=== PATIENT | female | born 1965 | race Caucasian/White ===

== ENCOUNTER 2018-05-02 21:41 | Emergency (ER) | payer MEDICAID ==
[~2018-05-02] VITALS: Ht 180.3 cm; Wt 100.0 kg
[~2018-05-02 21:41] MED LIST: AMOX1TAB61 PO; CALC-666 PO; CARV-39 PO; CARV12.52 PO; CHOL400T2 PO; DOCU-131 PO; FAMO20TA7 PO; HYDR-3341 PO; LANS1COM3 PO; LIDO700A5 TD; METH500T7 PO; ONDA4TAB12 PO; OXYC-302 PO; OXYC10TA47 PO; OXYC5TAB3 PO; PANT40TA3 PO; POLY17PO5 PO; POTA10TA11 PO; PRED20TA PO; SIMV20TA3 PO; SUCR1ORA11 PO; SUCR1ORA5 PO; ZOLP10TA PO
[2018-05-02] MEDS ORDERED: PROC5TAB40 PO (22:05)
[2018-05-02] MEDS ORDERED: SUCR1TAB33 PO (22:05)
[2018-05-02] MEDS ORDERED: AMLO10TA2 PO (22:05)
[2018-05-02] MEDS ORDERED: ONDA4TAB10 PO (22:05)
[2018-05-02] MEDS ORDERED: CLON2TAB9 PO (22:05)
[2018-05-02] MEDS ORDERED: ALPR2TAB2 PO (22:05)
[2018-05-02 22:52] LABS: MICROSCOPIC NOT IND
[2018-05-02 22:53] LABS: CULTURE INDICATED? NO
[2018-05-02] MEDS ORDERED: MORPHINE SULFATE 4 MG/ML, 1ML ONE (23:00)
[2018-05-02 23:06] LABS: AMPHETAMINE SCREEN, URINE Negative (Negative); BARBITURATE SCREEN, URINE Negative (Negative); BENZODIAZEPINE SCREEN, URINE Negative (Negative); CANNABINOID SCREEN, URINE Negative (Negative); COCAINE SCREEN, URINE Negative (Negative); METHADONE SCREEN, URINE Negative (Negative); OPIATE SCREEN, URINE Positive (Negative)
[2018-05-02] MEDS: MORPHINE SULFATE 4 MG/ML, 1ML IVPush PRN (23:09)
[2018-05-02 23:26] LABS: BASOPHILS # (AUTO) 0.07 x10^3/uL (0-0.1); BASOPHILS % (AUTO) 1 % (0-1); EOSINOPHILS # (AUTO) 0.22 x10^3/uL (0-0.4); EOSINOPHILS % (AUTO) 2 % (1-7); LYMPHOCYTES % (AUTO) 27 % (22-44); MD NO; MEAN CORPUSCULAR HEMOGLOBIN 30.2 pg (27.0-34.8); MEAN CORPUSCULAR VOLUME 88.7 fL (80-100); MONOCYTES # (AUTO) 0.27 x10^3/uL (0.2-0.8); MONOCYTES % (AUTO) 3 % (2-9); NEUTROPHILS # (AUTO) 6.27 x10^3/uL (1.8-6.8); NEUTROPHILS % (AUTO) 67 % (42-75); PLATELET COUNT 412 x10^3/uL (130-400); RED BLOOD COUNT 4.72 x10^6/uL (3.82-5.3); RED CELL DISTRIBUTION WIDTH 15.5 % (9.6-15.2)
[2018-05-02 23:33] LABS: ALANINE AMINOTRANSFERASE 13 U/L (12-78); ALBUMIN 3.9 g/dL (3.4-5.0); ANION GAP 9 mmol/L (5-15); CHLORIDE 110 mmol/L (98-107); CREATININE 0.76 mg/dL (0.55-1.02)
[2018-05-02 23:37] LABS: ALKALINE PHOSPHATASE 80 U/L (45-117); BILIRUBIN,TOTAL 0.6 mg/dL (0.2-1.0); TOTAL PROTEIN 7.7 g/dL (6.4-8.2); TROPONIN I < 0.015 ng/mL (0.000-0.045)
[2018-05-03] MEDS ORDERED: OMNIPAQUE 350 MG/ML, 100ML BOTTLE ONE (00:45)
[2018-05-03 01:11] VITALS: BP 144/87
[2018-05-03] MEDS ORDERED: MORPHINE SULFATE 4 MG/ML, 1ML ONE (01:13)
[2018-05-03] MEDS: MORPHINE SULFATE 4 MG/ML, 1ML IVPush PRN (01:21)
== END 2018-05-03 01:46 | disposition home or self-care (01) ==
LOC: ED 23:59
DX: A09 Infectious gastroenteritis and colitis, unspecified (principal); R11.2 Nausea with vomiting, unspecified; I10 Essential (primary) hypertension; E11.9 Type 2 diabetes mellitus without complications; I25.2 Old myocardial infarction; Z79.899 Other long term (current) drug therapy
CPT/HCPCS: 36415; 74177; 80053; 80307; 81003; 83690; 84484; 85025; 86677; 96374; 96376; 99285; Q9967

== ENCOUNTER 2018-05-03 18:57 | Emergency (ER) | payer MEDICAID ==
[~2018-05-03] VITALS: Ht 170.2 cm; Wt 100.0 kg
[~2018-05-03 18:57] MED LIST changes: +ALPR2TAB2 PO; +AMLO10TA2 PO; +CLON2TAB9 PO; +ONDA4TAB10 PO; +PROC5TAB40 PO; +SUCR1TAB33 PO
[2018-05-03 19:22] LABS: BASOPHILS # (AUTO) 0.06 x10^3/uL (0-0.1); BASOPHILS % (AUTO) 1 % (0-1); EOSINOPHILS # (AUTO) 0.22 x10^3/uL (0-0.4); EOSINOPHILS % (AUTO) 2 % (1-7); LYMPHOCYTES # (AUTO) 2.02 x10^3/uL (1-3.4); LYMPHOCYTES % (AUTO) 22 % (22-44); MD NO; MEAN CORPUSCULAR HEMOGLOBIN 29.9 pg (27.0-34.8); MEAN CORPUSCULAR HGB CONC 33.5 g/dL (32.4-35.8); MEAN CORPUSCULAR VOLUME 89.4 fL (80-100); MEAN PLATELET VOLUME 8.2 fL (7.4-10.4); MONOCYTES # (AUTO) 0.29 x10^3/uL (0.2-0.8); MONOCYTES % (AUTO) 3 % (2-9); NEUTROPHILS # (AUTO) 6.83 x10^3/uL (1.8-6.8); NEUTROPHILS % (AUTO) 73 % (42-75); PLATELET COUNT 341 x10^3/uL (130-400); RED BLOOD COUNT 4.51 x10^6/uL (3.82-5.3); RED CELL DISTRIBUTION WIDTH 16.2 % (9.6-15.2)
[2018-05-03 19:29] LABS: ALANINE AMINOTRANSFERASE 12 U/L (12-78); ALBUMIN 3.6 g/dL (3.4-5.0); ANION GAP 6 mmol/L (5-15); CALCIUM 9.3 mg/dL (8.5-10.1); CHLORIDE 110 mmol/L (98-107); CREATININE 0.99 mg/dL (0.55-1.02)
[2018-05-03 19:34] LABS: ALKALINE PHOSPHATASE 73 U/L (45-117); BILIRUBIN,TOTAL 0.6 mg/dL (0.2-1.0); TOTAL PROTEIN 7.1 g/dL (6.4-8.2); TROPONIN I < 0.015 ng/mL (0.000-0.045)
[2018-05-03] MEDS ORDERED: KETOROLAC 30 MG/1 ML ONE (19:42)
[2018-05-03] MEDS ORDERED: ONDANSETRON ODT 4 MG ONE (19:42)
[2018-05-03] MEDS ORDERED: KETOROLAC 30 MG/1 ML IM ONE (20:00)
[2018-05-03] MEDS ORDERED: ONDANSETRON ODT 4 MG PO ONE (20:00)
[2018-05-03] MEDS ORDERED: SODIUM CHLORIDE FLUSH 10ML SYR IVF ONE (20:30)
[2018-05-03] MEDS ORDERED: MORPHINE SULFATE 4 MG/ML, 1ML IVPush STA (20:42)
[2018-05-03 21:06] VITALS: BP 148/98
[2018-05-03] MEDS ORDERED: OMNIPAQUE 350 MG/ML, 100ML BOTTLE ONE (21:26)
[2018-05-03] MEDS ORDERED: LIDODERM 5% PATCH TD ONE (22:30)
== END 2018-05-03 22:36 | disposition home or self-care (01) ==
LOC: ED 21:07
DX: R07.2 Precordial pain (principal); E11.9 Type 2 diabetes mellitus without complications; E78.5 Hyperlipidemia, unspecified; I25.2 Old myocardial infarction; G89.29 Other chronic pain; I10 Essential (primary) hypertension; K51.90 Ulcerative colitis, unspecified, without complications; F17.200 Nicotine dependence, unspecified, uncomplicated; Z86.73 Personal history of transient ischemic attack (TIA), and cerebral infarction without residual deficits; Z88.1 Allergy status to other antibiotic agents; Z88.6 Allergy status to analgesic agent
CPT/HCPCS: 36415; 71045; 71275; 80053; 84484; 85025; 85379; 93005; 96372; 99285; J1885; Q0162; Q9967

== ENCOUNTER 2018-06-29 19:19 | Emergency (ER) | payer MEDICAID ==
[~2018-06-29] VITALS: Ht 180.3 cm; Wt 123.0 kg
[~2018-06-29 19:19] MED LIST changes: -AMLO10TA2 PO; +AMLO10TA6 PO
[2018-06-29 20:49] LABS: BASOPHILS # (AUTO) 0.05 x10^3/uL (0-0.1); BASOPHILS % (AUTO) 1 % (0-1); EOSINOPHILS # (AUTO) 0.15 x10^3/uL (0-0.4); EOSINOPHILS % (AUTO) 2 % (1-7); LYMPHOCYTES # (AUTO) 2.55 x10^3/uL (1-3.4); LYMPHOCYTES % (AUTO) 26 % (22-44); MD NO; MEAN CORPUSCULAR HEMOGLOBIN 31.3 pg (27.0-34.8); MEAN CORPUSCULAR HGB CONC 33.8 g/dL (32.4-35.8); MEAN CORPUSCULAR VOLUME 92.8 fL (80-100); MEAN PLATELET VOLUME 7.3 fL (7.4-10.4); MONOCYTES % (AUTO) 5 % (2-9); NEUTROPHILS # (AUTO) 6.55 x10^3/uL (1.8-6.8); NEUTROPHILS % (AUTO) 67 % (42-75); PLATELET COUNT 352 x10^3/uL (130-400); RED BLOOD COUNT 4.41 x10^6/uL (3.82-5.3); RED CELL DISTRIBUTION WIDTH 14.1 % (9.6-15.2)
[2018-06-29 20:59] LABS: ALANINE AMINOTRANSFERASE 11 U/L (12-78); ALBUMIN 3.6 g/dL (3.4-5.0); ANION GAP 12 mmol/L (5-15); CALCIUM 9.6 mg/dL (8.5-10.1); CHLORIDE 115 mmol/L (98-107); CREATININE 0.84 mg/dL (0.55-1.02)
[2018-06-29] MEDS ORDERED: LORazepam 1MG TABLET PO ONE (21:00)
[2018-06-29 21:04] LABS: ALKALINE PHOSPHATASE 75 U/L (45-117); BILIRUBIN,TOTAL 0.4 mg/dL (0.2-1.0); TOTAL PROTEIN 7.8 g/dL (6.4-8.2); TROPONIN I < 0.015 ng/mL (0.000-0.045)
[2018-06-29] MEDS ORDERED: LORazepam 1MG TABLET ONE (21:04)
[2018-06-29 21:07] VITALS: BP_DIAS 97
[2018-06-29 21:14] LABS: CULTURE INDICATED? YES; MICROSCOPIC INDICATED
== END 2018-06-29 22:16 | disposition other institution (70) ==
LOC: ED 22:05
DX: R07.89 Other chest pain (principal); N30.00 Acute cystitis without hematuria; E78.5 Hyperlipidemia, unspecified; I10 Essential (primary) hypertension; E11.9 Type 2 diabetes mellitus without complications; I25.2 Old myocardial infarction; Z86.73 Personal history of transient ischemic attack (TIA), and cerebral infarction without residual deficits; W01.0XXA Fall on same level from slipping, tripping and stumbling without subsequent striking against object, initial encounter; Y93.89 Activity, other specified; Y99.8 Other external cause status; Y92.009 Unspecified place in unspecified non-institutional (private) residence as the place of occurrence of the external cause
CPT/HCPCS: 36415; 71046; 80053; 81001; 83690; 84484; 85025; 87077; 87086; 93005; 99285

== ENCOUNTER 2018-07-04 16:26 | Emergency (ER) | payer MEDICAID ==
[~2018-07-04] VITALS: Ht 180.3 cm; Wt 100.0 kg
[2018-07-04] MEDS ORDERED: LORazepam 2 MG/ML, 1ML IVPush ONE (17:00)
[2018-07-04] MEDS ORDERED: MORPHINE SULFATE 4 MG/ML, 1ML IVPush PRN (17:00)
[2018-07-04] MEDS ORDERED: FAMOTIDINE 20 MG/2 ML IVP ONE (17:00)
[2018-07-04] MEDS ORDERED: SODIUM CHLORIDE FLUSH 10ML SYR IVF ONE (17:00)
[2018-07-04] MEDS ORDERED: SODIUM CHLORIDE 0.9% 1,000ML IVBOLUS ONE (17:00)
[2018-07-04] MEDS ORDERED: ONDANSETRON ODT 4 MG PO ONE (17:00)
[2018-07-04 17:23] LABS: BASOPHILS # (AUTO) 0.04 x10^3/uL (0-0.1); BASOPHILS % (AUTO) 1 % (0-1); EOSINOPHILS # (AUTO) 0.16 x10^3/uL (0-0.4); EOSINOPHILS % (AUTO) 2 % (1-7); LYMPHOCYTES # (AUTO) 1.83 x10^3/uL (1-3.4); LYMPHOCYTES % (AUTO) 22 % (22-44); MD NO; MEAN CORPUSCULAR HEMOGLOBIN 31.3 pg (27.0-34.8); MEAN CORPUSCULAR HGB CONC 33.6 g/dL (32.4-35.8); MEAN CORPUSCULAR VOLUME 93.2 fL (80-100); MONOCYTES # (AUTO) 0.53 x10^3/uL (0.2-0.8); MONOCYTES % (AUTO) 6 % (2-9); NEUTROPHILS # (AUTO) 5.66 x10^3/uL (1.8-6.8); NEUTROPHILS % (AUTO) 69 % (42-75); PLATELET COUNT 419 x10^3/uL (130-400); RED BLOOD COUNT 4.14 x10^6/uL (3.82-5.3); RED CELL DISTRIBUTION WIDTH 14.4 % (9.6-15.2)
[2018-07-04] MEDS ORDERED: MORPHINE SULFATE 4 MG/ML, 1ML ONE (17:26)
[2018-07-04] MEDS ORDERED: ONDANSETRON ODT 4 MG ONE (17:26)
[2018-07-04] MEDS ORDERED: LORazepam 2 MG/ML, 1ML ONE (17:26)
[2018-07-04] MEDS ORDERED: FAMOTIDINE 20 MG/2 ML ONE (17:27)
[2018-07-04 17:31] LABS: ALANINE AMINOTRANSFERASE 11 U/L (12-78); ALBUMIN 3.4 g/dL (3.4-5.0); ANION GAP 12 mmol/L (5-15); CALCIUM 8.9 mg/dL (8.5-10.1); CHLORIDE 110 mmol/L (98-107); CREATININE 0.88 mg/dL (0.55-1.02)
[2018-07-04 17:33] LABS: ALKALINE PHOSPHATASE 72 U/L (45-117); BILIRUBIN,TOTAL 0.4 mg/dL (0.2-1.0); TOTAL PROTEIN 7.6 g/dL (6.4-8.2)
[2018-07-04 19:12] LABS: CULTURE INDICATED? NO; MICROSCOPIC NOT IND
[2018-07-04 20:46] VITALS: BP 125/79
== END 2018-07-04 20:49 | disposition home or self-care (01) ==
LOC: ED 16:58
DX: S39.012A Strain of muscle, fascia and tendon of lower back, initial encounter (principal); K29.00 Acute gastritis without bleeding; I10 Essential (primary) hypertension; E11.9 Type 2 diabetes mellitus without complications; I25.2 Old myocardial infarction; E78.5 Hyperlipidemia, unspecified; Z88.5 Allergy status to narcotic agent; Z88.1 Allergy status to other antibiotic agents; Z86.73 Personal history of transient ischemic attack (TIA), and cerebral infarction without residual deficits; X58.XXXA Exposure to other specified factors, initial encounter; Y93.89 Activity, other specified; Y99.8 Other external cause status; Y92.89 Other specified places as the place of occurrence of the external cause
CPT/HCPCS: 36415; 76700; 80053; 81003; 83605; 83690; 85025; 93005; 96361; 96374; 96375; 99285; J2060; J7030; Q0162; S0028

== ENCOUNTER 2018-07-06 01:33 | Emergency (ER) | payer MEDICAID ==
[~2018-07-06] VITALS: Ht 180.3 cm; Wt 100.0 kg
[2018-07-06] MEDS ORDERED: ACETAMINOPHEN 500 MG TABLET ONE (02:20)
[2018-07-06] MEDS ORDERED: ONDANSETRON 2MG/ML, 2ML ONE (02:20)
[2018-07-06] MEDS ORDERED: FAMOTIDINE 20 MG/2 ML ONE (02:21)
[2018-07-06] MEDS ORDERED: FAMOTIDINE 20 MG/2 ML IVP ONE (02:30)
[2018-07-06] MEDS ORDERED: ACETAMINOPHEN 500 MG TABLET PO ONE (02:30)
[2018-07-06] MEDS ORDERED: ONDANSETRON 2MG/ML, 2ML IVPush ONE (02:30)
[2018-07-06 02:41] LABS: BASOPHILS # (AUTO) 0.06 x10^3/uL (0-0.1); BASOPHILS % (AUTO) 1 % (0-1); EOSINOPHILS # (AUTO) 0.23 x10^3/uL (0-0.4); EOSINOPHILS % (AUTO) 3 % (1-7); LYMPHOCYTES # (AUTO) 2.33 x10^3/uL (1-3.4); LYMPHOCYTES % (AUTO) 27 % (22-44); MD NO; MEAN CORPUSCULAR HEMOGLOBIN 31.1 pg (27.0-34.8); MEAN CORPUSCULAR HGB CONC 33.3 g/dL (32.4-35.8); MEAN CORPUSCULAR VOLUME 93.3 fL (80-100); MEAN PLATELET VOLUME 6.9 fL (7.4-10.4); MONOCYTES # (AUTO) 0.53 x10^3/uL (0.2-0.8); MONOCYTES % (AUTO) 6 % (2-9); NEUTROPHILS # (AUTO) 5.37 x10^3/uL (1.8-6.8); NEUTROPHILS % (AUTO) 63 % (42-75); PLATELET COUNT 341 x10^3/uL (130-400); RED BLOOD COUNT 3.75 x10^6/uL (3.82-5.3); RED CELL DISTRIBUTION WIDTH 14.5 % (9.6-15.2)
[2018-07-06 02:50] LABS: ALANINE AMINOTRANSFERASE 13 U/L (12-78); ALBUMIN 2.9 g/dL (3.4-5.0); ANION GAP 9 mmol/L (5-15); CHLORIDE 109 mmol/L (98-107); CREATININE 0.99 mg/dL (0.55-1.02)
[2018-07-06 02:52] LABS: ALKALINE PHOSPHATASE 67 U/L (45-117); BILIRUBIN,TOTAL 0.3 mg/dL (0.2-1.0); TOTAL PROTEIN 6.8 g/dL (6.4-8.2)
[2018-07-06 04:01] VITALS: BP 107/65
[2018-07-06] MEDS ORDERED: MORPHINE SULFATE 4 MG/ML, 1ML ONE (04:08)
[2018-07-06] MEDS ORDERED: morphine SULFATE 10 MG/ML, 1ML IVPush ONE (04:30)
[2018-07-06 04:57] LABS: CULTURE INDICATED? NO; MICROSCOPIC NOT IND
[2018-07-06] MEDS ORDERED: OMNIPAQUE 350 MG/ML, 100ML BOTTLE ONE (06:34)
== END 2018-07-06 05:23 | disposition home or self-care (01) ==
LOC: ED 03:09
DX: R10.11 Right upper quadrant pain (principal); R10.12 Left upper quadrant pain; F17.200 Nicotine dependence, unspecified, uncomplicated; E78.5 Hyperlipidemia, unspecified; I10 Essential (primary) hypertension; E11.9 Type 2 diabetes mellitus without complications; I25.2 Old myocardial infarction; Z86.73 Personal history of transient ischemic attack (TIA), and cerebral infarction without residual deficits
CPT/HCPCS: 36415; 74177; 80053; 81003; 83690; 85025; 93005; 96374; 96375; 99285; J2270; J2405; Q9967; S0028

== ENCOUNTER 2018-07-19 01:19 | Emergency (ER) | payer MEDICAID ==
[~2018-07-19] VITALS: Ht 180.3 cm; Wt 96.0 kg
[2018-07-19 02:05] LABS: BASOPHILS # (AUTO) 0.04 x10^3/uL (0-0.1); BASOPHILS % (AUTO) 1 % (0-1); EOSINOPHILS # (AUTO) 0.14 x10^3/uL (0-0.4); EOSINOPHILS % (AUTO) 2 % (1-7); LYMPHOCYTES # (AUTO) 2.22 x10^3/uL (1-3.4); LYMPHOCYTES % (AUTO) 33 % (22-44); MD NO; MEAN CORPUSCULAR HEMOGLOBIN 31.9 pg (27.0-34.8); MEAN CORPUSCULAR HGB CONC 33.6 g/dL (32.4-35.8); MEAN PLATELET VOLUME 6.9 fL (7.4-10.4); MONOCYTES # (AUTO) 0.42 x10^3/uL (0.2-0.8); MONOCYTES % (AUTO) 6 % (2-9); NEUTROPHILS # (AUTO) 3.99 x10^3/uL (1.8-6.8); NEUTROPHILS % (AUTO) 59 % (42-75); PLATELET COUNT 349 x10^3/uL (130-400); RED BLOOD COUNT 3.86 x10^6/uL (3.82-5.3); RED CELL DISTRIBUTION WIDTH 15.2 % (9.6-15.2)
[2018-07-19 02:14] LABS: INTERNATIONAL NORMALIZED RATIO 0.94 (0.93-1.1); PROTHROMBIN TIME 9.7 Seconds (9.6-11.5)
[2018-07-19 02:16] VITALS: BP 116/67
[2018-07-19 02:16] LABS: ALANINE AMINOTRANSFERASE 11 U/L (12-78); ALBUMIN 2.8 g/dL (3.4-5.0); ANION GAP 12 mmol/L (5-15); CALCIUM 8.7 mg/dL (8.5-10.1); CHLORIDE 115 mmol/L (98-107); CREATININE 0.69 mg/dL (0.55-1.02)
[2018-07-19 02:20] LABS: ALKALINE PHOSPHATASE 79 U/L (45-117); BILIRUBIN,TOTAL 0.1 mg/dL (0.2-1.0); TOTAL PROTEIN 6.4 g/dL (6.4-8.2); TROPONIN I < 0.015 ng/mL (0.000-0.045)
== END 2018-07-19 03:12 | disposition home or self-care (01) ==
LOC: ED 01:32
DX: R07.89 Other chest pain (principal); R10.32 Left lower quadrant pain; E11.9 Type 2 diabetes mellitus without complications; I25.2 Old myocardial infarction; E78.5 Hyperlipidemia, unspecified; Z87.39 Personal history of other diseases of the musculoskeletal system and connective tissue; Z90.710 Acquired absence of both cervix and uterus; Z98.890 Other specified postprocedural states; Z86.73 Personal history of transient ischemic attack (TIA), and cerebral infarction without residual deficits; Z87.442 Personal history of urinary calculi
CPT/HCPCS: 36415; 71045; 80053; 83880; 84484; 85025; 85610; 93005; 99285

== ENCOUNTER 2018-07-19 10:02 | Emergency (ER) | payer MEDICAID ==
[~2018-07-19] VITALS: Ht 175.3 cm; Wt 118.2 kg
[2018-07-19] MEDS ORDERED: SODIUM CHLORIDE FLUSH 10ML SYR IVF ONE (11:00)
[2018-07-19 11:58] LABS: BASOPHILS # (AUTO) 0.05 x10^3/uL (0-0.1); BASOPHILS % (AUTO) 1 % (0-1); EOSINOPHILS # (AUTO) 0.19 x10^3/uL (0-0.4); EOSINOPHILS % (AUTO) 3 % (1-7); LYMPHOCYTES # (AUTO) 1.79 x10^3/uL (1-3.4); LYMPHOCYTES % (AUTO) 31 % (22-44); MD NO; MEAN CORPUSCULAR HEMOGLOBIN 31.2 pg (27.0-34.8); MEAN CORPUSCULAR HGB CONC 32.8 g/dL (32.4-35.8); MEAN PLATELET VOLUME 7.1 fL (7.4-10.4); MONOCYTES # (AUTO) 0.29 x10^3/uL (0.2-0.8); MONOCYTES % (AUTO) 5 % (2-9); NEUTROPHILS # (AUTO) 3.55 x10^3/uL (1.8-6.8); NEUTROPHILS % (AUTO) 61 % (42-75); PLATELET COUNT 319 x10^3/uL (130-400); RED BLOOD COUNT 3.83 x10^6/uL (3.82-5.3); RED CELL DISTRIBUTION WIDTH 15.8 % (9.6-15.2)
[2018-07-19 12:00] LABS: ALANINE AMINOTRANSFERASE 12 U/L (12-78); ALBUMIN 2.7 g/dL (3.4-5.0); ANION GAP 10 mmol/L (5-15); CALCIUM 8.5 mg/dL (8.5-10.1); CHLORIDE 116 mmol/L (98-107); CREATININE 0.67 mg/dL (0.55-1.02)
[2018-07-19 12:01] LABS: ALKALINE PHOSPHATASE 73 U/L (45-117); BILIRUBIN,TOTAL 0.1 mg/dL (0.2-1.0); TOTAL PROTEIN 6.2 g/dL (6.4-8.2)
[2018-07-19] MEDS ORDERED: OMNIPAQUE 350 MG/ML, 100ML BOTTLE ONE (12:07)
[2018-07-19 12:48] LABS: CULTURE INDICATED? NO; MICROSCOPIC NOT IND
[2018-07-19] MEDS ORDERED: ONDANSETRON ODT 4 MG ONE (16:15)
[2018-07-19 16:22] VITALS: BP 114/51
[2018-07-19] MEDS ORDERED: ONDANSETRON ODT 4 MG PO ONE (16:30)
== END 2018-07-19 16:43 | disposition home or self-care (01) ==
LOC: ED 13:49
DX: R10.84 Generalized abdominal pain (principal); R07.9 Chest pain, unspecified; F17.200 Nicotine dependence, unspecified, uncomplicated; I10 Essential (primary) hypertension; E11.9 Type 2 diabetes mellitus without complications
CPT/HCPCS: 36415; 74174; 80053; 81003; 83605; 83690; 85025; 93005; 99285; Q0162; Q9967

== ENCOUNTER 2018-07-27 16:17 | Emergency (ER) | payer MEDICAID ==
[~2018-07-27] VITALS: Ht 167.6 cm; Wt 90.0 kg
[2018-07-27] MEDS ORDERED: MAALOX/HYOSCYAMINE/LIDOCAINE 45 ML BTL PO ONE (17:00)
[2018-07-27] MEDS ORDERED: LORazepam 2 MG/ML, 1ML IVPush ONE (17:00)
[2018-07-27] MEDS ORDERED: SODIUM CHLORIDE 0.9% 1,000ML IVBOLUS ONE ×2 (17:00→18:00)
[2018-07-27] MEDS ORDERED: KETOROLAC 30 MG/1 ML IVPush ONE (17:00)
[2018-07-27] MEDS ORDERED: SODIUM CHLORIDE FLUSH 10ML SYR IVF ONE (17:00)
[2018-07-27] MEDS ORDERED: FAMOTIDINE 20 MG/2 ML IVP ONE (17:00)
[2018-07-27] MEDS ORDERED: METOCLOPRAMIDE 5 MG/ML, 2ML IVPush ONE (17:00)
[2018-07-27] MEDS ORDERED: FAMOTIDINE 20 MG/2 ML ONE (17:16)
[2018-07-27] MEDS ORDERED: MAALOX/HYOSCYAMINE/LIDOCAINE 45 ML BTL ONE (17:16)
[2018-07-27] MEDS ORDERED: METOCLOPRAMIDE 5 MG/ML, 2ML ONE (17:16)
[2018-07-27] MEDS ORDERED: KETOROLAC 30 MG/1 ML ONE (17:16)
[2018-07-27] MEDS ORDERED: LORazepam 2 MG/ML, 1ML ONE (17:16)
[2018-07-27 17:24] LABS: BASOPHILS # (AUTO) 0.06 x10^3/uL (0-0.1); BASOPHILS % (AUTO) 1 % (0-1); EOSINOPHILS # (AUTO) 0.09 x10^3/uL (0-0.4); EOSINOPHILS % (AUTO) 1 % (1-7); LYMPHOCYTES # (AUTO) 2.12 x10^3/uL (1-3.4); LYMPHOCYTES % (AUTO) 25 % (22-44); MD NO; MEAN CORPUSCULAR HEMOGLOBIN 31.6 pg (27.0-34.8); MEAN CORPUSCULAR VOLUME 95.9 fL (80-100); MEAN PLATELET VOLUME 6.8 fL (7.4-10.4); MONOCYTES # (AUTO) 0.48 x10^3/uL (0.2-0.8); MONOCYTES % (AUTO) 6 % (2-9); NEUTROPHILS % (AUTO) 68 % (42-75); PLATELET COUNT 348 x10^3/uL (130-400); RED BLOOD COUNT 4.26 x10^6/uL (3.82-5.3); RED CELL DISTRIBUTION WIDTH 15.8 % (9.6-15.2)
[2018-07-27 17:33] LABS: ALANINE AMINOTRANSFERASE 13 U/L (12-78); ALBUMIN 3.1 g/dL (3.4-5.0); ANION GAP 13 mmol/L (5-15); CALCIUM 9.1 mg/dL (8.5-10.1); CHLORIDE 115 mmol/L (98-107); CREATININE 0.93 mg/dL (0.55-1.02)
[2018-07-27 17:38] LABS: ALKALINE PHOSPHATASE 83 U/L (45-117); BILIRUBIN,TOTAL 0.2 mg/dL (0.2-1.0); TOTAL PROTEIN 6.9 g/dL (6.4-8.2); TROPONIN I < 0.015 ng/mL (0.000-0.045)
[2018-07-27] MEDS ORDERED: SODIUM CHLORIDE 0.9% 1,000 ML IV ONE (18:00)
[2018-07-27] MEDS ORDERED: ONDANSETRON ODT 4 MG ONE (19:00)
[2018-07-27] MEDS ORDERED: ONDANSETRON ODT 4 MG PO ONE (19:30)
[2018-07-27] MEDS ORDERED: PLEASE ENTER HEIGHT AND WEIGHT MC SCH (19:30)
[2018-07-27 20:22] VITALS: BP 107/65
== END 2018-07-27 20:24 | disposition home or self-care (01) ==
LOC: ED 18:12
DX: R07.89 Other chest pain (principal); R11.2 Nausea with vomiting, unspecified; E86.0 Dehydration; E86.9 Volume depletion, unspecified; E78.5 Hyperlipidemia, unspecified; I10 Essential (primary) hypertension; I25.2 Old myocardial infarction; F17.200 Nicotine dependence, unspecified, uncomplicated; Z86.73 Personal history of transient ischemic attack (TIA), and cerebral infarction without residual deficits
CPT/HCPCS: 36415; 74022; 80053; 83690; 84484; 85025; 93005; 96361; 96374; 96375; 99285; J1885; J2060; J2765; J3490; J7030; Q0162

== ENCOUNTER 2018-08-13 16:33 | Emergency (ER) | payer MEDICAID ==
[~2018-08-13] VITALS: Ht 180.3 cm; Wt 101.0 kg
[2018-08-13 17:20] LABS: BASOPHILS # (AUTO) 0.03 x10^3/uL (0-0.1); BASOPHILS % (AUTO) 1 % (0-1); EOSINOPHILS # (AUTO) 0.11 x10^3/uL (0-0.4); EOSINOPHILS % (AUTO) 2 % (1-7); LYMPHOCYTES # (AUTO) 2.08 x10^3/uL (1-3.4); LYMPHOCYTES % (AUTO) 37 % (22-44); MD NO; MEAN CORPUSCULAR HEMOGLOBIN 31.9 pg (27.0-34.8); MEAN CORPUSCULAR VOLUME 96.6 fL (80-100); MEAN PLATELET VOLUME 6.8 fL (7.4-10.4); MONOCYTES # (AUTO) 0.28 x10^3/uL (0.2-0.8); MONOCYTES % (AUTO) 5 % (2-9); NEUTROPHILS # (AUTO) 3.16 x10^3/uL (1.8-6.8); NEUTROPHILS % (AUTO) 56 % (42-75); PLATELET COUNT 299 x10^3/uL (130-400); RED BLOOD COUNT 4.04 x10^6/uL (3.82-5.3); RED CELL DISTRIBUTION WIDTH 15.9 % (9.6-15.2)
[2018-08-13 17:29] LABS: ALBUMIN 2.9 g/dL (3.4-5.0); ANION GAP 10 mmol/L (5-15); CALCIUM 9.2 mg/dL (8.5-10.1); CHLORIDE 118 mmol/L (98-107)
[2018-08-13] MEDS ORDERED: ACETAMINOPHEN 325 MG TABLET PO ONE (17:30)
[2018-08-13] MEDS ORDERED: ACETAMINOPHEN 325 MG TABLET ONE (17:30)
[2018-08-13 17:33] LABS: ALANINE AMINOTRANSFERASE 16 U/L (12-78); ALKALINE PHOSPHATASE 71 U/L (45-117); BILIRUBIN,TOTAL 0.2 mg/dL (0.2-1.0); CREATININE 0.56 mg/dL (0.55-1.02); TOTAL PROTEIN 6.8 g/dL (6.4-8.2); TROPONIN I < 0.015 ng/mL (0.000-0.045)
[2018-08-13] MEDS ORDERED: ONDANSETRON ODT 4 MG ONE (19:30)
[2018-08-13] MEDS ORDERED: ONDANSETRON ODT 4 MG PO ONE (20:00)
[2018-08-13 20:04] VITALS: BP 131/78
== END 2018-08-13 20:09 | disposition home or self-care (01) ==
LOC: ED 16:46
DX: R60.0 Localized edema (principal); I25.2 Old myocardial infarction; I10 Essential (primary) hypertension; E11.9 Type 2 diabetes mellitus without complications; E78.5 Hyperlipidemia, unspecified; Z86.73 Personal history of transient ischemic attack (TIA), and cerebral infarction without residual deficits
CPT/HCPCS: 36415; 71045; 80053; 83880; 84484; 85025; 93005; 93970; 99284; Q0162

== ENCOUNTER 2018-09-08 09:35 | Inpatient (IN) | payer MEDICAID ==
[~2018-09-08] VITALS: Ht 180.3 cm; Wt 109.8 kg
--- NOTE | 2018-09-08 09:37 | NUR ---
BIB EMS FROM HOME. PT RPTS SHE WAS IN THE KITCHEN THIS MORNING 0300, FELT WEAK AND DIZZY WITH A RINGING IN HER EARS. THE NEXT THING SHE REMEMBERS IS WAKING UP ON THE FLOOR. PT STATES SHE WAS UNABLE TO GET UP OFF OF THE FLOOR AND HAD TO "INCH" HER WAY OVER TO THE PHONE. MONITORS PLACED AND EKG COMPLETED. VSS. DR. GARSIA AT BEDSIDE.
[2018-09-08] MEDS ORDERED: SODIUM CHLORIDE FLUSH 10ML SYR IVF ONE (10:00)
[2018-09-08] MEDS ORDERED: ALEN5TAB2 PO (10:15)
--- NOTE | 2018-09-08 10:19 | NUR ---
BEDSIDE REPORT FROM THALIA BOND. ASSUMED CARE OF PATIENT AT THIS TIME. ORTHOSTATIC VS COMPLETED, PATIENT UP TO BEDSIDE COMMODE, UA COLLECTED AND SENT TO LAB. AWAITING RESULTS. Addendum: 09/08/18 at 1039 by RAHUL PATIENT TO BEDSIDE COMMODE WITH 1 ASSIST.
--- NOTE | 2018-09-08 10:34 | NUR ---
LAB AT BEDSIDE FOR BLOOD DRAW.
[2018-09-08 10:53] LABS: MICROSCOPIC AUTO
[2018-09-08 10:55] LABS: CULTURE INDICATED? YES
[2018-09-08 11:00] LABS: BASOPHILS # (AUTO) 0.04 x10^3/uL (0-0.1); BASOPHILS % (AUTO) 0 % (0-1); EOSINOPHILS # (AUTO) 0.41 x10^3/uL (0-0.4); EOSINOPHILS % (AUTO) 3 % (1-7); LYMPHOCYTES # (AUTO) 2.07 x10^3/uL (1-3.4); LYMPHOCYTES % (AUTO) 17 % (22-44); MD NO; MEAN CORPUSCULAR HEMOGLOBIN 31.4 pg (27.0-34.8); MEAN CORPUSCULAR HGB CONC 33.3 g/dL (32.4-35.8); MEAN CORPUSCULAR VOLUME 94.4 fL (80-100); MEAN PLATELET VOLUME 6.4 fL (7.4-10.4); MONOCYTES # (AUTO) 0.54 x10^3/uL (0.2-0.8); MONOCYTES % (AUTO) 5 % (2-9); NEUTROPHILS # (AUTO) 9.13 x10^3/uL (1.8-6.8); NEUTROPHILS % (AUTO) 75 % (42-75); PLATELET COUNT 439 x10^3/uL (130-400); RED BLOOD COUNT 3.61 x10^6/uL (3.82-5.3); RED CELL DISTRIBUTION WIDTH 15.9 % (9.6-15.2)
[2018-09-08 11:12] LABS: ALANINE AMINOTRANSFERASE 16 U/L (12-78); ALBUMIN 2.4 g/dL (3.4-5.0); ANION GAP 10 mmol/L (5-15); CALCIUM 8.4 mg/dL (8.5-10.1); CHLORIDE 114 mmol/L (98-107); CREATININE 0.61 mg/dL (0.55-1.02)
[2018-09-08 11:16] LABS: ALKALINE PHOSPHATASE 95 U/L (45-117); BILIRUBIN,TOTAL 0.3 mg/dL (0.2-1.0); TROPONIN I < 0.015 ng/mL (0.000-0.045)
--- NOTE | 2018-09-08 11:22 | NUR ---
RESULTS BACK, CHART UP FOR RECHECK.
[2018-09-08] MEDS ORDERED: AZITHROMYCIN 500 MG in SODIUM CHLORIDE 0.9% 250 ML IV ONE (12:00)
[2018-09-08] MEDS ORDERED: CEFTRIAXONE PMX 1GM/50ML 50 ML IV ONE (12:00)
[2018-09-08] MEDS ORDERED: CEFTRIAXONE PMX 1GM/50ML 50 ML ONE (12:00)
--- NOTE | 2018-09-08 12:28 | NUR ---
REPORT TO THALIA TERRAZAS.
--- NOTE | 2018-09-08 12:34 | NUR ---
[facility] AT BEDSIDE.
--- NOTE | 2018-09-08 12:34 | NUR ---
[facility] AT BEDSIDE.
[2018-09-08] MEDS ORDERED: NS + 20MEQ KCL 1,000 ML IV SCH (12:39)
--- NOTE | 2018-09-08 12:52 | NUR ---
PATIENT TRANSFERRED/ADMITTED TO HOSPITAL BED UPSTAIRS.
[2018-09-08 12:58] VITALS: BP 133/74
[2018-09-08] MEDS: OxyconTIN ER 10 MG TAB.ER PO SCH (13:00)
[2018-09-08] MEDS ORDERED: DOCUSATE 100 MG CAPSULE PO PRN (13:00)
[2018-09-08] MEDS ORDERED: MAGNESIUM SULFATE PMX 2GM/50ML 50 ML IV ONE (13:00)
--- NOTE | 2018-09-08 13:12 | NUR ---
SPOKE TO ERP REGARDING NEED FOR BLOOD CULTURES, PATIENT ALREADY UPSTAIRS, BLOOD CULTURES ORDERED BY ERP, PRIMARY RN UPSTAIRS NOTIFIED TO STOP ABX AND WAIT FOR BLOOD CULTURES TO BE DRAWN. PATIENT DID NOT MEET SEPSIS CRITERIA PRIOR TO BEING ADMITTED ACCORDING TO PINK SHEET.
[2018-09-08] MEDS ORDERED: OxyconTIN ER 20 MG TAB.ER ONE (13:58)
[2018-09-08 14:00] VITALS: BP 125/78
[2018-09-08] MEDS: ENOXAPARIN 40 MG/0.4 ML SQ SCH (14:05)
[2018-09-08] MEDS: ONDANSETRON 2MG/ML, 2ML IVPush PRN ×2 (14:05→22:21)
[2018-09-08] MEDS: LIDODERM 5% PATCH TD SCH (14:05)
[2018-09-08] MEDS: SENNA/DOCUSATE TABLET PO SCH (14:06)
[2018-09-08] MEDS: AMLODIPINE 10 MG TAB PO SCH (14:06)
[2018-09-08] MEDS: INSULIN LISPRO 100 UNITS/ML, PEN SQ-INSULIN SCH ×2 (16:00→21:57)
[2018-09-08] MEDS ORDERED: SODIUM CHLORIDE 0.9% 1,000ML IVBOLUS ONE (17:00)
[2018-09-08 20:00] VITALS: BP 99/65
[2018-09-08] MEDS: CEFTRIAXONE PMX 1GM/50ML 50 ML IV SCH (20:13)
[2018-09-08] MEDS: FAMOTIDINE 20 MG TABLET PO SCH (21:57)
[2018-09-08] MEDS: AZITHROMYCIN 500 MG in SODIUM CHLORIDE 0.9% 250 ML IV SCH (21:57)
[2018-09-08] MEDS: ZOLPIDEM 10MG TABLET PO SCH (21:57)
[2018-09-08] MEDS: SIMVASTATIN 20 MG TABLET PO SCH (21:57)
[2018-09-08] MEDS: ACETAMINOPHEN 325 MG TABLET PO PRN (22:21)
[2018-09-09] MEDS: OxyconTIN ER 10 MG TAB.ER PO SCH ×3 (01:36→21:00)
[2018-09-09 02:00] VITALS: BP 106/70
[2018-09-09 03:29] VITALS: BP 115/73
[2018-09-09] MEDS: GUAIFENESIN/DM 200-20MG, 10ML UDC PO PRN ×3 (03:54→17:31)
[2018-09-09 05:45] LABS: BASOPHILS # (AUTO) 0.05 x10^3/uL (0-0.1); BASOPHILS % (AUTO) 1 % (0-1); EOSINOPHILS # (AUTO) 0.24 x10^3/uL (0-0.4); EOSINOPHILS % (AUTO) 3 % (1-7); LYMPHOCYTES # (AUTO) 1.54 x10^3/uL (1-3.4); LYMPHOCYTES % (AUTO) 20 % (22-44); MD NO; MEAN CORPUSCULAR HGB CONC 33.9 g/dL (32.4-35.8); MEAN CORPUSCULAR VOLUME 94.3 fL (80-100); MEAN PLATELET VOLUME 6.3 fL (7.4-10.4); MONOCYTES # (AUTO) 0.53 x10^3/uL (0.2-0.8); MONOCYTES % (AUTO) 7 % (2-9); NEUTROPHILS # (AUTO) 5.19 x10^3/uL (1.8-6.8); NEUTROPHILS % (AUTO) 69 % (42-75); PLATELET COUNT 387 x10^3/uL (130-400); RED BLOOD COUNT 3.16 x10^6/uL (3.82-5.3); RED CELL DISTRIBUTION WIDTH 15.7 % (9.6-15.2)
[2018-09-09 05:53] LABS: ANION GAP 10 mmol/L (5-15); CALCIUM 8.4 mg/dL (8.5-10.1); CHLORIDE 112 mmol/L (98-107); CREATININE 0.65 mg/dL (0.55-1.02)
[2018-09-09 06:37] VITALS: BP 110/71
[2018-09-09] MEDS: INSULIN LISPRO 100 UNITS/ML, PEN SQ-INSULIN SCH ×3 (07:00→16:00)
[2018-09-09] MEDS: AMLODIPINE 10 MG TAB PO SCH (08:23)
[2018-09-09] MEDS: FAMOTIDINE 20 MG TABLET PO SCH ×2 (08:24→21:00)
[2018-09-09] MEDS: ALENDRONATE 10 MG TABLET PO SCH (08:24)
[2018-09-09] MEDS: SENNA/DOCUSATE TABLET PO SCH (08:24)
[2018-09-09] MEDS ORDERED: PROP40TA PO (09:57)
[2018-09-09] MEDS: ONDANSETRON 2MG/ML, 2ML IVPush PRN (10:58)
[2018-09-09] MEDS: MAGNESIUM HYDROXIDE 8%, 30ML UDC PO PRN (10:58)
[2018-09-09] MEDS: ACETAMINOPHEN 325 MG TABLET PO PRN ×2 (11:04→19:37)
[2018-09-09 12:44] VITALS: BP 98/62
[2018-09-09] MEDS: LIDODERM 5% PATCH TD SCH (12:53)
[2018-09-09] MEDS: ENOXAPARIN 40 MG/0.4 ML SQ SCH (12:53)
[2018-09-09] MEDS ORDERED: MAGNESIUM SULFATE PMX 2GM/50ML 50 ML IV ONE (13:00)
[2018-09-09] MEDS: POTASSIUM CHLORIDE 20 MEQ TAB.ER.PRT PO SCH (16:26)
[2018-09-09 19:30] VITALS: BP 112/72
[2018-09-09] MEDS ORDERED: MAALOX/HYOSCYAMINE/LIDOCAINE 45 ML BTL PO ONE (20:30)
[2018-09-09] MEDS: SIMVASTATIN 20 MG TABLET PO SCH (21:00)
[2018-09-09] MEDS: ZOLPIDEM 10MG TABLET PO SCH (21:00)
[2018-09-09] MEDS: CEFTRIAXONE PMX 1GM/50ML 50 ML IV SCH (22:18)
[2018-09-09] MEDS: AZITHROMYCIN 500 MG in SODIUM CHLORIDE 0.9% 250 ML IV SCH (22:57)
[2018-09-10 01:26] VITALS: BP 110/76
[2018-09-10] MEDS: GUAIFENESIN/DM 200-20MG, 10ML UDC PO PRN ×4 (02:48→21:22)
[2018-09-10 05:04] VITALS: BP 106/72
[2018-09-10 05:05] LABS: ANION GAP 7 mmol/L (5-15); CALCIUM 8.4 mg/dL (8.5-10.1); CHLORIDE 108 mmol/L (98-107); CREATININE 0.51 mg/dL (0.55-1.02)
[2018-09-10] MEDS: OxyconTIN ER 10 MG TAB.ER PO SCH ×3 (05:05→21:23)
[2018-09-10] MEDS: PROPRANOLOL 40 MG TABLET PO SCH (05:05)
[2018-09-10] MEDS: ONDANSETRON 2MG/ML, 2ML IVPush PRN ×3 (06:08→19:40)
[2018-09-10 07:47] VITALS: BP 101/63
[2018-09-10] MEDS: ALENDRONATE 10 MG TABLET PO SCH (09:39)
[2018-09-10] MEDS: POTASSIUM CHLORIDE 20 MEQ TAB.ER.PRT PO SCH (09:39)
[2018-09-10] MEDS: SENNA/DOCUSATE TABLET PO SCH (09:39)
[2018-09-10] MEDS: ACETAMINOPHEN 325 MG TABLET PO PRN (09:39)
[2018-09-10] MEDS: POLYETHYLENE GLYCOL 17 GM PACKET PO PRN (09:39)
[2018-09-10] MEDS: MAGNESIUM HYDROXIDE 8%, 30ML UDC PO PRN (09:39)
[2018-09-10] MEDS: FAMOTIDINE 20 MG TABLET PO SCH ×2 (09:40→21:22)
[2018-09-10] MEDS: AMLODIPINE 10 MG TAB PO SCH (09:40)
[2018-09-10] MEDS: LIDODERM 5% PATCH TD SCH (12:30)
[2018-09-10] MEDS: MAALOX/HYOSCYAMINE/LIDOCAINE 45 ML BTL PO PRN ×3 (12:30→19:40)
[2018-09-10] MEDS: ENOXAPARIN 40 MG/0.4 ML SQ SCH (12:31)
[2018-09-10 15:45] VITALS: BP 117/74
[2018-09-10 19:58] VITALS: BP 97/65
[2018-09-10] MEDS: ZOLPIDEM 10MG TABLET PO SCH (21:22)
[2018-09-10] MEDS: SIMVASTATIN 20 MG TABLET PO SCH (21:23)
[2018-09-10] MEDS: CEFTRIAXONE PMX 1GM/50ML 50 ML IV SCH (22:38)
[2018-09-10] MEDS: AZITHROMYCIN 500 MG in SODIUM CHLORIDE 0.9% 250 ML IV SCH (23:15)
[2018-09-11 01:24] VITALS: BP 115/68
[2018-09-11] MEDS: GUAIFENESIN/DM 200-20MG, 10ML UDC PO PRN ×5 (01:29→20:45)
[2018-09-11 05:28] VITALS: BP 103/70
[2018-09-11] MEDS: PROPRANOLOL 40 MG TABLET PO SCH (05:29)
[2018-09-11] MEDS: OxyconTIN ER 10 MG TAB.ER PO SCH ×3 (05:29→20:45)
[2018-09-11] MEDS: MAALOX/HYOSCYAMINE/LIDOCAINE 45 ML BTL PO PRN ×3 (06:23→18:24)
[2018-09-11 07:08] VITALS: BP 100/67
[2018-09-11] MEDS: AMLODIPINE 10 MG TAB PO SCH (09:00)
[2018-09-11] MEDS: ALENDRONATE 10 MG TABLET PO SCH (09:06)
[2018-09-11] MEDS: FAMOTIDINE 20 MG TABLET PO SCH ×2 (09:07→20:45)
[2018-09-11] MEDS: SENNA/DOCUSATE TABLET PO SCH (09:07)
[2018-09-11 09:24] VITALS: BP 98/66
[2018-09-11] MEDS: ACETAMINOPHEN 325 MG TABLET PO PRN ×2 (09:31→18:24)
[2018-09-11 09:52] LABS: BASOPHILS # (AUTO) 0.01 x10^3/uL (0-0.1); BASOPHILS % (AUTO) 0 % (0-1); EOSINOPHILS # (AUTO) 0.48 x10^3/uL (0-0.4); EOSINOPHILS % (AUTO) 7 % (1-7); LYMPHOCYTES # (AUTO) 2.03 x10^3/uL (1-3.4); LYMPHOCYTES % (AUTO) 29 % (22-44); MD NO; MEAN CORPUSCULAR HEMOGLOBIN 32.2 pg (27.0-34.8); MEAN CORPUSCULAR HGB CONC 34.1 g/dL (32.4-35.8); MEAN CORPUSCULAR VOLUME 94.3 fL (80-100); MEAN PLATELET VOLUME 6.5 fL (7.4-10.4); MONOCYTES # (AUTO) 0.78 x10^3/uL (0.2-0.8); MONOCYTES % (AUTO) 11 % (2-9); NEUTROPHILS # (AUTO) 3.67 x10^3/uL (1.8-6.8); NEUTROPHILS % (AUTO) 53 % (42-75); PLATELET COUNT 308 x10^3/uL (130-400); RED BLOOD COUNT 2.69 x10^6/uL (3.82-5.3); RED CELL DISTRIBUTION WIDTH 15.2 % (9.6-15.2)
[2018-09-11 12:18] VITALS: BP 101/66
[2018-09-11 13:10] LABS: RAPID INFLUENZA A Negative (Negative); RAPID INFLUENZA B Negative (Negative)
[2018-09-11] MEDS: ENOXAPARIN 40 MG/0.4 ML SQ SCH (13:42)
[2018-09-11] MEDS: LIDODERM 5% PATCH TD SCH (13:43)
[2018-09-11] MEDS: ONDANSETRON 2MG/ML, 2ML IVPush PRN (14:22)
[2018-09-11] MEDS: DOXYCYCLINE 100 MG in DEXTROSE 5% 250 ML IV SCH (14:22)
[2018-09-11 15:04] LABS: MICROSCOPIC NOT IND
[2018-09-11 15:10] LABS: CULTURE INDICATED? NO
[2018-09-11 19:58] VITALS: BP 103/66
[2018-09-11] MEDS: ZOLPIDEM 10MG TABLET PO SCH (20:44)
[2018-09-11] MEDS: SIMVASTATIN 20 MG TABLET PO SCH (20:45)
[2018-09-11] MEDS: CEFTRIAXONE PMX 1GM/50ML 50 ML IV SCH (22:07)
[2018-09-12 00:01] VITALS: BP 94/63
[2018-09-12] MEDS: ACETAMINOPHEN 325 MG TABLET PO PRN ×3 (00:04→21:40)
[2018-09-12] MEDS: ONDANSETRON 2MG/ML, 2ML IVPush PRN ×3 (00:30→18:41)
[2018-09-12] MEDS: GUAIFENESIN/DM 200-20MG, 10ML UDC PO PRN ×5 (01:03→21:40)
[2018-09-12] MEDS: MAALOX/HYOSCYAMINE/LIDOCAINE 45 ML BTL PO PRN ×3 (01:03→23:07)
[2018-09-12] MEDS: DOXYCYCLINE 100 MG in DEXTROSE 5% 250 ML IV SCH ×2 (02:35→14:37)
[2018-09-12] MEDS: OxyconTIN ER 10 MG TAB.ER PO SCH (05:03)
[2018-09-12] MEDS: PROPRANOLOL 40 MG TABLET PO SCH (05:49)
[2018-09-12 06:55] VITALS: BP 96/65
[2018-09-12] MEDS ORDERED: DOXY100T PO (09:33)
[2018-09-12] MEDS ORDERED: CEFD300C37 PO (09:33)
[2018-09-12] MEDS: FAMOTIDINE 20 MG TABLET PO SCH ×2 (09:35→20:53)
[2018-09-12] MEDS: ALENDRONATE 10 MG TABLET PO SCH (09:35)
[2018-09-12] MEDS: SENNA/DOCUSATE TABLET PO SCH (09:35)
[2018-09-12] MEDS: AMLODIPINE 10 MG TAB PO SCH (09:35)
[2018-09-12] MEDS: LIDODERM 5% PATCH TD SCH (13:00)
[2018-09-12 13:47] VITALS: BP 97/65
[2018-09-12] MEDS: ENOXAPARIN 40 MG/0.4 ML SQ SCH (14:31)
[2018-09-12] MEDS ORDERED: OXYcodone/APAP 5/325MG TABLET ONE (16:38)
[2018-09-12] MEDS: OXYcodone/APAP 5/325MG TABLET PO PRN ×2 (16:40→22:46)
[2018-09-12] MEDS ORDERED: OxyconTIN ER 10 MG TAB.ER PO SCH (17:00)
[2018-09-12 20:00] VITALS: BP 93/62
[2018-09-12] MEDS: SIMVASTATIN 20 MG TABLET PO SCH (20:53)
[2018-09-12] MEDS: ZOLPIDEM 10MG TABLET PO SCH (20:53)
[2018-09-12] MEDS: CEFTRIAXONE PMX 1GM/50ML 50 ML IV SCH (22:31)
[2018-09-13 02:00] VITALS: BP 102/67
[2018-09-13] MEDS: ONDANSETRON 2MG/ML, 2ML IVPush PRN ×3 (02:01→21:15)
[2018-09-13] MEDS: DOXYCYCLINE 100 MG in DEXTROSE 5% 250 ML IV SCH ×2 (02:53→14:40)
[2018-09-13] MEDS: OXYcodone/APAP 5/325MG TABLET PO PRN ×4 (04:48→23:56)
[2018-09-13] MEDS: PROPRANOLOL 40 MG TABLET PO SCH (05:20)
[2018-09-13] MEDS: GUAIFENESIN/DM 200-20MG, 10ML UDC PO PRN ×2 (05:20→10:31)
[2018-09-13 07:32] VITALS: BP 95/64
[2018-09-13] MEDS: SENNA/DOCUSATE TABLET PO SCH (08:23)
[2018-09-13] MEDS: FAMOTIDINE 20 MG TABLET PO SCH ×2 (08:23→21:16)
[2018-09-13] MEDS: ALENDRONATE 10 MG TABLET PO SCH (08:23)
[2018-09-13] MEDS: AMLODIPINE 10 MG TAB PO SCH (08:23)
[2018-09-13] MEDS: ENOXAPARIN 40 MG/0.4 ML SQ SCH (13:02)
[2018-09-13] MEDS: LIDODERM 5% PATCH TD SCH (13:02)
[2018-09-13] MEDS: MAALOX/HYOSCYAMINE/LIDOCAINE 45 ML BTL PO PRN ×2 (13:02→17:36)
[2018-09-13 14:16] VITALS: BP 100/68
[2018-09-13] MEDS: ACETAMINOPHEN 325 MG TABLET PO PRN (15:30)
[2018-09-13 19:45] VITALS: BP 100/67
[2018-09-13] MEDS: ZOLPIDEM 10MG TABLET PO SCH (21:15)
[2018-09-13] MEDS: SIMVASTATIN 20 MG TABLET PO SCH (21:15)
[2018-09-13] MEDS: CEFTRIAXONE PMX 1GM/50ML 50 ML IV SCH (22:10)
[2018-09-14] MEDS: MAALOX/HYOSCYAMINE/LIDOCAINE 45 ML BTL PO PRN ×3 (01:41→21:58)
[2018-09-14 01:49] VITALS: BP 96/66
[2018-09-14] MEDS: DOXYCYCLINE 100 MG in DEXTROSE 5% 250 ML IV SCH (02:41)
[2018-09-14] MEDS: OXYcodone/APAP 5/325MG TABLET PO PRN ×3 (06:01→18:34)
[2018-09-14] MEDS: PROPRANOLOL 40 MG TABLET PO SCH (06:02)
[2018-09-14] MEDS: ONDANSETRON 2MG/ML, 2ML IVPush PRN ×3 (06:05→21:57)
[2018-09-14 06:12] LABS: CREATININE 0.62 mg/dL (0.55-1.02)
[2018-09-14 07:03] VITALS: BP 95/60
[2018-09-14] MEDS: FAMOTIDINE 20 MG TABLET PO SCH ×2 (09:43→21:57)
[2018-09-14] MEDS: AMLODIPINE 5 MG TABLET PO SCH (09:43)
[2018-09-14] MEDS: SENNA/DOCUSATE TABLET PO SCH (09:43)
[2018-09-14] MEDS: ALENDRONATE 10 MG TABLET PO SCH (09:43)
[2018-09-14] MEDS: PROMETHAZINE 25 MG/ML, 1ML IM PRN ×2 (09:44→18:42)
[2018-09-14 14:00] VITALS: BP_SYST 102; BP_SYST 83; BP_DIAS 55; BP_DIAS 68
[2018-09-14] MEDS: ENOXAPARIN 40 MG/0.4 ML SQ SCH (14:04)
[2018-09-14] MEDS: LIDODERM 5% PATCH TD SCH (14:05)
[2018-09-14] MEDS: CYCLOBENZAPRINE 10 MG TABLET PO PRN (17:20)
[2018-09-14] MEDS: GUAIFENESIN/DM 200-20MG, 10ML UDC PO PRN ×2 (17:20→21:57)
[2018-09-14 20:00] VITALS: BP 158/84
[2018-09-14] MEDS: DOXYCYCLINE 100MG TABLET PO SCH (21:56)
[2018-09-14] MEDS: AMOXICILLIN/CLAV 875-125MG TABLET PO SCH (21:56)
[2018-09-14] MEDS: ACETAMINOPHEN 325 MG TABLET PO PRN (21:57)
[2018-09-14] MEDS: ZOLPIDEM 10MG TABLET PO SCH (21:57)
[2018-09-14] MEDS: SIMVASTATIN 20 MG TABLET PO SCH (21:57)
[2018-09-15] MEDS: OXYcodone/APAP 5/325MG TABLET PO PRN ×4 (00:40→21:40)
[2018-09-15] MEDS: CYCLOBENZAPRINE 10 MG TABLET PO PRN (01:49)
[2018-09-15] MEDS: ACETAMINOPHEN 325 MG TABLET PO PRN (02:04)
[2018-09-15] MEDS: PROMETHAZINE 25 MG/ML, 1ML IM PRN ×2 (02:05→10:11)
[2018-09-15 02:08] VITALS: BP 100/69
[2018-09-15] MEDS: ONDANSETRON 2MG/ML, 2ML IVPush PRN ×3 (06:37→21:40)
[2018-09-15] MEDS: PROPRANOLOL 40 MG TABLET PO SCH (06:37)
[2018-09-15 07:10] VITALS: BP 92/60
[2018-09-15] MEDS: AMLODIPINE 5 MG TABLET PO SCH (08:22)
[2018-09-15] MEDS: AMOXICILLIN/CLAV 875-125MG TABLET PO SCH ×2 (08:29→21:40)
[2018-09-15] MEDS: FAMOTIDINE 20 MG TABLET PO SCH ×2 (08:29→21:40)
[2018-09-15] MEDS: SENNA/DOCUSATE TABLET PO SCH (08:29)
[2018-09-15] MEDS: DOXYCYCLINE 100MG TABLET PO SCH ×2 (08:29→21:41)
[2018-09-15] MEDS: ALENDRONATE 10 MG TABLET PO SCH (08:31)
[2018-09-15] MEDS: MAALOX/HYOSCYAMINE/LIDOCAINE 45 ML BTL PO PRN ×3 (10:10→21:41)
[2018-09-15 12:32] VITALS: BP 89/55
[2018-09-15] MEDS: LIDODERM 5% PATCH TD SCH (13:37)
[2018-09-15] MEDS: ENOXAPARIN 40 MG/0.4 ML SQ SCH (13:37)
[2018-09-15 13:39] VITALS: BP 98/67
[2018-09-15 20:00] VITALS: BP 88/60
[2018-09-15] MEDS: ZOLPIDEM 10MG TABLET PO SCH (21:40)
[2018-09-15] MEDS: SIMVASTATIN 20 MG TABLET PO SCH (21:41)
[2018-09-16 02:00] VITALS: BP 90/60
[2018-09-16] MEDS: CYCLOBENZAPRINE 10 MG TABLET PO PRN ×3 (02:30→21:32)
[2018-09-16] MEDS: ACETAMINOPHEN 325 MG TABLET PO PRN (02:30)
[2018-09-16] MEDS: ONDANSETRON 2MG/ML, 2ML IVPush PRN ×2 (04:25→13:33)
[2018-09-16] MEDS: OXYcodone/APAP 5/325MG TABLET PO PRN ×3 (04:25→18:16)
[2018-09-16 05:53] VITALS: BP 95/65
[2018-09-16] MEDS: PROPRANOLOL 40 MG TABLET PO SCH (06:00)
[2018-09-16] MEDS: PROMETHAZINE 25 MG/ML, 1ML IM PRN (06:05)
[2018-09-16 06:42] VITALS: BP 94/63
[2018-09-16] MEDS: SENNA/DOCUSATE TABLET PO SCH (09:00)
[2018-09-16] MEDS: AMOXICILLIN/CLAV 875-125MG TABLET PO SCH ×2 (09:08→20:38)
[2018-09-16] MEDS: DOXYCYCLINE 100MG TABLET PO SCH ×2 (09:08→20:38)
[2018-09-16] MEDS: FAMOTIDINE 20 MG TABLET PO SCH ×2 (09:08→20:38)
[2018-09-16] MEDS: ALENDRONATE 10 MG TABLET PO SCH (09:10)
[2018-09-16] MEDS: MAALOX/HYOSCYAMINE/LIDOCAINE 45 ML BTL PO PRN ×3 (09:11→17:58)
[2018-09-16 09:45] LABS: TROPONIN I < 0.015 ng/mL (0.000-0.045)
[2018-09-16 12:40] VITALS: BP 93/62
[2018-09-16] MEDS: ENOXAPARIN 40 MG/0.4 ML SQ SCH (13:33)
[2018-09-16 14:16] LABS: TROPONIN I < 0.015 ng/mL (0.000-0.045)
[2018-09-16] MEDS: LIDODERM 5% PATCH TD SCH (14:42)
[2018-09-16 20:00] VITALS: BP 91/58
[2018-09-16] MEDS: SIMVASTATIN 20 MG TABLET PO SCH (20:38)
[2018-09-16] MEDS: ZOLPIDEM 10MG TABLET PO SCH (21:32)
[2018-09-17] MEDS: OXYcodone/APAP 5/325MG TABLET PO PRN ×4 (00:01→23:47)
[2018-09-17 02:00] VITALS: BP 89/56
[2018-09-17] MEDS: PROPRANOLOL 40 MG TABLET PO SCH (05:46)
[2018-09-17] MEDS: CYCLOBENZAPRINE 10 MG TABLET PO PRN ×3 (05:47→23:48)
[2018-09-17 06:06] LABS: CREATININE 0.68 mg/dL (0.55-1.02)
[2018-09-17 06:48] VITALS: BP 90/58
[2018-09-17] MEDS: ONDANSETRON 2MG/ML, 2ML IVPush PRN ×3 (08:03→23:47)
[2018-09-17] MEDS: DOXYCYCLINE 100MG TABLET PO SCH ×2 (08:57→20:24)
[2018-09-17] MEDS: AMOXICILLIN/CLAV 875-125MG TABLET PO SCH ×2 (08:57→20:24)
[2018-09-17] MEDS: FAMOTIDINE 20 MG TABLET PO SCH ×2 (08:57→20:24)
[2018-09-17] MEDS: ALENDRONATE 10 MG TABLET PO SCH (08:57)
[2018-09-17] MEDS: SENNA/DOCUSATE TABLET PO SCH (08:57)
[2018-09-17] MEDS ORDERED: FENTANYL PF 100 MCG/2ML ONE (12:01)
[2018-09-17] MEDS ORDERED: MIDAZOLAM 1 MG/ML, 5ML ONE (12:02)
[2018-09-17] MEDS ORDERED: NALOXONE 1 MG/ML, 2ML ONE (12:02)
[2018-09-17] MEDS ORDERED: FLUMAZENIL 0.1 MG/1 ML, 5ML ONE (12:02)
[2018-09-17] MEDS: LIDODERM 5% PATCH TD SCH ×2 (13:00→21:00)
[2018-09-17 13:32] VITALS: BP 91/59
[2018-09-17] MEDS: ENOXAPARIN 40 MG/0.4 ML SQ SCH (13:53)
[2018-09-17 16:00] VITALS: BP 88/58
[2018-09-17 16:03] LABS: HEMOGLOBIN A1C 5.2 % (4.2-6.3)
[2018-09-17] MEDS: DULOXETINE 30 MG CAPSULE.DR PO SCH (16:13)
[2018-09-17 18:17] VITALS: BP 86/55
[2018-09-17] MEDS: SODIUM CHLORIDE 0.9% 1,000 ML IV SCH (18:30)
[2018-09-17] MEDS: MAALOX/HYOSCYAMINE/LIDOCAINE 45 ML BTL PO PRN (18:43)
[2018-09-17 20:00] VITALS: BP 85/53
[2018-09-17] MEDS: SIMVASTATIN 20 MG TABLET PO SCH (20:25)
[2018-09-17] MEDS: ZOLPIDEM 10MG TABLET PO SCH (23:47)
[2018-09-18 02:00] VITALS: BP 100/65
[2018-09-18] MEDS: SODIUM CHLORIDE 0.9% 1,000 ML IV SCH ×2 (04:37→20:36)
[2018-09-18] MEDS: OXYcodone/APAP 5/325MG TABLET PO PRN ×4 (05:49→22:47)
[2018-09-18] MEDS: PROPRANOLOL 40 MG TABLET PO SCH (05:51)
[2018-09-18 05:52] VITALS: BP 93/92
[2018-09-18 07:30] VITALS: BP 96/66
[2018-09-18] MEDS: AMOXICILLIN/CLAV 875-125MG TABLET PO SCH (08:32)
[2018-09-18] MEDS: CYCLOBENZAPRINE 10 MG TABLET PO PRN ×2 (08:32→20:38)
[2018-09-18] MEDS: ALENDRONATE 10 MG TABLET PO SCH (08:32)
[2018-09-18] MEDS: MAALOX/HYOSCYAMINE/LIDOCAINE 45 ML BTL PO PRN (08:33)
[2018-09-18] MEDS: DULOXETINE 30 MG CAPSULE.DR PO SCH (08:33)
[2018-09-18] MEDS: FAMOTIDINE 20 MG TABLET PO SCH ×2 (08:33→20:38)
[2018-09-18] MEDS: DOXYCYCLINE 100MG TABLET PO SCH (08:33)
[2018-09-18] MEDS: SENNA/DOCUSATE TABLET PO SCH (08:33)
[2018-09-18 11:33] VITALS: BP 93/64
[2018-09-18] MEDS ORDERED: MIDAZOLAM 1 MG/ML, 2ML ONE (11:57)
[2018-09-18] MEDS ORDERED: FENTANYL PF 250 MCG/5ML ONE (11:57)
[2018-09-18] MEDS ORDERED: PHENYLEPHRINE 10 MG/ML ONE (12:11)
[2018-09-18] MEDS ORDERED: MIDAZOLAM 1 MG/ML, 2ML IV PRN (12:30)
[2018-09-18] MEDS ORDERED: FENTANYL PF 100 MCG/2ML IV PRN (12:30)
[2018-09-18] MEDS ORDERED: MEPERIDINE/PF 25MG/0.5ML IVPush PRN (12:30)
[2018-09-18] MEDS ORDERED: ONDANSETRON 2MG/ML, 2ML IV PRN ×2 (12:30→15:00)
[2018-09-18] MEDS ORDERED: hydrALAzine 20 MG/ML, 1ML IV PRN (12:30)
[2018-09-18] MEDS ORDERED: ACETAMINOPHEN 325 MG TABLET PO PRN (12:30)
[2018-09-18] MEDS ORDERED: METOPROLOL 1 MG/ML, 5ML IV PRN (12:30)
[2018-09-18] MEDS ORDERED: DIAZEPAM 5 MG/ML, 2ML IVPush PRN (12:30)
[2018-09-18] MEDS ORDERED: HALOPERIDOL 5 MG/ML IV PRN (12:30)
[2018-09-18] MEDS ORDERED: ALBUTEROL/IPRATROPIUM 2.5MG/0.5MG, 3 ML NPPB PRN (12:30)
[2018-09-18] MEDS ORDERED: OXYcodone 5 MG/5 ML ORAL.SOL UDC PO PRN (12:30)
[2018-09-18] MEDS ORDERED: PROMETHAZINE 25 MG/ML, 1ML IV PRN (12:30)
[2018-09-18] MEDS ORDERED: ONDANSETRON 2MG/ML, 2ML ONE (12:42)
[2018-09-18] MEDS ORDERED: DEXAMETHASONE 4 MG/ML, 1ML ONE (12:42)
[2018-09-18] MEDS ORDERED: CEFAZOLIN 1,000 MG ONE (12:42)
[2018-09-18] MEDS ORDERED: PROPOFOL 10 MG/ML, 20ML ONE (12:42)
[2018-09-18] MEDS ORDERED: FENTANYL PF 100 MCG/2ML ONE (12:57)
[2018-09-18] MEDS ORDERED: HYDROmorphone 2 MG/ML, 1ML ONE (12:57)
[2018-09-18] MEDS ORDERED: OXYcodone 5 MG/5 ML ORAL.SOL UDC ONE (12:58)
[2018-09-18] MEDS: HYDROmorphone 2 MG/ML, 1ML IVPush PRN ×2 (13:09→13:20)
[2018-09-18 14:05] VITALS: BP 87/54
[2018-09-18] MEDS ORDERED: HYDROcodone/APAP 7.5-325MG/15ML UDC PO PRN (15:00)
[2018-09-18] MEDS ORDERED: CEFAZOLIN PMX 1GM/50ML 50 ML IVPB SCH (15:00)
[2018-09-18] MEDS: KETOROLAC 30 MG/1 ML IV SCH ×2 (15:00→23:26)
[2018-09-18] MEDS: SUCRALFATE 1 GM TABLET PO SCH ×2 (18:02→20:39)
[2018-09-18 18:34] VITALS: BP 95/62
[2018-09-18] MEDS: CEFAZOLIN PMX 1GM/50ML 50 ML IVPB SCH (20:36)
[2018-09-18] MEDS: ASPIRIN 81 MG TABLET EC PO SCH (20:38)
[2018-09-18] MEDS: SIMVASTATIN 20 MG TABLET PO SCH (20:39)
[2018-09-18] MEDS: ZOLPIDEM 10MG TABLET PO SCH (20:39)
[2018-09-18] MEDS: LIDODERM 5% PATCH TD SCH (21:00)
[2018-09-18] MEDS: morphine SULFATE 10 MG/ML, 1ML IV PRN (21:05)
[2018-09-18] MEDS: ONDANSETRON 2MG/ML, 2ML IVPush PRN (22:44)
[2018-09-19 00:22] VITALS: BP 106/66
[2018-09-19] MEDS: morphine SULFATE 10 MG/ML, 1ML IV PRN ×4 (01:20→21:49)
[2018-09-19] MEDS: OXYcodone/APAP 5/325MG TABLET PO PRN ×5 (02:55→19:56)
[2018-09-19] MEDS: CYCLOBENZAPRINE 10 MG TABLET PO PRN ×2 (04:46→21:49)
[2018-09-19] MEDS: CEFAZOLIN PMX 1GM/50ML 50 ML IVPB SCH (04:46)
[2018-09-19] MEDS: PROPRANOLOL 40 MG TABLET PO SCH (06:00)
[2018-09-19] MEDS: SUCRALFATE 1 GM TABLET PO SCH ×4 (06:23→19:56)
[2018-09-19] MEDS: ENOXAPARIN 40 MG/0.4 ML SQ SCH (06:24)
[2018-09-19] MEDS: KETOROLAC 30 MG/1 ML IV SCH (07:34)
[2018-09-19] MEDS: SODIUM CHLORIDE 0.9% 1,000 ML IV SCH ×2 (07:37→17:49)
[2018-09-19 07:57] LABS: BASOPHILS # (AUTO) 0.04 x10^3/uL (0-0.1); BASOPHILS % (AUTO) 0 % (0-1); EOSINOPHILS % (AUTO) 0 % (1-7); LYMPHOCYTES # (AUTO) 1.34 x10^3/uL (1-3.4); LYMPHOCYTES % (AUTO) 15 % (22-44); MD NO; MEAN CORPUSCULAR HEMOGLOBIN 29.8 pg (27.0-34.8); MEAN CORPUSCULAR VOLUME 93.2 fL (80-100); MEAN PLATELET VOLUME 7.6 fL (7.4-10.4); MONOCYTES # (AUTO) 0.46 x10^3/uL (0.2-0.8); MONOCYTES % (AUTO) 5 % (2-9); NEUTROPHILS # (AUTO) 7.22 x10^3/uL (1.8-6.8); NEUTROPHILS % (AUTO) 80 % (42-75); PLATELET COUNT 342 x10^3/uL (130-400); RED BLOOD COUNT 3.14 x10^6/uL (3.82-5.3); RED CELL DISTRIBUTION WIDTH 15.4 % (9.6-15.2)
[2018-09-19 08:12] VITALS: BP 102/65
[2018-09-19] MEDS: ALENDRONATE 10 MG TABLET PO SCH (08:31)
[2018-09-19] MEDS: SENNA/DOCUSATE TABLET PO SCH (08:32)
[2018-09-19] MEDS: FAMOTIDINE 20 MG TABLET PO SCH ×2 (08:32→19:56)
[2018-09-19] MEDS: ASPIRIN 81 MG TABLET EC PO SCH ×2 (08:32→19:56)
[2018-09-19] MEDS: DULOXETINE 30 MG CAPSULE.DR PO SCH (08:32)
[2018-09-19] MEDS ORDERED: SUCRALFATE 1 GM TABLET PO SCH (09:00)
[2018-09-19] MEDS: ONDANSETRON 2MG/ML, 2ML IVPush PRN ×2 (11:20→21:59)
[2018-09-19 13:45] VITALS: BP 96/62
[2018-09-19 18:54] VITALS: BP 93/59
[2018-09-19] MEDS: SIMVASTATIN 20 MG TABLET PO SCH (19:56)
[2018-09-19] MEDS: LIDODERM 5% PATCH TD SCH (19:56)
[2018-09-19] MEDS: ZOLPIDEM 10MG TABLET PO SCH (21:49)
[2018-09-20] MEDS: OXYcodone/APAP 5/325MG TABLET PO PRN ×6 (00:35→22:02)
[2018-09-20 01:30] VITALS: BP 98/58
[2018-09-20] MEDS: SODIUM CHLORIDE 0.9% 1,000 ML IV SCH ×2 (03:51→14:43)
[2018-09-20] MEDS: morphine SULFATE 10 MG/ML, 1ML IV PRN (05:22)
[2018-09-20] MEDS: PROPRANOLOL 40 MG TABLET PO SCH (05:26)
[2018-09-20] MEDS: ENOXAPARIN 40 MG/0.4 ML SQ SCH (05:26)
[2018-09-20] MEDS: SUCRALFATE 1 GM TABLET PO SCH ×4 (05:26→21:49)
[2018-09-20 05:43] LABS: CREATININE 0.67 mg/dL (0.55-1.02)
[2018-09-20 06:42] VITALS: BP 89/58
[2018-09-20] MEDS: CYCLOBENZAPRINE 10 MG TABLET PO PRN ×2 (06:44→14:45)
[2018-09-20 06:46] VITALS: BP 91/57
[2018-09-20] MEDS ORDERED: MORPHINE SULFATE 4 MG/ML, 1ML IVPush PRN (07:30)
[2018-09-20] MEDS: SENNA/DOCUSATE TABLET PO SCH (08:10)
[2018-09-20] MEDS: ASPIRIN 81 MG TABLET EC PO SCH ×2 (08:10→21:50)
[2018-09-20] MEDS: FAMOTIDINE 20 MG TABLET PO SCH ×2 (08:10→21:51)
[2018-09-20] MEDS: DULOXETINE 30 MG CAPSULE.DR PO SCH (08:10)
[2018-09-20] MEDS: ALENDRONATE 10 MG TABLET PO SCH (08:11)
[2018-09-20] MEDS: ONDANSETRON 2MG/ML, 2ML IVPush PRN ×2 (08:11→14:31)
[2018-09-20 14:27] VITALS: BP 85/56
[2018-09-20] MEDS: MAALOX/HYOSCYAMINE/LIDOCAINE 45 ML BTL PO PRN (14:31)
[2018-09-20 18:29] VITALS: BP 89/49
[2018-09-20] MEDS: LIDODERM 5% PATCH TD SCH (21:00)
[2018-09-20] MEDS: ZOLPIDEM 10MG TABLET PO SCH (21:49)
[2018-09-20] MEDS: SIMVASTATIN 20 MG TABLET PO SCH (21:49)
[2018-09-20 21:58] VITALS: BP 89/58
[2018-09-21] VITALS (7 sets, daily range): BP systolic 92–102; BP diastolic 58–67
[2018-09-21] MEDS: SODIUM CHLORIDE 0.9% 1,000 ML IV SCH ×3 (01:06→20:30)
[2018-09-21] MEDS: CYCLOBENZAPRINE 10 MG TABLET PO PRN ×3 (01:49→23:32)
[2018-09-21] MEDS: OXYcodone/APAP 5/325MG TABLET PO PRN ×5 (01:49→20:29)
[2018-09-21] MEDS: PROPRANOLOL 40 MG TABLET PO SCH (06:00)
[2018-09-21] MEDS: SUCRALFATE 1 GM TABLET PO SCH ×4 (06:06→20:29)
[2018-09-21] MEDS: ENOXAPARIN 40 MG/0.4 ML SQ SCH (06:07)
[2018-09-21 08:03] LABS: BASOPHILS # (AUTO) 0.07 x10^3/uL (0-0.1); BASOPHILS % (AUTO) 1 % (0-1); EOSINOPHILS # (AUTO) 0.24 x10^3/uL (0-0.4); EOSINOPHILS % (AUTO) 4 % (1-7); LYMPHOCYTES # (AUTO) 2.31 x10^3/uL (1-3.4); LYMPHOCYTES % (AUTO) 36 % (22-44); MD NO; MEAN CORPUSCULAR HEMOGLOBIN 29.6 pg (27.0-34.8); MEAN CORPUSCULAR HGB CONC 31.6 g/dL (32.4-35.8); MEAN CORPUSCULAR VOLUME 93.4 fL (80-100); MEAN PLATELET VOLUME 7.3 fL (7.4-10.4); MONOCYTES # (AUTO) 0.49 x10^3/uL (0.2-0.8); MONOCYTES % (AUTO) 8 % (2-9); NEUTROPHILS # (AUTO) 3.35 x10^3/uL (1.8-6.8); NEUTROPHILS % (AUTO) 52 % (42-75); PLATELET COUNT 300 x10^3/uL (130-400); RED BLOOD COUNT 3.07 x10^6/uL (3.82-5.3)
[2018-09-21] MEDS: SENNA/DOCUSATE TABLET PO SCH (08:31)
[2018-09-21] MEDS: ALENDRONATE 10 MG TABLET PO SCH (08:31)
[2018-09-21] MEDS: ASPIRIN 81 MG TABLET EC PO SCH ×2 (08:31→20:29)
[2018-09-21] MEDS: FAMOTIDINE 20 MG TABLET PO SCH ×2 (08:31→20:29)
[2018-09-21] MEDS: DULOXETINE 30 MG CAPSULE.DR PO SCH (08:31)
[2018-09-21 08:50] LABS: ALANINE AMINOTRANSFERASE 14 U/L (12-78); ALBUMIN 2.2 g/dL (3.4-5.0); ANION GAP 6 mmol/L (5-15); CALCIUM 8.4 mg/dL (8.5-10.1); CHLORIDE 109 mmol/L (98-107); CREATININE 0.62 mg/dL (0.55-1.02)
[2018-09-21 08:52] LABS: ALKALINE PHOSPHATASE 80 U/L (45-117); BILIRUBIN,TOTAL 0.1 mg/dL (0.2-1.0); TOTAL PROTEIN 5.5 g/dL (6.4-8.2)
[2018-09-21] MEDS: MORPHINE SULFATE 4 MG/ML, 1ML IVPush PRN ×3 (12:43→23:32)
[2018-09-21] MEDS: LIDODERM 5% PATCH TD SCH (20:27)
[2018-09-21] MEDS: SIMVASTATIN 20 MG TABLET PO SCH (20:29)
[2018-09-21] MEDS: ONDANSETRON 2MG/ML, 2ML IVPush PRN (20:40)
[2018-09-21] MEDS: ZOLPIDEM 10MG TABLET PO SCH (23:34)
[2018-09-22] MEDS: OXYcodone/APAP 5/325MG TABLET PO PRN ×5 (01:24→22:51)
[2018-09-22 02:06] VITALS: BP 115/68
[2018-09-22 04:01] VITALS: BP 99/66
[2018-09-22] MEDS: MORPHINE SULFATE 4 MG/ML, 1ML IVPush PRN ×4 (04:07→20:45)
[2018-09-22] MEDS: PROPRANOLOL 40 MG TABLET PO SCH (05:48)
[2018-09-22] MEDS: ENOXAPARIN 40 MG/0.4 ML SQ SCH (05:55)
[2018-09-22] MEDS: SODIUM CHLORIDE 0.9% 1,000 ML IV SCH ×2 (05:56→16:21)
[2018-09-22] MEDS: SUCRALFATE 1 GM TABLET PO SCH ×4 (05:56→20:31)
[2018-09-22] MEDS: POLYETHYLENE GLYCOL 17 GM PACKET PO PRN (06:12)
[2018-09-22] MEDS: MAALOX/HYOSCYAMINE/LIDOCAINE 45 ML BTL PO PRN (06:12)
[2018-09-22 06:25] VITALS: BP 94/62
[2018-09-22 08:00] VITALS: BP 97/63
[2018-09-22] MEDS: DULOXETINE 30 MG CAPSULE.DR PO SCH (08:54)
[2018-09-22] MEDS: SENNA/DOCUSATE TABLET PO SCH (08:56)
[2018-09-22] MEDS: ASPIRIN 81 MG TABLET EC PO SCH ×2 (08:56→20:31)
[2018-09-22] MEDS: FAMOTIDINE 20 MG TABLET PO SCH ×2 (08:56→20:31)
[2018-09-22] MEDS: ALENDRONATE 10 MG TABLET PO SCH (09:40)
[2018-09-22 12:21] VITALS: BP 102/66
[2018-09-22] MEDS: CYCLOBENZAPRINE 10 MG TABLET PO PRN (13:19)
[2018-09-22] MEDS: LIDODERM 5% PATCH TD SCH (20:14)
[2018-09-22] MEDS: SIMVASTATIN 20 MG TABLET PO SCH (20:31)
[2018-09-22 20:35] VITALS: BP 105/69
[2018-09-22] MEDS: MAGNESIUM HYDROXIDE 8%, 30ML UDC PO PRN (20:45)
[2018-09-22] MEDS: ZOLPIDEM 10MG TABLET PO SCH (22:51)
[2018-09-23 02:15] VITALS: BP 114/66
[2018-09-23] MEDS: SODIUM CHLORIDE 0.9% 1,000 ML IV SCH ×2 (02:18→13:32)
[2018-09-23] MEDS: MORPHINE SULFATE 4 MG/ML, 1ML IVPush PRN ×3 (02:24→11:02)
[2018-09-23] MEDS: OXYcodone/APAP 5/325MG TABLET PO PRN ×5 (04:08→21:33)
[2018-09-23] MEDS: PROPRANOLOL 40 MG TABLET PO SCH (06:00)
[2018-09-23] MEDS: ENOXAPARIN 40 MG/0.4 ML SQ SCH (06:17)
[2018-09-23] MEDS: SUCRALFATE 1 GM TABLET PO SCH ×4 (06:18→21:33)
[2018-09-23 06:23] LABS: CREATININE 0.53 mg/dL (0.55-1.02)
[2018-09-23 06:25] VITALS: BP 112/71
[2018-09-23] MEDS: ONDANSETRON 2MG/ML, 2ML IVPush PRN (08:12)
[2018-09-23] MEDS: ALENDRONATE 10 MG TABLET PO SCH (08:15)
[2018-09-23] MEDS: FAMOTIDINE 20 MG TABLET PO SCH ×2 (08:15→21:34)
[2018-09-23] MEDS: SENNA/DOCUSATE TABLET PO SCH (08:15)
[2018-09-23] MEDS: ASPIRIN 81 MG TABLET EC PO SCH ×2 (08:16→21:33)
[2018-09-23] MEDS: DULOXETINE 30 MG CAPSULE.DR PO SCH (08:16)
[2018-09-23 12:45] VITALS: BP 104/69
[2018-09-23] MEDS ORDERED: HYDROmorphone 2 MG/ML, 1ML ONE ×2 (14:59→23:09)
[2018-09-23] MEDS: HYDROmorphone 1 MG/ML, 1ML IV PRN ×2 (15:01→23:11)
[2018-09-23] MEDS: CYCLOBENZAPRINE 10 MG TABLET PO PRN (16:56)
[2018-09-23 18:39] VITALS: BP 100/65
[2018-09-23] MEDS: LIDODERM 5% PATCH TD SCH (21:00)
[2018-09-23] MEDS: SIMVASTATIN 20 MG TABLET PO SCH (21:33)
[2018-09-23] MEDS: ZOLPIDEM 10MG TABLET PO SCH (21:33)
[2018-09-23] MEDS: MAGNESIUM HYDROXIDE 8%, 30ML UDC PO PRN (21:40)
[2018-09-23] MEDS: POLYETHYLENE GLYCOL 17 GM PACKET PO PRN (21:40)
[2018-09-24 00:17] VITALS: BP 108/72
[2018-09-24] MEDS: OXYcodone/APAP 5/325MG TABLET PO PRN ×5 (01:37→20:17)
[2018-09-24] MEDS: CYCLOBENZAPRINE 10 MG TABLET PO PRN ×2 (01:37→16:46)
[2018-09-24] MEDS ORDERED: HYDROmorphone 2 MG/ML, 1ML ONE ×2 (05:06→11:00)
[2018-09-24] MEDS: HYDROmorphone 1 MG/ML, 1ML IV PRN ×2 (05:09→11:03)
[2018-09-24] MEDS: SUCRALFATE 1 GM TABLET PO SCH ×4 (05:16→20:17)
[2018-09-24] MEDS: ENOXAPARIN 40 MG/0.4 ML SQ SCH (05:16)
[2018-09-24] MEDS: PROPRANOLOL 40 MG TABLET PO SCH (05:18)
[2018-09-24 05:19] VITALS: BP 109/73
[2018-09-24] MEDS ORDERED: OXYcodone/APAP 5/325MG TABLET PO PRN (07:00)
[2018-09-24 07:33] VITALS: BP 102/66
[2018-09-24] MEDS: ALENDRONATE 10 MG TABLET PO SCH (08:48)
[2018-09-24] MEDS: DULOXETINE 30 MG CAPSULE.DR PO SCH (08:49)
[2018-09-24] MEDS: FAMOTIDINE 20 MG TABLET PO SCH ×2 (08:49→20:17)
[2018-09-24] MEDS: SODIUM CHLORIDE 0.9% 1,000 ML IV SCH (08:49)
[2018-09-24] MEDS: SENNA/DOCUSATE TABLET PO SCH (08:49)
[2018-09-24] MEDS: ASPIRIN 81 MG TABLET EC PO SCH ×2 (08:49→20:17)
[2018-09-24 13:51] VITALS: BP 86/56
[2018-09-24 17:11] VITALS: BP 113/75
[2018-09-24] MEDS: MORPHINE SULFATE 4 MG/ML, 1ML IVPush PRN ×2 (17:17→21:16)
[2018-09-24 19:01] VITALS: BP 98/63
[2018-09-24] MEDS: LIDODERM 5% PATCH TD SCH (20:17)
[2018-09-24] MEDS: SIMVASTATIN 20 MG TABLET PO SCH (20:17)
[2018-09-24] MEDS: ZOLPIDEM 10MG TABLET PO SCH (21:15)
[2018-09-24] MEDS: ONDANSETRON 2MG/ML, 2ML IVPush PRN (21:16)
[2018-09-24] MEDS: MAALOX/HYOSCYAMINE/LIDOCAINE 45 ML BTL PO PRN (21:16)
[2018-09-25] VITALS (7 sets, daily range): BP systolic 88–104; BP diastolic 55–71
[2018-09-25] MEDS: OXYcodone/APAP 5/325MG TABLET PO PRN ×7 (00:13→22:25)
[2018-09-25] MEDS: CYCLOBENZAPRINE 10 MG TABLET PO PRN ×3 (00:13→22:25)
[2018-09-25] MEDS: MORPHINE SULFATE 4 MG/ML, 1ML IVPush PRN ×5 (01:15→21:11)
[2018-09-25] MEDS: SUCRALFATE 1 GM TABLET PO SCH ×4 (05:40→19:27)
[2018-09-25] MEDS: PROPRANOLOL 40 MG TABLET PO SCH (05:40)
[2018-09-25] MEDS: ENOXAPARIN 40 MG/0.4 ML SQ SCH (05:41)
[2018-09-25] MEDS: MAGNESIUM HYDROXIDE 8%, 30ML UDC PO SCH (08:15)
[2018-09-25] MEDS: SENNA/DOCUSATE TABLET PO SCH (08:15)
[2018-09-25] MEDS: DULOXETINE 30 MG CAPSULE.DR PO SCH (08:15)
[2018-09-25] MEDS: ASPIRIN 81 MG TABLET EC PO SCH ×2 (08:17→19:27)
[2018-09-25] MEDS: FAMOTIDINE 20 MG TABLET PO SCH ×2 (08:17→19:27)
[2018-09-25] MEDS: ALENDRONATE 10 MG TABLET PO SCH (08:26)
[2018-09-25] MEDS: SODIUM CHLORIDE 0.9% 1,000 ML IV SCH (09:33)
[2018-09-25] MEDS: MAGNESIUM CITRATE 300ML ORAL SOL PO PRN ×2 (09:34→21:19)
[2018-09-25] MEDS: LIDODERM 5% PATCH TD SCH (19:27)
[2018-09-25] MEDS: SIMVASTATIN 20 MG TABLET PO SCH (19:27)
[2018-09-25] MEDS: ONDANSETRON 2MG/ML, 2ML IVPush PRN (19:35)
[2018-09-25] MEDS: MAALOX/HYOSCYAMINE/LIDOCAINE 45 ML BTL PO PRN (19:35)
[2018-09-25] MEDS: ZOLPIDEM 10MG TABLET PO SCH (21:11)
[2018-09-26 01:08] VITALS: BP 102/67
[2018-09-26] MEDS: MORPHINE SULFATE 4 MG/ML, 1ML IVPush PRN ×2 (01:15→05:04)
[2018-09-26] MEDS: OXYcodone/APAP 5/325MG TABLET PO PRN ×6 (02:27→23:55)
[2018-09-26] MEDS: PROPRANOLOL 40 MG TABLET PO SCH (06:00)
[2018-09-26 06:08] LABS: CREATININE 0.61 mg/dL (0.55-1.02)
[2018-09-26 06:20] VITALS: BP 112/71
[2018-09-26] MEDS: SUCRALFATE 1 GM TABLET PO SCH ×4 (06:22→19:59)
[2018-09-26] MEDS: ENOXAPARIN 40 MG/0.4 ML SQ SCH (06:24)
[2018-09-26] MEDS: CYCLOBENZAPRINE 10 MG TABLET PO PRN ×3 (06:24→23:55)
[2018-09-26] MEDS: ALENDRONATE 10 MG TABLET PO SCH (09:15)
[2018-09-26] MEDS: DULOXETINE 30 MG CAPSULE.DR PO SCH (09:16)
[2018-09-26] MEDS: POLYETHYLENE GLYCOL 17 GM PACKET PO PRN (09:16)
[2018-09-26] MEDS: SENNA/DOCUSATE TABLET PO SCH (09:16)
[2018-09-26] MEDS: FAMOTIDINE 20 MG TABLET PO SCH ×2 (09:16→19:59)
[2018-09-26] MEDS: ASPIRIN 81 MG TABLET EC PO SCH ×2 (09:16→20:00)
[2018-09-26] MEDS: MAGNESIUM HYDROXIDE 8%, 30ML UDC PO SCH (09:16)
[2018-09-26 12:45] VITALS: BP 92/60
[2018-09-26] MEDS: ONDANSETRON 2MG/ML, 2ML IVPush PRN (15:14)
[2018-09-26 15:26] VITALS: BP 120/68
[2018-09-26 18:41] VITALS: BP 106/70
[2018-09-26] MEDS: ZOLPIDEM 10MG TABLET PO SCH (19:59)
[2018-09-26] MEDS: LIDODERM 5% PATCH TD SCH (20:00)
[2018-09-26] MEDS: SIMVASTATIN 20 MG TABLET PO SCH (20:00)
[2018-09-27 01:48] VITALS: BP 97/67
[2018-09-27] MEDS: OXYcodone/APAP 5/325MG TABLET PO PRN ×3 (05:34→16:04)
[2018-09-27] MEDS: ENOXAPARIN 40 MG/0.4 ML SQ SCH (05:34)
[2018-09-27] MEDS: SUCRALFATE 1 GM TABLET PO SCH ×3 (05:35→16:04)
[2018-09-27] MEDS: PROPRANOLOL 40 MG TABLET PO SCH (05:36)
[2018-09-27 06:43] VITALS: BP 115/72
[2018-09-27] MEDS: MAGNESIUM HYDROXIDE 8%, 30ML UDC PO SCH (09:02)
[2018-09-27] MEDS: ALENDRONATE 10 MG TABLET PO SCH (09:03)
[2018-09-27] MEDS: ASPIRIN 81 MG TABLET EC PO SCH (09:03)
[2018-09-27] MEDS: DULOXETINE 30 MG CAPSULE.DR PO SCH (09:03)
[2018-09-27] MEDS: SENNA/DOCUSATE TABLET PO SCH (09:03)
[2018-09-27] MEDS: FAMOTIDINE 20 MG TABLET PO SCH (09:04)
[2018-09-27] MEDS: CYCLOBENZAPRINE 10 MG TABLET PO PRN (11:03)
[2018-09-27] MEDS ORDERED: ONDA4TAB7 PO (11:31)
[2018-09-27] MEDS ORDERED: OXYC10TA47 PO (11:50)
[2018-09-27] MEDS ORDERED: CLON2TAB9 PO (11:51)
[2018-09-27 12:15] VITALS: BP 97/68
[2018-09-27 16:07] VITALS: BP 111/73
[2018-09-27] MEDS: ONDANSETRON 2MG/ML, 2ML IVPush PRN (16:13)
== END 2018-09-27 17:10 | disposition home or self-care (01) | DRG 853 ==
LOC: ED 09:43 → EDIP 11:59 → 4EST 12:54 → 4NOR 09-18 10:33
PROVIDERS: ADMIT Internal Medicine; ATTEND Family Medicine
PROC: 0QH736Z Insertion of Intramedullary Internal Fixation Device into Left Upper Femur, Percutaneous Approach (ICD-10-PCS; principal; 2018-09-18 12:00)
DX: A41.9 Sepsis, unspecified organism (principal); S72.145A Nondisplaced intertrochanteric fracture of left femur, initial encounter for closed fracture; J15.9 Unspecified bacterial pneumonia; J96.01 Acute respiratory failure with hypoxia; F11.20 Opioid dependence, uncomplicated; M48.54XA Collapsed vertebra, not elsewhere classified, thoracic region, initial encounter for fracture; F13.20 Sedative, hypnotic or anxiolytic dependence, uncomplicated; N39.0 Urinary tract infection, site not specified; E11.9 Type 2 diabetes mellitus without complications; E78.5 Hyperlipidemia, unspecified; E86.0 Dehydration; F17.200 Nicotine dependence, unspecified, uncomplicated; G89.29 Other chronic pain; Z96.641 Presence of right artificial hip joint; K59.00 Constipation, unspecified; Z66 Do not resuscitate; Z60.2 Problems related to living alone; M54.9 Dorsalgia, unspecified; W18.39XA Other fall on same level, initial encounter; I95.9 Hypotension, unspecified; I10 Essential (primary) hypertension; I25.2 Old myocardial infarction; Z80.1 Family history of malignant neoplasm of trachea, bronchus and lung; Z82.49 Family history of ischemic heart disease and other diseases of the circulatory system; Z86.73 Personal history of transient ischemic attack (TIA), and cerebral infarction without residual deficits; Z87.442 Personal history of urinary calculi; Z90.710 Acquired absence of both cervix and uterus; Z88.5 Allergy status to narcotic agent; Z88.6 Allergy status to analgesic agent; Z88.8 Allergy status to other drugs, medicaments and biological substances; Y93.89 Activity, other specified; Y92.098 Other place in other non-institutional residence as the place of occurrence of the external cause; Y99.8 Other external cause status; Z23 Encounter for immunization
CPT/HCPCS: 36415; 71045; 73523; 76000; 80048; 80053; 81001; 81003; 82550; 82565; 82962; 83036; 83605; 83735; 84484; 85025; 87040; 87086; 87400; 90656; 93005; 96365; 99156; 99157; C1713; G0378; J0456; J0690; J0696; J1100; J1170; J1650; J1885; J2250; J2405; J2550; J2704; J3010; J3480; J7060; J1815; J2270; J2310; J2370; J3475; J7030; J7050

== ENCOUNTER 2018-10-26 23:03 | Observation (INO) | payer MEDICAID ==
[~2018-10-26] VITALS: Ht 180.3 cm; Wt 105.5 kg
[~2018-10-26 23:03] MED LIST changes: +ALEN5TAB2 PO; -AMLO10TA6 PO; +AMLO10TA8 PO; +CEFD300C37 PO; +DOXY100T PO; +GI COCKTAIL; +ONDA4TAB7 PO; +PHENERGAN; +PROP40TA PO
--- NOTE | 2018-10-26 23:27 | NUR ---
came from home via [facility] d/t chest pain . pt stated pt had chest pain when pt sat in the couch with sweating nausea. vss stable [facility] given 100mcg fentanyl via im d/t unable to access iv pt states " i am really difficulty stick '
--- NOTE | 2018-10-26 23:34 | NUR ---
pt had ORIF at left hip surgery 09/19/18
[2018-10-26] MEDS ORDERED: OXYcodone/APAP 5/325MG TABLET ONE (23:46)
--- NOTE | 2018-10-26 23:49 | NUR ---
GIVEN PERCOCET PER PAIN
[2018-10-27] MEDS ORDERED: OXYcodone/APAP 5/325MG TABLET PO ONE
[2018-10-27 00:05] LABS: BASOPHILS # (AUTO) 0.04 x10^3/uL (0-0.1); BASOPHILS % (AUTO) 1 % (0-1); EOSINOPHILS # (AUTO) 0.04 x10^3/uL (0-0.4); EOSINOPHILS % (AUTO) 1 % (1-7); LYMPHOCYTES # (AUTO) 1.51 x10^3/uL (1-3.4); LYMPHOCYTES % (AUTO) 27 % (22-44); MD NO; MEAN CORPUSCULAR HEMOGLOBIN 27.3 pg (27.0-34.8); MEAN CORPUSCULAR HGB CONC 32.6 g/dL (32.4-35.8); MEAN CORPUSCULAR VOLUME 83.7 fL (80-100); MEAN PLATELET VOLUME 6.8 fL (7.4-10.4); MONOCYTES # (AUTO) 0.28 x10^3/uL (0.2-0.8); MONOCYTES % (AUTO) 5 % (2-9); NEUTROPHILS # (AUTO) 3.67 x10^3/uL (1.8-6.8); NEUTROPHILS % (AUTO) 66 % (42-75); PLATELET COUNT 351 x10^3/uL (130-400); RED BLOOD COUNT 4.41 x10^6/uL (3.82-5.3); RED CELL DISTRIBUTION WIDTH 20.8 % (9.6-15.2)
[2018-10-27 00:13] LABS: ALANINE AMINOTRANSFERASE 9 U/L (12-78); ALBUMIN 3.1 g/dL (3.4-5.0); ANION GAP 11 mmol/L (5-15); CALCIUM 8.5 mg/dL (8.5-10.1); CHLORIDE 114 mmol/L (98-107); CREATININE 0.67 mg/dL (0.55-1.02)
[2018-10-27 00:17] LABS: ALKALINE PHOSPHATASE 102 U/L (45-117); BILIRUBIN,TOTAL 0.2 mg/dL (0.2-1.0); TOTAL PROTEIN 6.6 g/dL (6.4-8.2); TROPONIN I < 0.015 ng/mL (0.000-0.045)
[2018-10-27 00:19] LABS: D-DIMER 0.3 ug/mlFEU (0.00-0.52); INTERNATIONAL NORMALIZED RATIO 0.98 (0.93-1.1); PROTHROMBIN TIME 10.4 Seconds (9.6-11.5)
[2018-10-27] MEDS ORDERED: ONDANSETRON ODT 4 MG ONE (00:31)
--- NOTE | 2018-10-27 00:38 | NUR ---
pt c/o nausea given zofran
[2018-10-27] MEDS ORDERED: ONDANSETRON ODT 4 MG PO ONE (01:00)
[2018-10-27] MEDS ORDERED: SODIUM CHLORIDE 0.9% 1,000 ML IV SCH ×2 (01:17→16:00)
[2018-10-27] MEDS: LIDODERM 5% PATCH TD SCH (01:30)
[2018-10-27] MEDS ORDERED: hydrALAzine 20 MG/ML, 1ML IVPush PRN (01:30)
--- NOTE | 2018-10-27 01:41 | NUR ---
REPORT OF PT FROM THALIA CERNA AND ASSUMING CARE OF PT.
[2018-10-27] MEDS ORDERED: LIDODERM 5% PATCH TD ONE (02:23)
[2018-10-27] MEDS ORDERED: MORPHINE SULFATE 4 MG/ML, 1ML ONE (03:22)
--- NOTE | 2018-10-27 03:29 | NUR ---
pt assisted to bs commode to void. pt medicated per mar for pain.
[2018-10-27] MEDS: morphine SULFATE 10 MG/ML, 1ML IVPush PRN ×7 (03:30→22:45)
[2018-10-27] MEDS ORDERED: ZOLPIDEM 5MG TABLET PO ONE (04:30)
[2018-10-27] MEDS ORDERED: ZOLPIDEM 5MG TABLET ONE (04:40)
--- NOTE | 2018-10-27 05:19 | NUR ---
PT MEDICATED PER NOV. PT EDUCATED ON NPO AND TESTING TODAY AND VERBALIZES UNDERSTANDING. CALL LIGHT IS WITHIN REACH AT THIS TIME.
[2018-10-27] MEDS ORDERED: POTASSIUM CHLORIDE 20 MEQ TAB.ER.PRT PO ONE ×3 (05:30→16:00)
--- NOTE | 2018-10-27 05:35 | NUR ---
REPORT OF PT TO THALIA ARREGUIN. TRANSPORT PGED FOR PT TRANSPORT. PT EDUCATED ON ROOM ASSIGNMENT AND VERBALIZES UNDERSTANDING.
[2018-10-27 05:36] LABS: CHOLESTEROL, TOTAL 117 mg/dL (140-239); TRIGLYCERIDES 114 mg/dL (50-200); VLDL CHOLESTEROL 23 mg/dL (0-25)
[2018-10-27 05:39] LABS: CHOL/HDL RATIO 2.1; HDL CHOL % 48 % (28-40); HDL CHOLESTEROL (DIRECT) 56 mg/dL (40-60); LDL CHOLESTEROL,CALCULATED 38 mg/dL (54-169); LDL/HDL RATIO 0.7 (0.5-3.0); TROPONIN I < 0.015 ng/mL (0.000-0.045)
[2018-10-27] MEDS ORDERED: POTASSIUM CHLORIDE 20 MEQ TAB.ER.PRT ONE (05:40)
[2018-10-27 06:37] VITALS: BP_SYST 109; BP_SYST 163; BP_DIAS 79; BP_DIAS 85
[2018-10-27] MEDS ORDERED: PROPRANOLOL 20 MG TABLET ONE (07:54)
[2018-10-27] MEDS: ONDANSETRON 2MG/ML, 2ML IVPush PRN ×2 (07:58→13:23)
[2018-10-27] MEDS: CHOLECALCIFEROL 1,000 UNIT TABLET PO SCH (07:58)
[2018-10-27] MEDS: PROPRANOLOL 40 MG TABLET PO SCH (07:58)
[2018-10-27 08:41] LABS: ANION GAP 12 mmol/L (5-15); CALCIUM 8.6 mg/dL (8.5-10.1); CHLORIDE 117 mmol/L (98-107)
[2018-10-27 08:42] LABS: CREATININE 0.53 mg/dL (0.55-1.02)
[2018-10-27] MEDS ORDERED: PANTOPROZOLE 40MG TABLET PO SCH (09:00)
[2018-10-27] MEDS ORDERED: ONDA4TAB13 SL (09:09)
[2018-10-27] MEDS ORDERED: TRAM50TA2 PO (09:12)
[2018-10-27] MEDS ORDERED: LORazepam 2 MG/ML, 1ML IVPush ONE (10:00)
[2018-10-27] MEDS: ACETAMINOPHEN 325 MG TABLET PO PRN (10:40)
[2018-10-27] MEDS ORDERED: REGADENOSON 0.4 MG/5 ML SYRINGE ONE (11:30)
[2018-10-27] MEDS ORDERED: MAGNESIUM SULFATE PMX 2GM/50ML 50 ML IV ONE (12:30)
[2018-10-27 15:54] VITALS: BP 96/65
[2018-10-27 16:07] LABS: CLOSTRIDIUM DIFFICILE ANTIGEN NEGATIVE; CLOSTRIDIUM DIFFICILE TOXIN NEGATIVE (Negative)
[2018-10-27] MEDS: PANTOPRAZOLE 40 MG IV IVPush SCH (16:43)
[2018-10-27] MEDS: SUCRALFATE 1 GM/10 ML UDC PO SCH ×2 (16:43→22:44)
[2018-10-27 19:01] VITALS: BP 98/69
[2018-10-27] MEDS: SIMVASTATIN 20 MG TABLET PO SCH (22:44)
[2018-10-28] MEDS: LIDODERM 5% PATCH TD SCH (00:10)
[2018-10-28] MEDS: ONDANSETRON 2MG/ML, 2ML IVPush PRN ×3 (00:10→22:05)
[2018-10-28] MEDS: ZOLPIDEM 5MG TABLET PO PRN ×3 (00:10→22:05)
[2018-10-28 02:20] VITALS: BP 90/60
[2018-10-28 05:00] VITALS: BP 106/69
[2018-10-28] MEDS: morphine SULFATE 10 MG/ML, 1ML IVPush PRN (05:10)
[2018-10-28] MEDS: PANTOPRAZOLE 40 MG IV IVPush SCH ×2 (05:10→17:08)
[2018-10-28 06:44] LABS: BASOPHILS # (AUTO) 0.05 x10^3/uL (0-0.1); BASOPHILS % (AUTO) 1 % (0-1); EOSINOPHILS # (AUTO) 0.16 x10^3/uL (0-0.4); EOSINOPHILS % (AUTO) 3 % (1-7); LYMPHOCYTES # (AUTO) 2.35 x10^3/uL (1-3.4); LYMPHOCYTES % (AUTO) 39 % (22-44); MD NO; MEAN CORPUSCULAR HEMOGLOBIN 27.6 pg (27.0-34.8); MEAN CORPUSCULAR HGB CONC 32.8 g/dL (32.4-35.8); MEAN CORPUSCULAR VOLUME 84.2 fL (80-100); MEAN PLATELET VOLUME 6.9 fL (7.4-10.4); MONOCYTES # (AUTO) 0.32 x10^3/uL (0.2-0.8); MONOCYTES % (AUTO) 5 % (2-9); NEUTROPHILS # (AUTO) 3.18 x10^3/uL (1.8-6.8); NEUTROPHILS % (AUTO) 53 % (42-75); PLATELET COUNT 265 x10^3/uL (130-400); RED BLOOD COUNT 3.68 x10^6/uL (3.82-5.3); RED CELL DISTRIBUTION WIDTH 21.2 % (9.6-15.2)
[2018-10-28 07:23] VITALS: BP 97/68
[2018-10-28] MEDS: PROPRANOLOL 40 MG TABLET PO SCH (09:00)
[2018-10-28] MEDS ORDERED: PROPRANOLOL 20 MG TABLET ONE (09:15)
[2018-10-28] MEDS: SUCRALFATE 1 GM/10 ML UDC PO SCH ×4 (09:19→19:53)
[2018-10-28] MEDS: POTASSIUM CHLORIDE 20 MEQ TAB.ER.PRT PO SCH ×2 (09:20→17:07)
[2018-10-28] MEDS: CHOLECALCIFEROL 1,000 UNIT TABLET PO SCH (09:21)
[2018-10-28 09:55] LABS: ALBUMIN 2.4 g/dL (3.4-5.0); ANION GAP 9 mmol/L (5-15); CALCIUM 8.6 mg/dL (8.5-10.1); CHLORIDE 120 mmol/L (98-107); CREATININE 0.54 mg/dL (0.55-1.02)
[2018-10-28] MEDS: KETOROLAC 30 MG/1 ML IVPush SCH ×3 (10:27→22:05)
[2018-10-28] MEDS: ACETAMINOPHEN 325 MG TABLET PO PRN ×2 (12:14→19:54)
[2018-10-28] MEDS ORDERED: MAGNESIUM SULFATE PMX 2GM/50ML 50 ML IV ONE (14:00)
[2018-10-28 14:04] VITALS: BP 100/68
[2018-10-28] MEDS: HYDROCORTISONE 20 MG TABLET PO SCH (17:07)
[2018-10-28] MEDS: SIMVASTATIN 20 MG TABLET PO SCH (19:54)
[2018-10-28 20:09] VITALS: BP 93/60
[2018-10-29] MEDS: LIDODERM 5% PATCH TD SCH ×2 (01:32→09:30)
[2018-10-29] MEDS: ACETAMINOPHEN 325 MG TABLET PO PRN ×2 (01:39→07:47)
[2018-10-29 02:00] VITALS: BP 98/63
[2018-10-29] MEDS: KETOROLAC 30 MG/1 ML IVPush SCH ×4 (04:09→22:28)
[2018-10-29] MEDS: PANTOPRAZOLE 40 MG IV IVPush SCH (04:51)
[2018-10-29 06:52] VITALS: BP 93/64
[2018-10-29] MEDS: HYDROCORTISONE 20 MG TABLET PO SCH ×2 (07:47→16:44)
[2018-10-29] MEDS: ONDANSETRON 2MG/ML, 2ML IVPush PRN (07:47)
[2018-10-29] MEDS: SUCRALFATE 1 GM/10 ML UDC PO SCH ×4 (07:47→20:35)
[2018-10-29] MEDS ORDERED: PROPRANOLOL 20 MG TABLET ONE (08:23)
[2018-10-29 08:24] LABS: BASOPHILS # (AUTO) 0.02 x10^3/uL (0-0.1); BASOPHILS % (AUTO) 0 % (0-1); EOSINOPHILS # (AUTO) 0.12 x10^3/uL (0-0.4); EOSINOPHILS % (AUTO) 2 % (1-7); LYMPHOCYTES # (AUTO) 2.14 x10^3/uL (1-3.4); LYMPHOCYTES % (AUTO) 35 % (22-44); MD NO; MEAN CORPUSCULAR HEMOGLOBIN 26.8 pg (27.0-34.8); MEAN CORPUSCULAR HGB CONC 31.7 g/dL (32.4-35.8); MEAN CORPUSCULAR VOLUME 84.6 fL (80-100); MEAN PLATELET VOLUME 6.6 fL (7.4-10.4); MONOCYTES # (AUTO) 0.31 x10^3/uL (0.2-0.8); MONOCYTES % (AUTO) 5 % (2-9); NEUTROPHILS # (AUTO) 3.49 x10^3/uL (1.8-6.8); NEUTROPHILS % (AUTO) 58 % (42-75); PLATELET COUNT 259 x10^3/uL (130-400); RED BLOOD COUNT 3.66 x10^6/uL (3.82-5.3); RED CELL DISTRIBUTION WIDTH 20.5 % (9.6-15.2)
[2018-10-29] MEDS: POTASSIUM CHLORIDE 20 MEQ TAB.ER.PRT PO SCH ×2 (08:30→16:44)
[2018-10-29] MEDS: CHOLECALCIFEROL 1,000 UNIT TABLET PO SCH (08:30)
[2018-10-29] MEDS: PROPRANOLOL 40 MG TABLET PO SCH (08:31)
[2018-10-29 08:35] LABS: ANION GAP 7 mmol/L (5-15); CALCIUM 8.8 mg/dL (8.5-10.1); CHLORIDE 115 mmol/L (98-107); CREATININE 0.54 mg/dL (0.55-1.02)
[2018-10-29] MEDS: PROCHLORPERAZINE 5 MG TABLET PO PRN (12:15)
[2018-10-29 12:54] VITALS: BP 95/63
[2018-10-29] MEDS: ONDANSETRON ODT 4 MG PO PRN (15:04)
[2018-10-29] MEDS: PANTOPROZOLE 40MG TABLET PO SCH (16:44)
[2018-10-29] MEDS: HEPARIN 5,000 UNITS/ML, 1ML SQ SCH (16:44)
[2018-10-29 20:00] VITALS: BP 97/63
[2018-10-29] MEDS: SIMVASTATIN 20 MG TABLET PO SCH (20:35)
[2018-10-29] MEDS: ZOLPIDEM 10MG TABLET PO PRN (22:28)
[2018-10-30] MEDS: HEPARIN 5,000 UNITS/ML, 1ML SQ SCH ×3 (01:10→17:55)
[2018-10-30] MEDS: LIDODERM 5% PATCH TD SCH ×2 (01:12→09:30)
[2018-10-30 02:00] VITALS: BP 101/68
[2018-10-30] MEDS: KETOROLAC 30 MG/1 ML IVPush SCH ×4 (04:00→22:01)
[2018-10-30] MEDS: ONDANSETRON ODT 4 MG PO PRN ×3 (04:13→19:21)
[2018-10-30 06:15] LABS: BASOPHILS # (AUTO) 0.02 x10^3/uL (0-0.1); BASOPHILS % (AUTO) 0 % (0-1); EOSINOPHILS # (AUTO) 0.12 x10^3/uL (0-0.4); EOSINOPHILS % (AUTO) 2 % (1-7); LYMPHOCYTES # (AUTO) 2.93 x10^3/uL (1-3.4); LYMPHOCYTES % (AUTO) 42 % (22-44); MD NO; MEAN CORPUSCULAR HEMOGLOBIN 27.5 pg (27.0-34.8); MEAN CORPUSCULAR HGB CONC 32.7 g/dL (32.4-35.8); MEAN CORPUSCULAR VOLUME 84.3 fL (80-100); MEAN PLATELET VOLUME 7.1 fL (7.4-10.4); MONOCYTES # (AUTO) 0.35 x10^3/uL (0.2-0.8); MONOCYTES % (AUTO) 5 % (2-9); NEUTROPHILS # (AUTO) 3.64 x10^3/uL (1.8-6.8); NEUTROPHILS % (AUTO) 52 % (42-75); PLATELET COUNT 263 x10^3/uL (130-400); RED CELL DISTRIBUTION WIDTH 20.5 % (9.6-15.2)
[2018-10-30 06:26] LABS: ANION GAP 6 mmol/L (5-15); CALCIUM 8.6 mg/dL (8.5-10.1); CHLORIDE 111 mmol/L (98-107)
[2018-10-30] MEDS: PANTOPROZOLE 40MG TABLET PO SCH ×2 (06:26→17:57)
[2018-10-30 06:27] LABS: CREATININE 0.55 mg/dL (0.55-1.02)
[2018-10-30 07:37] VITALS: BP 96/64
[2018-10-30] MEDS: PROPRANOLOL 40 MG TABLET PO SCH (09:37)
[2018-10-30] MEDS: CHOLECALCIFEROL 1,000 UNIT TABLET PO SCH (09:40)
[2018-10-30] MEDS: POTASSIUM CHLORIDE 20 MEQ TAB.ER.PRT PO SCH ×2 (09:40→17:55)
[2018-10-30] MEDS: SUCRALFATE 1 GM/10 ML UDC PO SCH ×4 (09:40→20:35)
[2018-10-30] MEDS: HYDROCORTISONE 20 MG TABLET PO SCH ×2 (09:42→17:55)
[2018-10-30 12:35] VITALS: BP 100/67
[2018-10-30 16:10] LABS: OCCULT BLOOD NEGATIVE (NEGATIVE)
[2018-10-30] MEDS: METHOCARBAMOL 500 MG TABLET PO PRN (17:09)
[2018-10-30] MEDS: ACETAMINOPHEN 325 MG TABLET PO PRN (17:54)
[2018-10-30 19:50] VITALS: BP 98/64
[2018-10-30] MEDS: SIMVASTATIN 20 MG TABLET PO SCH (20:35)
[2018-10-30] MEDS: ZOLPIDEM 10MG TABLET PO PRN (22:01)
[2018-10-31 02:00] VITALS: BP 99/68
[2018-10-31] MEDS: METHOCARBAMOL 500 MG TABLET PO PRN ×3 (02:01→19:39)
[2018-10-31] MEDS: ACETAMINOPHEN 325 MG TABLET PO PRN ×3 (02:01→23:04)
[2018-10-31] MEDS: LIDODERM 5% PATCH TD SCH ×2 (02:02→10:11)
[2018-10-31] MEDS: KETOROLAC 30 MG/1 ML IVPush SCH ×2 (04:39→10:33)
[2018-10-31 04:59] LABS: BASOPHILS # (AUTO) 0.02 x10^3/uL (0-0.1); BASOPHILS % (AUTO) 0 % (0-1); EOSINOPHILS # (AUTO) 0.07 x10^3/uL (0-0.4); EOSINOPHILS % (AUTO) 1 % (1-7); LYMPHOCYTES # (AUTO) 1.88 x10^3/uL (1-3.4); LYMPHOCYTES % (AUTO) 31 % (22-44); MD NO; MEAN CORPUSCULAR HEMOGLOBIN 27.5 pg (27.0-34.8); MEAN CORPUSCULAR HGB CONC 32.5 g/dL (32.4-35.8); MEAN CORPUSCULAR VOLUME 84.9 fL (80-100); MEAN PLATELET VOLUME 7.2 fL (7.4-10.4); MONOCYTES # (AUTO) 0.34 x10^3/uL (0.2-0.8); MONOCYTES % (AUTO) 6 % (2-9); NEUTROPHILS # (AUTO) 3.83 x10^3/uL (1.8-6.8); NEUTROPHILS % (AUTO) 62 % (42-75); PLATELET COUNT 252 x10^3/uL (130-400); RED BLOOD COUNT 3.76 x10^6/uL (3.82-5.3); RED CELL DISTRIBUTION WIDTH 20.4 % (9.6-15.2)
[2018-10-31 05:02] LABS: ALBUMIN 2.5 g/dL (3.4-5.0); ANION GAP 6 mmol/L (5-15); CALCIUM 8.4 mg/dL (8.5-10.1); CHLORIDE 109 mmol/L (98-107)
[2018-10-31 05:03] LABS: CREATININE 0.53 mg/dL (0.55-1.02)
[2018-10-31] MEDS: SUCRALFATE 1 GM/10 ML UDC PO SCH ×4 (06:30→20:39)
[2018-10-31] MEDS: ONDANSETRON ODT 4 MG PO PRN ×3 (06:30→20:46)
[2018-10-31] MEDS: PANTOPROZOLE 40MG TABLET PO SCH ×2 (06:30→16:27)
[2018-10-31 07:04] VITALS: BP 98/66
[2018-10-31] MEDS: HYDROCORTISONE 20 MG TABLET PO SCH ×2 (07:12→16:27)
[2018-10-31] MEDS: POTASSIUM CHLORIDE 20 MEQ TAB.ER.PRT PO SCH ×2 (07:12→16:27)
[2018-10-31] MEDS: HEPARIN 5,000 UNITS/ML, 1ML SQ SCH ×3 (07:13→16:27)
[2018-10-31] MEDS: PROPRANOLOL 40 MG TABLET PO SCH (10:10)
[2018-10-31] MEDS: CHOLECALCIFEROL 1,000 UNIT TABLET PO SCH (10:10)
[2018-10-31] MEDS: PROCHLORPERAZINE 5 MG TABLET PO PRN ×2 (10:34→23:04)
[2018-10-31 13:18] VITALS: BP 114/75
[2018-10-31 19:29] VITALS: BP 95/60
[2018-10-31] MEDS: SIMVASTATIN 20 MG TABLET PO SCH (20:39)
[2018-10-31] MEDS: ZOLPIDEM 10MG TABLET PO PRN (22:04)
[2018-11-01 00:58] VITALS: BP 102/65
[2018-11-01 05:17] LABS: BASOPHILS # (AUTO) 0.02 x10^3/uL (0-0.1); BASOPHILS % (AUTO) 0 % (0-1); EOSINOPHILS # (AUTO) 0.09 x10^3/uL (0-0.4); EOSINOPHILS % (AUTO) 1 % (1-7); LYMPHOCYTES # (AUTO) 2.57 x10^3/uL (1-3.4); LYMPHOCYTES % (AUTO) 40 % (22-44); MD NO; MEAN CORPUSCULAR HEMOGLOBIN 27.6 pg (27.0-34.8); MEAN CORPUSCULAR HGB CONC 32.9 g/dL (32.4-35.8); MEAN CORPUSCULAR VOLUME 83.7 fL (80-100); MONOCYTES % (AUTO) 6 % (2-9); NEUTROPHILS # (AUTO) 3.33 x10^3/uL (1.8-6.8); NEUTROPHILS % (AUTO) 52 % (42-75); PLATELET COUNT 249 x10^3/uL (130-400); RED BLOOD COUNT 3.72 x10^6/uL (3.82-5.3); RED CELL DISTRIBUTION WIDTH 20.1 % (9.6-15.2)
[2018-11-01 05:23] LABS: ALBUMIN 2.5 g/dL (3.4-5.0); ANION GAP 6 mmol/L (5-15); CALCIUM 8.8 mg/dL (8.5-10.1); CHLORIDE 106 mmol/L (98-107)
[2018-11-01] MEDS: PANTOPROZOLE 40MG TABLET PO SCH ×2 (05:45→15:54)
[2018-11-01] MEDS: ACETAMINOPHEN 325 MG TABLET PO PRN ×3 (06:27→19:51)
[2018-11-01] MEDS: SUCRALFATE 1 GM/10 ML UDC PO SCH ×4 (06:27→21:37)
[2018-11-01] MEDS: ONDANSETRON ODT 4 MG PO PRN ×3 (06:27→22:34)
[2018-11-01 07:01] VITALS: BP 108/71
[2018-11-01] MEDS: POTASSIUM CHLORIDE 20 MEQ TAB.ER.PRT PO SCH ×2 (08:18→15:50)
[2018-11-01] MEDS: METHOCARBAMOL 500 MG TABLET PO PRN ×3 (08:18→23:32)
[2018-11-01] MEDS: HYDROCORTISONE 20 MG TABLET PO SCH ×2 (08:18→15:50)
[2018-11-01] MEDS: PROPRANOLOL 40 MG TABLET PO SCH (08:18)
[2018-11-01] MEDS: HEPARIN 5,000 UNITS/ML, 1ML SQ SCH ×4 (08:18→23:32)
[2018-11-01] MEDS: CHOLECALCIFEROL 1,000 UNIT TABLET PO SCH (08:18)
[2018-11-01] MEDS: LIDODERM 5% PATCH TD SCH ×2 (08:19→15:53)
[2018-11-01] MEDS: PROCHLORPERAZINE 5 MG TABLET PO PRN (11:53)
[2018-11-01 13:09] VITALS: BP 97/66
[2018-11-01 19:32] VITALS: BP 92/57
[2018-11-01] MEDS: POLYETHYLENE GLYCOL 17 GM PACKET PO PRN (21:37)
[2018-11-01] MEDS: SIMVASTATIN 20 MG TABLET PO SCH (21:37)
[2018-11-01] MEDS: ZOLPIDEM 10MG TABLET PO PRN (23:33)
[2018-11-02 01:10] VITALS: BP 108/72
[2018-11-02] MEDS: ONDANSETRON ODT 4 MG PO PRN ×3 (04:49→16:59)
[2018-11-02] MEDS: PANTOPROZOLE 40MG TABLET PO SCH ×2 (06:19→16:24)
[2018-11-02] MEDS: HEPARIN 5,000 UNITS/ML, 1ML SQ SCH (08:00)
[2018-11-02] MEDS: SUCRALFATE 1 GM/10 ML UDC PO SCH ×4 (08:17→19:26)
[2018-11-02] MEDS: CHOLECALCIFEROL 1,000 UNIT TABLET PO SCH (08:18)
[2018-11-02] MEDS: HYDROCORTISONE 20 MG TABLET PO SCH ×2 (08:19→16:24)
[2018-11-02] MEDS: ACETAMINOPHEN 325 MG TABLET PO PRN ×2 (08:19→16:24)
[2018-11-02] MEDS: PROPRANOLOL 40 MG TABLET PO SCH (08:19)
[2018-11-02] MEDS: POTASSIUM CHLORIDE 20 MEQ TAB.ER.PRT PO SCH (08:19)
[2018-11-02] MEDS: METHOCARBAMOL 500 MG TABLET PO PRN ×2 (08:19→16:24)
[2018-11-02 08:37] VITALS: BP 107/75
[2018-11-02] MEDS ORDERED: MAGNESIUM CITRATE 300ML ORAL SOL PO ONE (09:30)
[2018-11-02] MEDS: BISACODYL 5 MG EC TABLET PO SCH (10:08)
[2018-11-02 14:51] VITALS: BP 96/66
[2018-11-02] MEDS: LIDODERM 5% PATCH TD SCH ×2 (16:25)
[2018-11-02] MEDS: POLYETHYLENE GLYCOL 17 GM PACKET PO PRN (17:39)
[2018-11-02] MEDS: SIMVASTATIN 20 MG TABLET PO SCH (19:26)
[2018-11-02 20:00] VITALS: BP 106/69
[2018-11-02] MEDS: ZOLPIDEM 10MG TABLET PO PRN (23:01)
[2018-11-03] MEDS: METHOCARBAMOL 500 MG TABLET PO PRN ×3 (01:31→17:24)
[2018-11-03 01:35] VITALS: BP 126/75
[2018-11-03] MEDS: PANTOPROZOLE 40MG TABLET PO SCH ×2 (05:06→16:56)
[2018-11-03 07:15] VITALS: BP 117/81
[2018-11-03] MEDS: SUCRALFATE 1 GM/10 ML UDC PO SCH ×4 (08:05→20:05)
[2018-11-03] MEDS: PROPRANOLOL 40 MG TABLET PO SCH (08:05)
[2018-11-03] MEDS: CHOLECALCIFEROL 1,000 UNIT TABLET PO SCH (08:05)
[2018-11-03] MEDS: HYDROCORTISONE 20 MG TABLET PO SCH ×2 (08:05→16:56)
[2018-11-03] MEDS: ACETAMINOPHEN 325 MG TABLET PO PRN ×4 (08:05→23:33)
[2018-11-03] MEDS: ONDANSETRON ODT 4 MG PO PRN ×3 (08:06→23:33)
[2018-11-03] MEDS: BISACODYL 5 MG EC TABLET PO SCH (08:06)
[2018-11-03 12:07] VITALS: BP 91/60
[2018-11-03] MEDS: POLYETHYLENE GLYCOL 17 GM PACKET PO PRN (13:35)
[2018-11-03] MEDS: LIDODERM 5% PATCH TD SCH ×2 (16:57)
[2018-11-03] MEDS: SIMVASTATIN 20 MG TABLET PO SCH (20:05)
[2018-11-03 20:29] VITALS: BP 102/68
[2018-11-03] MEDS: ZOLPIDEM 10MG TABLET PO PRN (23:33)
[2018-11-04 01:21] VITALS: BP 108/71
[2018-11-04] MEDS: PANTOPROZOLE 40MG TABLET PO SCH ×2 (04:54→17:11)
[2018-11-04] MEDS: METHOCARBAMOL 500 MG TABLET PO PRN ×3 (04:54→22:21)
[2018-11-04 07:07] VITALS: BP 96/66
[2018-11-04] MEDS: HYDROCORTISONE 20 MG TABLET PO SCH ×2 (07:25→16:59)
[2018-11-04] MEDS: SUCRALFATE 1 GM/10 ML UDC PO SCH ×4 (07:25→19:44)
[2018-11-04] MEDS: ONDANSETRON ODT 4 MG PO PRN ×3 (07:26→19:44)
[2018-11-04] MEDS: CHOLECALCIFEROL 1,000 UNIT TABLET PO SCH (07:27)
[2018-11-04] MEDS: BISACODYL 5 MG EC TABLET PO SCH (07:27)
[2018-11-04] MEDS: PROPRANOLOL 40 MG TABLET PO SCH (07:27)
[2018-11-04] MEDS: ACETAMINOPHEN 325 MG TABLET PO PRN ×3 (07:33→19:44)
[2018-11-04 12:57] VITALS: BP 94/65
[2018-11-04] MEDS: LIDODERM 5% PATCH TD SCH ×2 (16:59→17:11)
[2018-11-04 19:04] VITALS: BP 98/64
[2018-11-04 19:43] VITALS: BP 97/63
[2018-11-04] MEDS: SIMVASTATIN 20 MG TABLET PO SCH (19:45)
[2018-11-04] MEDS: ZOLPIDEM 10MG TABLET PO PRN (23:39)
[2018-11-05 01:22] VITALS: BP 101/68
[2018-11-05] MEDS: PANTOPROZOLE 40MG TABLET PO SCH ×2 (04:38→15:47)
[2018-11-05] MEDS: ONDANSETRON ODT 4 MG PO PRN ×4 (05:10→22:50)
[2018-11-05] MEDS: ACETAMINOPHEN 325 MG TABLET PO PRN ×4 (05:10→22:50)
[2018-11-05 07:08] VITALS: BP 104/71
[2018-11-05] MEDS: METHOCARBAMOL 500 MG TABLET PO PRN ×3 (07:24→22:49)
[2018-11-05] MEDS: SUCRALFATE 1 GM/10 ML UDC PO SCH ×4 (07:24→20:57)
[2018-11-05] MEDS: HYDROCORTISONE 20 MG TABLET PO SCH ×2 (07:24→15:48)
[2018-11-05] MEDS: BISACODYL 5 MG EC TABLET PO SCH (07:25)
[2018-11-05] MEDS: PROPRANOLOL 40 MG TABLET PO SCH (07:26)
[2018-11-05] MEDS: CHOLECALCIFEROL 1,000 UNIT TABLET PO SCH (07:26)
[2018-11-05 14:25] VITALS: BP 101/68
[2018-11-05] MEDS: LIDODERM 5% PATCH TD SCH ×2 (15:47→15:48)
[2018-11-05] MEDS: POLYETHYLENE GLYCOL 17 GM PACKET PO PRN (16:46)
[2018-11-05 19:44] VITALS: BP 106/68
[2018-11-05] MEDS: SIMVASTATIN 20 MG TABLET PO SCH (20:57)
[2018-11-05] MEDS: ZOLPIDEM 10MG TABLET PO PRN (22:50)
[2018-11-06 01:29] VITALS: BP 101/62
[2018-11-06] MEDS: PANTOPROZOLE 40MG TABLET PO SCH ×2 (05:36→16:32)
[2018-11-06 06:58] VITALS: BP 94/68
[2018-11-06] MEDS: SUCRALFATE 1 GM/10 ML UDC PO SCH ×4 (07:40→21:30)
[2018-11-06] MEDS: BISACODYL 5 MG EC TABLET PO SCH (07:41)
[2018-11-06] MEDS: METHOCARBAMOL 500 MG TABLET PO PRN ×3 (07:41→22:56)
[2018-11-06] MEDS: CHOLECALCIFEROL 1,000 UNIT TABLET PO SCH (07:41)
[2018-11-06] MEDS: ACETAMINOPHEN 325 MG TABLET PO PRN ×4 (07:41→21:30)
[2018-11-06] MEDS: ONDANSETRON ODT 4 MG PO PRN ×3 (07:41→21:30)
[2018-11-06] MEDS: HYDROCORTISONE 20 MG TABLET PO SCH ×2 (07:41→16:32)
[2018-11-06] MEDS: PROPRANOLOL 40 MG TABLET PO SCH (07:42)
[2018-11-06 12:29] VITALS: BP 106/72
[2018-11-06] MEDS ORDERED: HYDR20TA PO (12:45)
[2018-11-06] MEDS ORDERED: LIDO700A20 TD (12:45)
[2018-11-06] MEDS ORDERED: PROP40TA PO (12:45)
[2018-11-06] MEDS ORDERED: ONDA4TAB13 PO (12:45)
[2018-11-06] MEDS ORDERED: PANT40TA5 PO (12:45)
[2018-11-06] MEDS ORDERED: SUCR1ORA5 PO (12:45)
[2018-11-06] MEDS ORDERED: METH500T7 PO (12:45)
[2018-11-06] MEDS ORDERED: TRAM50TA2 PO (12:45)
[2018-11-06] MEDS: LIDODERM 5% PATCH TD SCH ×2 (16:00)
[2018-11-06 19:28] VITALS: BP 109/62
[2018-11-06] MEDS: SIMVASTATIN 20 MG TABLET PO SCH (21:30)
[2018-11-06] MEDS: ZOLPIDEM 10MG TABLET PO PRN (22:55)
[2018-11-07] MEDS: ACETAMINOPHEN 325 MG TABLET PO PRN ×3 (01:51→12:34)
[2018-11-07 01:52] VITALS: BP 117/76
[2018-11-07] MEDS: PANTOPROZOLE 40MG TABLET PO SCH (05:46)
[2018-11-07] MEDS: ONDANSETRON ODT 4 MG PO PRN ×2 (05:46→11:45)
[2018-11-07 06:55] VITALS: BP 104/68
[2018-11-07] MEDS: CHOLECALCIFEROL 1,000 UNIT TABLET PO SCH (08:11)
[2018-11-07] MEDS: SUCRALFATE 1 GM/10 ML UDC PO SCH ×2 (08:11→11:45)
[2018-11-07] MEDS: METHOCARBAMOL 500 MG TABLET PO PRN (08:12)
[2018-11-07] MEDS: HYDROCORTISONE 20 MG TABLET PO SCH (08:12)
[2018-11-07] MEDS: BISACODYL 5 MG EC TABLET PO SCH (08:12)
[2018-11-07] MEDS: PROPRANOLOL 40 MG TABLET PO SCH (08:12)
== END 2018-11-07 14:14 | disposition home or self-care (01) ==
LOC: ED 23:29 → SUATTDRO 10-27 01:17 → EDIP 10-27 01:21 → 5SO 10-27 06:00 → 3NE 10-29 16:50
PROVIDERS: ADMIT Hospitalist; ATTEND Hospitalist
DX: R07.89 Other chest pain (principal); E11.9 Type 2 diabetes mellitus without complications; D64.9 Anemia, unspecified; E27.40 Unspecified adrenocortical insufficiency; E78.5 Hyperlipidemia, unspecified; E83.42 Hypomagnesemia; E87.2 Acidosis; E87.6 Hypokalemia; R11.2 Nausea with vomiting, unspecified; F11.20 Opioid dependence, uncomplicated; F17.200 Nicotine dependence, unspecified, uncomplicated; G89.29 Other chronic pain; I10 Essential (primary) hypertension; I25.2 Old myocardial infarction; K21.0 Gastro-esophageal reflux disease with esophagitis; Z86.73 Personal history of transient ischemic attack (TIA), and cerebral infarction without residual deficits; Z87.442 Personal history of urinary calculi; Z90.710 Acquired absence of both cervix and uterus; Z96.641 Presence of right artificial hip joint
CPT/HCPCS: 36415; 71045; 73610; 78452; 80048; 80053; 80061; 82024; 82040; 82272; 82533; 83690; 83735; 84100; 84439; 84443; 84484; 85025; 85379; 85610; 85730; 86677; 87324; 93005; 93017; 96361; 96365; 96366; 96372; 96375; 96376; 97110; 97161; 97166; 97530; 97535; 99284; A9502; C9113; C9898; G0378; J1644; J1885; J2060; J2270; J2405; J2785; J3475; J7030; Q0162; Q0164

== ENCOUNTER 2018-11-16 23:41 | Emergency (ER) | payer MEDICAID ==
[~2018-11-16] VITALS: Ht 180.3 cm; Wt 100.0 kg
[~2018-11-16 23:41] MED LIST changes: +HYDR20TA PO; +LIDO700A20 TD; +ONDA4TAB13 PO; +ONDA4TAB13 SL; +PANT40TA5 PO; +TRAM50TA2 PO
[2018-11-16 23:54] VITALS: BP 125/85
[2018-11-17 00:23] LABS: BASOPHILS # (AUTO) 0.06 x10^3/uL (0-0.1); BASOPHILS % (AUTO) 1 % (0-1); EOSINOPHILS # (AUTO) 0.08 x10^3/uL (0-0.4); EOSINOPHILS % (AUTO) 1 % (1-7); LYMPHOCYTES # (AUTO) 1.55 x10^3/uL (1-3.4); LYMPHOCYTES % (AUTO) 25 % (22-44); MD NO; MEAN CORPUSCULAR HEMOGLOBIN 27.1 pg (27.0-34.8); MEAN CORPUSCULAR VOLUME 82.1 fL (80-100); MONOCYTES # (AUTO) 0.25 x10^3/uL (0.2-0.8); MONOCYTES % (AUTO) 4 % (2-9); NEUTROPHILS # (AUTO) 4.33 x10^3/uL (1.8-6.8); NEUTROPHILS % (AUTO) 69 % (42-75); PLATELET COUNT 265 x10^3/uL (130-400); RED BLOOD COUNT 4.12 x10^6/uL (3.82-5.3); RED CELL DISTRIBUTION WIDTH 19.3 % (9.6-15.2)
[2018-11-17 00:34] LABS: ALANINE AMINOTRANSFERASE 13 U/L (12-78); ALBUMIN 3.3 g/dL (3.4-5.0); ANION GAP 12 mmol/L (5-15); CALCIUM 8.6 mg/dL (8.5-10.1); CHLORIDE 122 mmol/L (98-107); CREATININE 0.79 mg/dL (0.55-1.02)
[2018-11-17] MEDS ORDERED: ACETAMINOPHEN 325 MG TABLET ONE (00:35)
[2018-11-17 00:38] LABS: ALKALINE PHOSPHATASE 80 U/L (45-117); BILIRUBIN,TOTAL 0.2 mg/dL (0.2-1.0); TOTAL PROTEIN 6.9 g/dL (6.4-8.2); TROPONIN I < 0.015 ng/mL (0.000-0.045)
[2018-11-17] MEDS ORDERED: ACETAMINOPHEN 325 MG TABLET PO ONE (01:00)
== END 2018-11-17 00:51 | disposition home or self-care (01) ==
LOC: ED 23:57
DX: R07.89 Other chest pain (principal); Z72.9 Problem related to lifestyle, unspecified; I10 Essential (primary) hypertension; E11.9 Type 2 diabetes mellitus without complications; E78.5 Hyperlipidemia, unspecified; F17.200 Nicotine dependence, unspecified, uncomplicated; G89.29 Other chronic pain; I25.2 Old myocardial infarction; Z86.73 Personal history of transient ischemic attack (TIA), and cerebral infarction without residual deficits
CPT/HCPCS: 36415; 71045; 80053; 83880; 84484; 85025; 93005; 99284

== ENCOUNTER 2018-12-06 12:03 | Inpatient (IN) | payer MEDICAID ==
[~2018-12-06] VITALS: Ht 180.3 cm; Wt 108.6 kg
[2018-12-06 13:08] LABS: BASOPHILS # (AUTO) 0.02 x10^3/uL (0-0.1); BASOPHILS % (AUTO) 0 % (0-1); EOSINOPHILS # (AUTO) 0.07 x10^3/uL (0-0.4); EOSINOPHILS % (AUTO) 1 % (1-7); LYMPHOCYTES # (AUTO) 1.88 x10^3/uL (1-3.4); LYMPHOCYTES % (AUTO) 38 % (22-44); MD NO; MEAN CORPUSCULAR HEMOGLOBIN 27.3 pg (27.0-34.8); MEAN CORPUSCULAR HGB CONC 32.9 g/dL (32.4-35.8); MEAN CORPUSCULAR VOLUME 82.9 fL (80-100); MEAN PLATELET VOLUME 6.4 fL (7.4-10.4); MONOCYTES # (AUTO) 0.35 x10^3/uL (0.2-0.8); MONOCYTES % (AUTO) 7 % (2-9); NEUTROPHILS # (AUTO) 2.65 x10^3/uL (1.8-6.8); NEUTROPHILS % (AUTO) 53 % (42-75); PLATELET COUNT 332 x10^3/uL (130-400); RED BLOOD COUNT 4.04 x10^6/uL (3.82-5.3); RED CELL DISTRIBUTION WIDTH 21.7 % (9.6-15.2)
[2018-12-06 13:19] LABS: ALANINE AMINOTRANSFERASE 14 U/L (12-78); ALBUMIN 3.1 g/dL (3.4-5.0); ANION GAP 5 mmol/L (5-15); CALCIUM 8.8 mg/dL (8.5-10.1); CHLORIDE 120 mmol/L (98-107); CREATININE 0.63 mg/dL (0.55-1.02)
[2018-12-06 13:23] LABS: ALKALINE PHOSPHATASE 103 U/L (45-117); BILIRUBIN,TOTAL 0.2 mg/dL (0.2-1.0); TOTAL PROTEIN 6.9 g/dL (6.4-8.2); TROPONIN I < 0.015 ng/mL (0.000-0.045)
[2018-12-06] MEDS ORDERED: CLON1TAB23 PO (14:39)
[2018-12-06] MEDS ORDERED: POLY17PO5 PO (14:41)
[2018-12-06] MEDS ORDERED: LORA1TAB PO (14:46)
[2018-12-06] MEDS ORDERED: PROM25TA10 PO (14:46)
[2018-12-06] MEDS ORDERED: D5%-0.45% NACL 1,000 ML IV SCH (14:49)
[2018-12-06] MEDS ORDERED: ONDANSETRON 2MG/ML, 2ML IVPush PRN (15:00)
[2018-12-06] MEDS ORDERED: POLYETHYLENE GLYCOL 17 GM PACKET PO PRN ×2 (15:00→17:00)
[2018-12-06] MEDS ORDERED: LABETALOL 5MG/ML, 20ML IVPush PRN (15:00)
[2018-12-06] MEDS ORDERED: ONDANSETRON ODT 4 MG PO PRN (15:00)
[2018-12-06] MEDS ORDERED: SODIUM CHLORIDE FLUSH 10ML SYR IVF PRN (15:00)
[2018-12-06 15:24] LABS: FREE T4 (FREE THYROXINE) 0.83 ng/dL (0.76-1.46)
[2018-12-06 15:36] VITALS: BP 144/84
[2018-12-06] MEDS: ENOXAPARIN 40 MG/0.4 ML SQ SCH (15:54)
[2018-12-06] MEDS ORDERED: QUET100T4 PO (16:11)
[2018-12-06] MEDS ORDERED: AMLO10TA8 PO (16:12)
[2018-12-06] MEDS ORDERED: DULO60CA7 PO (16:13)
[2018-12-06] MEDS ORDERED: SODIUM CHLORIDE 0.45% 1,000 ML IV SCH (17:00)
[2018-12-06] MEDS: SUCRALFATE 1 GM/10 ML UDC PO SCH ×2 (17:41→20:31)
[2018-12-06] MEDS: SODIUM CHLORIDE 0.45% 1,000 ML IV SCH (17:41)
[2018-12-06] MEDS: LIDODERM 5% PATCH TD SCH (17:41)
[2018-12-06] MEDS: ONDANSETRON ODT 4 MG SL SCH (17:41)
[2018-12-06 18:52] LABS: MICROSCOPIC AUTO
[2018-12-06 19:03] VITALS: BP 130/83
[2018-12-06 19:06] LABS: CULTURE INDICATED? YES
[2018-12-06] MEDS: SIMVASTATIN 20 MG TABLET PO SCH (20:31)
[2018-12-06] MEDS: FAMOTIDINE 20 MG/2 ML IVPush SCH (20:31)
[2018-12-06] MEDS: POTASSIUM CHLORIDE 10% 40 MEQ/30 ML UDC PO SCH (20:31)
[2018-12-06] MEDS: LORazepam 0.5MG TABLET PO SCH (21:00)
[2018-12-06] MEDS: HYDROCORTISONE 20 MG TABLET PO SCH (21:05)
[2018-12-06] MEDS: QUETIAPINE 25MG TABLET PO SCH (21:08)
[2018-12-07] VITALS (11 sets, daily range): BP systolic 110–141; BP diastolic 73–87
[2018-12-07] MEDS: ONDANSETRON ODT 4 MG SL SCH ×5 (00:07→23:26)
[2018-12-07] MEDS: SODIUM CHLORIDE 0.45% 1,000 ML IV SCH ×2 (02:29→09:57)
[2018-12-07] MEDS: SODIUM CHLORIDE NASAL SPRAY 45ML BOTTLE NAS PRN ×3 (02:33→09:56)
[2018-12-07 05:11] LABS: BASOPHILS # (AUTO) 0.05 x10^3/uL (0-0.1); BASOPHILS % (AUTO) 1 % (0-1); EOSINOPHILS % (AUTO) 2 % (1-7); LYMPHOCYTES # (AUTO) 1.33 x10^3/uL (1-3.4); LYMPHOCYTES % (AUTO) 24 % (22-44); MD NO; MEAN CORPUSCULAR HEMOGLOBIN 27.2 pg (27.0-34.8); MEAN CORPUSCULAR HGB CONC 33.1 g/dL (32.4-35.8); MEAN CORPUSCULAR VOLUME 82.3 fL (80-100); MONOCYTES # (AUTO) 0.29 x10^3/uL (0.2-0.8); MONOCYTES % (AUTO) 5 % (2-9); NEUTROPHILS # (AUTO) 3.69 x10^3/uL (1.8-6.8); NEUTROPHILS % (AUTO) 68 % (42-75); PLATELET COUNT 298 x10^3/uL (130-400); RED BLOOD COUNT 3.64 x10^6/uL (3.82-5.3); RED CELL DISTRIBUTION WIDTH 21.4 % (9.6-15.2)
[2018-12-07 05:26] LABS: CHLORIDE 116 mmol/L (98-107)
[2018-12-07] MEDS: PANTOPROZOLE 40MG TABLET PO SCH ×2 (05:42→15:18)
[2018-12-07 05:44] LABS: ALANINE AMINOTRANSFERASE 12 U/L (12-78); ALBUMIN 2.8 g/dL (3.4-5.0); ALKALINE PHOSPHATASE 87 U/L (45-117); ANION GAP 6 mmol/L (5-15); BILIRUBIN,TOTAL 0.5 mg/dL (0.2-1.0); CALCIUM 7.8 mg/dL (8.5-10.1); CREATININE 0.75 mg/dL (0.55-1.02); THYROID STIMULATING HORMONE 0.445 mIU/L (0.358-3.740); TOTAL PROTEIN 5.8 g/dL (6.4-8.2)
[2018-12-07] MEDS: SUCRALFATE 1 GM/10 ML UDC PO SCH ×4 (07:38→23:26)
[2018-12-07] MEDS: HYDROCORTISONE 20 MG TABLET PO SCH ×2 (07:39→16:18)
[2018-12-07] MEDS ORDERED: MAGNESIUM SULFATE PMX 2GM/50ML 50 ML IV ONE (09:00)
[2018-12-07] MEDS: SENNA/DOCUSATE TABLET PO SCH (09:56)
[2018-12-07] MEDS: QUETIAPINE 25MG TABLET PO SCH ×2 (09:56→19:51)
[2018-12-07] MEDS: FAMOTIDINE 20 MG/2 ML IVPush SCH (09:56)
[2018-12-07] MEDS: POTASSIUM CHLORIDE 10% 40 MEQ/30 ML UDC PO SCH (09:56)
[2018-12-07] MEDS: CHOLECALCIFEROL 1,000 UNIT TABLET PO SCH (09:56)
[2018-12-07] MEDS: LORazepam 0.5MG TABLET PO SCH ×3 (09:56→19:50)
[2018-12-07] MEDS ORDERED: SODIUM CHLORIDE 0.45%, 1,000ML IVBOLUS ONE (10:30)
[2018-12-07] MEDS: ENOXAPARIN 40 MG/0.4 ML SQ SCH (15:18)
[2018-12-07] MEDS ORDERED: KETOROLAC 30 MG/1 ML IVPush ONE (16:00)
[2018-12-07 16:06] LABS: TROPONIN I < 0.015 ng/mL (0.000-0.045)
[2018-12-07] MEDS: LIDODERM 5% PATCH TD SCH (16:21)
[2018-12-07] MEDS: SIMVASTATIN 20 MG TABLET PO SCH (19:51)
[2018-12-07 21:34] LABS: TROPONIN I < 0.015 ng/mL (0.000-0.045)
[2018-12-07] MEDS: ZOLPIDEM 10MG TABLET PO PRN (23:26)
[2018-12-08] MEDS: IBUPROFEN 200 MG TABLET PO PRN ×3 (01:07→18:05)
[2018-12-08 02:07] VITALS: BP 141/92
[2018-12-08 03:37] LABS: ALBUMIN 2.8 g/dL (3.4-5.0); ANION GAP 3 mmol/L (5-15); CALCIUM 8.3 mg/dL (8.5-10.1); CHLORIDE 115 mmol/L (98-107); CREATININE 0.73 mg/dL (0.55-1.02)
[2018-12-08 03:42] LABS: TROPONIN I < 0.015 ng/mL (0.000-0.045)
[2018-12-08 03:43] LABS: BASOPHILS # (AUTO) 0.02 x10^3/uL (0-0.1); BASOPHILS % (AUTO) 1 % (0-1); EOSINOPHILS # (AUTO) 0.08 x10^3/uL (0-0.4); EOSINOPHILS % (AUTO) 2 % (1-7); LYMPHOCYTES # (AUTO) 1.85 x10^3/uL (1-3.4); LYMPHOCYTES % (AUTO) 44 % (22-44); MD NO; MEAN CORPUSCULAR HEMOGLOBIN 27.1 pg (27.0-34.8); MEAN CORPUSCULAR HGB CONC 32.5 g/dL (32.4-35.8); MEAN CORPUSCULAR VOLUME 83.2 fL (80-100); MEAN PLATELET VOLUME 6.5 fL (7.4-10.4); MONOCYTES # (AUTO) 0.31 x10^3/uL (0.2-0.8); MONOCYTES % (AUTO) 7 % (2-9); NEUTROPHILS # (AUTO) 1.96 x10^3/uL (1.8-6.8); NEUTROPHILS % (AUTO) 46 % (42-75); PLATELET COUNT 290 x10^3/uL (130-400); RED BLOOD COUNT 3.83 x10^6/uL (3.82-5.3); RED CELL DISTRIBUTION WIDTH 20.8 % (9.6-15.2)
[2018-12-08 07:37] VITALS: BP 126/80
[2018-12-08] MEDS: HYDROCORTISONE 20 MG TABLET PO SCH ×2 (07:46→16:47)
[2018-12-08] MEDS: SUCRALFATE 1 GM/10 ML UDC PO SCH ×4 (07:46→20:56)
[2018-12-08] MEDS: SENNA/DOCUSATE TABLET PO SCH (07:46)
[2018-12-08] MEDS: ONDANSETRON ODT 4 MG SL SCH ×3 (07:46→18:04)
[2018-12-08] MEDS: CHOLECALCIFEROL 1,000 UNIT TABLET PO SCH (07:46)
[2018-12-08] MEDS: QUETIAPINE 25MG TABLET PO SCH ×2 (07:47→20:57)
[2018-12-08] MEDS: LORazepam 0.5MG TABLET PO SCH ×3 (07:47→20:57)
[2018-12-08] MEDS: PANTOPROZOLE 40MG TABLET PO SCH ×2 (07:47→15:05)
[2018-12-08] MEDS ORDERED: MAGNESIUM SULFATE PMX 2GM/50ML 50 ML IV ONE (11:30)
[2018-12-08] MEDS ORDERED: POTASSIUM CHLORIDE 20 MEQ TAB.ER.PRT PO ONE ×2 (11:30→14:30)
[2018-12-08 12:26] VITALS: BP 136/85
[2018-12-08] MEDS: ENOXAPARIN 40 MG/0.4 ML SQ SCH (15:05)
[2018-12-08] MEDS: LIDODERM 5% PATCH TD SCH (16:47)
[2018-12-08] MEDS: MAGNESIUM HYDROXIDE 8%, 30ML UDC PO SCH (16:47)
[2018-12-08 19:49] VITALS: BP 132/81
[2018-12-08] MEDS: SIMVASTATIN 20 MG TABLET PO SCH (20:57)
[2018-12-08] MEDS: ZOLPIDEM 10MG TABLET PO PRN (23:42)
[2018-12-09 01:01] VITALS: BP 129/84
[2018-12-09] MEDS: ONDANSETRON ODT 4 MG SL SCH ×4 (01:31→20:08)
[2018-12-09] MEDS: PANTOPROZOLE 40MG TABLET PO SCH ×2 (05:28→16:00)
[2018-12-09 06:17] LABS: BASOPHILS # (AUTO) 0.03 x10^3/uL (0-0.1); BASOPHILS % (AUTO) 0 % (0-1); EOSINOPHILS % (AUTO) 2 % (1-7); LYMPHOCYTES # (AUTO) 1.29 x10^3/uL (1-3.4); LYMPHOCYTES % (AUTO) 20 % (22-44); MD NO; MEAN CORPUSCULAR HEMOGLOBIN 27.4 pg (27.0-34.8); MEAN CORPUSCULAR VOLUME 82.9 fL (80-100); MEAN PLATELET VOLUME 7.2 fL (7.4-10.4); MONOCYTES # (AUTO) 0.42 x10^3/uL (0.2-0.8); MONOCYTES % (AUTO) 7 % (2-9); NEUTROPHILS % (AUTO) 72 % (42-75); PLATELET COUNT 226 x10^3/uL (130-400); RED BLOOD COUNT 3.74 x10^6/uL (3.82-5.3); RED CELL DISTRIBUTION WIDTH 20.1 % (9.6-15.2)
[2018-12-09 06:25] LABS: ALBUMIN 2.7 g/dL (3.4-5.0); ANION GAP 3 mmol/L (5-15); CALCIUM 8.4 mg/dL (8.5-10.1); CHLORIDE 111 mmol/L (98-107); CREATININE 0.61 mg/dL (0.55-1.02)
[2018-12-09 07:45] VITALS: BP 113/74
[2018-12-09] MEDS: SUCRALFATE 1 GM/10 ML UDC PO SCH ×4 (08:27→20:07)
[2018-12-09] MEDS: MAGNESIUM HYDROXIDE 8%, 30ML UDC PO SCH (08:27)
[2018-12-09] MEDS: HYDROCORTISONE 20 MG TABLET PO SCH ×2 (08:27→16:24)
[2018-12-09] MEDS: SENNA/DOCUSATE TABLET PO SCH (08:27)
[2018-12-09] MEDS: QUETIAPINE 25MG TABLET PO SCH ×2 (08:28→20:08)
[2018-12-09] MEDS: CHOLECALCIFEROL 1,000 UNIT TABLET PO SCH (08:28)
[2018-12-09] MEDS: LORazepam 0.5MG TABLET PO SCH ×3 (08:28→20:07)
[2018-12-09] MEDS: NEUTRA PHOS K 250 MG TABLET PO SCH ×3 (09:54→20:08)
[2018-12-09] MEDS ORDERED: KETOROLAC 30 MG/1 ML IVPush ONE (10:00)
[2018-12-09 13:48] VITALS: BP 111/75
[2018-12-09] MEDS: ENOXAPARIN 40 MG/0.4 ML SQ SCH (16:23)
[2018-12-09] MEDS: LIDODERM 5% PATCH TD SCH (16:24)
[2018-12-09] MEDS: IBUPROFEN 200 MG TABLET PO PRN (16:24)
[2018-12-09 18:45] VITALS: BP 122/86
[2018-12-09] MEDS: SIMVASTATIN 20 MG TABLET PO SCH (20:07)
[2018-12-09] MEDS: ZOLPIDEM 10MG TABLET PO PRN (23:07)
[2018-12-10 01:24] VITALS: BP 130/85
[2018-12-10] MEDS: ONDANSETRON ODT 4 MG SL SCH ×3 (02:00→13:52)
[2018-12-10] MEDS: PANTOPROZOLE 40MG TABLET PO SCH ×2 (04:55→15:22)
[2018-12-10 06:19] LABS: BASOPHILS # (AUTO) 0.02 x10^3/uL (0-0.1); BASOPHILS % (AUTO) 0 % (0-1); EOSINOPHILS # (AUTO) 0.14 x10^3/uL (0-0.4); EOSINOPHILS % (AUTO) 2 % (1-7); LYMPHOCYTES % (AUTO) 44 % (22-44); MD NO; MEAN CORPUSCULAR HEMOGLOBIN 27.3 pg (27.0-34.8); MEAN CORPUSCULAR HGB CONC 32.6 g/dL (32.4-35.8); MEAN CORPUSCULAR VOLUME 83.7 fL (80-100); MEAN PLATELET VOLUME 7.1 fL (7.4-10.4); MONOCYTES # (AUTO) 0.39 x10^3/uL (0.2-0.8); MONOCYTES % (AUTO) 7 % (2-9); NEUTROPHILS # (AUTO) 2.67 x10^3/uL (1.8-6.8); NEUTROPHILS % (AUTO) 47 % (42-75); PLATELET COUNT 234 x10^3/uL (130-400); RED BLOOD COUNT 3.72 x10^6/uL (3.82-5.3); RED CELL DISTRIBUTION WIDTH 20.5 % (9.6-15.2)
[2018-12-10 06:29] LABS: ALBUMIN 2.7 g/dL (3.4-5.0); ANION GAP 5 mmol/L (5-15); CALCIUM 8.6 mg/dL (8.5-10.1); CHLORIDE 110 mmol/L (98-107); CREATININE 0.51 mg/dL (0.55-1.02)
[2018-12-10] MEDS: LORazepam 0.5MG TABLET PO SCH ×2 (08:02→15:20)
[2018-12-10] MEDS: MAGNESIUM HYDROXIDE 8%, 30ML UDC PO SCH (08:02)
[2018-12-10] MEDS: SENNA/DOCUSATE TABLET PO SCH (08:02)
[2018-12-10] MEDS: SUCRALFATE 1 GM/10 ML UDC PO SCH ×3 (08:02→15:20)
[2018-12-10] MEDS: HYDROCORTISONE 20 MG TABLET PO SCH (08:02)
[2018-12-10] MEDS: CHOLECALCIFEROL 1,000 UNIT TABLET PO SCH (08:03)
[2018-12-10] MEDS ORDERED: QUET100T4 PO (08:24)
[2018-12-10] MEDS ORDERED: SODIUM CHLORIDE 0.45%, 1,000ML IVBOLUS SCH (08:30)
[2018-12-10] MEDS ORDERED: QUETIAPINE 25MG TABLET PO SCH (09:00)
[2018-12-10 09:05] VITALS: BP 112/75
[2018-12-10] MEDS: IBUPROFEN 200 MG TABLET PO PRN (09:36)
[2018-12-10] MEDS: ENOXAPARIN 40 MG/0.4 ML SQ SCH (13:53)
[2018-12-10 14:42] VITALS: BP 103/71
== END 2018-12-10 16:01 | disposition home health service (06) | DRG 74 ==
LOC: ED 12:47 → EDIP 14:41 → INTOOBSV 14:41 → 4EST 15:29 → OBSVTOIN 12-08 08:33
PROVIDERS: ADMIT Hospitalist; ATTEND Hospitalist
DX: G90.8 Other disorders of autonomic nervous system (principal); E44.0 Moderate protein-calorie malnutrition; F11.20 Opioid dependence, uncomplicated; I50.30 Unspecified diastolic (congestive) heart failure; E27.40 Unspecified adrenocortical insufficiency; D64.9 Anemia, unspecified; E66.01 Morbid (severe) obesity due to excess calories; Z96.641 Presence of right artificial hip joint; I71.2 Thoracic aortic aneurysm, without rupture; M54.9 Dorsalgia, unspecified; E11.9 Type 2 diabetes mellitus without complications; R53.81 Other malaise; E78.5 Hyperlipidemia, unspecified; E87.6 Hypokalemia; G89.29 Other chronic pain; I11.0 Hypertensive heart disease with heart failure; K21.9 Gastro-esophageal reflux disease without esophagitis; K52.9 Noninfective gastroenteritis and colitis, unspecified; Z86.73 Personal history of transient ischemic attack (TIA), and cerebral infarction without residual deficits; Z90.710 Acquired absence of both cervix and uterus; Z91.81 History of falling; Z68.33 Body mass index [BMI] 33.0-33.9, adult
CPT/HCPCS: 36415; 73552; 99285; J3490; 71045; 80048; 80053; 81001; 82040; 83735; 84100; 84439; 84443; 84484; 85025; 87040; 87086; 93005; 93306; 93880; G0378; J1650; J1885; Q0162; J3475

== ENCOUNTER 2019-08-15 10:43 | Emergency (ER) | payer MEDICAID ==
[~2019-08-15] VITALS: Ht 180.3 cm; Wt 118.0 kg
[~2019-08-15 10:43] MED LIST changes: -ALEN5TAB2 PO; +ALEN5TAB5 PO; +CLON1TAB23 PO; +DULO60CA7 PO; +LORA1TAB PO; +PROM25TA10 PO; +QUET100T4 PO
[2019-08-15] MEDS ORDERED: PLEASE ENTER HEIGHT AND WEIGHT MC SCH (11:00)
[2019-08-15] MEDS ORDERED: SODIUM CHLORIDE FLUSH 10ML SYR IVF ONE (11:00)
[2019-08-15] MEDS ORDERED: LORazepam 2 MG/ML, 1ML IVPush ONE (11:00)
--- NOTE | 2019-08-15 11:00 | NUR ---
PER EMS; PT REPORTED SHE DEVELOPED STUTTERING LAST NOC AND PALPITATIONS THIS MORNING; RAN OUT OF HER LORA[facility] 2-3 WEEKS AGO - NO PCP CURRENTLY. STATES SHE TOOK HER USUAL MEDS AND COLD & FLU MED TODAY (C/O NASAL STUFFINESS). C/O INTERMITTENT LT SIDED CHEST PAIN - STARTED THIS MORNING. PT C/O TONGUE PAIN X 5-6 DAYS. TONGUE DRY W/ WHITE PATCHES. TOOK TYLENOL 0700 TODAY. PT STUTTERS WHEN ANSWERING RN QUESTIONS, BUT CLEAR SPEECH WHEN SPEAKING W/ BALANCE WHEEL FACER.
--- NOTE | 2019-08-15 11:10 | NUR ---
PT WAS UP TO BS COMMODE W/ ASSIST. CLEAN-CATCH VOIDED SPECIMEN PROVIDED: VERY PALE YELLOW, CLEAR.
[2019-08-15 11:22] LABS: BASOPHILS # (AUTO) 0.04 x10^3/uL (0-0.1); BASOPHILS % (AUTO) 1 % (0-1); EOSINOPHILS % (AUTO) 2 % (1-7); LYMPHOCYTES # (AUTO) 1.83 x10^3/uL (1-3.4); LYMPHOCYTES % (AUTO) 39 % (22-44); MD NO; MEAN CORPUSCULAR HEMOGLOBIN 25.9 pg (27.0-34.8); MEAN CORPUSCULAR HGB CONC 31.1 g/dL (32.4-35.8); MEAN CORPUSCULAR VOLUME 83.4 fL (80-100); MEAN PLATELET VOLUME 7.6 fL (7.4-10.4); MONOCYTES # (AUTO) 0.34 x10^3/uL (0.2-0.8); MONOCYTES % (AUTO) 7 % (2-9); NEUTROPHILS % (AUTO) 51 % (42-75); PLATELET COUNT 161 x10^3/uL (130-400); RED BLOOD COUNT 5.12 x10^6/uL (3.82-5.3); RED CELL DISTRIBUTION WIDTH 20.8 % (9.6-15.2)
[2019-08-15 11:31] LABS: INTERNATIONAL NORMALIZED RATIO 0.93 (0.93-1.1); PROTHROMBIN TIME 9.8 Seconds (9.6-11.5)
[2019-08-15] MEDS ORDERED: LORazepam 2 MG/ML, 1ML ONE (11:31)
[2019-08-15 11:33] LABS: ALANINE AMINOTRANSFERASE 14 U/L (12-78); ALBUMIN 3.1 g/dL (3.4-5.0); ANION GAP 7 mmol/L (5-15); CALCIUM 8.6 mg/dL (8.5-10.1); CHLORIDE 106 mmol/L (98-107); CREATININE 0.77 mg/dL (0.55-1.02)
--- NOTE | 2019-08-15 11:40 | NUR ---
EDD, RN BS FOR IV ATTEMPT
[2019-08-15 11:43] LABS: ALKALINE PHOSPHATASE 124 U/L (45-117); BILIRUBIN,TOTAL 0.3 mg/dL (0.2-1.0); TOTAL PROTEIN 7.2 g/dL (6.4-8.2)
[2019-08-15] MEDS ORDERED: RANI150T4 PO (11:53)
[2019-08-15] MEDS ORDERED: QUET100T PO (11:53)
[2019-08-15] MEDS ORDERED: DANT50CA PO (11:53)
[2019-08-15] MEDS ORDERED: ONDA4TAB12 PO (11:53)
[2019-08-15] MEDS ORDERED: POLY510P31 PO (11:53)
[2019-08-15] MEDS ORDERED: ZOLP10TA5 PO (11:53)
[2019-08-15] MEDS ORDERED: BACL20TA PO (11:53)
[2019-08-15] MEDS ORDERED: PROP20TA PO (11:53)
[2019-08-15] MEDS ORDERED: MORP-30 PO (11:53)
--- NOTE | 2019-08-15 12:14 | NUR ---
IV ATTEMPTS UNSUCCESSFUL. PER COORDINATOR OF HEALTH SERVICES, CT W/OUT CONTRAST WILL BE DONE FIRST.
[2019-08-15] MEDS ORDERED: MAGNESIUM OXIDE 400 MG TABLET PO ONE (12:30)
[2019-08-15] MEDS ORDERED: POTASSIUM CHLORIDE 20 MEQ TAB.ER.PRT PO ONE (12:30)
[2019-08-15] MEDS ORDERED: POTASSIUM CHLORIDE 20 MEQ TAB.ER.PRT ONE ×2 (12:44→13:10)
[2019-08-15] MEDS ORDERED: MAGNESIUM OXIDE 400 MG TABLET ONE (13:11)
--- NOTE | 2019-08-15 13:11 | NUR ---
PT REPORT TO THALIA GRAY. PT CARE TRANSFERRED.
--- NOTE | 2019-08-15 13:15 | NUR ---
RECEIVED REPORT FROM THALIA VIRK. PT RESTING ON GURNEY. NADN. SPEAKING 4-5 WORD SENTENCES W/O STUTTER. PT SBP NOTED TO BE 92. ERP NOTIFIED. AWAITING NEW ORDERS FOR 500 ML NS BOLUS.
[2019-08-15] MEDS ORDERED: SODIUM CHLORIDE 0.9%, 500ML IVBOLUS ONE (13:30)
--- NOTE | 2019-08-15 14:30 | NUR ---
Throughput RN note: [facility]. Pt to be picked up at 1600.
--- NOTE | 2019-08-15 15:02 | NUR ---
PT HELPED W/ X 1 ASSISTANCE TO COMMODE. PT RESTING ON JOHN. NADN. HARRIS.
[2019-08-15 15:03] VITALS: BP 109/62
== END 2019-08-15 16:01 | disposition home or self-care (01) ==
LOC: ED 11:05
DX: F41.1 Generalized anxiety disorder (principal); E87.6 Hypokalemia; E83.42 Hypomagnesemia; F17.200 Nicotine dependence, unspecified, uncomplicated; I10 Essential (primary) hypertension; I25.2 Old myocardial infarction; R47.01 Aphasia; E11.9 Type 2 diabetes mellitus without complications; E78.5 Hyperlipidemia, unspecified; Z86.73 Personal history of transient ischemic attack (TIA), and cerebral infarction without residual deficits; Z90.710 Acquired absence of both cervix and uterus
CPT/HCPCS: 36415; 70450; 80053; 83735; 84443; 85025; 85610; 93005; 96374; 99284; J2060; J7040

== ENCOUNTER 2019-08-17 05:30 | Emergency (ER) | payer MEDICAID ==
[~2019-08-17] VITALS: Ht 165.1 cm; Wt 136.4 kg
[~2019-08-17 05:30] MED LIST changes: +BACL20TA PO; +DANT50CA PO; +MORP-30 PO; +POLY510P31 PO; +PROP20TA PO; +QUET100T PO; +RANI150T4 PO; +ZOLP10TA5 PO
--- NOTE | 2019-08-17 05:30 | NUR ---
BIB [facility]. C/O R HIP PAIN AFTER GLF. HIT COFFEE TABLE.
[2019-08-17] MEDS ORDERED: LORazepam 1MG TABLET PO ONE (06:00)
[2019-08-17] MEDS ORDERED: LORazepam 1MG TABLET ONE (06:03)
--- NOTE | 2019-08-17 06:32 | NUR ---
PT MEDICATED W ATIVAN. RESTING COMFORTABLY, HAVING RANDOM CONVERSATIONS WITH NO ONE PRESENT IN ROOM.
--- NOTE | 2019-08-17 06:36 | NUR ---
PT STILL UNABLE TO PEE. ENCOURAGED FLUIDS.
[2019-08-17 06:51] LABS: ALBUMIN 3.5 g/dL (3.4-5.0); ANION GAP 6 mmol/L (5-15); CALCIUM 8.9 mg/dL (8.5-10.1); CHLORIDE 107 mmol/L (98-107)
--- NOTE | 2019-08-17 06:59 | NUR ---
I AM ASSUMING CARE OF THIS PT FROM ANDERSON (THALIA) AT THIS TIME. SBAR REPORT WAS EXCHANGED AT THE BEDSIDE.
[2019-08-17 07:00] LABS: ALANINE AMINOTRANSFERASE 16 U/L (12-78); ALKALINE PHOSPHATASE 132 U/L (45-117); BILIRUBIN,TOTAL 0.6 mg/dL (0.2-1.0); FREE T4 (FREE THYROXINE) 1.04 ng/dL (0.76-1.46); TOTAL PROTEIN 7.6 g/dL (6.4-8.2)
[2019-08-17 07:02] LABS: BASOPHILS # (AUTO) 0.02 x10^3/uL (0-0.1); BASOPHILS % (AUTO) 0 % (0-1); EOSINOPHILS # (AUTO) 0.11 x10^3/uL (0-0.4); EOSINOPHILS % (AUTO) 1 % (1-7); LYMPHOCYTES # (AUTO) 1.31 x10^3/uL (1-3.4); LYMPHOCYTES % (AUTO) 12 % (22-44); MD NO; MEAN CORPUSCULAR HGB CONC 31.2 g/dL (32.4-35.8); MEAN CORPUSCULAR VOLUME 83.4 fL (80-100); MEAN PLATELET VOLUME 8.2 fL (7.4-10.4); MONOCYTES # (AUTO) 0.45 x10^3/uL (0.2-0.8); MONOCYTES % (AUTO) 4 % (2-9); NEUTROPHILS # (AUTO) 9.34 x10^3/uL (1.8-6.8); NEUTROPHILS % (AUTO) 83 % (42-75); PLATELET COUNT 173 x10^3/uL (130-400); RED BLOOD COUNT 5.36 x10^6/uL (3.82-5.3); RED CELL DISTRIBUTION WIDTH 20.9 % (9.6-15.2)
--- NOTE | 2019-08-17 07:05 | NUR ---
PT UTILIZING BEDPAN TO VOID. GLF X2 TODAY.
--- NOTE | 2019-08-17 07:32 | NUR ---
pt to xr w jennifer x2
[2019-08-17 07:34] LABS: CULTURE INDICATED? YES; MICROSCOPIC AUTO
[2019-08-17 07:39] LABS: AMPHETAMINE SCREEN, URINE Negative (Negative); BARBITURATE SCREEN, URINE Negative (Negative); BENZODIAZEPINE SCREEN, URINE Negative (Negative); CANNABINOID SCREEN, URINE Negative (Negative); COCAINE SCREEN, URINE Negative (Negative); METHADONE SCREEN, URINE Negative (Negative); OPIATE SCREEN, URINE Positive (Negative)
[2019-08-17] MEDS ORDERED: LORazepam 2 MG/ML, 1ML IVPush ONE (08:30)
[2019-08-17] MEDS ORDERED: LORazepam 2 MG/ML, 1ML ONE (08:49)
[2019-08-17 08:54] VITALS: BP 149/86
--- NOTE | 2019-08-17 08:55 | NUR ---
pt to mri with tech
[2019-08-17] MEDS ORDERED: HALOPERIDOL 5 MG/ML ONE (09:14)
--- NOTE | 2019-08-17 09:27 | NUR ---
pt unable to be still for mri. haldol administered IM. I will notify arcade technician once she is relaxed
[2019-08-17] MEDS ORDERED: HALOPERIDOL 5 MG/ML IM PRN (09:30)
--- NOTE | 2019-08-17 09:44 | NUR ---
TASK RN: PT ASSISTED TO BSC. PT BACK ON JOHN. PT HAS WARM BLANKETS ON HER. NADN. WILL CONTINUE TO MONITOR.
--- NOTE | 2019-08-17 09:53 | NUR ---
pt is voicing delusional ideas. re-assurance provided.
--- NOTE | 2019-08-17 10:00 | NUR ---
pt up to the bsc w standby assist
[2019-08-17] MEDS ORDERED: MIDAZOLAM 1 MG/ML, 2ML ONE (10:04)
[2019-08-17] MEDS ORDERED: MIDAZOLAM 1 MG/ML, 2ML IVPush ONE (10:30)
--- NOTE | 2019-08-17 10:57 | NUR ---
policeman note: Sitter requested from nursing ops.
[2019-08-17] MEDS ORDERED: ZIPRASIDONE 20 MG INJ IM ONE ×2 (11:00→11:11)
--- NOTE | 2019-08-17 11:09 | NUR ---
PT IS SITTING AT THE BEDSIDE. SHE REQUIRES REDIRECTION FREQUENTLY, AND IS UNSTEADY ON HER FEET. SITTER HAS BEEN REQUESTED FOR SAFETY.
--- NOTE | 2019-08-17 11:19 | NUR ---
PT UP TO BSC WITH JACKIE FORRESTER. SHE NEEDS FREQUENT REDIRECTION
--- NOTE | 2019-08-17 11:39 | NUR ---
plant tender note: Followed up on sitter from nursing ops.
--- NOTE | 2019-08-17 11:57 | NUR ---
VERBAL SBAR REPORT EXCHANGED Rima LAROSE (RN) AT THE BEDSIDE. SHE IS ASSUMING CREA OF THIS PT AT THIS TIME.
--- NOTE | 2019-08-17 11:58 | NUR ---
REPORT RECEIVED FROM SERA VÁSQUEZ.
--- NOTE | 2019-08-17 11:59 | NUR ---
rib cloth knitter note: Sitter arrived at pt bedside.
--- NOTE | 2019-08-17 13:24 | NUR ---
PT RESTING IN [facility]. SITTER MONITORING FROM [facility].
--- NOTE | 2019-08-17 14:14 | NUR ---
PT GOT UP BED FREQUENTLY. SHE REQUIRES REDIRECTION FREQUENTLY, AND IS UNSTEADY ON HER FEET. SITTER MONITORING FROM [facility].
--- NOTE | 2019-08-17 15:49 | NUR ---
WATER GIVEN AT THIS TIME. PT RESTING IN [facility]. RESPS EVEN AND UNLABORED. SITTER MONITORING FROM [facility] TO [facility].
--- NOTE | 2019-08-17 17:26 | NUR ---
PT IS AGITATED. RESPS EVEN AND UNLABORED. PT REQUESTING PAIN MEDS AT THIS TIME.
--- NOTE | 2019-08-17 17:28 | NUR ---
MEAL TRAY ORDERED AT THIS TIME.
--- NOTE | 2019-08-17 17:42 | NUR ---
MEAL TRAY PROVIDED AT THIS TIME.
--- NOTE | 2019-08-17 18:10 | NUR ---
PT REMOVED PIV BY HERSELF. PT STATES "LOOK AT MY HAND. IT'S RED." PT EATING DINNER AT THIS TIME. SITTER MONITORING FROM [facility].
--- NOTE | 2019-08-17 18:48 | NUR ---
Patient given discharge instructions and they have confirmed that they understand the instructions.
[2019-08-18] MEDS ORDERED: MAGN400T36 PO (13:56)
[2019-08-18] MEDS ORDERED: DICL100G19 TP (13:56)
[2019-08-18] MEDS ORDERED: FURO-93 PO (13:56)
[2019-08-18] MEDS ORDERED: MORP15TA PO (14:37)
[2019-08-18] MEDS ORDERED: SUCR1ORA5 PO (14:37)
== END 2019-08-17 18:49 | disposition home or self-care (01) ==
LOC: ED 06:26
DX: G89.11 Acute pain due to trauma (principal); M25.551 Pain in right hip; R05 Cough; R51 Headache; R35.0 Frequency of micturition; R00.0 Tachycardia, unspecified; Z87.891 Personal history of nicotine dependence; W01.0XXA Fall on same level from slipping, tripping and stumbling without subsequent striking against object, initial encounter; Y93.89 Activity, other specified; Y92.89 Other specified places as the place of occurrence of the external cause; Y99.8 Other external cause status
CPT/HCPCS: 36415; 70450; 71045; 73502; 80053; 80307; 81001; 84439; 84443; 85025; 87086; 93005; 96372; 96374; 96375; 99284; J1630; J2060; J2250; J3486

== ENCOUNTER 2019-08-17 22:40 | Inpatient (IN) | payer MEDICAID ==
[~2019-08-17] VITALS: Ht 181.6 cm; Wt 122.5 kg
--- NOTE | 2019-08-17 23:07 | NUR ---
PT IN [facility] ATTACHED TO VS MACHINES. VSS AT THIS TIME. PT REPORTS PELVIC PAIN AFTER MOST RECENT FALL. AWAITING ERP. CALL LIGHT IS WITHIN REACH. PT VERBALIZES UNDERSTANDING OF ER PROCESS.
[2019-08-18] MEDS ORDERED: HYDROcodone/APAP 5/325 TABLET ONE (00:12)
--- NOTE | 2019-08-18 00:17 | NUR ---
PT WANT MEDS BEFORE CT.
[2019-08-18 00:35] LABS: BASOPHILS # (AUTO) 0.02 x10^3/uL (0-0.1); BASOPHILS % (AUTO) 0 % (0-1); EOSINOPHILS # (AUTO) 0.02 x10^3/uL (0-0.4); EOSINOPHILS % (AUTO) 0 % (1-7); LYMPHOCYTES # (AUTO) 1.32 x10^3/uL (1-3.4); LYMPHOCYTES % (AUTO) 15 % (22-44); MD NO; MEAN CORPUSCULAR HEMOGLOBIN 26.2 pg (27.0-34.8); MEAN CORPUSCULAR HGB CONC 31.9 g/dL (32.4-35.8); MEAN CORPUSCULAR VOLUME 82.1 fL (80-100); MEAN PLATELET VOLUME 8.1 fL (7.4-10.4); MONOCYTES # (AUTO) 0.71 x10^3/uL (0.2-0.8); MONOCYTES % (AUTO) 8 % (2-9); NEUTROPHILS # (AUTO) 6.74 x10^3/uL (1.8-6.8); NEUTROPHILS % (AUTO) 77 % (42-75); PLATELET COUNT 237 x10^3/uL (130-400); RED BLOOD COUNT 4.61 x10^6/uL (3.82-5.3); RED CELL DISTRIBUTION WIDTH 19.6 % (9.6-15.2)
--- NOTE | 2019-08-18 00:39 | NUR ---
PT TO CT VIA [facility] AT THIS TIME.
[2019-08-18 00:40] LABS: ALANINE AMINOTRANSFERASE 15 U/L (12-78); ALBUMIN 3.1 g/dL (3.4-5.0); ANION GAP 8 mmol/L (5-15); CALCIUM 8.6 mg/dL (8.5-10.1); CHLORIDE 110 mmol/L (98-107); CREATININE 0.65 mg/dL (0.55-1.02)
[2019-08-18 00:45] LABS: ALKALINE PHOSPHATASE 108 U/L (45-117); BILIRUBIN,TOTAL 0.6 mg/dL (0.2-1.0); FREE T4 (FREE THYROXINE) 1.04 ng/dL (0.76-1.46); TROPONIN I < 0.015 ng/mL (0.000-0.045)
--- NOTE | 2019-08-18 00:48 | NUR ---
RECEIVED REPORT FROM THALIA CORBETT TO ASSUME CARE OF PT. AT THIS TIME. PT. TO BE ADMIT.
--- NOTE | 2019-08-18 00:58 | NUR ---
PER DR CORTES, TURNER CATHETER PLACEMENT IS NOT NECESSARY ON THIS PATIENT AND THE ORDER WAS MADE BY MISTAKE.
--- NOTE | 2019-08-18 01:45 | NUR ---
ASSIST PT W/BEDPAN. VOIDED W/BM.
--- NOTE | 2019-08-18 02:00 | NUR ---
REPORT CALLED TO FLOOR.
--- NOTE | 2019-08-18 02:00 | NUR ---
IV ATTEMPT X2 WITH NO SUCCESS.
--- NOTE | 2019-08-18 02:25 | NUR ---
SM IN TO EVAL PT. FOR ADMISSION. FAILED ATTEMPTS AT IV ACCESS THUS FAR. WORKING ON IV START PRIOR TO TRANSPORTATION UP TO FLOOR.
[2019-08-18] MEDS ORDERED: hydrALAzine 20 MG/ML, 1ML IVPush PRN (03:30)
[2019-08-18] MEDS ORDERED: ONDANSETRON 2MG/ML, 2ML IVPush PRN (03:30)
[2019-08-18] MEDS ORDERED: DOCUSATE 100 MG CAPSULE PO PRN (03:30)
[2019-08-18] MEDS ORDERED: POTASSIUM CHLORIDE 40 MEQ in SODIUM CHLORIDE 0.9% 500 ML IV ONE (03:30)
[2019-08-18] MEDS ORDERED: PROMETHAZINE 25 MG/ML, 1ML IM PRN (03:30)
[2019-08-18] MEDS ORDERED: BISACODYL 10 MG SUPP PR PRN (03:30)
--- NOTE | 2019-08-18 03:38 | NUR ---
PT TRANSPORTED TO FLOOR.
[2019-08-18 03:55] VITALS: BP 115/77
[2019-08-18] MEDS: morphine SULFATE 10 MG/ML, 1ML IVPush PRN ×2 (04:18→08:55)
[2019-08-18] MEDS: HEPARIN 5,000 UNITS/ML, 1ML SQ SCH ×3 (04:19→23:20)
[2019-08-18 05:54] LABS: CULTURE INDICATED? YES; MICROSCOPIC INDICATED
[2019-08-18] MEDS ORDERED: HYDROCORTISONE 20 MG TABLET PO SCH (07:30)
[2019-08-18] MEDS ORDERED: ALENDRONATE 10 MG TABLET PO SCH (09:00)
[2019-08-18] MEDS ORDERED: CHOLECALCIFEROL 400 UNITS TABLET PO SCH (09:00)
[2019-08-18] MEDS: DOCUSATE 100 MG CAPSULE PO SCH ×2 (09:00→20:48)
[2019-08-18] MEDS ORDERED: DULOXETINE 30 MG CAPSULE.DR PO SCH (09:00)
[2019-08-18] MEDS: SODIUM CHLORIDE 0.9% 1,000 ML IV SCH ×2 (09:02→20:47)
[2019-08-18 09:04] VITALS: BP 123/85
[2019-08-18] MEDS ORDERED: NEOSTIGMINE 1 MG/ML, 10ML ONE (10:17)
[2019-08-18] MEDS ORDERED: PHENYLEPHRINE 10 MG/ML ONE (10:17)
[2019-08-18] MEDS ORDERED: ROCURONIUM 10 MG/ML,10ML ONE ×2 (10:17)
[2019-08-18] MEDS ORDERED: ONDANSETRON 2MG/ML, 2ML ONE (10:17)
[2019-08-18] MEDS ORDERED: PROPOFOL 10 MG/ML, 20ML ONE (10:17)
[2019-08-18] MEDS ORDERED: SUCCINYLCHOLINE 20 MG/ML, 10ML ONE (10:17)
[2019-08-18] MEDS ORDERED: GLYCOPYRROLATE 0.2MG/1ML, 5ML ONE (10:17)
[2019-08-18] MEDS ORDERED: DEXAMETHASONE 4 MG/ML, 1ML ONE (10:17)
[2019-08-18] MEDS ORDERED: MIDAZOLAM 1 MG/ML, 2ML ONE (10:24)
[2019-08-18] MEDS ORDERED: FENTANYL PF 100 MCG/2ML ONE ×2 (10:24→12:50)
[2019-08-18] MEDS ORDERED: MIDAZOLAM 1 MG/ML, 2ML IV PRN (11:00)
[2019-08-18] MEDS ORDERED: OXYcodone 5 MG/5 ML ORAL.SOL UDC PO PRN (11:00)
[2019-08-18] MEDS ORDERED: FENTANYL PF 100 MCG/2ML IV PRN (11:00)
[2019-08-18] MEDS ORDERED: PROMETHAZINE 25 MG/ML, 1ML IV PRN (11:00)
[2019-08-18] MEDS ORDERED: DIAZEPAM 5 MG/ML, 2ML IVPush PRN (11:00)
[2019-08-18] MEDS ORDERED: GADOTERATE 10 MMOL/20 ML SYR ONE (12:40)
[2019-08-18] MEDS ORDERED: DICL100G19 TP (13:56)
[2019-08-18] MEDS ORDERED: MAGN400T36 PO (13:56)
[2019-08-18] MEDS ORDERED: FURO-93 PO (13:56)
[2019-08-18 14:20] VITALS: BP 130/82
[2019-08-18] MEDS ORDERED: MORP15TA PO (14:37)
[2019-08-18] MEDS ORDERED: SUCR1ORA5 PO (14:37)
[2019-08-18] MEDS: OXYcodone IR 5MG TABLET PO PRN (15:12)
[2019-08-18] MEDS ORDERED: DANTROLENE 25 MG CAPSULE PO SCH (16:00)
[2019-08-18] MEDS: POTASSIUM CHLORIDE 20 MEQ TAB.ER.PRT PO SCH (17:25)
[2019-08-18] MEDS: MAGNESIUM OXIDE 400 MG TABLET PO SCH (17:25)
[2019-08-18] MEDS: morphine SULFATE 15 MG TAB.IR PO PRN ×2 (17:26→23:19)
[2019-08-18] MEDS: PANTOPROZOLE 40MG TABLET PO SCH (17:26)
[2019-08-18 20:39] VITALS: BP 106/70
[2019-08-18 20:40] VITALS: BP 117/69
[2019-08-18] MEDS: SUCRALFATE 1 GM/10 ML UDC PO SCH (20:47)
[2019-08-18] MEDS: ZOLPIDEM 10MG TABLET PO SCH (20:47)
[2019-08-18] MEDS: QUETIAPINE 100MG TABLET PO SCH (20:52)
[2019-08-18] MEDS: SIMVASTATIN 20 MG TABLET PO SCH (20:52)
[2019-08-18] MEDS: ACETAMINOPHEN 325 MG TABLET PO PRN (20:52)
[2019-08-18] MEDS: ONDANSETRON ODT 4 MG PO PRN (21:16)
[2019-08-19] MEDS ORDERED: KETOROLAC 30 MG/1 ML IVPush SCH
[2019-08-19 02:12] VITALS: BP 100/65
[2019-08-19] MEDS: MAGNESIUM OXIDE 400 MG TABLET PO SCH ×2 (05:54→17:57)
[2019-08-19] MEDS: POLYETHYLENE GLYCOL 17 GM PACKET PO PRN (05:54)
[2019-08-19] MEDS: morphine SULFATE 15 MG TAB.IR PO PRN ×3 (05:55→17:58)
[2019-08-19 06:40] LABS: BASOPHILS # (AUTO) 0.03 x10^3/uL (0-0.1); BASOPHILS % (AUTO) 0 % (0-1); EOSINOPHILS # (AUTO) 0.04 x10^3/uL (0-0.4); EOSINOPHILS % (AUTO) 1 % (1-7); LYMPHOCYTES # (AUTO) 1.71 x10^3/uL (1-3.4); LYMPHOCYTES % (AUTO) 23 % (22-44); MD NO; MEAN CORPUSCULAR HEMOGLOBIN 26.2 pg (27.0-34.8); MEAN CORPUSCULAR HGB CONC 31.1 g/dL (32.4-35.8); MEAN CORPUSCULAR VOLUME 84.4 fL (80-100); MEAN PLATELET VOLUME 8.2 fL (7.4-10.4); MONOCYTES # (AUTO) 0.58 x10^3/uL (0.2-0.8); MONOCYTES % (AUTO) 8 % (2-9); NEUTROPHILS # (AUTO) 5.01 x10^3/uL (1.8-6.8); NEUTROPHILS % (AUTO) 68 % (42-75); PLATELET COUNT 190 x10^3/uL (130-400); RED BLOOD COUNT 3.71 x10^6/uL (3.82-5.3); RED CELL DISTRIBUTION WIDTH 21.4 % (9.6-15.2)
[2019-08-19] MEDS: SODIUM CHLORIDE 0.9% 1,000 ML IV SCH (06:40)
[2019-08-19] MEDS: PANTOPROZOLE 40MG TABLET PO SCH ×2 (06:40→17:58)
[2019-08-19 06:43] VITALS: BP 93/60
[2019-08-19 06:55] LABS: ALANINE AMINOTRANSFERASE 13 U/L (12-78); ALBUMIN 2.6 g/dL (3.4-5.0); ALKALINE PHOSPHATASE 78 U/L (45-117); BILIRUBIN,TOTAL 0.6 mg/dL (0.2-1.0); CALCIUM 7.9 mg/dL (8.5-10.1); CHOL/HDL RATIO 2.9; CHOLESTEROL, TOTAL 173 mg/dL (140-239); CREATININE 0.61 mg/dL (0.55-1.02); HDL CHOL % 34 % (28-40); HDL CHOLESTEROL (DIRECT) 59 mg/dL (40-60); LDL CHOLESTEROL,CALCULATED 83 mg/dL (54-169); LDL/HDL RATIO 1.4 (0.5-3.0); TOTAL PROTEIN 5.9 g/dL (6.4-8.2); TRIGLYCERIDES 153 mg/dL (50-200); VLDL CHOLESTEROL 31 mg/dL (0-25)
[2019-08-19 07:18] VITALS: BP 94/60
[2019-08-19 07:21] LABS: ANION GAP 5 mmol/L (5-15); CHLORIDE 111 mmol/L (98-107)
[2019-08-19] MEDS: PROPRANOLOL 20 MG TABLET PO SCH (08:56)
[2019-08-19] MEDS: SUCRALFATE 1 GM/10 ML UDC PO SCH ×2 (08:56→21:29)
[2019-08-19] MEDS: POTASSIUM CHLORIDE 20 MEQ TAB.ER.PRT PO SCH ×2 (08:56→17:58)
[2019-08-19] MEDS: FUROSEMIDE 20 MG TABLET PO SCH (08:56)
[2019-08-19] MEDS: HEPARIN 5,000 UNITS/ML, 1ML SQ SCH ×3 (08:56→22:45)
[2019-08-19] MEDS: DOCUSATE 100 MG CAPSULE PO SCH ×2 (08:56→21:28)
[2019-08-19] MEDS: QUETIAPINE 100MG TABLET PO SCH ×2 (08:56→21:29)
[2019-08-19] MEDS: ONDANSETRON ODT 4 MG PO PRN (08:57)
[2019-08-19] MEDS: FAMOTIDINE 20 MG TABLET PO PRN (08:57)
[2019-08-19] MEDS ORDERED: MAGNESIUM CITRATE 300ML ORAL SOL PO ONE (09:30)
[2019-08-19] MEDS ORDERED: SODIUM CHLORIDE NASAL SPRAY 45ML BOTTLE NAS PRN (09:30)
[2019-08-19] MEDS ORDERED: BACLOFEN PO SCH (10:00)
[2019-08-19] MEDS ORDERED: BACLOFEN MC SCH (10:00)
[2019-08-19] MEDS: BACLOFEN 10 MG TABLET PO PRN ×2 (11:37→22:45)
[2019-08-19 13:24] VITALS: BP 91/60
[2019-08-19] MEDS ORDERED: MAGNESIUM CITRATE 300ML ORAL SOL PO PRN (13:30)
[2019-08-19] MEDS: OXYcodone IR 5MG TABLET PO PRN (15:06)
[2019-08-19 20:14] VITALS: BP 94/60
[2019-08-19] MEDS: SIMVASTATIN 20 MG TABLET PO SCH (21:29)
[2019-08-19] MEDS: ZOLPIDEM 10MG TABLET PO SCH (21:29)
[2019-08-19] MEDS: ACETAMINOPHEN 325 MG TABLET PO PRN (22:45)
[2019-08-20 02:00] VITALS: BP 90/60
[2019-08-20] MEDS: morphine SULFATE 15 MG TAB.IR PO PRN ×2 (02:54→13:41)
[2019-08-20] MEDS: MAGNESIUM OXIDE 400 MG TABLET PO SCH ×2 (05:57→17:06)
[2019-08-20] MEDS: PANTOPROZOLE 40MG TABLET PO SCH ×2 (05:57→17:02)
[2019-08-20] MEDS: BACLOFEN 10 MG TABLET PO PRN (06:23)
[2019-08-20] MEDS: ACETAMINOPHEN 325 MG TABLET PO PRN (06:23)
[2019-08-20 08:33] VITALS: BP 86/55
[2019-08-20] MEDS: HEPARIN 5,000 UNITS/ML, 1ML SQ SCH ×2 (09:48→17:06)
[2019-08-20] MEDS: SUCRALFATE 1 GM/10 ML UDC PO SCH ×2 (09:48→21:46)
[2019-08-20] MEDS: PROPRANOLOL 20 MG TABLET PO SCH ×2 (09:49→09:50)
[2019-08-20] MEDS: FUROSEMIDE 20 MG TABLET PO SCH (09:49)
[2019-08-20] MEDS: DOCUSATE 100 MG CAPSULE PO SCH ×2 (09:49→21:46)
[2019-08-20] MEDS: POTASSIUM CHLORIDE 20 MEQ TAB.ER.PRT PO SCH ×2 (09:49→17:02)
[2019-08-20] MEDS: QUETIAPINE 100MG TABLET PO SCH ×2 (09:49→21:46)
[2019-08-20 09:55] LABS: BASOPHILS # (AUTO) 0.02 x10^3/uL (0-0.1); BASOPHILS % (AUTO) 0 % (0-1); EOSINOPHILS # (AUTO) 0.08 x10^3/uL (0-0.4); EOSINOPHILS % (AUTO) 2 % (1-7); LYMPHOCYTES # (AUTO) 1.75 x10^3/uL (1-3.4); LYMPHOCYTES % (AUTO) 43 % (22-44); MD NO; MEAN CORPUSCULAR HEMOGLOBIN 26.2 pg (27.0-34.8); MEAN CORPUSCULAR HGB CONC 31.2 g/dL (32.4-35.8); MEAN CORPUSCULAR VOLUME 84.1 fL (80-100); MEAN PLATELET VOLUME 7.7 fL (7.4-10.4); MONOCYTES # (AUTO) 0.33 x10^3/uL (0.2-0.8); MONOCYTES % (AUTO) 8 % (2-9); NEUTROPHILS # (AUTO) 1.87 x10^3/uL (1.8-6.8); NEUTROPHILS % (AUTO) 46 % (42-75); PLATELET COUNT 166 x10^3/uL (130-400); RED BLOOD COUNT 3.63 x10^6/uL (3.82-5.3); RED CELL DISTRIBUTION WIDTH 21.4 % (9.6-15.2)
[2019-08-20 10:00] LABS: ALBUMIN 2.4 g/dL (3.4-5.0); ANION GAP 4 mmol/L (5-15); CHLORIDE 113 mmol/L (98-107); CREATININE 0.62 mg/dL (0.55-1.02)
[2019-08-20] MEDS: ACYCLOVIR 400 MG TABLET PO SCH ×3 (12:04→21:46)
[2019-08-20 12:54] VITALS: BP 99/65
[2019-08-20] MEDS: LORazepam 1MG TABLET PO SCH (15:48)
[2019-08-20] MEDS: CHOLECALCIFEROL 400 UNITS TABLET PO SCH (17:02)
[2019-08-20] MEDS: ASCORBIC ACID 500 MG TABLET PO SCH (17:06)
[2019-08-20] MEDS: OXYcodone IR 5MG TABLET PO PRN (17:20)
[2019-08-20 19:30] VITALS: BP 105/67
[2019-08-20] MEDS: ZOLPIDEM 10MG TABLET PO SCH (21:00)
[2019-08-20] MEDS: CALCIUM CARBONATE 500 MG TAB.CHEW PO SCH (21:47)
[2019-08-20] MEDS: SIMVASTATIN 20 MG TABLET PO SCH (21:47)
[2019-08-21 02:00] VITALS: BP 105/70
[2019-08-21] MEDS: HEPARIN 5,000 UNITS/ML, 1ML SQ SCH ×3 (02:24→18:30)
[2019-08-21] MEDS: morphine SULFATE 15 MG TAB.IR PO PRN ×3 (02:26→15:28)
[2019-08-21] MEDS: LORazepam 1MG TABLET PO SCH ×4 (04:00→20:59)
[2019-08-21] MEDS: OXYcodone IR 5MG TABLET PO PRN ×4 (04:22→23:45)
[2019-08-21] MEDS: MAGNESIUM OXIDE 400 MG TABLET PO SCH ×2 (05:38→17:05)
[2019-08-21] MEDS: PANTOPROZOLE 40MG TABLET PO SCH ×2 (05:42→17:05)
[2019-08-21 06:57] VITALS: BP 94/61
[2019-08-21 07:44] LABS: BASOPHILS # (AUTO) 0.02 x10^3/uL (0-0.1); BASOPHILS % (AUTO) 0 % (0-1); EOSINOPHILS # (AUTO) 0.07 x10^3/uL (0-0.4); EOSINOPHILS % (AUTO) 2 % (1-7); LYMPHOCYTES # (AUTO) 1.49 x10^3/uL (1-3.4); LYMPHOCYTES % (AUTO) 38 % (22-44); MD NO; MEAN CORPUSCULAR VOLUME 83.9 fL (80-100); MEAN PLATELET VOLUME 7.6 fL (7.4-10.4); MONOCYTES # (AUTO) 0.29 x10^3/uL (0.2-0.8); MONOCYTES % (AUTO) 8 % (2-9); NEUTROPHILS # (AUTO) 2.01 x10^3/uL (1.8-6.8); NEUTROPHILS % (AUTO) 52 % (42-75); PLATELET COUNT 165 x10^3/uL (130-400); RED BLOOD COUNT 3.57 x10^6/uL (3.82-5.3); RED CELL DISTRIBUTION WIDTH 21.4 % (9.6-15.2)
[2019-08-21 07:55] LABS: ALBUMIN 2.4 g/dL (3.4-5.0); ANION GAP 3 mmol/L (5-15); CALCIUM 8.5 mg/dL (8.5-10.1); CHLORIDE 109 mmol/L (98-107); CREATININE 0.59 mg/dL (0.55-1.02)
[2019-08-21] MEDS: MULTIVITS,STRESS FORMULA 1 TABLET PO SCH (08:12)
[2019-08-21] MEDS: DOCUSATE 100 MG CAPSULE PO SCH ×2 (08:13→20:15)
[2019-08-21] MEDS: SUCRALFATE 1 GM/10 ML UDC PO SCH ×2 (08:13→20:13)
[2019-08-21] MEDS: CALCIUM CARBONATE 500 MG TAB.CHEW PO SCH ×2 (08:14→20:14)
[2019-08-21] MEDS: PROPRANOLOL 20 MG TABLET PO SCH (08:14)
[2019-08-21] MEDS: FUROSEMIDE 20 MG TABLET PO SCH (08:14)
[2019-08-21] MEDS: ACYCLOVIR 400 MG TABLET PO SCH ×3 (08:15→20:15)
[2019-08-21] MEDS: QUETIAPINE 100MG TABLET PO SCH ×2 (08:15→20:14)
[2019-08-21] MEDS: ASCORBIC ACID 500 MG TABLET PO SCH ×2 (08:15→17:05)
[2019-08-21] MEDS: POTASSIUM CHLORIDE 20 MEQ TAB.ER.PRT PO SCH ×2 (08:15→17:05)
[2019-08-21] MEDS: ACETAMINOPHEN 325 MG TABLET PO PRN (11:27)
[2019-08-21 13:24] VITALS: BP 101/64
[2019-08-21] MEDS: ORAJEL 7GM TUBE MM PRN ×2 (13:36→20:14)
[2019-08-21] MEDS: BACLOFEN 10 MG TABLET PO PRN ×2 (15:27→23:45)
[2019-08-21] MEDS: FAMOTIDINE 20 MG TABLET PO PRN ×2 (15:32→20:18)
[2019-08-21] MEDS: CHOLECALCIFEROL 400 UNITS TABLET PO SCH (17:05)
[2019-08-21 19:24] VITALS: BP 100/68
[2019-08-21] MEDS: SIMVASTATIN 20 MG TABLET PO SCH (20:15)
[2019-08-21] MEDS: ZOLPIDEM 10MG TABLET PO SCH (20:15)
[2019-08-21] MEDS ORDERED: NICOTINE 21 MG/24 HR PATCH.TD24 TD ONE (21:00)
[2019-08-22] VITALS (7 sets, daily range): BP systolic 97–110; BP diastolic 66–73
[2019-08-22] MEDS: HEPARIN 5,000 UNITS/ML, 1ML SQ SCH ×3 (01:17→17:54)
[2019-08-22] MEDS: ORAJEL 7GM TUBE MM PRN ×4 (01:18→20:37)
[2019-08-22] MEDS: morphine SULFATE 15 MG TAB.IR PO PRN (02:37)
[2019-08-22] MEDS: MAGNESIUM OXIDE 400 MG TABLET PO SCH ×2 (04:37→17:46)
[2019-08-22] MEDS: PANTOPROZOLE 40MG TABLET PO SCH ×2 (04:37→17:54)
[2019-08-22] MEDS: ACETAMINOPHEN 325 MG TABLET PO PRN ×2 (04:38→14:55)
[2019-08-22] MEDS: OXYcodone IR 5MG TABLET PO PRN ×3 (04:40→23:09)
[2019-08-22] MEDS ORDERED: NICOTINE 21 MG/24 HR PATCH.TD24 ONE (05:36)
[2019-08-22] MEDS: SUCRALFATE 1 GM/10 ML UDC PO SCH ×2 (07:37→20:34)
[2019-08-22] MEDS: DOCUSATE 100 MG CAPSULE PO SCH ×2 (07:37→20:32)
[2019-08-22] MEDS: MULTIVITS,STRESS FORMULA 1 TABLET PO SCH (07:37)
[2019-08-22] MEDS: ASCORBIC ACID 500 MG TABLET PO SCH ×2 (07:38→17:46)
[2019-08-22] MEDS: POTASSIUM CHLORIDE 20 MEQ TAB.ER.PRT PO SCH ×2 (07:38→17:46)
[2019-08-22] MEDS: QUETIAPINE 100MG TABLET PO SCH ×2 (07:38→20:34)
[2019-08-22] MEDS: PROPRANOLOL 20 MG TABLET PO SCH (07:38)
[2019-08-22] MEDS: FUROSEMIDE 20 MG TABLET PO SCH (07:38)
[2019-08-22] MEDS: ACYCLOVIR 400 MG TABLET PO SCH ×3 (07:39→20:33)
[2019-08-22] MEDS: LORazepam 1MG TABLET PO SCH ×3 (07:39→20:32)
[2019-08-22] MEDS: NICOTINE 21 MG/24 HR PATCH.TD24 TD SCH (07:42)
[2019-08-22] MEDS: CALCIUM CARBONATE 500 MG TAB.CHEW PO SCH ×2 (07:42→20:32)
[2019-08-22] MEDS: BACLOFEN 10 MG TABLET PO PRN ×2 (10:11→17:47)
[2019-08-22] MEDS: POLYETHYLENE GLYCOL 17 GM PACKET PO PRN (10:11)
[2019-08-22] MEDS: FENTANYL 25 MCG PATCH TD SCH (12:39)
[2019-08-22] MEDS: CHOLECALCIFEROL 400 UNITS TABLET PO SCH (16:30)
[2019-08-22] MEDS: ZOLPIDEM 10MG TABLET PO SCH (20:32)
[2019-08-22] MEDS: SIMVASTATIN 20 MG TABLET PO SCH (20:33)
[2019-08-23 01:17] VITALS: BP 96/67
[2019-08-23] MEDS: HEPARIN 5,000 UNITS/ML, 1ML SQ SCH ×3 (02:16→18:31)
[2019-08-23] MEDS: BACLOFEN 10 MG TABLET PO PRN ×3 (02:16→19:10)
[2019-08-23] MEDS: MAGNESIUM OXIDE 400 MG TABLET PO SCH ×2 (05:12→16:43)
[2019-08-23] MEDS: PANTOPROZOLE 40MG TABLET PO SCH ×2 (05:13→16:46)
[2019-08-23] MEDS: ACETAMINOPHEN 325 MG TABLET PO PRN ×2 (06:36→20:47)
[2019-08-23 06:44] VITALS: BP 120/78
[2019-08-23] MEDS: CALCIUM CARBONATE 500 MG TAB.CHEW PO SCH ×2 (08:41→20:37)
[2019-08-23] MEDS: MULTIVITS,STRESS FORMULA 1 TABLET PO SCH (08:41)
[2019-08-23] MEDS: POTASSIUM CHLORIDE 20 MEQ TAB.ER.PRT PO SCH ×2 (08:41→16:42)
[2019-08-23] MEDS: PROPRANOLOL 20 MG TABLET PO SCH (08:41)
[2019-08-23] MEDS: LORazepam 1MG TABLET PO SCH ×3 (08:42→20:38)
[2019-08-23] MEDS: ACYCLOVIR 400 MG TABLET PO SCH ×3 (08:42→20:47)
[2019-08-23] MEDS: FUROSEMIDE 20 MG TABLET PO SCH (08:42)
[2019-08-23] MEDS: ASCORBIC ACID 500 MG TABLET PO SCH ×2 (08:42→16:43)
[2019-08-23] MEDS: DOCUSATE 100 MG CAPSULE PO SCH ×2 (08:42→20:37)
[2019-08-23] MEDS: SUCRALFATE 1 GM/10 ML UDC PO SCH ×2 (08:42→20:37)
[2019-08-23] MEDS: QUETIAPINE 100MG TABLET PO SCH ×2 (08:43→20:38)
[2019-08-23] MEDS: NICOTINE 21 MG/24 HR PATCH.TD24 TD SCH (09:00)
[2019-08-23] MEDS: ORAJEL 7GM TUBE MM PRN (10:59)
[2019-08-23 12:14] VITALS: BP 103/71
[2019-08-23] MEDS: OXYcodone IR 5MG TABLET PO PRN (16:42)
[2019-08-23] MEDS: CHOLECALCIFEROL 400 UNITS TABLET PO SCH (16:46)
[2019-08-23 19:43] VITALS: BP 106/68
[2019-08-23] MEDS: SIMVASTATIN 20 MG TABLET PO SCH (20:38)
[2019-08-23] MEDS: ZOLPIDEM 10MG TABLET PO SCH (20:38)
[2019-08-24] MEDS: OXYcodone IR 5MG TABLET PO PRN ×3 (00:57→23:58)
[2019-08-24] MEDS: HEPARIN 5,000 UNITS/ML, 1ML SQ SCH ×3 (00:57→20:56)
[2019-08-24 01:46] VITALS: BP 95/64
[2019-08-24] MEDS: MAGNESIUM OXIDE 400 MG TABLET PO SCH ×2 (05:20→17:09)
[2019-08-24] MEDS: PANTOPROZOLE 40MG TABLET PO SCH ×2 (05:20→17:09)
[2019-08-24 06:43] VITALS: BP 114/79
[2019-08-24] MEDS: DOCUSATE 100 MG CAPSULE PO SCH ×2 (08:58→20:57)
[2019-08-24] MEDS: POTASSIUM CHLORIDE 20 MEQ TAB.ER.PRT PO SCH ×2 (08:58→17:09)
[2019-08-24] MEDS: MULTIVITS,STRESS FORMULA 1 TABLET PO SCH (08:58)
[2019-08-24] MEDS: ACYCLOVIR 400 MG TABLET PO SCH ×3 (08:59→20:57)
[2019-08-24] MEDS: LORazepam 1MG TABLET PO SCH ×3 (08:59→20:56)
[2019-08-24] MEDS: NICOTINE 21 MG/24 HR PATCH.TD24 TD SCH (09:00)
[2019-08-24] MEDS: QUETIAPINE 100MG TABLET PO SCH ×2 (09:02→20:57)
[2019-08-24] MEDS: ASCORBIC ACID 500 MG TABLET PO SCH ×2 (09:02→17:09)
[2019-08-24] MEDS: PROPRANOLOL 20 MG TABLET PO SCH (09:02)
[2019-08-24] MEDS: SUCRALFATE 1 GM/10 ML UDC PO SCH ×2 (09:02→20:57)
[2019-08-24] MEDS: CALCIUM CARBONATE 500 MG TAB.CHEW PO SCH ×2 (09:02→20:57)
[2019-08-24] MEDS: FUROSEMIDE 20 MG TABLET PO SCH (09:02)
[2019-08-24] MEDS: BACLOFEN 10 MG TABLET PO PRN ×2 (10:54→23:58)
[2019-08-24 12:08] VITALS: BP 101/69
[2019-08-24] MEDS: ORAJEL 7GM TUBE MM PRN (17:08)
[2019-08-24] MEDS: CHOLECALCIFEROL 400 UNITS TABLET PO SCH (17:09)
[2019-08-24] MEDS: FAMOTIDINE 20 MG TABLET PO PRN (17:35)
[2019-08-24] MEDS: ONDANSETRON ODT 4 MG PO PRN (17:35)
[2019-08-24 20:06] VITALS: BP 96/67
[2019-08-24] MEDS: ZOLPIDEM 10MG TABLET PO SCH (20:56)
[2019-08-24] MEDS: SIMVASTATIN 20 MG TABLET PO SCH (20:56)
[2019-08-25 01:57] VITALS: BP 96/66
[2019-08-25] MEDS: HEPARIN 5,000 UNITS/ML, 1ML SQ SCH ×3 (05:17→22:17)
[2019-08-25] MEDS: OXYcodone IR 5MG TABLET PO PRN ×2 (05:18→12:32)
[2019-08-25] MEDS: BACLOFEN 10 MG TABLET PO PRN ×2 (05:18→12:31)
[2019-08-25] MEDS: MAGNESIUM OXIDE 400 MG TABLET PO SCH ×2 (05:18→17:22)
[2019-08-25] MEDS: PANTOPROZOLE 40MG TABLET PO SCH ×2 (05:18→17:22)
[2019-08-25] MEDS: ORAJEL 7GM TUBE MM PRN ×2 (05:22→11:40)
[2019-08-25 07:05] VITALS: BP 95/64
[2019-08-25] MEDS: NICOTINE 21 MG/24 HR PATCH.TD24 TD SCH (08:58)
[2019-08-25] MEDS: SUCRALFATE 1 GM/10 ML UDC PO SCH ×2 (09:04→22:17)
[2019-08-25] MEDS: DOCUSATE 100 MG CAPSULE PO SCH ×2 (09:04→22:18)
[2019-08-25] MEDS: ACYCLOVIR 400 MG TABLET PO SCH ×3 (09:05→22:17)
[2019-08-25] MEDS: MULTIVITS,STRESS FORMULA 1 TABLET PO SCH (09:05)
[2019-08-25] MEDS: LORazepam 1MG TABLET PO SCH ×3 (09:05→22:17)
[2019-08-25] MEDS: QUETIAPINE 100MG TABLET PO SCH ×2 (09:05→22:17)
[2019-08-25] MEDS: ASCORBIC ACID 500 MG TABLET PO SCH ×2 (09:05→17:22)
[2019-08-25] MEDS: FUROSEMIDE 20 MG TABLET PO SCH (09:05)
[2019-08-25] MEDS: POTASSIUM CHLORIDE 20 MEQ TAB.ER.PRT PO SCH ×2 (09:05→17:22)
[2019-08-25] MEDS: CALCIUM CARBONATE 500 MG TAB.CHEW PO SCH ×2 (09:05→22:17)
[2019-08-25] MEDS: PROPRANOLOL 20 MG TABLET PO SCH (09:06)
[2019-08-25] MEDS ORDERED: FENTANYL REMOVE PATCH NOTE XX SCH (10:30)
[2019-08-25] MEDS: FENTANYL 25 MCG PATCH TD SCH (11:23)
[2019-08-25 13:38] VITALS: BP 93/61
[2019-08-25] MEDS: CHOLECALCIFEROL 400 UNITS TABLET PO SCH (17:22)
[2019-08-25] MEDS: ACETAMINOPHEN 325 MG TABLET PO PRN (17:48)
[2019-08-25 20:20] VITALS: BP 94/63
[2019-08-25] MEDS: SIMVASTATIN 20 MG TABLET PO SCH (22:18)
[2019-08-25] MEDS: ZOLPIDEM 10MG TABLET PO SCH (22:18)
[2019-08-26 02:00] VITALS: BP 102/69
[2019-08-26] MEDS: OXYcodone IR 5MG TABLET PO PRN ×2 (02:47→15:01)
[2019-08-26] MEDS: BACLOFEN 10 MG TABLET PO PRN (02:48)
[2019-08-26] MEDS: HEPARIN 5,000 UNITS/ML, 1ML SQ SCH (05:38)
[2019-08-26] MEDS: PANTOPROZOLE 40MG TABLET PO SCH (05:38)
[2019-08-26] MEDS: MAGNESIUM OXIDE 400 MG TABLET PO SCH (05:38)
[2019-08-26] MEDS: NICOTINE 21 MG/24 HR PATCH.TD24 TD SCH (09:00)
[2019-08-26 09:15] VITALS: BP 104/69
[2019-08-26] MEDS: SUCRALFATE 1 GM/10 ML UDC PO SCH (09:18)
[2019-08-26] MEDS: POTASSIUM CHLORIDE 20 MEQ TAB.ER.PRT PO SCH (09:18)
[2019-08-26] MEDS: MULTIVITS,STRESS FORMULA 1 TABLET PO SCH (09:19)
[2019-08-26] MEDS: ACYCLOVIR 400 MG TABLET PO SCH (09:19)
[2019-08-26] MEDS: CALCIUM CARBONATE 500 MG TAB.CHEW PO SCH (09:19)
[2019-08-26] MEDS: ASCORBIC ACID 500 MG TABLET PO SCH (09:20)
[2019-08-26] MEDS: DOCUSATE 100 MG CAPSULE PO SCH (09:20)
[2019-08-26] MEDS: QUETIAPINE 100MG TABLET PO SCH (09:21)
[2019-08-26] MEDS: PROPRANOLOL 20 MG TABLET PO SCH (09:21)
[2019-08-26] MEDS: LORazepam 1MG TABLET PO SCH (09:21)
[2019-08-26] MEDS: FUROSEMIDE 20 MG TABLET PO SCH (09:21)
[2019-08-26] MEDS: ONDANSETRON ODT 4 MG PO PRN (09:38)
[2019-08-26] MEDS: FAMOTIDINE 20 MG TABLET PO PRN (09:38)
== END 2019-08-26 16:03 | disposition left against medical advice (07) | DRG 58 ==
LOC: ED 08-18 00:47 → EDIP 08-18 01:32 → 4EST 08-18 03:46
PROVIDERS: ADMIT Internal Medicine; ATTEND Internal Medicine Infectious Disease
DX: R27.0 Ataxia, unspecified (principal); I11.0 Hypertensive heart disease with heart failure; E27.40 Unspecified adrenocortical insufficiency; I50.32 Chronic diastolic (congestive) heart failure; I71.2 Thoracic aortic aneurysm, without rupture; E66.01 Morbid (severe) obesity due to excess calories; F11.20 Opioid dependence, uncomplicated; M48.54XA Collapsed vertebra, not elsewhere classified, thoracic region, initial encounter for fracture; E11.9 Type 2 diabetes mellitus without complications; E78.5 Hyperlipidemia, unspecified; Z68.37 Body mass index [BMI] 37.0-37.9, adult; E87.6 Hypokalemia; F17.210 Nicotine dependence, cigarettes, uncomplicated; F31.9 Bipolar disorder, unspecified; G89.29 Other chronic pain; I25.2 Old myocardial infarction; K21.9 Gastro-esophageal reflux disease without esophagitis; Z96.641 Presence of right artificial hip joint; Z90.710 Acquired absence of both cervix and uterus; R29.6 Repeated falls; Z86.73 Personal history of transient ischemic attack (TIA), and cerebral infarction without residual deficits
CPT/HCPCS: 36415; 70450; 70551; 72157; 72158; 80053; 80061; 80069; 80307; 81001; 82024; 82140; 82533; 83036; 83735; 84439; 84443; 84484; 85025; 87086; 93005; 99285; G0378; J1100; J1644; J1885; J2250; J2405; J2704; J2710; J3010; J3480; Q0162; A9575; J0330; J2270; J2370; J7030; J7040

== ENCOUNTER 2019-08-29 14:36 | Emergency (ER) | payer MEDICAID ==
[~2019-08-29] VITALS: Ht 180.3 cm; Wt 118.0 kg
[~2019-08-29 14:36] MED LIST changes: +DICL100G19 TP; +FURO-93 PO; +MAGN400T36 PO; +MORP15TA PO
--- NOTE | 2019-08-29 14:41 | NUR ---
PATIENT BROUGHT IN BY MARINA WITH CHIEF COMPLAINT OF HEAD, NECK, BACK, & ABDOMEN PAIN AFTER GROUND LEVEL FALL AT HOME THIS MORNIGN AT 6AM. THE PATIENT ARRIVES ALERT, ORIENTED, WARM & DRY. PATIENT STATES SHE FALLS FREQUENTLY DUE TO SPINE FRACTURES.
[2019-08-29] MEDS ORDERED: MORPHINE SULFATE 4 MG/ML, 1ML ONE (15:12)
--- NOTE | 2019-08-29 15:28 | NUR ---
MEDICATED FOR PAIN ORDERED
--- NOTE | 2019-08-29 15:37 | NUR ---
PATIENT REFUSING XRAYS- EDUCATION PROVIDED.
[2019-08-29] MEDS ORDERED: MORPHINE SULFATE 4 MG/ML, 1ML IVPush ONE (16:00)
--- NOTE | 2019-08-29 16:50 | NUR ---
THROUGHPUT: CALLED [employer] AND LEFT A MESSAGE TO CALL BACK FOR RIDE FOR PATIENT,
--- NOTE | 2019-08-29 16:58 | NUR ---
THROUGHPUT: [id number] WILL BE HERE AT 1730 FOR SOCIAL MEDIA SR STRATEGY MANAGER
[2019-08-29] MEDS ORDERED: ACETAMINOPHEN 325 MG TABLET ONE (17:06)
--- NOTE | 2019-08-29 17:11 | NUR ---
ANSWERED CALL LIGHT. PT C/O PAIN. NOTIFIED DR. MCLEOD. TYLENOL ORDERED AND GIVEN.
--- NOTE | 2019-08-29 17:15 | NUR ---
LINDSAY CULLET WASHER AT BEDSIDE TO DISCUSS POC
[2019-08-29 17:16] VITALS: BP 149/89
--- NOTE | 2019-08-29 17:18 | NUR ---
DISCHARGE INSTRUCTIONS REVIEWED
[2019-08-29] MEDS ORDERED: ACETAMINOPHEN 325 MG TABLET PO ONE (17:30)
== END 2019-08-29 17:36 | disposition home or self-care (01) ==
LOC: ED 16:15
DX: G89.11 Acute pain due to trauma (principal); M54.6 Pain in thoracic spine; I10 Essential (primary) hypertension; E11.9 Type 2 diabetes mellitus without complications; E78.5 Hyperlipidemia, unspecified; I25.2 Old myocardial infarction; W01.0XXA Fall on same level from slipping, tripping and stumbling without subsequent striking against object, initial encounter; Y93.89 Activity, other specified; Y92.009 Unspecified place in unspecified non-institutional (private) residence as the place of occurrence of the external cause; Y99.8 Other external cause status
CPT/HCPCS: 72072; 73564; 73610; 96374; 99283; J2270

== ENCOUNTER 2019-09-16 12:27 | Inpatient (IN) | payer MEDICAID ==
[~2019-09-16] VITALS: Ht 180.3 cm; Wt 116.3 kg
[2019-09-16] MEDS ORDERED: LORazepam 2 MG/ML, 1ML ONE ×2 (12:50→14:18)
[2019-09-16] MEDS ORDERED: LORazepam 2 MG/ML, 1ML IV ONE (13:00)
[2019-09-16] MEDS ORDERED: SODIUM CHLORIDE FLUSH 10ML SYR IVF ONE (13:00)
--- NOTE | 2019-09-16 13:07 | NUR ---
BIBA FROM HOME FOUND BY FRIEND. GLF IN BATHROOM, DOWN MAYBE 5 HOURS. L HIP PAIN. +DP. SKIN COOL AND DRY BILATERAL LEGS. +PSM, PAIN ON MOVEMENT OF L LEG. UNABLE TO SEE SHORTENING D/T POSITION. ERMD IN ROOM, PLAN FOR XR. MEDS PRIOR TO RAD. HX FREQ FALLS. PT MUMBLES, STUTTERS, MOVES MOUTH FREQUENTLY WHILE TALKING PER EMS THIS IS HER BASELINE. CALL VELASCO IN REACH FALL PRECS.
--- NOTE | 2019-09-16 13:24 | NUR ---
pt back from [facility]. pt talking personal banking assistant sheldon to her family member. reoriented. intermittently confused. Kurt Guillen
--- NOTE | 2019-09-16 13:49 | NUR ---
pt to rad. pt was confsed and told this RN that she went to xray.
[2019-09-16] MEDS ORDERED: MORPHINE SULFATE 4 MG/ML, 1ML ONE ×2 (14:19→21:43)
[2019-09-16] MEDS ORDERED: MORPHINE SULFATE 4 MG/ML, 1ML IVPush ONE (14:30)
[2019-09-16] MEDS ORDERED: LORazepam 2 MG/ML, 1ML IVPush ONE (14:30)
--- NOTE | 2019-09-16 14:46 | NUR ---
pt remedicated, was moving too much. xr was in room, scans pending.
--- NOTE | 2019-09-16 15:36 | NUR ---
TIB/FIB FX. LAB AT BEDSIDE. PLAN FOR EKG.
[2019-09-16 15:47] LABS: BASOPHILS # (AUTO) 0.01 x10^3/uL (0-0.1); BASOPHILS % (AUTO) 0 % (0-1); EOSINOPHILS # (AUTO) 0.14 x10^3/uL (0-0.4); EOSINOPHILS % (AUTO) 1 % (1-7); LYMPHOCYTES # (AUTO) 0.93 x10^3/uL (1-3.4); LYMPHOCYTES % (AUTO) 10 % (22-44); MD NO; MEAN CORPUSCULAR HEMOGLOBIN 27.1 pg (27.0-34.8); MEAN CORPUSCULAR HGB CONC 31.5 g/dL (32.4-35.8); MEAN CORPUSCULAR VOLUME 86.1 fL (80-100); MEAN PLATELET VOLUME 7.6 fL (7.4-10.4); MONOCYTES % (AUTO) 4 % (2-9); NEUTROPHILS # (AUTO) 8.07 x10^3/uL (1.8-6.8); NEUTROPHILS % (AUTO) 85 % (42-75); PLATELET COUNT 190 x10^3/uL (130-400); RED BLOOD COUNT 3.89 x10^6/uL (3.82-5.3); RED CELL DISTRIBUTION WIDTH 21.2 % (9.6-15.2)
[2019-09-16] MEDS ORDERED: HYDROmorphone 1 MG/ML, 1ML INJ ONE (15:47)
--- NOTE | 2019-09-16 15:53 | NUR ---
pt braydon, in room. dilaudid per verbal order 1 mg IV. to be amditted, surgery tomorrow, can drink water per md.
[2019-09-16 15:55] LABS: ALBUMIN 2.9 g/dL (3.4-5.0); ANION GAP 6 mmol/L (5-15); CALCIUM 8.5 mg/dL (8.5-10.1); CHLORIDE 112 mmol/L (98-107); CREATININE 0.72 mg/dL (0.55-1.02)
[2019-09-16] MEDS ORDERED: HYDROmorphone 1 MG/ML, 1ML INJ IV ONE (16:00)
[2019-09-16 16:10] LABS: INTERNATIONAL NORMALIZED RATIO 0.96 (0.93-1.1); PROTHROMBIN TIME 10.1 Seconds (9.6-11.5)
[2019-09-16] MEDS ORDERED: BUTALB/APAP/CAFFEINE 50MG/325MG/40MG PO PRN ×2 (17:00)
[2019-09-16] MEDS ORDERED: ZIPRASIDONE 20 MG INJ IM ONE ×2 (17:17→17:30)
--- NOTE | 2019-09-16 17:31 | NUR ---
report called, room dirty. pt got up and tried to walk. safely helped back to bed. order for sunshine obtained and given. vss st on monitor. call sheldon in reach. awaiting clean bed. as
--- NOTE | 2019-09-16 18:07 | NUR ---
pt to bedpan. vss.
[2019-09-16 18:48] VITALS: BP 135/84
[2019-09-16] MEDS ORDERED: POTASSIUM CHLORIDE 20 MEQ in LACTATED RINGERS 1,000 ML IV ONE (19:15)
[2019-09-16] MEDS: LORazepam 1MG TABLET PO SCH (19:30)
[2019-09-16] MEDS: NICOTINE 21 MG/24 HR PATCH.TD24 TD SCH (19:30)
[2019-09-16] MEDS ORDERED: hydrALAzine 20 MG/ML, 1ML IVPush PRN (19:30)
[2019-09-16] MEDS ORDERED: ONDANSETRON ODT 4 MG PO PRN (19:30)
[2019-09-16] MEDS ORDERED: GUAIFENESIN/DM 200-20MG, 10ML UDC PO PRN (19:30)
[2019-09-16] MEDS ORDERED: ENOXAPARIN 40 MG/0.4 ML SQ SCH (19:30)
[2019-09-16] MEDS: SIMVASTATIN 20 MG TABLET PO SCH (21:00)
[2019-09-16] MEDS: SUCRALFATE 1 GM/10 ML UDC PO SCH (21:00)
[2019-09-16] MEDS: QUETIAPINE 100MG TABLET PO SCH (21:00)
[2019-09-16] MEDS: INSULIN LISPRO 100 UNITS/ML, PEN SQ-INSULIN SCH (21:00)
[2019-09-16] MEDS: MORPHINE SULFATE 4 MG/ML, 1ML IVPush PRN (21:46)
[2019-09-16] MEDS: KETOROLAC 30 MG/1 ML IV PRN (21:46)
[2019-09-17 01:21] VITALS: BP 125/81
[2019-09-17] MEDS: MORPHINE SULFATE 4 MG/ML, 1ML IVPush PRN ×4 (01:47→16:50)
[2019-09-17 05:32] LABS: MEAN CORPUSCULAR HEMOGLOBIN 26.8 pg (27.0-34.8); MEAN CORPUSCULAR HGB CONC 31.2 g/dL (32.4-35.8); MEAN CORPUSCULAR VOLUME 85.8 fL (80-100); MEAN PLATELET VOLUME 7.6 fL (7.4-10.4); PLATELET COUNT 202 x10^3/uL (130-400); RED BLOOD COUNT 3.53 x10^6/uL (3.82-5.3)
[2019-09-17 05:37] LABS: ANION GAP 8 mmol/L (5-15); CALCIUM 8.2 mg/dL (8.5-10.1); CHLORIDE 113 mmol/L (98-107)
[2019-09-17 05:49] LABS: CREATININE 0.63 mg/dL (0.55-1.02)
[2019-09-17 05:53] LABS: BASOPHILS # (AUTO) 0.03 x10^3/uL (0-0.1); BASOPHILS % (AUTO) 1 % (0-1); EOSINOPHILS # (AUTO) 0.02 x10^3/uL (0-0.4); EOSINOPHILS % (AUTO) 0 % (1-7); LYMPHOCYTES % (AUTO) 16 % (22-44); MD MORPH REVIEW ONLY; MONOCYTES # (AUTO) 0.36 x10^3/uL (0.2-0.8); MONOCYTES % (AUTO) 6 % (2-9); NEUTROPHILS # (AUTO) 4.78 x10^3/uL (1.8-6.8); NEUTROPHILS % (AUTO) 77 % (42-75); RED CELL DISTRIBUTION WIDTH 20.6 % (9.6-15.2)
[2019-09-17 05:54] LABS: <PLATELET ESTIMATE> ADEQUATE; <PLT MORPHOLOGY> NORMAL PLT MORPH; ANISOCYTOSIS 1+; OVALOCYTES 1+
[2019-09-17] MEDS: PANTOPROZOLE 40MG TABLET PO SCH ×2 (06:00→16:50)
[2019-09-17] MEDS ORDERED: CALCIUM GLUCONATE 4.6 MEQ in SODIUM CHLORIDE 0.9% 50 ML IV ONE (07:00)
[2019-09-17] MEDS ORDERED: MAGNESIUM SULFATE PMX 2GM/50ML 50 ML IV ONE (07:00)
[2019-09-17] MEDS: INSULIN LISPRO 100 UNITS/ML, PEN SQ-INSULIN SCH ×4 (07:00→21:00)
[2019-09-17] MEDS: LORazepam 1MG TABLET PO SCH ×2 (07:30→19:50)
[2019-09-17] MEDS: SUCRALFATE 1 GM/10 ML UDC PO SCH ×3 (07:53→21:38)
[2019-09-17] MEDS: FUROSEMIDE 20 MG TABLET PO SCH (07:53)
[2019-09-17] MEDS: QUETIAPINE 100MG TABLET PO SCH ×2 (07:53→21:37)
[2019-09-17] MEDS: PROPRANOLOL 20 MG TABLET PO SCH (08:04)
[2019-09-17 08:07] VITALS: BP 130/86
[2019-09-17] MEDS: BACLOFEN 10 MG TABLET PO SCH ×2 (09:38→21:37)
[2019-09-17] MEDS: LORazepam 2 MG/ML, 1ML IVPush PRN ×2 (09:38→17:48)
[2019-09-17 13:03] VITALS: BP 112/89
[2019-09-17] MEDS ORDERED: MIDAZOLAM 1 MG/ML, 2ML ONE (13:19)
[2019-09-17] MEDS ORDERED: FENTANYL PF 250 MCG/5ML ONE (13:20)
[2019-09-17] MEDS ORDERED: PROPOFOL 10 MG/ML, 20ML ONE (13:21)
[2019-09-17] MEDS ORDERED: ROCURONIUM 10MG/ML,5ML ONE (13:21)
[2019-09-17] MEDS ORDERED: PROMETHAZINE 12.5 MG SUPP PR PRN (13:30)
[2019-09-17] MEDS ORDERED: ONDANSETRON ODT 8 MG PO PRN (13:30)
[2019-09-17] MEDS ORDERED: EPHEDRINE 50 MG/ML, 1ML IVPush PRN (13:30)
[2019-09-17] MEDS ORDERED: OXYcodone 5 MG/5 ML ORAL.SOL UDC PO PRN (13:30)
[2019-09-17] MEDS ORDERED: ALBUTEROL SULFATE 2.5 MG/3 ML NPPB PRN (13:30)
[2019-09-17] MEDS ORDERED: MIDAZOLAM 1 MG/ML, 2ML IV PRN (13:30)
[2019-09-17] MEDS ORDERED: PROMETHAZINE 25 MG/ML, 1ML IV PRN (13:30)
[2019-09-17] MEDS ORDERED: hydrALAzine 20 MG/ML, 1ML IV PRN (13:30)
[2019-09-17] MEDS ORDERED: ONDANSETRON 2MG/ML, 2ML IV PRN (13:30)
[2019-09-17] MEDS ORDERED: DIAZEPAM 5 MG/ML, 2ML IVPush PRN (13:30)
[2019-09-17] MEDS ORDERED: LABETALOL 5MG/ML, 20ML IV PRN (13:30)
[2019-09-17] MEDS ORDERED: HALOPERIDOL 5 MG/ML IV PRN (13:30)
[2019-09-17] MEDS ORDERED: FENTANYL PF 100 MCG/2ML IV PRN (13:30)
[2019-09-17] MEDS ORDERED: HYDROmorphone 2 MG/ML, 1ML IVPush PRN (13:30)
[2019-09-17] MEDS ORDERED: MEPERIDINE/PF 25MG/ML,1ML IVPush PRN (13:30)
[2019-09-17] MEDS ORDERED: DEXAMETHASONE 4 MG/ML, 1ML ONE ×2 (13:44→14:04)
[2019-09-17] MEDS ORDERED: PHENYLEPHRINE 10 MG/ML ONE (13:44)
[2019-09-17] MEDS ORDERED: LABETALOL 5 MG/ML SYR. (IV ONLY) IV PRN (14:00)
[2019-09-17] MEDS ORDERED: MEPERIDINE/PF 100 MG/ML ONE ×2 (14:19→15:29)
[2019-09-17] MEDS: NICOTINE 21 MG/24 HR PATCH.TD24 TD SCH (19:51)
[2019-09-17] MEDS: KETOROLAC 30 MG/1 ML IV PRN (19:51)
[2019-09-17 20:04] VITALS: BP 142/84
[2019-09-17] MEDS: SIMVASTATIN 20 MG TABLET PO SCH (21:38)
[2019-09-17] MEDS: CEFAZOLIN 2,000 MG in SODIUM CHLORIDE 0.9% 50 ML IV SCH (22:12)
[2019-09-18] VITALS: BP 121/79
[2019-09-18] MEDS: LORazepam 2 MG/ML, 1ML IVPush PRN ×2 (04:40→15:40)
[2019-09-18] MEDS: KETOROLAC 30 MG/1 ML IV PRN ×2 (04:44→13:15)
[2019-09-18 04:55] VITALS: BP 115/77
[2019-09-18 05:17] LABS: ALBUMIN 2.4 g/dL (3.4-5.0); ANION GAP 8 mmol/L (5-15); CALCIUM 7.9 mg/dL (8.5-10.1); CHLORIDE 109 mmol/L (98-107); CREATININE 0.56 mg/dL (0.55-1.02)
[2019-09-18 05:25] LABS: BASOPHILS % (AUTO) 0 % (0-1); EOSINOPHILS % (AUTO) 0 % (1-7); LYMPHOCYTES # (AUTO) 1.05 x10^3/uL (1-3.4); LYMPHOCYTES % (AUTO) 16 % (22-44); MD NO; MEAN CORPUSCULAR HEMOGLOBIN 27.1 pg (27.0-34.8); MEAN CORPUSCULAR HGB CONC 31.7 g/dL (32.4-35.8); MEAN CORPUSCULAR VOLUME 85.6 fL (80-100); MEAN PLATELET VOLUME 7.7 fL (7.4-10.4); MONOCYTES # (AUTO) 0.61 x10^3/uL (0.2-0.8); MONOCYTES % (AUTO) 9 % (2-9); NEUTROPHILS # (AUTO) 5.05 x10^3/uL (1.8-6.8); NEUTROPHILS % (AUTO) 75 % (42-75); PLATELET COUNT 205 x10^3/uL (130-400); RED BLOOD COUNT 3.02 x10^6/uL (3.82-5.3); RED CELL DISTRIBUTION WIDTH 20.7 % (9.6-15.2)
[2019-09-18] MEDS: CEFAZOLIN 2,000 MG in SODIUM CHLORIDE 0.9% 50 ML IV SCH (05:45)
[2019-09-18] MEDS: PANTOPROZOLE 40MG TABLET PO SCH ×2 (06:11→16:21)
[2019-09-18] MEDS: INSULIN LISPRO 100 UNITS/ML, PEN SQ-INSULIN SCH ×4 (07:00→21:00)
[2019-09-18] MEDS ORDERED: CALCIUM GLUCONATE 4.6 MEQ in SODIUM CHLORIDE 0.9% 50 ML IV ONE (08:00)
[2019-09-18 08:11] VITALS: BP 110/75
[2019-09-18] MEDS: QUETIAPINE 100MG TABLET PO SCH ×2 (08:56→20:34)
[2019-09-18] MEDS: SUCRALFATE 1 GM/10 ML UDC PO SCH ×2 (08:56→20:35)
[2019-09-18] MEDS: ENOXAPARIN 40 MG/0.4 ML SQ SCH (08:56)
[2019-09-18] MEDS: FUROSEMIDE 20 MG TABLET PO SCH (08:56)
[2019-09-18] MEDS: PROPRANOLOL 20 MG TABLET PO SCH (08:57)
[2019-09-18] MEDS: LORazepam 1MG TABLET PO SCH ×2 (08:57→20:34)
[2019-09-18] MEDS: BACLOFEN 10 MG TABLET PO SCH ×2 (09:00→20:35)
[2019-09-18] MEDS: MORPHINE SULFATE 4 MG/ML, 1ML IVPush PRN ×2 (10:09→18:48)
[2019-09-18 13:44] VITALS: BP 96/63
[2019-09-18 19:15] VITALS: BP 100/70
[2019-09-18] MEDS: SIMVASTATIN 20 MG TABLET PO SCH (20:34)
[2019-09-18] MEDS: NICOTINE 21 MG/24 HR PATCH.TD24 TD SCH (20:35)
[2019-09-19] MEDS: MORPHINE SULFATE 4 MG/ML, 1ML IVPush PRN ×2 (01:33→15:51)
[2019-09-19 02:00] VITALS: BP 101/68
[2019-09-19 05:14] LABS: BASOPHILS # (AUTO) 0.03 x10^3/uL (0-0.1); BASOPHILS % (AUTO) 1 % (0-1); EOSINOPHILS # (AUTO) 0.03 x10^3/uL (0-0.4); EOSINOPHILS % (AUTO) 1 % (1-7); LYMPHOCYTES # (AUTO) 1.93 x10^3/uL (1-3.4); LYMPHOCYTES % (AUTO) 42 % (22-44); MD NO; MEAN CORPUSCULAR HEMOGLOBIN 26.9 pg (27.0-34.8); MEAN CORPUSCULAR HGB CONC 31.2 g/dL (32.4-35.8); MEAN CORPUSCULAR VOLUME 86.3 fL (80-100); MEAN PLATELET VOLUME 7.9 fL (7.4-10.4); MONOCYTES # (AUTO) 0.45 x10^3/uL (0.2-0.8); MONOCYTES % (AUTO) 10 % (2-9); NEUTROPHILS # (AUTO) 2.11 x10^3/uL (1.8-6.8); NEUTROPHILS % (AUTO) 46 % (42-75); PLATELET COUNT 167 x10^3/uL (130-400); RED BLOOD COUNT 2.77 x10^6/uL (3.82-5.3); RED CELL DISTRIBUTION WIDTH 20.8 % (9.6-15.2)
[2019-09-19 05:15] LABS: ALBUMIN 2.3 g/dL (3.4-5.0); ANION GAP 3 mmol/L (5-15); CALCIUM 7.8 mg/dL (8.5-10.1); CHLORIDE 109 mmol/L (98-107)
[2019-09-19] MEDS: LORazepam 2 MG/ML, 1ML IVPush PRN ×2 (05:34→15:51)
[2019-09-19] MEDS: KETOROLAC 30 MG/1 ML IV PRN ×3 (05:34→19:51)
[2019-09-19] MEDS: PANTOPROZOLE 40MG TABLET PO SCH ×2 (05:35→15:50)
[2019-09-19 07:09] VITALS: BP 94/62
[2019-09-19] MEDS ORDERED: CALCIUM GLUCONATE 4.6 MEQ in SODIUM CHLORIDE 0.9% 50 ML IV ONE (07:30)
[2019-09-19] MEDS: INSULIN LISPRO 100 UNITS/ML, PEN SQ-INSULIN SCH ×4 (08:26→21:00)
[2019-09-19] MEDS: BACLOFEN 10 MG TABLET PO SCH ×2 (09:24→22:16)
[2019-09-19] MEDS: LORazepam 1MG TABLET PO SCH ×2 (09:25→23:17)
[2019-09-19] MEDS: QUETIAPINE 100MG TABLET PO SCH ×2 (09:25→22:15)
[2019-09-19] MEDS: FUROSEMIDE 20 MG TABLET PO SCH (09:25)
[2019-09-19] MEDS: PROPRANOLOL 20 MG TABLET PO SCH (09:26)
[2019-09-19] MEDS: SUCRALFATE 1 GM/10 ML UDC PO SCH ×2 (09:27→22:16)
[2019-09-19] MEDS: ENOXAPARIN 40 MG/0.4 ML SQ SCH (09:27)
[2019-09-19 14:00] VITALS: BP 93/60
[2019-09-19 19:25] VITALS: BP 97/66
[2019-09-19] MEDS: NICOTINE 21 MG/24 HR PATCH.TD24 TD SCH (22:15)
[2019-09-19] MEDS: SIMVASTATIN 20 MG TABLET PO SCH (22:15)
[2019-09-20] MEDS: MORPHINE SULFATE 4 MG/ML, 1ML IVPush PRN ×3 (01:07→14:38)
[2019-09-20 02:00] VITALS: BP 118/75
[2019-09-20] MEDS: LORazepam 2 MG/ML, 1ML IVPush PRN ×2 (04:01→18:06)
[2019-09-20 05:40] LABS: BASOPHILS # (AUTO) 0.02 x10^3/uL (0-0.1); BASOPHILS % (AUTO) 0 % (0-1); EOSINOPHILS # (AUTO) 0.06 x10^3/uL (0-0.4); EOSINOPHILS % (AUTO) 1 % (1-7); LYMPHOCYTES # (AUTO) 1.26 x10^3/uL (1-3.4); LYMPHOCYTES % (AUTO) 25 % (22-44); MD NO; MEAN CORPUSCULAR HEMOGLOBIN 26.8 pg (27.0-34.8); MEAN CORPUSCULAR HGB CONC 31.2 g/dL (32.4-35.8); MEAN CORPUSCULAR VOLUME 86.2 fL (80-100); MEAN PLATELET VOLUME 7.8 fL (7.4-10.4); MONOCYTES # (AUTO) 0.47 x10^3/uL (0.2-0.8); MONOCYTES % (AUTO) 9 % (2-9); NEUTROPHILS # (AUTO) 3.25 x10^3/uL (1.8-6.8); NEUTROPHILS % (AUTO) 64 % (42-75); PLATELET COUNT 184 x10^3/uL (130-400); RED BLOOD COUNT 2.74 x10^6/uL (3.82-5.3)
[2019-09-20 05:47] LABS: ALBUMIN 2.2 g/dL (3.4-5.0); ANION GAP 5 mmol/L (5-15); CALCIUM 7.8 mg/dL (8.5-10.1); CHLORIDE 107 mmol/L (98-107); CREATININE 0.61 mg/dL (0.55-1.02)
[2019-09-20] MEDS: PANTOPROZOLE 40MG TABLET PO SCH ×2 (06:02→16:16)
[2019-09-20] MEDS: INSULIN LISPRO 100 UNITS/ML, PEN SQ-INSULIN SCH (07:00)
[2019-09-20 07:23] VITALS: BP 110/74
[2019-09-20] MEDS ORDERED: MAGNESIUM SULFATE PMX 2GM/50ML 50 ML IV ONE (07:30)
[2019-09-20] MEDS: SUCRALFATE 1 GM/10 ML UDC PO SCH ×2 (08:10→22:31)
[2019-09-20] MEDS: POTASSIUM CHLORIDE 20 MEQ TAB.ER.PRT PO SCH ×2 (08:10→16:16)
[2019-09-20] MEDS: BACLOFEN 10 MG TABLET PO SCH ×2 (08:10→22:31)
[2019-09-20] MEDS: ASCORBIC ACID 500 MG TABLET PO SCH ×2 (08:10→16:17)
[2019-09-20] MEDS: CALCIUM/VITAMIN D3 250-125 TABLET PO SCH ×2 (08:11→22:33)
[2019-09-20] MEDS: MULTIVITS,STRESS FORMULA 1 TABLET PO SCH (08:11)
[2019-09-20] MEDS: PROPRANOLOL 20 MG TABLET PO SCH (08:11)
[2019-09-20] MEDS: FUROSEMIDE 20 MG TABLET PO SCH (08:12)
[2019-09-20] MEDS: ENOXAPARIN 40 MG/0.4 ML SQ SCH (08:12)
[2019-09-20] MEDS: QUETIAPINE 100MG TABLET PO SCH ×2 (08:12→22:31)
[2019-09-20] MEDS: KETOROLAC 30 MG/1 ML IV PRN ×2 (08:20→18:02)
[2019-09-20] MEDS: morphine SULFATE 15 MG TAB.IR PO SCH ×4 (10:08→22:55)
[2019-09-20] MEDS: LORazepam 1MG TABLET PO SCH ×2 (11:28→22:32)
[2019-09-20 14:05] VITALS: BP 97/66
[2019-09-20 20:10] VITALS: BP 93/60
[2019-09-20 22:29] VITALS: BP 105/70
[2019-09-20] MEDS: ZOLPIDEM 10MG TABLET PO SCH (22:31)
[2019-09-20] MEDS: SIMVASTATIN 20 MG TABLET PO SCH (22:31)
[2019-09-20] MEDS: NICOTINE 21 MG/24 HR PATCH.TD24 TD SCH (22:33)
[2019-09-21] MEDS: KETOROLAC 30 MG/1 ML IV PRN ×2 (00:51→15:20)
[2019-09-21] MEDS: LORazepam 2 MG/ML, 1ML IVPush PRN (01:25)
[2019-09-21 02:21] VITALS: BP 105/70
[2019-09-21] MEDS: morphine SULFATE 15 MG TAB.IR PO SCH ×3 (02:51→10:00)
[2019-09-21 05:35] LABS: BASOPHILS # (AUTO) 0.01 x10^3/uL (0-0.1); BASOPHILS % (AUTO) 0 % (0-1); EOSINOPHILS # (AUTO) 0.05 x10^3/uL (0-0.4); EOSINOPHILS % (AUTO) 1 % (1-7); LYMPHOCYTES # (AUTO) 1.43 x10^3/uL (1-3.4); LYMPHOCYTES % (AUTO) 34 % (22-44); MD NO; MEAN CORPUSCULAR HEMOGLOBIN 26.5 pg (27.0-34.8); MEAN CORPUSCULAR HGB CONC 31.4 g/dL (32.4-35.8); MEAN CORPUSCULAR VOLUME 84.6 fL (80-100); MEAN PLATELET VOLUME 7.3 fL (7.4-10.4); MONOCYTES # (AUTO) 0.48 x10^3/uL (0.2-0.8); MONOCYTES % (AUTO) 11 % (2-9); NEUTROPHILS # (AUTO) 2.26 x10^3/uL (1.8-6.8); NEUTROPHILS % (AUTO) 53 % (42-75); PLATELET COUNT 212 x10^3/uL (130-400); RED BLOOD COUNT 2.78 x10^6/uL (3.82-5.3); RED CELL DISTRIBUTION WIDTH 19.4 % (9.6-15.2)
[2019-09-21 05:49] LABS: ALBUMIN 2.2 g/dL (3.4-5.0); ANION GAP 4 mmol/L (5-15); CALCIUM 8.4 mg/dL (8.5-10.1); CHLORIDE 106 mmol/L (98-107)
[2019-09-21 05:52] LABS: CREATININE 0.54 mg/dL (0.55-1.02)
[2019-09-21] MEDS: PANTOPROZOLE 40MG TABLET PO SCH ×2 (06:31→16:36)
[2019-09-21 06:43] VITALS: BP 99/65
[2019-09-21] MEDS: FUROSEMIDE 20 MG TABLET PO SCH (08:03)
[2019-09-21] MEDS: ASCORBIC ACID 500 MG TABLET PO SCH ×2 (08:03→15:05)
[2019-09-21] MEDS: SUCRALFATE 1 GM/10 ML UDC PO SCH ×2 (08:03→21:28)
[2019-09-21] MEDS: CALCIUM/VITAMIN D3 250-125 TABLET PO SCH ×2 (08:03→21:28)
[2019-09-21] MEDS: QUETIAPINE 100MG TABLET PO SCH ×2 (08:03→21:28)
[2019-09-21] MEDS: PROPRANOLOL 20 MG TABLET PO SCH (08:03)
[2019-09-21] MEDS: MULTIVITS,STRESS FORMULA 1 TABLET PO SCH (08:03)
[2019-09-21] MEDS: POTASSIUM CHLORIDE 20 MEQ TAB.ER.PRT PO SCH ×2 (08:04→16:36)
[2019-09-21] MEDS: ENOXAPARIN 40 MG/0.4 ML SQ SCH (08:07)
[2019-09-21] MEDS: BACLOFEN 10 MG TABLET PO SCH ×2 (08:09→21:28)
[2019-09-21 08:12] VITALS: BP 108/71
[2019-09-21] MEDS: LORazepam 1MG TABLET PO SCH (11:00)
[2019-09-21 13:27] VITALS: BP 109/71
[2019-09-21] MEDS: POLYETHYLENE GLYCOL 17 GM PACKET PO PRN (15:05)
[2019-09-21] MEDS: ACETAMINOPHEN 325 MG TABLET PO PRN (17:11)
[2019-09-21 19:46] VITALS: BP 91/63
[2019-09-21 21:24] VITALS: BP 96/64
[2019-09-21] MEDS: NICOTINE 21 MG/24 HR PATCH.TD24 TD SCH (21:26)
[2019-09-21] MEDS: SIMVASTATIN 20 MG TABLET PO SCH (21:28)
[2019-09-21] MEDS: ZOLPIDEM 10MG TABLET PO SCH (21:28)
[2019-09-22] MEDS: LORazepam 1MG TABLET PO SCH ×3 (00:54→22:58)
[2019-09-22] MEDS: morphine SULFATE 15 MG TAB.IR PO PRN ×5 (00:54→22:03)
[2019-09-22 05:08] VITALS: BP 96/66
[2019-09-22 05:12] LABS: BASOPHILS # (AUTO) 0.02 x10^3/uL (0-0.1); BASOPHILS % (AUTO) 0 % (0-1); EOSINOPHILS # (AUTO) 0.07 x10^3/uL (0-0.4); EOSINOPHILS % (AUTO) 2 % (1-7); LYMPHOCYTES # (AUTO) 1.54 x10^3/uL (1-3.4); LYMPHOCYTES % (AUTO) 34 % (22-44); MD NO; MEAN CORPUSCULAR HEMOGLOBIN 26.7 pg (27.0-34.8); MEAN CORPUSCULAR HGB CONC 31.8 g/dL (32.4-35.8); MEAN PLATELET VOLUME 7.3 fL (7.4-10.4); MONOCYTES # (AUTO) 0.46 x10^3/uL (0.2-0.8); MONOCYTES % (AUTO) 10 % (2-9); NEUTROPHILS # (AUTO) 2.47 x10^3/uL (1.8-6.8); NEUTROPHILS % (AUTO) 54 % (42-75); PLATELET COUNT 229 x10^3/uL (130-400); RED BLOOD COUNT 2.76 x10^6/uL (3.82-5.3); RED CELL DISTRIBUTION WIDTH 19.1 % (9.6-15.2)
[2019-09-22] MEDS: PANTOPROZOLE 40MG TABLET PO SCH ×2 (05:18→16:57)
[2019-09-22 05:26] LABS: ALBUMIN 2.2 g/dL (3.4-5.0); CALCIUM 8.5 mg/dL (8.5-10.1); CHLORIDE 104 mmol/L (98-107)
[2019-09-22 05:27] LABS: ANION GAP 3 mmol/L (5-15); CREATININE 0.53 mg/dL (0.55-1.02)
[2019-09-22 08:00] VITALS: BP 104/68
[2019-09-22] MEDS: POLYETHYLENE GLYCOL 17 GM PACKET PO PRN (09:18)
[2019-09-22] MEDS: ENOXAPARIN 40 MG/0.4 ML SQ SCH (09:18)
[2019-09-22] MEDS: SUCRALFATE 1 GM/10 ML UDC PO SCH ×2 (09:18→21:04)
[2019-09-22] MEDS: CALCIUM/VITAMIN D3 250-125 TABLET PO SCH ×2 (09:19→21:05)
[2019-09-22] MEDS: BACLOFEN 10 MG TABLET PO SCH ×2 (09:19→21:05)
[2019-09-22] MEDS: FUROSEMIDE 20 MG TABLET PO SCH (09:20)
[2019-09-22] MEDS: MULTIVITS,STRESS FORMULA 1 TABLET PO SCH (09:20)
[2019-09-22] MEDS: POTASSIUM CHLORIDE 20 MEQ TAB.ER.PRT PO SCH ×2 (09:20→16:57)
[2019-09-22] MEDS: ASCORBIC ACID 500 MG TABLET PO SCH ×2 (09:20→16:57)
[2019-09-22] MEDS: PROPRANOLOL 20 MG TABLET PO SCH (09:20)
[2019-09-22] MEDS: QUETIAPINE 100MG TABLET PO SCH ×2 (09:36→21:06)
[2019-09-22] MEDS ORDERED: MAGNESIUM HYDROXIDE 8%, 30ML UDC PO PRN (12:30)
[2019-09-22 13:55] VITALS: BP 94/63
[2019-09-22] MEDS: ACETAMINOPHEN 325 MG TABLET PO PRN ×2 (15:31→23:01)
[2019-09-22] MEDS: ZOLPIDEM 10MG TABLET PO SCH (21:05)
[2019-09-22] MEDS: SIMVASTATIN 20 MG TABLET PO SCH (21:06)
[2019-09-22] MEDS: NICOTINE 21 MG/24 HR PATCH.TD24 TD SCH (21:07)
[2019-09-22] MEDS: TRAZODONE 50MG TABLET PO PRN (23:01)
[2019-09-23] MEDS: morphine SULFATE 15 MG TAB.IR PO PRN ×5 (02:02→21:51)
[2019-09-23 03:01] VITALS: BP 100/68
[2019-09-23] MEDS: PANTOPROZOLE 40MG TABLET PO SCH ×2 (06:06→17:05)
[2019-09-23] MEDS: ACETAMINOPHEN 325 MG TABLET PO PRN (06:06)
[2019-09-23 06:10] LABS: ALBUMIN 2.4 g/dL (3.4-5.0); ANION GAP 6 mmol/L (5-15); CALCIUM 9.2 mg/dL (8.5-10.1); CHLORIDE 103 mmol/L (98-107)
[2019-09-23 06:13] LABS: ALANINE AMINOTRANSFERASE 15 U/L (12-78); ALKALINE PHOSPHATASE 73 U/L (45-117); BILIRUBIN,TOTAL 0.8 mg/dL (0.2-1.0); CREATININE 0.59 mg/dL (0.55-1.02); TOTAL PROTEIN 6.4 g/dL (6.4-8.2)
[2019-09-23 06:52] VITALS: BP 99/65
[2019-09-23] MEDS: FUROSEMIDE 20 MG TABLET PO SCH (09:00)
[2019-09-23] MEDS: PROPRANOLOL 20 MG TABLET PO SCH (09:00)
[2019-09-23] MEDS: SUCRALFATE 1 GM/10 ML UDC PO SCH ×2 (09:46→20:29)
[2019-09-23] MEDS: MULTIVITS,STRESS FORMULA 1 TABLET PO SCH (09:46)
[2019-09-23] MEDS: POTASSIUM CHLORIDE 20 MEQ TAB.ER.PRT PO SCH ×2 (09:46→17:05)
[2019-09-23] MEDS: LORazepam 1MG TABLET PO SCH ×2 (09:46→23:08)
[2019-09-23] MEDS: BACLOFEN 10 MG TABLET PO SCH ×2 (09:46→20:30)
[2019-09-23] MEDS: QUETIAPINE 100MG TABLET PO SCH ×2 (09:46→20:32)
[2019-09-23] MEDS: ENOXAPARIN 40 MG/0.4 ML SQ SCH (09:46)
[2019-09-23] MEDS: ASCORBIC ACID 500 MG TABLET PO SCH ×2 (09:47→17:05)
[2019-09-23] MEDS: CALCIUM/VITAMIN D3 250-125 TABLET PO SCH ×2 (09:47→20:32)
[2019-09-23 09:49] VITALS: BP 97/67
[2019-09-23] MEDS ORDERED: KETOROLAC 30 MG/1 ML IM PRN (10:30)
[2019-09-23 12:24] VITALS: BP 106/70
[2019-09-23] MEDS: ACETAMINOPHEN 500 MG TABLET PO SCH ×3 (12:33→23:08)
[2019-09-23 19:34] VITALS: BP 93/62
[2019-09-23] MEDS: ZOLPIDEM 10MG TABLET PO SCH (20:30)
[2019-09-23] MEDS: SIMVASTATIN 20 MG TABLET PO SCH (20:32)
[2019-09-23] MEDS: NICOTINE 21 MG/24 HR PATCH.TD24 TD SCH (20:32)
[2019-09-23] MEDS: TRAZODONE 50MG TABLET PO PRN (20:33)
[2019-09-24 03:39] VITALS: BP 100/65
[2019-09-24] MEDS: morphine SULFATE 15 MG TAB.IR PO PRN ×4 (03:43→23:26)
[2019-09-24] MEDS: PANTOPROZOLE 40MG TABLET PO SCH ×2 (06:00→16:00)
[2019-09-24 07:34] VITALS: BP 104/71
[2019-09-24] MEDS: ACETAMINOPHEN 500 MG TABLET PO SCH ×3 (08:44→21:37)
[2019-09-24] MEDS: MULTIVITS,STRESS FORMULA 1 TABLET PO SCH (08:44)
[2019-09-24] MEDS: POTASSIUM CHLORIDE 20 MEQ TAB.ER.PRT PO SCH ×2 (08:44→16:41)
[2019-09-24] MEDS: FUROSEMIDE 20 MG TABLET PO SCH (08:45)
[2019-09-24] MEDS: BACLOFEN 10 MG TABLET PO SCH ×2 (08:45→21:38)
[2019-09-24] MEDS: SUCRALFATE 1 GM/10 ML UDC PO SCH ×2 (08:45→21:35)
[2019-09-24] MEDS: CALCIUM/VITAMIN D3 250-125 TABLET PO SCH ×2 (08:45→21:38)
[2019-09-24] MEDS: ASCORBIC ACID 500 MG TABLET PO SCH ×2 (08:45→16:41)
[2019-09-24] MEDS: PROPRANOLOL 20 MG TABLET PO SCH (08:45)
[2019-09-24] MEDS: QUETIAPINE 100MG TABLET PO SCH ×2 (08:45→21:39)
[2019-09-24] MEDS: ENOXAPARIN 40 MG/0.4 ML SQ SCH (08:46)
[2019-09-24] MEDS: LORazepam 1MG TABLET PO SCH ×2 (10:58→23:26)
[2019-09-24] MEDS: FERROUS SULFATE 325 MG TABLET PO SCH (10:58)
[2019-09-24 12:25] VITALS: BP 97/63
[2019-09-24 19:43] VITALS: BP 120/74
[2019-09-24] MEDS: NICOTINE 21 MG/24 HR PATCH.TD24 TD SCH (21:35)
[2019-09-24] MEDS: SIMVASTATIN 20 MG TABLET PO SCH (21:38)
[2019-09-24] MEDS: ZOLPIDEM 10MG TABLET PO SCH (21:38)
[2019-09-24] MEDS: ONDANSETRON 2MG/ML, 2ML IVPush PRN (21:41)
[2019-09-24] MEDS: TRAZODONE 50MG TABLET PO PRN (23:26)
[2019-09-25 00:11] VITALS: BP 110/76
[2019-09-25] MEDS ORDERED: PROMETHAZINE 25 MG/ML, 1ML IM PRN (02:30)
[2019-09-25] MEDS: morphine SULFATE 15 MG TAB.IR PO PRN ×4 (03:31→21:18)
[2019-09-25 06:07] LABS: CHLORIDE 107 mmol/L (98-107)
[2019-09-25 06:14] LABS: ALANINE AMINOTRANSFERASE 15 U/L (12-78); ALBUMIN 2.7 g/dL (3.4-5.0); ALKALINE PHOSPHATASE 80 U/L (45-117); ANION GAP 4 mmol/L (5-15); BILIRUBIN,TOTAL 0.6 mg/dL (0.2-1.0); CALCIUM 9.2 mg/dL (8.5-10.1); CREATININE 0.69 mg/dL (0.55-1.02); TOTAL PROTEIN 6.8 g/dL (6.4-8.2)
[2019-09-25] MEDS: PANTOPROZOLE 40MG TABLET PO SCH ×2 (06:30→16:00)
[2019-09-25 07:13] VITALS: BP 104/71
[2019-09-25] MEDS: QUETIAPINE 100MG TABLET PO SCH ×2 (08:47→21:04)
[2019-09-25] MEDS: CALCIUM/VITAMIN D3 250-125 TABLET PO SCH ×2 (08:47→21:04)
[2019-09-25] MEDS: SUCRALFATE 1 GM/10 ML UDC PO SCH ×2 (08:47→21:04)
[2019-09-25] MEDS: FUROSEMIDE 20 MG TABLET PO SCH (08:47)
[2019-09-25] MEDS: MULTIVITS,STRESS FORMULA 1 TABLET PO SCH (08:47)
[2019-09-25] MEDS: ASCORBIC ACID 500 MG TABLET PO SCH ×2 (08:47→16:16)
[2019-09-25] MEDS: BACLOFEN 10 MG TABLET PO SCH ×2 (08:48→22:39)
[2019-09-25] MEDS: ACETAMINOPHEN 500 MG TABLET PO SCH ×3 (08:48→21:04)
[2019-09-25] MEDS: POTASSIUM CHLORIDE 20 MEQ TAB.ER.PRT PO SCH ×2 (08:48→16:16)
[2019-09-25] MEDS: PROPRANOLOL 20 MG TABLET PO SCH (08:48)
[2019-09-25] MEDS: ENOXAPARIN 40 MG/0.4 ML SQ SCH (08:48)
[2019-09-25] MEDS: FERROUS SULFATE 325 MG TABLET PO SCH (08:48)
[2019-09-25] MEDS: LORazepam 1MG TABLET PO SCH ×2 (10:42→22:39)
[2019-09-25 12:28] LABS: ALBUMIN 2.7 g/dL (3.4-5.0); ANION GAP 6 mmol/L (5-15); CALCIUM 9.5 mg/dL (8.5-10.1); CHLORIDE 107 mmol/L (98-107)
[2019-09-25 12:34] LABS: ALANINE AMINOTRANSFERASE 15 U/L (12-78); ALKALINE PHOSPHATASE 78 U/L (45-117); BASOPHILS # (AUTO) 0.04 x10^3/uL (0-0.1); BASOPHILS % (AUTO) 1 % (0-1); BILIRUBIN,TOTAL 0.7 mg/dL (0.2-1.0); CREATININE 0.75 mg/dL (0.55-1.02); EOSINOPHILS # (AUTO) 0.19 x10^3/uL (0-0.4); EOSINOPHILS % (AUTO) 3 % (1-7); LYMPHOCYTES # (AUTO) 2.08 x10^3/uL (1-3.4); LYMPHOCYTES % (AUTO) 34 % (22-44); MD NO; MEAN CORPUSCULAR HEMOGLOBIN 26.1 pg (27.0-34.8); MEAN CORPUSCULAR HGB CONC 31.4 g/dL (32.4-35.8); MONOCYTES # (AUTO) 0.57 x10^3/uL (0.2-0.8); MONOCYTES % (AUTO) 9 % (2-9); NEUTROPHILS # (AUTO) 3.32 x10^3/uL (1.8-6.8); NEUTROPHILS % (AUTO) 54 % (42-75); PLATELET COUNT 389 x10^3/uL (130-400); RED BLOOD COUNT 3.29 x10^6/uL (3.82-5.3); RED CELL DISTRIBUTION WIDTH 18.8 % (9.6-15.2); TOTAL PROTEIN 6.8 g/dL (6.4-8.2)
[2019-09-25 12:54] VITALS: BP_SYST 88; BP_SYST 91; BP_DIAS 54; BP_DIAS 58
[2019-09-25 20:09] VITALS: BP 96/56
[2019-09-25] MEDS: SIMVASTATIN 20 MG TABLET PO SCH (21:06)
[2019-09-25] MEDS: NICOTINE 21 MG/24 HR PATCH.TD24 TD SCH (21:11)
[2019-09-25 22:38] VITALS: BP 96/62
[2019-09-25] MEDS: ZOLPIDEM 10MG TABLET PO SCH (22:39)
[2019-09-26 01:12] VITALS: BP 92/57
[2019-09-26] MEDS: morphine SULFATE 15 MG TAB.IR PO PRN ×5 (02:36→21:09)
[2019-09-26] MEDS: PANTOPROZOLE 40MG TABLET PO SCH ×2 (06:23→15:52)
[2019-09-26 07:26] VITALS: BP 108/73
[2019-09-26] MEDS ORDERED: LACTULOSE 20 GM/30 ML UDC PO PRN (08:30)
[2019-09-26] MEDS ORDERED: BISACODYL 10 MG SUPP PR PRN (08:30)
[2019-09-26] MEDS: FUROSEMIDE 20 MG TABLET PO SCH (09:00)
[2019-09-26] MEDS: SUCRALFATE 1 GM/10 ML UDC PO SCH ×2 (09:08→21:07)
[2019-09-26] MEDS: ASCORBIC ACID 500 MG TABLET PO SCH ×2 (09:08→15:52)
[2019-09-26] MEDS: FERROUS SULFATE 325 MG TABLET PO SCH (09:08)
[2019-09-26] MEDS: ENOXAPARIN 40 MG/0.4 ML SQ SCH (09:08)
[2019-09-26] MEDS: DOCUSATE 100 MG CAPSULE PO SCH (09:08)
[2019-09-26] MEDS: ACETAMINOPHEN 500 MG TABLET PO SCH ×3 (09:09→21:07)
[2019-09-26] MEDS: MULTIVITS,STRESS FORMULA 1 TABLET PO SCH (09:09)
[2019-09-26] MEDS: BACLOFEN 10 MG TABLET PO SCH ×2 (09:09→22:48)
[2019-09-26] MEDS: QUETIAPINE 100MG TABLET PO SCH ×2 (09:09→21:08)
[2019-09-26] MEDS: PROPRANOLOL 20 MG TABLET PO SCH (09:09)
[2019-09-26] MEDS: CALCIUM/VITAMIN D3 250-125 TABLET PO SCH ×2 (09:09→21:08)
[2019-09-26] MEDS: POTASSIUM CHLORIDE 20 MEQ TAB.ER.PRT PO SCH ×2 (09:09→15:52)
[2019-09-26] MEDS: LORazepam 1MG TABLET PO SCH ×2 (11:00→22:48)
[2019-09-26 14:59] VITALS: BP 96/61
[2019-09-26] MEDS: NICOTINE 21 MG/24 HR PATCH.TD24 TD SCH (21:00)
[2019-09-26 21:02] VITALS: BP 95/62
[2019-09-26] MEDS: SIMVASTATIN 20 MG TABLET PO SCH (21:07)
[2019-09-26] MEDS: SENNA/DOCUSATE TABLET PO SCH (21:08)
[2019-09-26] MEDS: ZOLPIDEM 10MG TABLET PO SCH (22:48)
[2019-09-27] MEDS: morphine SULFATE 15 MG TAB.IR PO PRN ×6 (01:30→21:41)
[2019-09-27 03:55] VITALS: BP 95/62
[2019-09-27] MEDS: PANTOPROZOLE 40MG TABLET PO SCH ×2 (05:18→17:30)
[2019-09-27 07:18] VITALS: BP 103/69
[2019-09-27] MEDS: BACLOFEN 10 MG TABLET PO SCH ×2 (09:15→22:31)
[2019-09-27] MEDS: FERROUS SULFATE 325 MG TABLET PO SCH (09:15)
[2019-09-27] MEDS: CALCIUM/VITAMIN D3 250-125 TABLET PO SCH ×2 (09:15→21:13)
[2019-09-27] MEDS: POTASSIUM CHLORIDE 20 MEQ TAB.ER.PRT PO SCH ×2 (09:15→17:30)
[2019-09-27] MEDS: ACETAMINOPHEN 500 MG TABLET PO SCH ×3 (09:15→21:13)
[2019-09-27] MEDS: MULTIVITS,STRESS FORMULA 1 TABLET PO SCH (09:15)
[2019-09-27] MEDS: ENOXAPARIN 40 MG/0.4 ML SQ SCH (09:16)
[2019-09-27] MEDS: DOCUSATE 100 MG CAPSULE PO SCH (09:16)
[2019-09-27] MEDS: SUCRALFATE 1 GM/10 ML UDC PO SCH ×2 (09:16→21:12)
[2019-09-27] MEDS: PROPRANOLOL 20 MG TABLET PO SCH (09:16)
[2019-09-27] MEDS: ASCORBIC ACID 500 MG TABLET PO SCH ×2 (09:16→17:30)
[2019-09-27] MEDS: QUETIAPINE 100MG TABLET PO SCH ×2 (09:16→22:32)
[2019-09-27] MEDS: FUROSEMIDE 20 MG TABLET PO SCH (09:25)
[2019-09-27] MEDS: LORazepam 1MG TABLET PO SCH ×2 (11:06→22:31)
[2019-09-27 13:19] VITALS: BP 96/66
[2019-09-27] MEDS: NICOTINE 21 MG/24 HR PATCH.TD24 TD SCH (21:00)
[2019-09-27] MEDS: SENNA/DOCUSATE TABLET PO SCH (21:13)
[2019-09-27] MEDS: SIMVASTATIN 20 MG TABLET PO SCH (21:14)
[2019-09-27 21:51] VITALS: BP 95/65
[2019-09-27] MEDS: ZOLPIDEM 10MG TABLET PO SCH (22:32)
[2019-09-27 22:34] VITALS: BP 106/70
[2019-09-28 01:45] VITALS: BP 94/63
[2019-09-28] MEDS: morphine SULFATE 15 MG TAB.IR PO PRN ×5 (02:09→21:50)
[2019-09-28] MEDS: PANTOPROZOLE 40MG TABLET PO SCH ×2 (05:30→16:31)
[2019-09-28 07:35] VITALS: BP 99/67
[2019-09-28] MEDS: ASCORBIC ACID 500 MG TABLET PO SCH ×2 (08:32→16:31)
[2019-09-28] MEDS: DOCUSATE 100 MG CAPSULE PO SCH (08:32)
[2019-09-28] MEDS: SUCRALFATE 1 GM/10 ML UDC PO SCH ×2 (08:32→21:20)
[2019-09-28] MEDS: QUETIAPINE 100MG TABLET PO SCH ×2 (08:32→22:56)
[2019-09-28] MEDS: ENOXAPARIN 40 MG/0.4 ML SQ SCH (08:32)
[2019-09-28] MEDS: CALCIUM/VITAMIN D3 250-125 TABLET PO SCH ×2 (08:33→21:21)
[2019-09-28] MEDS: ACETAMINOPHEN 500 MG TABLET PO SCH (08:33)
[2019-09-28] MEDS: POTASSIUM CHLORIDE 20 MEQ TAB.ER.PRT PO SCH ×2 (08:33→16:31)
[2019-09-28] MEDS: MULTIVITS,STRESS FORMULA 1 TABLET PO SCH (08:33)
[2019-09-28] MEDS: FERROUS SULFATE 325 MG TABLET PO SCH (08:33)
[2019-09-28] MEDS: PROPRANOLOL 20 MG TABLET PO SCH (08:34)
[2019-09-28] MEDS: BACLOFEN 10 MG TABLET PO SCH ×2 (08:34→22:53)
[2019-09-28] MEDS: FUROSEMIDE 20 MG TABLET PO SCH (08:37)
[2019-09-28] MEDS: LORazepam 1MG TABLET PO SCH ×2 (10:57→22:56)
[2019-09-28] MEDS: POLYETHYLENE GLYCOL 17 GM PACKET PO PRN (10:57)
[2019-09-28 13:44] VITALS: BP 98/65
[2019-09-28 20:00] VITALS: BP 108/70
[2019-09-28] MEDS: NICOTINE 21 MG/24 HR PATCH.TD24 TD SCH (21:00)
[2019-09-28] MEDS: SIMVASTATIN 20 MG TABLET PO SCH (21:20)
[2019-09-28] MEDS: ACETAMINOPHEN 500 MG TABLET PO PRN (22:56)
[2019-09-28] MEDS: ZOLPIDEM 10MG TABLET PO SCH (22:56)
[2019-09-29 03:56] VITALS: BP 93/63
[2019-09-29] MEDS: morphine SULFATE 15 MG TAB.IR PO PRN ×5 (05:18→22:41)
[2019-09-29] MEDS: PANTOPROZOLE 40MG TABLET PO SCH ×2 (05:18→16:50)
[2019-09-29 08:51] VITALS: BP 100/66
[2019-09-29] MEDS: FERROUS SULFATE 325 MG TABLET PO SCH (09:18)
[2019-09-29] MEDS: CALCIUM/VITAMIN D3 250-125 TABLET PO SCH ×2 (09:18→21:19)
[2019-09-29] MEDS: SUCRALFATE 1 GM/10 ML UDC PO SCH ×2 (09:18→21:19)
[2019-09-29] MEDS: QUETIAPINE 100MG TABLET PO SCH ×2 (09:18→23:04)
[2019-09-29] MEDS: MULTIVITS,STRESS FORMULA 1 TABLET PO SCH (09:18)
[2019-09-29] MEDS: POTASSIUM CHLORIDE 20 MEQ TAB.ER.PRT PO SCH ×2 (09:18→16:50)
[2019-09-29] MEDS: FUROSEMIDE 20 MG TABLET PO SCH (09:18)
[2019-09-29] MEDS: ENOXAPARIN 40 MG/0.4 ML SQ SCH (09:18)
[2019-09-29] MEDS: ASCORBIC ACID 500 MG TABLET PO SCH ×2 (09:19→16:50)
[2019-09-29] MEDS: PROPRANOLOL 20 MG TABLET PO SCH (09:19)
[2019-09-29] MEDS: BACLOFEN 10 MG TABLET PO SCH ×2 (09:19→23:04)
[2019-09-29] MEDS: DOCUSATE 100 MG CAPSULE PO SCH (09:19)
[2019-09-29] MEDS: ACETAMINOPHEN 500 MG TABLET PO PRN ×2 (09:50→18:36)
[2019-09-29] MEDS: LORazepam 1MG TABLET PO SCH ×2 (11:55→23:04)
[2019-09-29 14:05] VITALS: BP 89/57
[2019-09-29 14:21] VITALS: BP 92/59
[2019-09-29] MEDS: MAGNESIUM CITRATE 300ML ORAL SOL PO PRN (14:29)
[2019-09-29 19:37] VITALS: BP 99/63
[2019-09-29] MEDS: NICOTINE 21 MG/24 HR PATCH.TD24 TD SCH (21:00)
[2019-09-29] MEDS: SIMVASTATIN 20 MG TABLET PO SCH (21:19)
[2019-09-29] MEDS: ZOLPIDEM 10MG TABLET PO SCH (23:04)
[2019-09-30 02:11] VITALS: BP 100/64
[2019-09-30] MEDS: morphine SULFATE 15 MG TAB.IR PO PRN ×5 (05:09→22:45)
[2019-09-30] MEDS: PANTOPROZOLE 40MG TABLET PO SCH ×2 (05:09→16:25)
[2019-09-30 08:14] VITALS: BP 102/69
[2019-09-30] MEDS: ASCORBIC ACID 500 MG TABLET PO SCH ×2 (09:15→16:24)
[2019-09-30] MEDS: QUETIAPINE 100MG TABLET PO SCH ×2 (09:15→22:45)
[2019-09-30] MEDS: BACLOFEN 10 MG TABLET PO SCH ×2 (09:15→22:45)
[2019-09-30] MEDS: MULTIVITS,STRESS FORMULA 1 TABLET PO SCH (09:15)
[2019-09-30] MEDS: PROPRANOLOL 20 MG TABLET PO SCH (09:15)
[2019-09-30] MEDS: FUROSEMIDE 20 MG TABLET PO SCH (09:16)
[2019-09-30] MEDS: DOCUSATE 100 MG CAPSULE PO SCH (09:16)
[2019-09-30] MEDS: CALCIUM/VITAMIN D3 250-125 TABLET PO SCH ×2 (09:16→21:21)
[2019-09-30] MEDS: SUCRALFATE 1 GM/10 ML UDC PO SCH ×2 (09:16→21:21)
[2019-09-30] MEDS: POTASSIUM CHLORIDE 20 MEQ TAB.ER.PRT PO SCH ×2 (09:16→16:24)
[2019-09-30] MEDS: ENOXAPARIN 40 MG/0.4 ML SQ SCH (09:16)
[2019-09-30] MEDS: FERROUS SULFATE 325 MG TABLET PO SCH (09:16)
[2019-09-30] MEDS: LORazepam 1MG TABLET PO SCH ×2 (12:19→22:44)
[2019-09-30 15:59] VITALS: BP 96/65
[2019-09-30] MEDS ORDERED: MAGNESIUM CITRATE 300ML ORAL SOL PO ONE (16:30)
[2019-09-30 20:21] VITALS: BP 98/65
[2019-09-30] MEDS: NICOTINE 21 MG/24 HR PATCH.TD24 TD SCH (21:00)
[2019-09-30] MEDS: SIMVASTATIN 20 MG TABLET PO SCH (21:22)
[2019-09-30] MEDS: ZOLPIDEM 10MG TABLET PO SCH (22:44)
[2019-09-30] MEDS: ACETAMINOPHEN 500 MG TABLET PO PRN (22:50)
[2019-10-01 01:51] VITALS: BP 92/58
[2019-10-01] MEDS: morphine SULFATE 15 MG TAB.IR PO PRN ×5 (02:41→22:22)
[2019-10-01 06:12] LABS: CREATININE 0.68 mg/dL (0.55-1.02)
[2019-10-01] MEDS: PANTOPROZOLE 40MG TABLET PO SCH ×2 (06:20→16:26)
[2019-10-01 07:33] VITALS: BP 96/53
[2019-10-01] MEDS: BACLOFEN 10 MG TABLET PO SCH ×2 (08:49→23:15)
[2019-10-01] MEDS: MULTIVITS,STRESS FORMULA 1 TABLET PO SCH (08:49)
[2019-10-01] MEDS: PROPRANOLOL 20 MG TABLET PO SCH (08:49)
[2019-10-01] MEDS: POTASSIUM CHLORIDE 20 MEQ TAB.ER.PRT PO SCH ×2 (08:49→16:24)
[2019-10-01] MEDS: FERROUS SULFATE 325 MG TABLET PO SCH (08:49)
[2019-10-01] MEDS: ASCORBIC ACID 500 MG TABLET PO SCH ×2 (08:50→16:23)
[2019-10-01] MEDS: QUETIAPINE 100MG TABLET PO SCH ×2 (08:50→23:15)
[2019-10-01] MEDS: CALCIUM/VITAMIN D3 250-125 TABLET PO SCH ×2 (08:50→21:18)
[2019-10-01] MEDS: FUROSEMIDE 20 MG TABLET PO SCH (08:50)
[2019-10-01] MEDS: ENOXAPARIN 40 MG/0.4 ML SQ SCH (08:50)
[2019-10-01] MEDS: DOCUSATE 100 MG CAPSULE PO SCH (08:50)
[2019-10-01] MEDS: SUCRALFATE 1 GM/10 ML UDC PO SCH ×2 (08:53→21:17)
[2019-10-01] MEDS: LORazepam 1MG TABLET PO SCH (11:38)
[2019-10-01 13:24] VITALS: BP 95/62
[2019-10-01] MEDS: ACETAMINOPHEN 500 MG TABLET PO PRN ×2 (16:23→21:30)
[2019-10-01 19:02] VITALS: BP 90/59
[2019-10-01] MEDS: NICOTINE 21 MG/24 HR PATCH.TD24 TD SCH (21:00)
[2019-10-01] MEDS: SIMVASTATIN 20 MG TABLET PO SCH (21:18)
[2019-10-01] MEDS: ZOLPIDEM 10MG TABLET PO SCH (23:15)
[2019-10-02 00:02] VITALS: BP 103/69
[2019-10-02] MEDS: LORazepam 1MG TABLET PO SCH ×2 (00:04→12:29)
[2019-10-02] MEDS: PANTOPROZOLE 40MG TABLET PO SCH ×2 (04:58→16:44)
[2019-10-02] MEDS: morphine SULFATE 15 MG TAB.IR PO PRN ×5 (04:58→22:04)
[2019-10-02 07:24] LABS: BASOPHILS # (AUTO) 0.05 x10^3/uL (0-0.1); BASOPHILS % (AUTO) 1 % (0-1); EOSINOPHILS # (AUTO) 0.08 x10^3/uL (0-0.4); EOSINOPHILS % (AUTO) 2 % (1-7); LYMPHOCYTES # (AUTO) 1.79 x10^3/uL (1-3.4); LYMPHOCYTES % (AUTO) 34 % (22-44); MD NO; MEAN CORPUSCULAR HEMOGLOBIN 25.6 pg (27.0-34.8); MEAN CORPUSCULAR VOLUME 82.7 fL (80-100); MEAN PLATELET VOLUME 7.7 fL (7.4-10.4); MONOCYTES # (AUTO) 0.42 x10^3/uL (0.2-0.8); MONOCYTES % (AUTO) 8 % (2-9); NEUTROPHILS # (AUTO) 2.94 x10^3/uL (1.8-6.8); NEUTROPHILS % (AUTO) 56 % (42-75); PLATELET COUNT 306 x10^3/uL (130-400); RED BLOOD COUNT 3.45 x10^6/uL (3.82-5.3); RED CELL DISTRIBUTION WIDTH 19.5 % (9.6-15.2)
[2019-10-02 07:33] LABS: ANION GAP 8 mmol/L (5-15); CALCIUM 8.7 mg/dL (8.5-10.1); CHLORIDE 106 mmol/L (98-107); CREATININE 0.67 mg/dL (0.55-1.02)
[2019-10-02 07:54] VITALS: BP 102/65
[2019-10-02] MEDS: PROPRANOLOL 20 MG TABLET PO SCH (08:18)
[2019-10-02] MEDS: MULTIVITS,STRESS FORMULA 1 TABLET PO SCH (08:18)
[2019-10-02] MEDS: BACLOFEN 10 MG TABLET PO SCH ×2 (08:18→23:04)
[2019-10-02] MEDS: CALCIUM/VITAMIN D3 250-125 TABLET PO SCH ×2 (08:18→20:58)
[2019-10-02] MEDS: POTASSIUM CHLORIDE 20 MEQ TAB.ER.PRT PO SCH ×2 (08:18→16:44)
[2019-10-02] MEDS: ASCORBIC ACID 500 MG TABLET PO SCH ×2 (08:18→16:44)
[2019-10-02] MEDS: DOCUSATE 100 MG CAPSULE PO SCH (08:18)
[2019-10-02] MEDS: FERROUS SULFATE 325 MG TABLET PO SCH (08:18)
[2019-10-02] MEDS: SUCRALFATE 1 GM/10 ML UDC PO SCH ×2 (08:19→20:58)
[2019-10-02] MEDS: QUETIAPINE 100MG TABLET PO SCH ×2 (08:19→23:04)
[2019-10-02] MEDS: FUROSEMIDE 20 MG TABLET PO SCH (08:19)
[2019-10-02] MEDS: ENOXAPARIN 40 MG/0.4 ML SQ SCH (08:20)
[2019-10-02] MEDS: ACETAMINOPHEN 500 MG TABLET PO PRN (09:07)
[2019-10-02 13:54] VITALS: BP 98/65
[2019-10-02 19:37] VITALS: BP 95/63
[2019-10-02] MEDS: SIMVASTATIN 20 MG TABLET PO SCH (20:58)
[2019-10-02] MEDS: POLYETHYLENE GLYCOL 17 GM PACKET PO PRN (20:58)
[2019-10-02] MEDS: NICOTINE 21 MG/24 HR PATCH.TD24 TD SCH (20:59)
[2019-10-02] MEDS: ZOLPIDEM 10MG TABLET PO SCH (23:04)
[2019-10-03 00:57] VITALS: BP 108/67
[2019-10-03] MEDS: morphine SULFATE 15 MG TAB.IR PO PRN ×5 (02:10→23:10)
[2019-10-03] MEDS: PANTOPROZOLE 40MG TABLET PO SCH ×2 (06:42→16:18)
[2019-10-03 07:08] VITALS: BP 100/64
[2019-10-03] MEDS: BACLOFEN 10 MG TABLET PO SCH ×2 (08:50→23:10)
[2019-10-03] MEDS: CALCIUM/VITAMIN D3 250-125 TABLET PO SCH ×2 (08:50→21:54)
[2019-10-03] MEDS: POTASSIUM CHLORIDE 20 MEQ TAB.ER.PRT PO SCH ×2 (08:50→16:18)
[2019-10-03] MEDS: MULTIVITS,STRESS FORMULA 1 TABLET PO SCH (08:50)
[2019-10-03] MEDS: ASCORBIC ACID 500 MG TABLET PO SCH ×2 (08:50→16:18)
[2019-10-03] MEDS: QUETIAPINE 100MG TABLET PO SCH ×2 (08:50→23:10)
[2019-10-03] MEDS: DOCUSATE 100 MG CAPSULE PO SCH (08:51)
[2019-10-03] MEDS: ENOXAPARIN 40 MG/0.4 ML SQ SCH (08:51)
[2019-10-03] MEDS: PROPRANOLOL 20 MG TABLET PO SCH (08:51)
[2019-10-03] MEDS: SUCRALFATE 1 GM/10 ML UDC PO SCH ×2 (08:51→23:09)
[2019-10-03] MEDS: FERROUS SULFATE 325 MG TABLET PO SCH (08:51)
[2019-10-03] MEDS: FUROSEMIDE 20 MG TABLET PO SCH (08:52)
[2019-10-03] MEDS: ACETAMINOPHEN 500 MG TABLET PO PRN (10:49)
[2019-10-03] MEDS: LORazepam 1MG TABLET PO SCH ×2 (12:45)
[2019-10-03] MEDS: MAGNESIUM CITRATE 300ML ORAL SOL PO PRN (12:49)
[2019-10-03 13:10] VITALS: BP_SYST 86; BP_SYST 89; BP_DIAS 59; BP_DIAS 69
[2019-10-03 20:57] VITALS: BP 95/61
[2019-10-03] MEDS: NICOTINE 21 MG/24 HR PATCH.TD24 TD SCH (21:00)
[2019-10-03] MEDS: SIMVASTATIN 20 MG TABLET PO SCH (21:54)
[2019-10-03] MEDS: ZOLPIDEM 10MG TABLET PO SCH (23:10)
[2019-10-04] MEDS: LORazepam 1MG TABLET PO SCH ×3 (00:18→23:09)
[2019-10-04] MEDS: ACETAMINOPHEN 500 MG TABLET PO PRN (00:18)
[2019-10-04 02:51] VITALS: BP 93/62
[2019-10-04] MEDS: PANTOPROZOLE 40MG TABLET PO SCH ×2 (06:24→16:27)
[2019-10-04] MEDS: morphine SULFATE 15 MG TAB.IR PO PRN ×4 (06:25→20:54)
[2019-10-04 07:23] VITALS: BP 93/63
[2019-10-04 08:12] LABS: BASOPHILS # (AUTO) 0.01 x10^3/uL (0-0.1); BASOPHILS % (AUTO) 0 % (0-1); EOSINOPHILS # (AUTO) 0.09 x10^3/uL (0-0.4); EOSINOPHILS % (AUTO) 2 % (1-7); LYMPHOCYTES # (AUTO) 1.76 x10^3/uL (1-3.4); LYMPHOCYTES % (AUTO) 34 % (22-44); MD NO; MEAN CORPUSCULAR HEMOGLOBIN 25.2 pg (27.0-34.8); MEAN CORPUSCULAR HGB CONC 30.6 g/dL (32.4-35.8); MEAN CORPUSCULAR VOLUME 82.4 fL (80-100); MEAN PLATELET VOLUME 7.2 fL (7.4-10.4); MONOCYTES # (AUTO) 0.37 x10^3/uL (0.2-0.8); MONOCYTES % (AUTO) 7 % (2-9); NEUTROPHILS # (AUTO) 2.95 x10^3/uL (1.8-6.8); NEUTROPHILS % (AUTO) 57 % (42-75); PLATELET COUNT 285 x10^3/uL (130-400); RED BLOOD COUNT 3.53 x10^6/uL (3.82-5.3); RED CELL DISTRIBUTION WIDTH 19.5 % (9.6-15.2)
[2019-10-04 08:24] LABS: ALANINE AMINOTRANSFERASE 13 U/L (12-78); ALBUMIN 2.5 g/dL (3.4-5.0); ANION GAP 5 mmol/L (5-15); CALCIUM 8.6 mg/dL (8.5-10.1); CHLORIDE 108 mmol/L (98-107)
[2019-10-04 08:26] LABS: ALKALINE PHOSPHATASE 103 U/L (45-117); BILIRUBIN,TOTAL 0.3 mg/dL (0.2-1.0); CREATININE 0.68 mg/dL (0.55-1.02); TOTAL PROTEIN 6.1 g/dL (6.4-8.2)
[2019-10-04] MEDS: ASCORBIC ACID 500 MG TABLET PO SCH ×2 (09:18→16:26)
[2019-10-04] MEDS: MULTIVITS,STRESS FORMULA 1 TABLET PO SCH (09:18)
[2019-10-04] MEDS: QUETIAPINE 100MG TABLET PO SCH ×2 (09:18→23:09)
[2019-10-04] MEDS: DOCUSATE 100 MG CAPSULE PO SCH (09:18)
[2019-10-04] MEDS: SUCRALFATE 1 GM/10 ML UDC PO SCH ×2 (09:18→20:53)
[2019-10-04] MEDS: CALCIUM/VITAMIN D3 250-125 TABLET PO SCH ×2 (09:18→20:53)
[2019-10-04] MEDS: POTASSIUM CHLORIDE 20 MEQ TAB.ER.PRT PO SCH ×2 (09:18→16:26)
[2019-10-04] MEDS: FERROUS SULFATE 325 MG TABLET PO SCH (09:18)
[2019-10-04] MEDS: BACLOFEN 10 MG TABLET PO SCH ×2 (09:18→23:09)
[2019-10-04] MEDS: FUROSEMIDE 20 MG TABLET PO SCH (09:19)
[2019-10-04] MEDS: ENOXAPARIN 40 MG/0.4 ML SQ SCH (09:19)
[2019-10-04] MEDS: PROPRANOLOL 20 MG TABLET PO SCH (09:19)
[2019-10-04] MEDS ORDERED: OMNIPAQUE 350 MG/ML, 100ML BOTTLE ONE (13:52)
[2019-10-04 16:28] VITALS: BP 111/72
[2019-10-04 20:11] VITALS: BP 98/63
[2019-10-04] MEDS: SIMVASTATIN 20 MG TABLET PO SCH (20:53)
[2019-10-04] MEDS: NICOTINE 21 MG/24 HR PATCH.TD24 TD SCH (20:55)
[2019-10-04] MEDS: ZOLPIDEM 10MG TABLET PO SCH (23:09)
[2019-10-05] MEDS: morphine SULFATE 15 MG TAB.IR PO PRN ×5 (01:01→21:04)
[2019-10-05 02:24] VITALS: BP 92/58
[2019-10-05] MEDS: PANTOPROZOLE 40MG TABLET PO SCH ×2 (06:35→16:25)
[2019-10-05 07:00] VITALS: BP 96/63
[2019-10-05] MEDS: SUCRALFATE 1 GM/10 ML UDC PO SCH ×2 (09:19→21:33)
[2019-10-05] MEDS: QUETIAPINE 100MG TABLET PO SCH ×2 (09:20→22:55)
[2019-10-05] MEDS: MULTIVITS,STRESS FORMULA 1 TABLET PO SCH (09:20)
[2019-10-05] MEDS: FERROUS SULFATE 325 MG TABLET PO SCH (09:20)
[2019-10-05] MEDS: DOCUSATE 100 MG CAPSULE PO SCH (09:20)
[2019-10-05] MEDS: POTASSIUM CHLORIDE 20 MEQ TAB.ER.PRT PO SCH ×2 (09:20→16:21)
[2019-10-05] MEDS: FUROSEMIDE 20 MG TABLET PO SCH (09:20)
[2019-10-05] MEDS: BACLOFEN 10 MG TABLET PO SCH ×2 (09:20→22:55)
[2019-10-05] MEDS: ASCORBIC ACID 500 MG TABLET PO SCH ×2 (09:20→16:21)
[2019-10-05] MEDS: PROPRANOLOL 20 MG TABLET PO SCH (09:21)
[2019-10-05] MEDS: ENOXAPARIN 40 MG/0.4 ML SQ SCH (09:21)
[2019-10-05] MEDS: CALCIUM/VITAMIN D3 250-125 TABLET PO SCH ×2 (09:21→21:34)
[2019-10-05] MEDS: LORazepam 1MG TABLET PO SCH ×2 (12:13→22:58)
[2019-10-05 12:48] VITALS: BP 89/56
[2019-10-05 19:52] VITALS: BP 106/69
[2019-10-05] MEDS: NICOTINE 21 MG/24 HR PATCH.TD24 TD SCH (21:00)
[2019-10-05] MEDS: SIMVASTATIN 20 MG TABLET PO SCH (21:34)
[2019-10-05] MEDS: ZOLPIDEM 10MG TABLET PO SCH (22:55)
[2019-10-06] MEDS: morphine SULFATE 15 MG TAB.IR PO PRN ×5 (01:15→19:49)
[2019-10-06 01:40] VITALS: BP 98/67
[2019-10-06] MEDS: PANTOPROZOLE 40MG TABLET PO SCH ×2 (06:24→16:29)
[2019-10-06 07:32] VITALS: BP 107/73
[2019-10-06] MEDS: NICOTINE 21 MG/24 HR PATCH.TD24 TD SCH (09:00)
[2019-10-06] MEDS: SUCRALFATE 1 GM/10 ML UDC PO SCH ×2 (09:16→21:30)
[2019-10-06] MEDS: FERROUS SULFATE 325 MG TABLET PO SCH (09:16)
[2019-10-06] MEDS: ENOXAPARIN 40 MG/0.4 ML SQ SCH (09:16)
[2019-10-06] MEDS: MULTIVITS,STRESS FORMULA 1 TABLET PO SCH (09:16)
[2019-10-06] MEDS: FUROSEMIDE 20 MG TABLET PO SCH (09:17)
[2019-10-06] MEDS: ASCORBIC ACID 500 MG TABLET PO SCH ×2 (09:17→16:29)
[2019-10-06] MEDS: QUETIAPINE 100MG TABLET PO SCH ×2 (09:17→23:24)
[2019-10-06] MEDS: CALCIUM/VITAMIN D3 250-125 TABLET PO SCH ×2 (09:17→21:30)
[2019-10-06] MEDS: DOCUSATE 100 MG CAPSULE PO SCH (09:18)
[2019-10-06] MEDS: BACLOFEN 10 MG TABLET PO SCH ×2 (09:18→23:23)
[2019-10-06] MEDS: PROPRANOLOL 20 MG TABLET PO SCH (09:18)
[2019-10-06] MEDS: POTASSIUM CHLORIDE 20 MEQ TAB.ER.PRT PO SCH ×2 (09:18→16:29)
[2019-10-06] MEDS: LORazepam 1MG TABLET PO SCH ×2 (11:18→23:23)
[2019-10-06] MEDS: ONDANSETRON 2MG/ML, 2ML IVPush PRN (12:33)
[2019-10-06 13:21] VITALS: BP 102/69
[2019-10-06] MEDS: ACETAMINOPHEN 500 MG TABLET PO PRN (16:29)
[2019-10-06 20:05] VITALS: BP 87/61
[2019-10-06] MEDS: SIMVASTATIN 20 MG TABLET PO SCH (21:30)
[2019-10-06] MEDS: ZOLPIDEM 10MG TABLET PO SCH (23:23)
[2019-10-07] MEDS: morphine SULFATE 15 MG TAB.IR PO PRN ×5 (00:20→20:15)
[2019-10-07 01:32] VITALS: BP 106/70
[2019-10-07] MEDS: PANTOPROZOLE 40MG TABLET PO SCH ×2 (06:01→16:22)
[2019-10-07 07:02] VITALS: BP 96/62
[2019-10-07] MEDS: ASCORBIC ACID 500 MG TABLET PO SCH ×2 (08:25→16:22)
[2019-10-07] MEDS: MULTIVITS,STRESS FORMULA 1 TABLET PO SCH (08:25)
[2019-10-07] MEDS: SUCRALFATE 1 GM/10 ML UDC PO SCH ×2 (08:25→21:37)
[2019-10-07] MEDS: QUETIAPINE 100MG TABLET PO SCH ×2 (08:25→23:11)
[2019-10-07] MEDS: CALCIUM/VITAMIN D3 250-125 TABLET PO SCH ×2 (08:25→21:37)
[2019-10-07] MEDS: DOCUSATE 100 MG CAPSULE PO SCH (08:26)
[2019-10-07] MEDS: ENOXAPARIN 40 MG/0.4 ML SQ SCH (08:26)
[2019-10-07] MEDS: POTASSIUM CHLORIDE 20 MEQ TAB.ER.PRT PO SCH ×2 (08:26→16:22)
[2019-10-07] MEDS: FERROUS SULFATE 325 MG TABLET PO SCH (08:26)
[2019-10-07] MEDS: PROPRANOLOL 20 MG TABLET PO SCH (08:26)
[2019-10-07] MEDS: BACLOFEN 10 MG TABLET PO SCH ×2 (08:26→23:11)
[2019-10-07] MEDS: FUROSEMIDE 20 MG TABLET PO SCH (08:26)
[2019-10-07] MEDS: NICOTINE 21 MG/24 HR PATCH.TD24 TD SCH (08:27)
[2019-10-07] MEDS: LORazepam 1MG TABLET PO SCH ×2 (12:21→23:11)
[2019-10-07 13:54] VITALS: BP 91/57
[2019-10-07] MEDS: ACETAMINOPHEN 500 MG TABLET PO PRN ×2 (15:14→23:11)
[2019-10-07 19:39] VITALS: BP 96/60
[2019-10-07] MEDS: SIMVASTATIN 20 MG TABLET PO SCH (21:38)
[2019-10-07] MEDS: ZOLPIDEM 10MG TABLET PO SCH (23:11)
[2019-10-08] MEDS: morphine SULFATE 15 MG TAB.IR PO PRN ×6 (00:15→21:51)
[2019-10-08 01:14] VITALS: BP 97/64
[2019-10-08] MEDS: PANTOPROZOLE 40MG TABLET PO SCH ×2 (07:33→16:04)
[2019-10-08 07:50] VITALS: BP 100/67
[2019-10-08] MEDS: POTASSIUM CHLORIDE 20 MEQ TAB.ER.PRT PO SCH ×2 (09:15→16:03)
[2019-10-08] MEDS: FERROUS SULFATE 325 MG TABLET PO SCH (09:15)
[2019-10-08] MEDS: BACLOFEN 10 MG TABLET PO SCH ×2 (09:15→23:07)
[2019-10-08] MEDS: PROPRANOLOL 20 MG TABLET PO SCH (09:15)
[2019-10-08] MEDS: DOCUSATE 100 MG CAPSULE PO SCH (09:15)
[2019-10-08] MEDS: MULTIVITS,STRESS FORMULA 1 TABLET PO SCH (09:15)
[2019-10-08] MEDS: ASCORBIC ACID 500 MG TABLET PO SCH ×2 (09:15→16:03)
[2019-10-08] MEDS: ENOXAPARIN 40 MG/0.4 ML SQ SCH (09:16)
[2019-10-08] MEDS: SUCRALFATE 1 GM/10 ML UDC PO SCH ×2 (09:16→21:49)
[2019-10-08] MEDS: CALCIUM/VITAMIN D3 250-125 TABLET PO SCH ×2 (09:16→21:49)
[2019-10-08] MEDS: QUETIAPINE 100MG TABLET PO SCH ×2 (09:16→23:07)
[2019-10-08] MEDS: FUROSEMIDE 20 MG TABLET PO SCH (09:16)
[2019-10-08] MEDS: NICOTINE 21 MG/24 HR PATCH.TD24 TD SCH (09:16)
[2019-10-08] MEDS: LORazepam 1MG TABLET PO SCH ×2 (12:13→23:07)
[2019-10-08 13:01] VITALS: BP 92/61
[2019-10-08] MEDS: MAGNESIUM CITRATE 300ML ORAL SOL PO PRN (17:44)
[2019-10-08 20:33] VITALS: BP 91/61
[2019-10-08] MEDS: SIMVASTATIN 20 MG TABLET PO SCH (21:51)
[2019-10-08] MEDS: ZOLPIDEM 10MG TABLET PO SCH (23:07)
[2019-10-09 01:33] VITALS: BP 99/64
[2019-10-09] MEDS: morphine SULFATE 15 MG TAB.IR PO PRN ×5 (02:18→19:47)
[2019-10-09] MEDS: ACETAMINOPHEN 500 MG TABLET PO PRN (03:19)
[2019-10-09 07:11] VITALS: BP 93/62
[2019-10-09] MEDS: PANTOPROZOLE 40MG TABLET PO SCH ×2 (07:22→16:45)
[2019-10-09] MEDS: BACLOFEN 10 MG TABLET PO SCH ×2 (08:44→22:48)
[2019-10-09] MEDS: DOCUSATE 100 MG CAPSULE PO SCH (08:44)
[2019-10-09] MEDS: SUCRALFATE 1 GM/10 ML UDC PO SCH ×2 (08:44→21:04)
[2019-10-09] MEDS: MULTIVITS,STRESS FORMULA 1 TABLET PO SCH (08:44)
[2019-10-09] MEDS: FERROUS SULFATE 325 MG TABLET PO SCH (08:44)
[2019-10-09] MEDS: PROPRANOLOL 20 MG TABLET PO SCH (08:46)
[2019-10-09] MEDS: ENOXAPARIN 40 MG/0.4 ML SQ SCH (08:46)
[2019-10-09] MEDS: POTASSIUM CHLORIDE 20 MEQ TAB.ER.PRT PO SCH ×2 (08:46→16:45)
[2019-10-09] MEDS: CALCIUM/VITAMIN D3 250-125 TABLET PO SCH ×2 (08:46→21:04)
[2019-10-09] MEDS: NICOTINE 21 MG/24 HR PATCH.TD24 TD SCH (08:47)
[2019-10-09] MEDS: ASCORBIC ACID 500 MG TABLET PO SCH ×2 (08:47→15:32)
[2019-10-09] MEDS: QUETIAPINE 100MG TABLET PO SCH ×2 (08:47→22:48)
[2019-10-09] MEDS: LORazepam 1MG TABLET PO SCH ×2 (11:49→22:48)
[2019-10-09] MEDS: FUROSEMIDE 20 MG TABLET PO SCH (11:49)
[2019-10-09 12:34] VITALS: BP 92/60
[2019-10-09] MEDS: MAGNESIUM CITRATE 300ML ORAL SOL PO PRN (15:34)
[2019-10-09 19:58] VITALS: BP 104/65
[2019-10-09] MEDS: SIMVASTATIN 20 MG TABLET PO SCH (21:04)
[2019-10-09] MEDS: ZOLPIDEM 10MG TABLET PO SCH (22:48)
[2019-10-10] MEDS: morphine SULFATE 15 MG TAB.IR PO PRN ×5 (00:01→21:00)
[2019-10-10] MEDS: ACETAMINOPHEN 500 MG TABLET PO PRN ×3 (00:05→21:00)
[2019-10-10 02:32] VITALS: BP 99/67
[2019-10-10] MEDS: PANTOPROZOLE 40MG TABLET PO SCH ×2 (06:47→16:40)
[2019-10-10 08:31] VITALS: BP 105/71
[2019-10-10] MEDS: NICOTINE 21 MG/24 HR PATCH.TD24 TD SCH (09:00)
[2019-10-10] MEDS: FUROSEMIDE 20 MG TABLET PO SCH (09:00)
[2019-10-10] MEDS: MULTIVITS,STRESS FORMULA 1 TABLET PO SCH (09:05)
[2019-10-10] MEDS: SUCRALFATE 1 GM/10 ML UDC PO SCH ×2 (09:05→20:59)
[2019-10-10] MEDS: CALCIUM/VITAMIN D3 250-125 TABLET PO SCH ×2 (09:05→20:59)
[2019-10-10] MEDS: ASCORBIC ACID 500 MG TABLET PO SCH ×2 (09:06→16:38)
[2019-10-10] MEDS: BACLOFEN 10 MG TABLET PO SCH ×2 (09:06→23:13)
[2019-10-10] MEDS: PROPRANOLOL 20 MG TABLET PO SCH (09:06)
[2019-10-10] MEDS: FERROUS SULFATE 325 MG TABLET PO SCH (09:06)
[2019-10-10] MEDS: QUETIAPINE 100MG TABLET PO SCH ×2 (09:06→23:14)
[2019-10-10] MEDS: POTASSIUM CHLORIDE 20 MEQ TAB.ER.PRT PO SCH ×2 (09:06→16:38)
[2019-10-10] MEDS: DOCUSATE 100 MG CAPSULE PO SCH (09:07)
[2019-10-10] MEDS: ENOXAPARIN 40 MG/0.4 ML SQ SCH (09:07)
[2019-10-10] MEDS: LORazepam 1MG TABLET PO SCH ×2 (11:55→23:13)
[2019-10-10] MEDS: IBUPROFEN 600 MG TABLET PO PRN ×2 (11:55→23:22)
[2019-10-10 12:50] VITALS: BP 100/64
[2019-10-10] MEDS: FAMOTIDINE 20 MG TABLET PO SCH (20:59)
[2019-10-10] MEDS: SIMVASTATIN 20 MG TABLET PO SCH (21:00)
[2019-10-10 21:25] VITALS: BP 107/69
[2019-10-10] MEDS: ZOLPIDEM 10MG TABLET PO SCH (23:13)
[2019-10-11 01:10] VITALS: BP 99/65
[2019-10-11] MEDS: morphine SULFATE 15 MG TAB.IR PO PRN ×5 (01:15→21:12)
[2019-10-11] MEDS: PANTOPROZOLE 40MG TABLET PO SCH ×2 (05:33→15:54)
[2019-10-11] MEDS: ACETAMINOPHEN 500 MG TABLET PO PRN ×2 (06:02→10:17)
[2019-10-11 06:20] LABS: CHLORIDE 109 mmol/L (98-107)
[2019-10-11 06:24] LABS: ANION GAP 7 mmol/L (5-15); CALCIUM 8.7 mg/dL (8.5-10.1)
[2019-10-11 07:00] VITALS: BP 102/70
[2019-10-11] MEDS: NICOTINE 21 MG/24 HR PATCH.TD24 TD SCH (09:00)
[2019-10-11] MEDS: ENOXAPARIN 40 MG/0.4 ML SQ SCH (10:09)
[2019-10-11] MEDS: ASCORBIC ACID 500 MG TABLET PO SCH ×2 (10:09→15:53)
[2019-10-11] MEDS: FAMOTIDINE 20 MG TABLET PO SCH ×2 (10:09→21:06)
[2019-10-11] MEDS: QUETIAPINE 100MG TABLET PO SCH ×2 (10:09→22:31)
[2019-10-11] MEDS: SUCRALFATE 1 GM/10 ML UDC PO SCH ×2 (10:09→21:05)
[2019-10-11] MEDS: PROPRANOLOL 20 MG TABLET PO SCH (10:09)
[2019-10-11] MEDS: CALCIUM/VITAMIN D3 250-125 TABLET PO SCH ×2 (10:09→21:06)
[2019-10-11] MEDS: BACLOFEN 10 MG TABLET PO SCH ×2 (10:09→22:31)
[2019-10-11] MEDS: POTASSIUM CHLORIDE 20 MEQ TAB.ER.PRT PO SCH ×2 (10:10→15:53)
[2019-10-11] MEDS: FERROUS SULFATE 325 MG TABLET PO SCH (10:10)
[2019-10-11] MEDS: DOCUSATE 100 MG CAPSULE PO SCH (10:10)
[2019-10-11] MEDS: MULTIVITS,STRESS FORMULA 1 TABLET PO SCH (10:10)
[2019-10-11] MEDS: FUROSEMIDE 20 MG TABLET PO SCH (10:10)
[2019-10-11] MEDS: LORazepam 1MG TABLET PO SCH ×2 (10:45→22:31)
[2019-10-11 12:34] VITALS: BP 94/67
[2019-10-11 19:52] VITALS: BP 100/66
[2019-10-11] MEDS: SIMVASTATIN 20 MG TABLET PO SCH (21:06)
[2019-10-11] MEDS: IBUPROFEN 600 MG TABLET PO PRN (21:11)
[2019-10-11] MEDS: ZOLPIDEM 10MG TABLET PO SCH (22:31)
[2019-10-12 01:37] VITALS: BP 96/62
[2019-10-12] MEDS: morphine SULFATE 15 MG TAB.IR PO PRN ×5 (01:43→20:50)
[2019-10-12] MEDS: ACETAMINOPHEN 500 MG TABLET PO PRN ×2 (01:43→20:50)
[2019-10-12] MEDS: PANTOPROZOLE 40MG TABLET PO SCH ×2 (05:44→14:54)
[2019-10-12] MEDS: IBUPROFEN 600 MG TABLET PO PRN ×2 (05:44→18:33)
[2019-10-12 07:13] VITALS: BP 92/59
[2019-10-12] MEDS: SUCRALFATE 1 GM/10 ML UDC PO SCH ×2 (07:46→20:49)
[2019-10-12] MEDS: FAMOTIDINE 20 MG TABLET PO SCH ×2 (07:47→20:50)
[2019-10-12] MEDS: QUETIAPINE 100MG TABLET PO SCH ×2 (07:47→22:53)
[2019-10-12] MEDS: POTASSIUM CHLORIDE 20 MEQ TAB.ER.PRT PO SCH ×2 (07:49→18:33)
[2019-10-12] MEDS: PROPRANOLOL 20 MG TABLET PO SCH (07:49)
[2019-10-12] MEDS: FERROUS SULFATE 325 MG TABLET PO SCH (07:49)
[2019-10-12] MEDS: ASCORBIC ACID 500 MG TABLET PO SCH ×2 (07:49→18:33)
[2019-10-12] MEDS: MULTIVITS,STRESS FORMULA 1 TABLET PO SCH (07:50)
[2019-10-12] MEDS: ENOXAPARIN 40 MG/0.4 ML SQ SCH (07:50)
[2019-10-12] MEDS: CALCIUM/VITAMIN D3 250-125 TABLET PO SCH ×2 (07:50→20:50)
[2019-10-12] MEDS: FUROSEMIDE 20 MG TABLET PO SCH (07:50)
[2019-10-12] MEDS: BACLOFEN 10 MG TABLET PO SCH ×2 (07:50→22:52)
[2019-10-12] MEDS: NICOTINE 21 MG/24 HR PATCH.TD24 TD SCH (07:50)
[2019-10-12] MEDS: DOCUSATE 100 MG CAPSULE PO SCH (07:50)
[2019-10-12] MEDS: LORazepam 1MG TABLET PO SCH ×2 (12:20→22:52)
[2019-10-12 12:58] VITALS: BP 89/59
[2019-10-12 20:00] VITALS: BP 96/64
[2019-10-12] MEDS: SIMVASTATIN 20 MG TABLET PO SCH (20:50)
[2019-10-12] MEDS: ZOLPIDEM 10MG TABLET PO SCH (22:52)
[2019-10-13] MEDS: morphine SULFATE 15 MG TAB.IR PO PRN ×5 (00:51→19:59)
[2019-10-13] MEDS: IBUPROFEN 600 MG TABLET PO PRN ×3 (00:52→17:23)
[2019-10-13 01:01] VITALS: BP 95/60
[2019-10-13] MEDS: PANTOPROZOLE 40MG TABLET PO SCH ×2 (05:18→17:21)
[2019-10-13] MEDS: ACETAMINOPHEN 500 MG TABLET PO PRN ×2 (05:19→19:59)
[2019-10-13 07:22] VITALS: BP 99/67
[2019-10-13] MEDS: POTASSIUM CHLORIDE 20 MEQ TAB.ER.PRT PO SCH ×2 (08:42→17:21)
[2019-10-13] MEDS: BACLOFEN 10 MG TABLET PO SCH ×2 (08:43→22:53)
[2019-10-13] MEDS: ASCORBIC ACID 500 MG TABLET PO SCH ×2 (08:43→17:21)
[2019-10-13] MEDS: CALCIUM/VITAMIN D3 250-125 TABLET PO SCH ×2 (08:43→19:59)
[2019-10-13] MEDS: FERROUS SULFATE 325 MG TABLET PO SCH (08:43)
[2019-10-13] MEDS: FUROSEMIDE 20 MG TABLET PO SCH ×2 (08:43→08:49)
[2019-10-13] MEDS: QUETIAPINE 100MG TABLET PO SCH ×2 (08:43→22:52)
[2019-10-13] MEDS: FAMOTIDINE 20 MG TABLET PO SCH ×2 (08:43→19:59)
[2019-10-13] MEDS: PROPRANOLOL 20 MG TABLET PO SCH (08:44)
[2019-10-13] MEDS: ENOXAPARIN 40 MG/0.4 ML SQ SCH (08:44)
[2019-10-13] MEDS: DOCUSATE 100 MG CAPSULE PO SCH (08:44)
[2019-10-13] MEDS: MULTIVITS,STRESS FORMULA 1 TABLET PO SCH (08:44)
[2019-10-13] MEDS: SUCRALFATE 1 GM/10 ML UDC PO SCH ×2 (08:44→19:58)
[2019-10-13] MEDS: LORazepam 1MG TABLET PO SCH ×2 (11:53→22:53)
[2019-10-13 13:27] VITALS: BP 88/52
[2019-10-13 18:46] VITALS: BP 95/64
[2019-10-13] MEDS: SIMVASTATIN 20 MG TABLET PO SCH (19:59)
[2019-10-13] MEDS: ZOLPIDEM 10MG TABLET PO SCH (22:52)
[2019-10-14 00:44] VITALS: BP 97/61
[2019-10-14] MEDS: IBUPROFEN 600 MG TABLET PO PRN ×2 (00:58→17:42)
[2019-10-14] MEDS: morphine SULFATE 15 MG TAB.IR PO PRN ×5 (00:59→20:57)
[2019-10-14] MEDS: ACETAMINOPHEN 500 MG TABLET PO PRN ×2 (06:32→18:22)
[2019-10-14] MEDS: PANTOPROZOLE 40MG TABLET PO SCH ×2 (06:32→16:14)
[2019-10-14 06:57] VITALS: BP 99/63
[2019-10-14] MEDS: ENOXAPARIN 40 MG/0.4 ML SQ SCH (08:52)
[2019-10-14] MEDS: MULTIVITS,STRESS FORMULA 1 TABLET PO SCH (08:52)
[2019-10-14] MEDS: QUETIAPINE 100MG TABLET PO SCH ×2 (08:53→23:04)
[2019-10-14] MEDS: CALCIUM/VITAMIN D3 250-125 TABLET PO SCH ×2 (08:53→20:56)
[2019-10-14] MEDS: POTASSIUM CHLORIDE 20 MEQ TAB.ER.PRT PO SCH ×2 (08:53→16:14)
[2019-10-14] MEDS: DOCUSATE 100 MG CAPSULE PO SCH (08:53)
[2019-10-14] MEDS: ASCORBIC ACID 500 MG TABLET PO SCH ×2 (08:53→16:14)
[2019-10-14] MEDS: BACLOFEN 10 MG TABLET PO SCH ×2 (08:53→23:04)
[2019-10-14] MEDS: FUROSEMIDE 20 MG TABLET PO SCH (08:53)
[2019-10-14] MEDS: FAMOTIDINE 20 MG TABLET PO SCH ×2 (08:53→20:56)
[2019-10-14] MEDS: PROPRANOLOL 20 MG TABLET PO SCH (08:53)
[2019-10-14] MEDS: SUCRALFATE 1 GM/10 ML UDC PO SCH ×2 (08:54→20:56)
[2019-10-14] MEDS: FERROUS SULFATE 325 MG TABLET PO SCH (08:54)
[2019-10-14] MEDS: LORazepam 1MG TABLET PO SCH ×2 (11:40→23:04)
[2019-10-14 13:15] VITALS: BP 101/68
[2019-10-14 18:55] VITALS: BP 111/74
[2019-10-14] MEDS: SIMVASTATIN 20 MG TABLET PO SCH (20:57)
[2019-10-14] MEDS: MAGNESIUM CITRATE 300ML ORAL SOL PO PRN (22:11)
[2019-10-14] MEDS: ZOLPIDEM 10MG TABLET PO SCH (23:04)
[2019-10-15 00:29] VITALS: BP 104/61
[2019-10-15] MEDS: morphine SULFATE 15 MG TAB.IR PO PRN ×4 (03:11→16:32)
[2019-10-15] MEDS: ACETAMINOPHEN 500 MG TABLET PO PRN ×2 (03:12→12:14)
[2019-10-15] MEDS: PANTOPROZOLE 40MG TABLET PO SCH ×2 (05:58→16:05)
[2019-10-15 07:10] VITALS: BP 94/62
[2019-10-15] MEDS: MULTIVITS,STRESS FORMULA 1 TABLET PO SCH (08:25)
[2019-10-15] MEDS: FAMOTIDINE 20 MG TABLET PO SCH (08:25)
[2019-10-15] MEDS: ASCORBIC ACID 500 MG TABLET PO SCH (08:25)
[2019-10-15] MEDS: CALCIUM/VITAMIN D3 250-125 TABLET PO SCH (08:25)
[2019-10-15] MEDS: SUCRALFATE 1 GM/10 ML UDC PO SCH (08:25)
[2019-10-15] MEDS: DOCUSATE 100 MG CAPSULE PO SCH (08:25)
[2019-10-15] MEDS: POTASSIUM CHLORIDE 20 MEQ TAB.ER.PRT PO SCH (08:25)
[2019-10-15] MEDS: FERROUS SULFATE 325 MG TABLET PO SCH (08:26)
[2019-10-15] MEDS: PROPRANOLOL 20 MG TABLET PO SCH (08:26)
[2019-10-15] MEDS: QUETIAPINE 100MG TABLET PO SCH (08:26)
[2019-10-15] MEDS: BACLOFEN 10 MG TABLET PO SCH (08:26)
[2019-10-15] MEDS: FUROSEMIDE 20 MG TABLET PO SCH (08:27)
[2019-10-15] MEDS: ENOXAPARIN 40 MG/0.4 ML SQ SCH (08:28)
[2019-10-15] MEDS: IBUPROFEN 600 MG TABLET PO PRN (12:14)
[2019-10-15] MEDS: LORazepam 1MG TABLET PO SCH (12:14)
[2019-10-15] MEDS ORDERED: ENOX40SY4 SQ (12:37)
[2019-10-15 13:35] VITALS: BP 93/61
[2019-10-15 13:40] VITALS: BP 93/61
[2019-10-15 15:24] VITALS: BP 97/64
== END 2019-10-15 17:00 | disposition home health service (06) | DRG 313 ==
LOC: ED 14:00 → EDIP 16:53 → 4NE 18:34
PROVIDERS: ADMIT Family Medicine; ATTEND Family Medicine
PROC: 0QSH04Z Reposition Left Tibia with Internal Fixation Device, Open Approach (ICD-10-PCS; 2019-09-17)
PROC: 0QSH06Z Reposition Left Tibia with Intramedullary Internal Fixation Device, Open Approach (ICD-10-PCS; principal; 2019-09-17 13:30)
DX: S82.142A Displaced bicondylar fracture of left tibia, initial encounter for closed fracture (principal); G92 Toxic encephalopathy; E46 Unspecified protein-calorie malnutrition; E66.01 Morbid (severe) obesity due to excess calories; F11.20 Opioid dependence, uncomplicated; D63.8 Anemia in other chronic diseases classified elsewhere; E11.9 Type 2 diabetes mellitus without complications; F13.20 Sedative, hypnotic or anxiolytic dependence, uncomplicated; S82.252A Displaced comminuted fracture of shaft of left tibia, initial encounter for closed fracture; I11.0 Hypertensive heart disease with heart failure; I50.32 Chronic diastolic (congestive) heart failure; F17.200 Nicotine dependence, unspecified, uncomplicated; F31.9 Bipolar disorder, unspecified; F41.9 Anxiety disorder, unspecified; G45.9 Transient cerebral ischemic attack, unspecified; G89.29 Other chronic pain; M54.9 Dorsalgia, unspecified; M81.0 Age-related osteoporosis without current pathological fracture; S70.01XA Contusion of right hip, initial encounter; S82.402A Unspecified fracture of shaft of left fibula, initial encounter for closed fracture; S82.453A Displaced comminuted fracture of shaft of unspecified fibula, initial encounter for closed fracture; Z96.641 Presence of right artificial hip joint; K21.9 Gastro-esophageal reflux disease without esophagitis; R29.6 Repeated falls; W01.0XXA Fall on same level from slipping, tripping and stumbling without subsequent striking against object, initial encounter; R53.81 Other malaise; Z68.35 Body mass index [BMI] 35.0-35.9, adult; I25.2 Old myocardial infarction; Y92.002 Bathroom of unspecified non-institutional (private) residence as the place of occurrence of the external cause; Z90.710 Acquired absence of both cervix and uterus
CPT/HCPCS: 36415; 71045; 72193; 74018; 76000; 76857; 80048; 80053; 80069; 82040; 82565; 82728; 82962; 83540; 83550; 83735; 84100; 84443; 85025; 85610; 93005; 96374; 96375; 96376; C1713; G0378; J0610; J0690; J1100; J1170; J1650; J1885; J2250; J2405; J2550; J2704; J3010; J3480; J3486; Q9967; J1815; J2060; J2175; J2270; J2370; J3475; J7120

== ENCOUNTER 2019-11-28 00:36 | Emergency (ER) | payer MEDICAID ==
[~2019-11-28] VITALS: Ht 180.3 cm; Wt 110.8 kg
[~2019-11-28 00:36] MED LIST changes: +ENOX40SY4 SQ; +ONDA-89 PO; -ONDA4TAB12 PO; +SIMV20TA19 PO; -SIMV20TA3 PO; -SUCR1ORA11 PO; +SUCR1ORA14 PO
[2019-11-28] MEDS ORDERED: SODIUM CHLORIDE 0.9% 1,000ML IVBOLUS ONE ×2 (01:00→03:00)
[2019-11-28] MEDS ORDERED: ASPIRIN 81 MG TABLET CHEW PO ONE (01:00)
[2019-11-28 01:05] LABS: ALANINE AMINOTRANSFERASE 13 U/L (12-78); ANION GAP 9 mmol/L (5-15); CALCIUM 8.4 mg/dL (8.5-10.1); CHLORIDE 111 mmol/L (98-107); CREATININE 1.01 mg/dL (0.55-1.02)
[2019-11-28 01:09] LABS: ALKALINE PHOSPHATASE 100 U/L (45-117); BILIRUBIN,TOTAL 0.2 mg/dL (0.2-1.0); TOTAL PROTEIN 6.9 g/dL (6.4-8.2); TROPONIN I < 0.015 ng/mL (0.000-0.045)
[2019-11-28 01:33] LABS: BASOPHILS # (AUTO) 0.03 x10^3/uL (0-0.1); BASOPHILS % (AUTO) 1 % (0-1); EOSINOPHILS # (AUTO) 0.07 x10^3/uL (0-0.4); EOSINOPHILS % (AUTO) 2 % (1-7); LYMPHOCYTES # (AUTO) 1.93 x10^3/uL (1-3.4); LYMPHOCYTES % (AUTO) 42 % (22-44); MD NO; MEAN CORPUSCULAR HGB CONC 31.6 g/dL (32.4-35.8); MEAN CORPUSCULAR VOLUME 85.3 fL (80-100); MEAN PLATELET VOLUME 7.3 fL (7.4-10.4); MONOCYTES # (AUTO) 0.31 x10^3/uL (0.2-0.8); MONOCYTES % (AUTO) 7 % (2-9); NEUTROPHILS # (AUTO) 2.31 x10^3/uL (1.8-6.8); NEUTROPHILS % (AUTO) 50 % (42-75); PLATELET COUNT 233 x10^3/uL (130-400); RED BLOOD COUNT 4.42 x10^6/uL (3.82-5.3)
--- NOTE | 2019-11-28 01:40 | NUR ---
PT C/O SUDDEN CHEST PAIN WHILE WATCHING TV, PT STATED " SHE HAS NOT BEEN OUT OF BED SINCE 09/16 DUE TO HER BROKEN LEG AND IS SICK OF BEING IN THE HOSPITAL" PT SPEAKING FULL SENTENCES AND STATED "SHE TOOK HER MORPHINE BEFORE SHE GOT HERE"
[2019-11-28] MEDS ORDERED: ASPIRIN 81 MG TABLET CHEW ONE (02:04)
--- NOTE | 2019-11-28 02:23 | NUR ---
PT DEFACATED 2 TIMES ON THE GURNEY, PT STATED "SHE TOOK A LAXITIVE PRIOR TO COMING TO ER AND THAT SHE WOULD RATHER HAVE A FEMALE CLEAN HER THAN A MALE"
--- NOTE | 2019-11-28 02:37 | NUR ---
PT REQUESTING ZOFRAN, PT SAID SHE LAST TOOK HER RX OF IT 8 HRS AGO AND HAS NAUSEA NOW.
[2019-11-28] MEDS ORDERED: ONDANSETRON 2MG/ML, 2ML ONE (02:49)
[2019-11-28] MEDS ORDERED: PIPERACILLIN/TAZO/PMX 3.375GM 50 ML ONE (02:49)
[2019-11-28] MEDS ORDERED: ONDANSETRON 2MG/ML, 2ML IVPush ONE (03:00)
[2019-11-28] MEDS ORDERED: VANCOMYCIN PER PHARMACY MC ONE (03:00)
[2019-11-28] MEDS ORDERED: PIPERACILLIN/TAZO/PMX 3.375GM 50 ML IVPB ONE (03:00)
[2019-11-28] MEDS ORDERED: VANCOMYCIN 2,200 MG in SODIUM CHLORIDE 0.9% 500 ML IV ONE (03:00)
[2019-11-28] MEDS ORDERED: OMNIPAQUE 350 MG/ML, 100ML BOTTLE ONE (04:32)
--- NOTE | 2019-11-28 04:51 | NUR ---
PT RESTING IN BED, PT A/O X4 AND SPEAKING FULL SENTENCES. PT REQUESTED CRACKERS AND WATER, PROVIDER OK.
--- NOTE | 2019-11-28 05:35 | NUR ---
PT SELF MOVED INTO HOSPITAL BED. PT RESTING IN BED, PT DENIED ANY WANTS OR NEEDS AT THIS TIME.
[2019-11-28] MEDS ORDERED: ACETAMINOPHEN 325 MG TABLET PO PRN (06:00)
[2019-11-28] MEDS ORDERED: ASPIRIN 325 MG TABLET EC PO SCH (06:00)
[2019-11-28] MEDS ORDERED: NITROGLYCERIN 0.4 MG BOTTLE (25 TABS) SL PRN (06:00)
[2019-11-28] MEDS ORDERED: ONDANSETRON 2MG/ML, 2ML IVPush PRN (06:00)
[2019-11-28] MEDS ORDERED: NITROGLYCERIN 0.4 MG/SPRAY SL PRN (06:00)
[2019-11-28 06:55] LABS: TROPONIN I 0.029 ng/mL (0.000-0.045)
[2019-11-28] MEDS ORDERED: ASPIRIN 325 MG TABLET EC ONE (07:25)
[2019-11-28] MEDS ORDERED: ENOXAPARIN 30 MG/0.3 ML SQ SCH (08:00)
[2019-11-28] MEDS ORDERED: SODIUM CHLORIDE 0.9% 1,000 ML IV SCH (08:00)
--- NOTE | 2019-11-28 08:21 | NUR ---
PT PROVIDED WITH MEAL TRAY PER REQUEST. REQUESTS TO RESUME HOME PAIN MEDS. X1 ATTEMPT TO CONTACT DR HILL. WILL ATTEMPT AGAIN SHORTLY
--- NOTE | 2019-11-28 08:37 | NUR ---
DISCUSSED CURRENT VS AND TREND. BOAT PAINTER. POC. AND PT CONCERNS WITH DR HILL. NO NEW ORDERS AT THIS TIME
--- NOTE | 2019-11-28 09:12 | NUR ---
report received from luis marti.
--- NOTE | 2019-11-28 09:55 | NUR ---
bedpan placed. gown changed.
[2019-11-28 10:30] VITALS: BP 107/55
--- NOTE | 2019-11-28 10:41 | NUR ---
pt requesting pain med(morphine). this rn called hospitalist, but hospitalist states"i don't wanna give any pain med at this time d/t a lot of reasons." pt notified.
--- NOTE | 2019-11-28 10:42 | NUR ---
hospitalist [phone]
--- NOTE | 2019-11-28 11:33 | NUR ---
pt states "if you don't give me morphine, i would like to leave now." ore charger/hospitalist notified. pt signed ama paper at this time.
--- NOTE | 2019-11-28 11:57 | NUR ---
THROUGHPUT RN: Contacted [facility] on behalf of pt. Due to pt leaving AMA, [facility] unable to arrange for medical transport for pt if pt is leaving AMA.
--- NOTE | 2019-11-28 13:14 | NUR ---
THIS RN CALLED FOR WHEELCHAIR TAXI AT THIS TIME. IT TAKED 20-30MIN PER TAXI COMPANY.
--- NOTE | 2019-11-28 13:23 | NUR ---
attempted to convince the patient to stay. she refused. she said "i have meds to take at home."
--- NOTE | 2019-11-28 13:36 | NUR ---
PT WAS AT [facility] BUT SECURITY TOLD HER TAXI WAS GONE. PT USING HOSPITAL PHONE AT [place] AT THIS TIME. [employer] NOTIFIED.
[2020-01-04] MEDS ORDERED: ACETAMINOPHEN 325 MG SUPP ONE (18:31)
== END 2019-11-28 13:39 | disposition left against medical advice (07) ==
LOC: ED 03:15 → UNDOADMIN 04:28 → EDIP 04:28
DX: R07.89 Other chest pain (principal); R65.11 Systemic inflammatory response syndrome (SIRS) of non-infectious origin with acute organ dysfunction; J96.01 Acute respiratory failure with hypoxia; I95.0 Idiopathic hypotension; J15.9 Unspecified bacterial pneumonia; J44.1 Chronic obstructive pulmonary disease with (acute) exacerbation; R00.0 Tachycardia, unspecified; E66.2 Morbid (severe) obesity with alveolar hypoventilation; I25.2 Old myocardial infarction; E11.9 Type 2 diabetes mellitus without complications; E78.5 Hyperlipidemia, unspecified; Z86.73 Personal history of transient ischemic attack (TIA), and cerebral infarction without residual deficits; Z90.710 Acquired absence of both cervix and uterus; Z68.41 Body mass index [BMI] 40.0-44.9, adult
CPT/HCPCS: 36415; 71045; 71275; 80053; 83036; 83605; 83880; 84145; 84443; 84484; 85025; 87040; 93005; 93971; 96361; 96365; 96366; 96368; 96372; 96375; 99291; J1650; J2405; J2543; J3370; J7030; J7040; Q9967

== ENCOUNTER 2020-02-16 10:30 | Inpatient (IN) | payer MEDICAID ==
[~2020-02-16] VITALS: Ht 177.8 cm; Wt 102.8 kg
[2020-02-16] MEDS: PLEASE ENTER HEIGHT AND WEIGHT MC SCH ×3 (10:57→16:04)
[2020-02-16] MEDS ORDERED: ACETAMINOPHEN 500 MG TABLET PO ONE (11:00)
[2020-02-16] MEDS: ACETAMINOPHEN 650 MG SUPP PR ONE ×2 (11:00→11:56)
[2020-02-16] MEDS ORDERED: SODIUM CHLORIDE 0.9% 1,000ML IVBOLUS ONE (11:00)
[2020-02-16] MEDS ORDERED: SODIUM CHLORIDE FLUSH 10ML SYR IVF ONE (11:00)
--- NOTE | 2020-02-16 11:10 | NUR ---
PT DEANNE GRAY FOR AMS. PTS SON USUALLY SPEAKS TO HER EVERY DAY BUT HAS NOT HEARD FROM HER FOR SEVERAL DAYS. SHERRYSA FOUND PT SLEEPING IN HER BED, AMS. PT COMPLAINING OF L LEG PAIN AND IS CONFUSED. PLACED PT ON MONITOR, PA AT BEDSIDE. WILL CONTINUE TO MONITOR.
[2020-02-16 11:20] LABS: FIO2 RA %
[2020-02-16 11:24] LABS: BASOPHILS # (AUTO) 0.01 x10^3/uL (0-0.1); BASOPHILS % (AUTO) 0 % (0-1); EOSINOPHILS # (AUTO) 0.02 x10^3/uL (0-0.4); EOSINOPHILS % (AUTO) 0 % (1-7); LYMPHOCYTES # (AUTO) 0.93 x10^3/uL (1-3.4); LYMPHOCYTES % (AUTO) 11 % (22-44); MD NO; MEAN CORPUSCULAR HEMOGLOBIN 29.7 pg (27.0-34.8); MEAN CORPUSCULAR HGB CONC 31.6 g/dL (32.4-35.8); MEAN CORPUSCULAR VOLUME 94.1 fL (80-100); MEAN PLATELET VOLUME 7.5 fL (7.4-10.4); MONOCYTES # (AUTO) 0.38 x10^3/uL (0.2-0.8); MONOCYTES % (AUTO) 5 % (2-9); NEUTROPHILS # (AUTO) 7.06 x10^3/uL (1.8-6.8); NEUTROPHILS % (AUTO) 84 % (42-75); PLATELET COUNT 294 x10^3/uL (130-400); RED BLOOD COUNT 4.92 x10^6/uL (3.82-5.3); RED CELL DISTRIBUTION WIDTH 19.2 % (9.6-15.2)
[2020-02-16 11:30] LABS: MICROSCOPIC AUTO
--- NOTE | 2020-02-16 11:46 | NUR ---
Note luisone in EDM - 02/16/20 at 1207 by PERRI TRANSFER FROM [facility] FOR CP. PT STATES HE HAS CHRONIC CP BUT SATURDAY NIGHT WAS WORSE. TROP AT TRANSFERING FACILITY NEGATIVE, NITRO PASTE APPLIED AND BABY ASA GIVEN. PT DENIES CP AT THIS TIME. PT PLACED ON SUPERVISOR BOAT OUTFITTING. PA AT BEDSIDE. WILL CONTINUE TO MONITOR PT.
[2020-02-16 11:47] LABS: AMPHETAMINE SCREEN, URINE Negative (Negative); BARBITURATE SCREEN, URINE Negative (Negative); BENZODIAZEPINE SCREEN, URINE Negative (Negative); CANNABINOID SCREEN, URINE Negative (Negative); COCAINE SCREEN, URINE Negative (Negative); METHADONE SCREEN, URINE Negative (Negative)
[2020-02-16] MEDS ORDERED: ACETAMINOPHEN 325 MG TABLET ONE (11:49)
[2020-02-16 11:53] LABS: ALBUMIN 3.1 g/dL (3.4-5.0); ANION GAP 6 mmol/L (5-15); CALCIUM 9.3 mg/dL (8.5-10.1); CHLORIDE 114 mmol/L (98-107); SALICYLATE LEVEL 2.1 mg/dL (2.8-20.0)
[2020-02-16 12:00] LABS: ALANINE AMINOTRANSFERASE 17 U/L (12-78); ALKALINE PHOSPHATASE 106 U/L (45-117); BILIRUBIN,TOTAL 0.6 mg/dL (0.2-1.0); CREATININE 0.61 mg/dL (0.55-1.02); TROPONIN I < 0.015 ng/mL (0.000-0.045)
[2020-02-16] MEDS ORDERED: ACETAMINOPHEN 325 MG TABLET PO ONE (12:00)
[2020-02-16 12:21] LABS: OPIATE SCREEN, URINE Positive (Negative)
[2020-02-16] MEDS: AMPICILLIN/SULBACTAM 3 GM in SODIUM CHLORIDE 0.9% 100 ML IV SCH ×2 (16:00→23:45)
[2020-02-16] MEDS ORDERED: NICOTINE 14MG/24 HR PATCH.TD24 TD PRN (16:00)
[2020-02-16] MEDS ORDERED: ENOXAPARIN 40 MG/0.4 ML SQ SCH (16:00)
[2020-02-16] MEDS ORDERED: ONDANSETRON 2MG/ML, 2ML IVPush PRN (16:00)
[2020-02-16] MEDS ORDERED: ACETAMINOPHEN 325 MG TABLET PO PRN (16:00)
[2020-02-16] MEDS ORDERED: IBUPROFEN 600 MG TABLET PO PRN (16:00)
[2020-02-16] MEDS ORDERED: hydrALAzine 20 MG/ML, 1ML IVPush PRN (16:00)
[2020-02-16] MEDS ORDERED: POTASSIUM CHLORIDE 20 MEQ TAB.ER.PRT PO ONE (16:00)
--- NOTE | 2020-02-16 16:02 | NUR ---
ELIZABETH ([facility]) [phone]
[2020-02-16] MEDS ORDERED: POTASSIUM CHLORIDE 20 MEQ TAB.ER.PRT ONE (16:17)
--- NOTE | 2020-02-16 17:47 | NUR ---
REPORT GIVEN TO ESTEFANY.
[2020-02-16 19:00] VITALS: BP 141/81
[2020-02-16] MEDS: QUETIAPINE 100MG TABLET PO SCH (20:55)
[2020-02-16] MEDS ORDERED: SIMVASTATIN 20 MG TABLET PO SCH (21:00)
[2020-02-16] MEDS ORDERED: ZOLPIDEM 10MG TABLET PO SCH (21:00)
[2020-02-17 03:55] VITALS: BP 122/77
[2020-02-17 05:42] LABS: BASOPHILS # (AUTO) 0.02 x10^3/uL (0-0.1); BASOPHILS % (AUTO) 0 % (0-1); EOSINOPHILS # (AUTO) 0.09 x10^3/uL (0-0.4); EOSINOPHILS % (AUTO) 2 % (1-7); LYMPHOCYTES # (AUTO) 1.56 x10^3/uL (1-3.4); LYMPHOCYTES % (AUTO) 27 % (22-44); MD NO; MEAN CORPUSCULAR HEMOGLOBIN 29.4 pg (27.0-34.8); MEAN CORPUSCULAR HGB CONC 31.5 g/dL (32.4-35.8); MEAN CORPUSCULAR VOLUME 93.1 fL (80-100); MEAN PLATELET VOLUME 7.4 fL (7.4-10.4); MONOCYTES # (AUTO) 0.34 x10^3/uL (0.2-0.8); MONOCYTES % (AUTO) 6 % (2-9); NEUTROPHILS # (AUTO) 3.76 x10^3/uL (1.8-6.8); NEUTROPHILS % (AUTO) 65 % (42-75); PLATELET COUNT 231 x10^3/uL (130-400); RED BLOOD COUNT 4.22 x10^6/uL (3.82-5.3); RED CELL DISTRIBUTION WIDTH 18.8 % (9.6-15.2)
[2020-02-17 05:44] LABS: CHLORIDE 111 mmol/L (98-107)
[2020-02-17 05:55] LABS: ANION GAP 6 mmol/L (5-15); CALCIUM 8.5 mg/dL (8.5-10.1); CREATININE 0.48 mg/dL (0.55-1.02)
[2020-02-17] MEDS: AMPICILLIN/SULBACTAM 3 GM in SODIUM CHLORIDE 0.9% 100 ML IV SCH ×2 (05:56→13:20)
[2020-02-17] MEDS ORDERED: POTASSIUM CHLORIDE 20 MEQ TAB.ER.PRT PO ONE (06:30)
[2020-02-17 07:22] VITALS: BP 123/77
[2020-02-17] MEDS: QUETIAPINE 100MG TABLET PO SCH (07:52)
[2020-02-17 07:56] VITALS: BP 146/85
[2020-02-17] MEDS ORDERED: PROPRANOLOL 20 MG TABLET PO SCH (09:00)
[2020-02-17] MEDS ORDERED: AMOX1TAB64 PO (12:06)
[2020-02-17 13:45] VITALS: BP 97/63
== END 2020-02-17 17:00 | disposition home or self-care (01) | DRG 720 ==
LOC: ED 12:05 → SUATTDRO 13:47 → EDIP 13:53 → 3N 15:00 → EDIP 16:01 → 3N 17:09
PROVIDERS: ADMIT Hospitalist; ATTEND Hospitalist
PROC: 0T9B70Z Drainage of Bladder with Drainage Device, Via Natural or Artificial Opening (ICD-10-PCS; principal; 2020-02-16)
DX: A41.9 Sepsis, unspecified organism (principal); J69.0 Pneumonitis due to inhalation of food and vomit; G93.40 Encephalopathy, unspecified; E46 Unspecified protein-calorie malnutrition; E72.20 Disorder of urea cycle metabolism, unspecified; I11.0 Hypertensive heart disease with heart failure; I50.30 Unspecified diastolic (congestive) heart failure; E27.40 Unspecified adrenocortical insufficiency; E66.01 Morbid (severe) obesity due to excess calories; E78.5 Hyperlipidemia, unspecified; F11.20 Opioid dependence, uncomplicated; F13.20 Sedative, hypnotic or anxiolytic dependence, uncomplicated; F31.9 Bipolar disorder, unspecified; F41.1 Generalized anxiety disorder; G89.4 Chronic pain syndrome; I25.2 Old myocardial infarction; J44.9 Chronic obstructive pulmonary disease, unspecified; K21.9 Gastro-esophageal reflux disease without esophagitis; T40.2X1A Poisoning by other opioids, accidental (unintentional), initial encounter; Z88.8 Allergy status to other drugs, medicaments and biological substances; Z72.0 Tobacco use; Z79.891 Long term (current) use of opiate analgesic; Z86.73 Personal history of transient ischemic attack (TIA), and cerebral infarction without residual deficits; E11.9 Type 2 diabetes mellitus without complications; Z68.32 Body mass index [BMI] 32.0-32.9, adult; Y92.89 Other specified places as the place of occurrence of the external cause
CPT/HCPCS: 36415; 36600; 70450; 71045; 80048; 80053; 80307; 81001; 82140; 82803; 83605; 84145; 84443; 84484; 85025; 87040; 93005; 99291; G0378; J0295; J1650; J7030

== ENCOUNTER 2020-03-04 08:35 | Inpatient (IN) | payer MEDICAID ==
[~2020-03-04] VITALS: Ht 180.3 cm; Wt 122.9 kg
[~2020-03-04 08:35] MED LIST changes: +AMOX1TAB64 PO
--- NOTE | 2020-03-04 08:56 | NUR ---
PT PLACED ON PULSE OX AND BP CUFF. RA SAT 88%, OXYGEN PLACED AT 2LITERS VIA NC. BP NOTED LOW AT 89/50. PT ASKING FOR WATER-PT INFORMED OF NPO ORDER. LLE SHORTENED, EXTERNALLY ROTATED UNABLE TO DETERMINE IF THIS IS NEW OR RESULT OF MULTIPLE PREVIOUS SURGERIES ON SAME LEG. SURGICAL SCARS NOTED BUT COMPLETELY HEALED. NO DEFORMITY OR CREPITUS OBSERVED. PILLOW PLACED UNDER BOTH KNEES PER PT REQUEST. PEDAL PULSES PALPABLE, CMS INTACT.
[2020-03-04] MEDS ORDERED: PLEASE ENTER HEIGHT AND WEIGHT MC SCH (09:00)
[2020-03-04] MEDS ORDERED: SODIUM CHLORIDE FLUSH 10ML SYR IVF ONE (09:00)
--- NOTE | 2020-03-04 09:01 | NUR ---
PT IN XRAY.
[2020-03-04] MEDS ORDERED: morphine SULFATE 15 MG TAB.IR PO ONE (10:00)
[2020-03-04] MEDS ORDERED: BACL20TA PO (10:22)
[2020-03-04] MEDS ORDERED: ONDA4TAB7 PO (10:23)
[2020-03-04] MEDS ORDERED: MORP15TA PO (10:23)
--- NOTE | 2020-03-04 10:24 | NUR ---
PT MEDICATED FOR 7/10 L HIP AND L LEG PAIN. VSS/UPDATED IN COMPUTER. CALL LIGHT WITHIN REACH. ICE CHIPS PROVIDED.
--- NOTE | 2020-03-04 10:42 | NUR ---
REPORT TO ANTIONE SINGLETARY READY FOR TRANSPORT.
[2020-03-04] MEDS: LORazepam 1MG TABLET PO SCH ×2 (12:29→23:46)
[2020-03-04] MEDS ORDERED: ENOXAPARIN 40 MG/0.4 ML SQ SCH (13:00)
[2020-03-04] MEDS: morphine SULFATE 10 MG/ML, 1ML IVPush PRN ×3 (13:54→22:59)
[2020-03-04 14:17] VITALS: BP 107/74
[2020-03-04 14:31] LABS: HCG UR SG 1.025 (1.003-1.030)
[2020-03-04 18:43] VITALS: BP 107/70
[2020-03-04] MEDS: SIMVASTATIN 20 MG TABLET PO SCH (20:32)
[2020-03-04] MEDS: LACTULOSE 10 GM/15 ML UDC PO SCH (20:33)
[2020-03-04] MEDS ORDERED: ZOLPIDEM 10MG TABLET PO ONE (23:30)
[2020-03-05] MEDS ORDERED: QUET200T7 PO (01:36)
[2020-03-05 01:42] VITALS: BP 117/76
[2020-03-05] MEDS ORDERED: OXYC20OR8 PO (03:36)
[2020-03-05] MEDS: morphine SULFATE 10 MG/ML, 1ML IVPush PRN ×4 (05:16→20:49)
[2020-03-05] MEDS: ARTIFICIAL TEARS 15 DROP/ML BOTTLE EACHEYE PRN ×3 (05:48→20:08)
[2020-03-05] MEDS: GABAPENTIN 300 MG CAPSULE PO PRN ×2 (05:48→20:08)
[2020-03-05 06:04] LABS: BASOPHILS # (AUTO) 0.03 x10^3/uL (0-0.1); BASOPHILS % (AUTO) 0 % (0-1); EOSINOPHILS # (AUTO) 0.06 x10^3/uL (0-0.4); EOSINOPHILS % (AUTO) 1 % (1-7); LYMPHOCYTES # (AUTO) 1.72 x10^3/uL (1-3.4); LYMPHOCYTES % (AUTO) 28 % (22-44); MD NO; MEAN CORPUSCULAR HEMOGLOBIN 30.6 pg (27.0-34.8); MEAN CORPUSCULAR HGB CONC 32.2 g/dL (32.4-35.8); MEAN CORPUSCULAR VOLUME 95.1 fL (80-100); MEAN PLATELET VOLUME 7.1 fL (7.4-10.4); MONOCYTES # (AUTO) 0.39 x10^3/uL (0.2-0.8); MONOCYTES % (AUTO) 6 % (2-9); NEUTROPHILS # (AUTO) 3.89 x10^3/uL (1.8-6.8); NEUTROPHILS % (AUTO) 64 % (42-75); PLATELET COUNT 229 x10^3/uL (130-400); RED BLOOD COUNT 4.21 x10^6/uL (3.82-5.3); RED CELL DISTRIBUTION WIDTH 18.1 % (9.6-15.2)
[2020-03-05 06:09] LABS: ALBUMIN 2.8 g/dL (3.4-5.0); ANION GAP 9 mmol/L (5-15); CALCIUM 8.5 mg/dL (8.5-10.1); CHLORIDE 110 mmol/L (98-107)
[2020-03-05 06:12] LABS: ALANINE AMINOTRANSFERASE 14 U/L (12-78); ALKALINE PHOSPHATASE 111 U/L (45-117); BILIRUBIN,TOTAL 0.5 mg/dL (0.2-1.0); CREATININE 0.52 mg/dL (0.55-1.02); TOTAL PROTEIN 6.3 g/dL (6.4-8.2)
[2020-03-05 07:04] VITALS: BP 105/71
[2020-03-05] MEDS ORDERED: FUROSEMIDE 20 MG TABLET PO SCH (09:00)
[2020-03-05] MEDS: SENNA/DOCUSATE TABLET PO SCH (09:00)
[2020-03-05] MEDS ORDERED: BACLOFEN 10 MG TABLET PO SCH (10:00)
[2020-03-05] MEDS: LACTULOSE 10 GM/15 ML UDC PO SCH ×2 (10:07→20:08)
[2020-03-05] MEDS: SODIUM CHLORIDE 0.9% 1,000 ML IV SCH ×2 (10:08→20:49)
[2020-03-05] MEDS: LORazepam 1MG TABLET PO SCH ×2 (11:59→23:51)
[2020-03-05 14:53] VITALS: BP 107/73
[2020-03-05] MEDS: PANTOPRAZOLE 40MG TABLET PO SCH (16:20)
[2020-03-05] MEDS: BACLOFEN 10 MG TABLET PO SCH ×2 (16:21→20:09)
[2020-03-05 20:04] VITALS: BP 105/72
[2020-03-05] MEDS: SUCRALFATE 1 GM/10 ML UDC PO SCH (20:08)
[2020-03-05] MEDS: SIMVASTATIN 20 MG TABLET PO SCH (20:08)
[2020-03-05] MEDS: QUETIAPINE 200 MG TABLET PO SCH (20:08)
[2020-03-05] MEDS: morphine SULFATE 15 MG TAB.IR PO PRN (22:15)
[2020-03-05] MEDS: ZOLPIDEM 10MG TABLET PO PRN (23:51)
[2020-03-06] MEDS: morphine SULFATE 10 MG/ML, 1ML IVPush PRN ×3 (01:12→09:53)
[2020-03-06 01:55] VITALS: BP 107/73
[2020-03-06] MEDS: morphine SULFATE 15 MG TAB.IR PO PRN ×2 (04:52→17:31)
[2020-03-06] MEDS: PANTOPRAZOLE 40MG TABLET PO SCH ×2 (05:41→16:53)
[2020-03-06] MEDS: ARTIFICIAL TEARS 15 DROP/ML BOTTLE EACHEYE PRN (06:08)
[2020-03-06] MEDS: LACTULOSE 10 GM/15 ML UDC PO SCH ×2 (07:54→20:34)
[2020-03-06] MEDS: SENNA/DOCUSATE TABLET PO SCH (07:54)
[2020-03-06] MEDS: SUCRALFATE 1 GM/10 ML UDC PO SCH ×2 (07:54→20:33)
[2020-03-06] MEDS: QUETIAPINE 200 MG TABLET PO SCH ×2 (07:55→20:34)
[2020-03-06] MEDS: BACLOFEN 10 MG TABLET PO SCH ×3 (07:55→20:34)
[2020-03-06] MEDS: ACETAMINOPHEN 325 MG TABLET PO PRN ×2 (07:55→14:17)
[2020-03-06 09:35] VITALS: BP 100/66
[2020-03-06] MEDS ORDERED: HYDROmorphone 1 MG/ML, 1ML INJ IV PRN (11:00)
[2020-03-06] MEDS ORDERED: HYDROmorphone 2 MG/ML, 1ML ONE (11:45)
[2020-03-06] MEDS: LORazepam 1MG TABLET PO SCH (11:50)
[2020-03-06] MEDS: MORPHINE SULFATE 4 MG/ML, 1ML IVPush PRN ×3 (14:47→23:29)
[2020-03-06 15:14] VITALS: BP 99/67
[2020-03-06 19:44] VITALS: BP 108/71
[2020-03-06] MEDS: GABAPENTIN 300 MG CAPSULE PO PRN (20:34)
[2020-03-06] MEDS: SIMVASTATIN 20 MG TABLET PO SCH (20:35)
[2020-03-06] MEDS: ZOLPIDEM 10MG TABLET PO PRN (21:51)
[2020-03-07 01:03] VITALS: BP 101/68
[2020-03-07] MEDS: morphine SULFATE 15 MG TAB.IR PO PRN ×3 (01:11→19:00)
[2020-03-07] MEDS: ARTIFICIAL TEARS 15 DROP/ML BOTTLE EACHEYE PRN ×3 (04:13→20:32)
[2020-03-07] MEDS: PANTOPRAZOLE 40MG TABLET PO SCH ×2 (06:24→16:49)
[2020-03-07 06:45] VITALS: BP 103/67
[2020-03-07] MEDS: QUETIAPINE 200 MG TABLET PO SCH ×2 (08:36→20:32)
[2020-03-07] MEDS: LACTULOSE 10 GM/15 ML UDC PO SCH ×2 (08:37→20:32)
[2020-03-07] MEDS: SUCRALFATE 1 GM/10 ML UDC PO SCH ×2 (08:37→20:32)
[2020-03-07] MEDS: BACLOFEN 10 MG TABLET PO SCH ×3 (08:37→20:32)
[2020-03-07] MEDS: SENNA/DOCUSATE TABLET PO SCH (08:38)
[2020-03-07] MEDS: MORPHINE SULFATE 4 MG/ML, 1ML IVPush PRN ×3 (10:23→22:25)
[2020-03-07] MEDS: LORazepam 1MG TABLET PO SCH ×3 (11:37→23:32)
[2020-03-07 12:38] VITALS: BP 96/61
[2020-03-07 19:03] VITALS: BP 103/67
[2020-03-07] MEDS: SIMVASTATIN 20 MG TABLET PO SCH (20:32)
[2020-03-07] MEDS: GABAPENTIN 300 MG CAPSULE PO PRN (20:32)
[2020-03-07] MEDS: ZOLPIDEM 10MG TABLET PO PRN (22:25)
[2020-03-08 00:37] VITALS: BP 108/73
[2020-03-08] MEDS: PANTOPRAZOLE 40MG TABLET PO SCH ×2 (06:12→15:40)
[2020-03-08] MEDS: morphine SULFATE 15 MG TAB.IR PO PRN ×2 (06:15→21:15)
[2020-03-08 08:02] VITALS: BP 103/70
[2020-03-08] MEDS: SENNA/DOCUSATE TABLET PO SCH (09:00)
[2020-03-08] MEDS: BACLOFEN 10 MG TABLET PO SCH ×3 (09:08→21:15)
[2020-03-08] MEDS: LACTULOSE 10 GM/15 ML UDC PO SCH ×2 (09:08→21:14)
[2020-03-08] MEDS: SUCRALFATE 1 GM/10 ML UDC PO SCH ×2 (09:08→21:15)
[2020-03-08] MEDS: QUETIAPINE 200 MG TABLET PO SCH ×2 (09:08→21:15)
[2020-03-08] MEDS: MORPHINE SULFATE 4 MG/ML, 1ML IVPush PRN ×3 (09:10→22:25)
[2020-03-08] MEDS: LORazepam 1MG TABLET PO SCH (12:00)
[2020-03-08 12:51] VITALS: BP 98/65
[2020-03-08] MEDS: ACETAMINOPHEN 325 MG TABLET PO PRN ×2 (15:40→21:23)
[2020-03-08 19:04] VITALS: BP 106/72
[2020-03-08] MEDS: SIMVASTATIN 20 MG TABLET PO SCH (21:15)
[2020-03-08] MEDS: ZOLPIDEM 10MG TABLET PO PRN (23:11)
[2020-03-09] VITALS: BP 110/74
[2020-03-09] MEDS: LORazepam 1MG TABLET PO SCH ×2 (00:12→11:25)
[2020-03-09] MEDS: MORPHINE SULFATE 4 MG/ML, 1ML IVPush PRN ×4 (02:49→17:37)
[2020-03-09] MEDS: morphine SULFATE 15 MG TAB.IR PO PRN ×3 (05:12→20:44)
[2020-03-09] MEDS: PANTOPRAZOLE 40MG TABLET PO SCH ×2 (05:12→17:37)
[2020-03-09] MEDS: LACTULOSE 10 GM/15 ML UDC PO SCH ×2 (08:42→20:43)
[2020-03-09] MEDS: BACLOFEN 10 MG TABLET PO SCH ×3 (08:43→20:44)
[2020-03-09] MEDS: QUETIAPINE 200 MG TABLET PO SCH ×2 (08:43→20:44)
[2020-03-09] MEDS: SENNA/DOCUSATE TABLET PO SCH (08:44)
[2020-03-09] MEDS: SUCRALFATE 1 GM/10 ML UDC PO SCH ×2 (08:47→20:43)
[2020-03-09] MEDS: ACETAMINOPHEN 325 MG TABLET PO PRN (08:47)
[2020-03-09 09:18] VITALS: BP 97/62
[2020-03-09 12:15] VITALS: BP 92/64
[2020-03-09 19:17] VITALS: BP 94/63
[2020-03-09] MEDS: SIMVASTATIN 20 MG TABLET PO SCH (20:44)
[2020-03-09] MEDS: ZOLPIDEM 10MG TABLET PO PRN (23:10)
[2020-03-10] MEDS: LORazepam 1MG TABLET PO SCH ×3 (00:01→23:38)
[2020-03-10] MEDS: MORPHINE SULFATE 4 MG/ML, 1ML IVPush PRN ×4 (01:26→22:17)
[2020-03-10 01:36] VITALS: BP 97/66
[2020-03-10] MEDS: morphine SULFATE 15 MG TAB.IR PO PRN ×3 (05:26→18:06)
[2020-03-10] MEDS: PANTOPRAZOLE 40MG TABLET PO SCH ×2 (05:26→17:35)
[2020-03-10 07:41] VITALS: BP 102/69
[2020-03-10] MEDS: LACTULOSE 10 GM/15 ML UDC PO SCH ×2 (08:54→20:53)
[2020-03-10] MEDS: SUCRALFATE 1 GM/10 ML UDC PO SCH ×2 (08:54→20:53)
[2020-03-10] MEDS: QUETIAPINE 200 MG TABLET PO SCH ×2 (08:54→20:54)
[2020-03-10] MEDS: BACLOFEN 10 MG TABLET PO SCH ×3 (08:55→20:54)
[2020-03-10] MEDS: SENNA/DOCUSATE TABLET PO SCH (09:05)
[2020-03-10 12:23] VITALS: BP 109/79
[2020-03-10 13:42] VITALS: BP 109/75
[2020-03-10] MEDS: ACETAMINOPHEN 325 MG TABLET PO PRN (14:26)
[2020-03-10 14:31] VITALS: BP 110/76
[2020-03-10 18:59] VITALS: BP 102/68
[2020-03-10] MEDS: SIMVASTATIN 20 MG TABLET PO SCH (20:54)
[2020-03-11] MEDS: ZOLPIDEM 10MG TABLET PO PRN ×2 (00:41→23:07)
[2020-03-11 01:26] VITALS: BP 95/63
[2020-03-11] MEDS: PANTOPRAZOLE 40MG TABLET PO SCH ×2 (05:05→17:39)
[2020-03-11 06:38] VITALS: BP 95/65
[2020-03-11] MEDS ORDERED: GABAPENTIN 300 MG CAPSULE PO PRN (07:30)
[2020-03-11] MEDS ORDERED: BACLOFEN 10 MG TABLET PO SCH (09:00)
[2020-03-11] MEDS ORDERED: ACETAMINOPHEN 100 ML IVPB SCH (09:00)
[2020-03-11] MEDS: ACETAMINOPHEN 500 MG TABLET PO SCH ×5 (10:43→23:57)
[2020-03-11] MEDS: SENNA/DOCUSATE TABLET PO SCH (10:45)
[2020-03-11] MEDS: LACTULOSE 10 GM/15 ML UDC PO SCH ×2 (10:45→20:27)
[2020-03-11] MEDS: SUCRALFATE 1 GM/10 ML UDC PO SCH ×2 (10:45→20:27)
[2020-03-11] MEDS: QUETIAPINE 200 MG TABLET PO SCH ×2 (10:45→20:27)
[2020-03-11] MEDS: ONDANSETRON 2MG/ML, 2ML IVPush PRN (10:59)
[2020-03-11] MEDS: morphine SULFATE 15 MG TAB.IR PO PRN ×3 (11:00→23:56)
[2020-03-11] MEDS ORDERED: LORazepam 0.5MG TABLET PO SCH (12:00)
[2020-03-11] MEDS: LORazepam 0.5MG TABLET PO SCH ×2 (12:25→23:56)
[2020-03-11 12:36] VITALS: BP 92/61
[2020-03-11] MEDS: BACLOFEN 10 MG TABLET PO SCH ×2 (17:39→20:27)
[2020-03-11 19:14] VITALS: BP 92/59
[2020-03-11] MEDS: SIMVASTATIN 20 MG TABLET PO SCH (20:27)
[2020-03-11] MEDS: KETOROLAC 30 MG/1 ML IM PRN (20:36)
[2020-03-11] MEDS ORDERED: ZOLPIDEM 5MG TABLET PO PRN (21:00)
[2020-03-12 03:28] VITALS: BP 101/67
[2020-03-12] MEDS: ACETAMINOPHEN 500 MG TABLET PO SCH ×5 (03:47→20:15)
[2020-03-12] MEDS: PANTOPRAZOLE 40MG TABLET PO SCH ×2 (05:56→16:41)
[2020-03-12] MEDS: morphine SULFATE 15 MG TAB.IR PO PRN ×3 (05:57→18:08)
[2020-03-12 07:24] VITALS: BP 101/67
[2020-03-12] MEDS: QUETIAPINE 200 MG TABLET PO SCH ×2 (08:58→20:15)
[2020-03-12] MEDS: BACLOFEN 10 MG TABLET PO SCH ×3 (08:58→20:15)
[2020-03-12] MEDS: SUCRALFATE 1 GM/10 ML UDC PO SCH ×2 (08:58→20:15)
[2020-03-12] MEDS: SENNA/DOCUSATE TABLET PO SCH (08:58)
[2020-03-12] MEDS: LACTULOSE 10 GM/15 ML UDC PO SCH ×2 (08:58→20:15)
[2020-03-12] MEDS: LORazepam 0.5MG TABLET PO SCH (12:07)
[2020-03-12] MEDS: POLYETHYLENE GLYCOL 17 GM PACKET PO PRN (12:10)
[2020-03-12 12:47] VITALS: BP 98/64
[2020-03-12 13:35] VITALS: BP 102/68
[2020-03-12] MEDS ORDERED: HYDROcodone/APAP 10/325 MG TABLET PO PRN (15:00)
[2020-03-12] MEDS: SIMVASTATIN 20 MG TABLET PO SCH (20:15)
[2020-03-12 20:19] VITALS: BP 101/67
[2020-03-12] MEDS: ZOLPIDEM 10MG TABLET PO PRN (22:37)
[2020-03-13 00:25] VITALS: BP 92/56
[2020-03-13] MEDS: LORazepam 0.5MG TABLET PO SCH ×3 (00:28→23:42)
[2020-03-13] MEDS: morphine SULFATE 15 MG TAB.IR PO PRN ×3 (00:28→16:01)
[2020-03-13] MEDS: ACETAMINOPHEN 500 MG TABLET PO SCH ×6 (01:38→21:32)
[2020-03-13] MEDS: OXYcodone IR 5MG TABLET PO PRN (01:49)
[2020-03-13] MEDS: PANTOPRAZOLE 40MG TABLET PO SCH ×2 (05:15→15:59)
[2020-03-13 07:21] VITALS: BP 94/68
[2020-03-13] MEDS: QUETIAPINE 200 MG TABLET PO SCH ×2 (09:02→20:20)
[2020-03-13] MEDS: SENNA/DOCUSATE TABLET PO SCH (09:02)
[2020-03-13] MEDS: BACLOFEN 10 MG TABLET PO SCH ×3 (09:02→20:19)
[2020-03-13] MEDS: LACTULOSE 10 GM/15 ML UDC PO SCH ×2 (09:03→20:21)
[2020-03-13] MEDS: SUCRALFATE 1 GM/10 ML UDC PO SCH ×2 (09:03→20:21)
[2020-03-13] MEDS: ONDANSETRON 2MG/ML, 2ML IVPush PRN (10:34)
[2020-03-13] MEDS: KETOROLAC 30 MG/1 ML IM PRN (10:35)
[2020-03-13] MEDS: GABAPENTIN 300 MG CAPSULE PO SCH ×3 (12:59→20:19)
[2020-03-13 13:30] VITALS: BP 85/55
[2020-03-13 16:00] VITALS: BP 91/57
[2020-03-13 20:06] VITALS: BP 94/63
[2020-03-13] MEDS: DULOXETINE 20 MG CAPSULE.DR PO SCH (20:19)
[2020-03-13] MEDS: SIMVASTATIN 20 MG TABLET PO SCH (20:20)
[2020-03-14] MEDS: ACETAMINOPHEN 500 MG TABLET PO SCH ×6 (02:03→21:32)
[2020-03-14 02:05] VITALS: BP 98/62
[2020-03-14] MEDS: PANTOPRAZOLE 40MG TABLET PO SCH ×2 (05:49→17:12)
[2020-03-14] MEDS: morphine SULFATE 15 MG TAB.IR PO PRN ×3 (06:38→23:25)
[2020-03-14 06:55] VITALS: BP 95/63
[2020-03-14] MEDS: GABAPENTIN 300 MG CAPSULE PO SCH ×3 (08:28→21:35)
[2020-03-14] MEDS: KETOROLAC 30 MG/1 ML IM PRN (08:35)
[2020-03-14] MEDS: QUETIAPINE 200 MG TABLET PO SCH ×2 (08:36→21:32)
[2020-03-14] MEDS: SENNA/DOCUSATE TABLET PO SCH (08:36)
[2020-03-14] MEDS: BACLOFEN 10 MG TABLET PO SCH ×3 (08:36→21:32)
[2020-03-14] MEDS: LACTULOSE 10 GM/15 ML UDC PO SCH ×2 (08:37→21:32)
[2020-03-14] MEDS: DULOXETINE 20 MG CAPSULE.DR PO SCH ×2 (08:40→21:32)
[2020-03-14] MEDS: SUCRALFATE 1 GM/10 ML UDC PO SCH ×2 (08:40→21:31)
[2020-03-14] MEDS ORDERED: LORazepam 2 MG/ML, 1ML IVPush ONE (09:00)
[2020-03-14] MEDS: LORazepam 0.5MG TABLET PO SCH (12:00)
[2020-03-14] MEDS: POLYETHYLENE GLYCOL 17 GM PACKET PO PRN (13:03)
[2020-03-14 13:26] VITALS: BP 91/57
[2020-03-14 21:29] VITALS: BP 101/67
[2020-03-14] MEDS: SIMVASTATIN 20 MG TABLET PO SCH (21:32)
[2020-03-14] MEDS: ZOLPIDEM 10MG TABLET PO PRN (22:50)
[2020-03-15] MEDS: LORazepam 0.5MG TABLET PO SCH ×2 (00:24→12:46)
[2020-03-15] MEDS: ACETAMINOPHEN 500 MG TABLET PO SCH ×6 (01:30→21:33)
[2020-03-15 01:53] VITALS: BP 104/71
[2020-03-15] MEDS: PANTOPRAZOLE 40MG TABLET PO SCH ×2 (05:35→17:12)
[2020-03-15 06:58] VITALS: BP 111/74
[2020-03-15] MEDS: GABAPENTIN 300 MG CAPSULE PO SCH ×3 (08:17→21:00)
[2020-03-15] MEDS: LACTULOSE 10 GM/15 ML UDC PO SCH ×2 (08:22→21:34)
[2020-03-15] MEDS: morphine SULFATE 15 MG TAB.IR PO PRN ×3 (08:22→23:43)
[2020-03-15] MEDS: SUCRALFATE 1 GM/10 ML UDC PO SCH ×2 (08:22→21:34)
[2020-03-15] MEDS: QUETIAPINE 200 MG TABLET PO SCH ×2 (08:23→21:34)
[2020-03-15] MEDS: SENNA/DOCUSATE TABLET PO SCH (08:23)
[2020-03-15] MEDS: DULOXETINE 20 MG CAPSULE.DR PO SCH ×2 (08:23→21:34)
[2020-03-15] MEDS: BACLOFEN 10 MG TABLET PO SCH ×3 (08:24→21:34)
[2020-03-15 12:56] VITALS: BP 114/75
[2020-03-15 18:45] VITALS: BP 101/65
[2020-03-15] MEDS: SIMVASTATIN 20 MG TABLET PO SCH (21:34)
[2020-03-15] MEDS: ZOLPIDEM 10MG TABLET PO PRN (23:09)
[2020-03-16] MEDS: LORazepam 0.5MG TABLET PO SCH ×2 (00:16→12:00)
[2020-03-16 00:27] VITALS: BP 105/68
[2020-03-16] MEDS: ACETAMINOPHEN 500 MG TABLET PO SCH ×6 (01:30→21:04)
[2020-03-16] MEDS: OXYcodone IR 5MG TABLET PO PRN ×2 (04:36→11:09)
[2020-03-16] MEDS: PANTOPRAZOLE 40MG TABLET PO SCH ×2 (05:19→17:04)
[2020-03-16] MEDS: morphine SULFATE 15 MG TAB.IR PO PRN (06:16)
[2020-03-16 07:03] VITALS: BP 115/70
[2020-03-16] MEDS: SUCRALFATE 1 GM/10 ML UDC PO SCH ×2 (10:17→21:04)
[2020-03-16] MEDS: LACTULOSE 10 GM/15 ML UDC PO SCH ×2 (10:17→21:04)
[2020-03-16] MEDS: SENNA/DOCUSATE TABLET PO SCH (10:17)
[2020-03-16] MEDS: GABAPENTIN 300 MG CAPSULE PO SCH ×4 (10:18→21:04)
[2020-03-16] MEDS: QUETIAPINE 200 MG TABLET PO SCH ×2 (10:18→21:04)
[2020-03-16] MEDS: BACLOFEN 10 MG TABLET PO SCH ×3 (10:18→21:04)
[2020-03-16] MEDS: DULOXETINE 20 MG CAPSULE.DR PO SCH ×2 (10:18→21:04)
[2020-03-16] MEDS: ONDANSETRON 2MG/ML, 2ML IVPush PRN (11:09)
[2020-03-16 13:47] VITALS: BP 102/67
[2020-03-16] MEDS: NICOTINE 14MG/24 HR PATCH.TD24 TD SCH (17:05)
[2020-03-16 18:41] VITALS: BP 103/69
[2020-03-16] MEDS: SIMVASTATIN 20 MG TABLET PO SCH (21:04)
[2020-03-16] MEDS: ZOLPIDEM 10MG TABLET PO PRN (23:07)
[2020-03-17] MEDS: LORazepam 0.5MG TABLET PO SCH ×2 (00:21→12:26)
[2020-03-17 01:26] VITALS: BP 100/66
[2020-03-17] MEDS: morphine SULFATE 15 MG TAB.IR PO PRN ×3 (01:58→16:14)
[2020-03-17] MEDS: ACETAMINOPHEN 500 MG TABLET PO SCH ×6 (01:58→21:36)
[2020-03-17] MEDS: PANTOPRAZOLE 40MG TABLET PO SCH ×2 (05:17→15:45)
[2020-03-17 07:17] VITALS: BP 95/61
[2020-03-17 08:53] VITALS: BP 96/64
[2020-03-17] MEDS: POLYETHYLENE GLYCOL 17 GM PACKET PO PRN (08:55)
[2020-03-17] MEDS: SENNA/DOCUSATE TABLET PO SCH (08:55)
[2020-03-17] MEDS: SUCRALFATE 1 GM/10 ML UDC PO SCH ×2 (08:55→21:36)
[2020-03-17] MEDS: GABAPENTIN 300 MG CAPSULE PO SCH ×3 (08:56→21:36)
[2020-03-17] MEDS: LACTULOSE 10 GM/15 ML UDC PO SCH ×2 (08:57→21:36)
[2020-03-17] MEDS: QUETIAPINE 200 MG TABLET PO SCH ×2 (08:57→21:36)
[2020-03-17] MEDS: BACLOFEN 10 MG TABLET PO SCH ×3 (08:57→21:36)
[2020-03-17] MEDS: DULOXETINE 20 MG CAPSULE.DR PO SCH ×2 (08:58→21:36)
[2020-03-17 14:41] VITALS: BP 95/60
[2020-03-17] MEDS: NICOTINE 14MG/24 HR PATCH.TD24 TD SCH (15:45)
[2020-03-17 21:16] VITALS: BP 96/63
[2020-03-17] MEDS: SIMVASTATIN 20 MG TABLET PO SCH (21:36)
[2020-03-17] MEDS: ZOLPIDEM 10MG TABLET PO PRN (23:22)
[2020-03-18] MEDS: LORazepam 0.5MG TABLET PO SCH ×2 (00:28→12:26)
[2020-03-18 01:39] VITALS: BP 100/66
[2020-03-18] MEDS: ACETAMINOPHEN 500 MG TABLET PO SCH ×6 (01:48→22:23)
[2020-03-18 05:00] LABS: BASOPHILS # (AUTO) 0.03 x10^3/uL (0-0.1); BASOPHILS % (AUTO) 1 % (0-1); EOSINOPHILS # (AUTO) 0.12 x10^3/uL (0-0.4); EOSINOPHILS % (AUTO) 2 % (1-7); LYMPHOCYTES # (AUTO) 1.76 x10^3/uL (1-3.4); LYMPHOCYTES % (AUTO) 33 % (22-44); MD NO; MEAN CORPUSCULAR HEMOGLOBIN 29.5 pg (27.0-34.8); MEAN CORPUSCULAR HGB CONC 31.8 g/dL (32.4-35.8); MEAN CORPUSCULAR VOLUME 92.6 fL (80-100); MEAN PLATELET VOLUME 7.7 fL (7.4-10.4); MONOCYTES # (AUTO) 0.27 x10^3/uL (0.2-0.8); MONOCYTES % (AUTO) 5 % (2-9); NEUTROPHILS # (AUTO) 3.09 x10^3/uL (1.8-6.8); NEUTROPHILS % (AUTO) 59 % (42-75); PLATELET COUNT 246 x10^3/uL (130-400); RED BLOOD COUNT 4.19 x10^6/uL (3.82-5.3); RED CELL DISTRIBUTION WIDTH 16.4 % (9.6-15.2)
[2020-03-18] MEDS: PANTOPRAZOLE 40MG TABLET PO SCH ×2 (05:03→16:19)
[2020-03-18 05:08] LABS: ANION GAP 6 mmol/L (5-15); CALCIUM 8.8 mg/dL (8.5-10.1); CHLORIDE 105 mmol/L (98-107); CREATININE 0.68 mg/dL (0.55-1.02)
[2020-03-18 07:22] VITALS: BP 97/63
[2020-03-18] MEDS: LACTULOSE 10 GM/15 ML UDC PO SCH ×2 (10:16→21:59)
[2020-03-18] MEDS: morphine SULFATE 15 MG TAB.IR PO PRN ×2 (10:16→18:20)
[2020-03-18] MEDS: BACLOFEN 10 MG TABLET PO SCH ×3 (10:17→22:23)
[2020-03-18] MEDS: QUETIAPINE 200 MG TABLET PO SCH ×2 (10:17→21:58)
[2020-03-18] MEDS: SUCRALFATE 1 GM/10 ML UDC PO SCH ×2 (10:17→21:59)
[2020-03-18] MEDS: DULOXETINE 20 MG CAPSULE.DR PO SCH ×2 (10:17→21:58)
[2020-03-18] MEDS: SENNA/DOCUSATE TABLET PO SCH (10:18)
[2020-03-18] MEDS: GABAPENTIN 300 MG CAPSULE PO SCH ×3 (10:24→21:00)
[2020-03-18] MEDS: OXYcodone IR 5MG TABLET PO PRN (11:27)
[2020-03-18 13:09] VITALS: BP 94/65
[2020-03-18] MEDS: NICOTINE 14MG/24 HR PATCH.TD24 TD SCH (16:10)
[2020-03-18 18:29] VITALS: BP 97/61
[2020-03-18 21:42] VITALS: BP 117/75
[2020-03-18] MEDS: SIMVASTATIN 20 MG TABLET PO SCH (21:58)
[2020-03-18] MEDS: ZOLPIDEM 10MG TABLET PO PRN (23:11)
[2020-03-19 00:03] VITALS: BP 96/60
[2020-03-19] MEDS: LORazepam 0.5MG TABLET PO SCH ×2 (00:27→12:09)
[2020-03-19] MEDS: ACETAMINOPHEN 500 MG TABLET PO SCH ×6 (01:30→21:09)
[2020-03-19] MEDS: OXYcodone IR 5MG TABLET PO PRN ×2 (02:50→18:29)
[2020-03-19] MEDS: PANTOPRAZOLE 40MG TABLET PO SCH ×2 (06:03→18:28)
[2020-03-19 07:09] VITALS: BP 109/75
[2020-03-19] MEDS: GABAPENTIN 300 MG CAPSULE PO SCH ×3 (09:00→21:00)
[2020-03-19] MEDS: SENNA/DOCUSATE TABLET PO SCH (09:16)
[2020-03-19] MEDS: SUCRALFATE 1 GM/10 ML UDC PO SCH ×2 (09:16→21:05)
[2020-03-19] MEDS: DULOXETINE 20 MG CAPSULE.DR PO SCH ×2 (09:16→21:08)
[2020-03-19] MEDS: LACTULOSE 10 GM/15 ML UDC PO SCH ×2 (09:16→21:07)
[2020-03-19] MEDS: BACLOFEN 10 MG TABLET PO SCH ×3 (09:18→21:09)
[2020-03-19] MEDS: morphine SULFATE 15 MG TAB.IR PO PRN ×2 (09:18→17:15)
[2020-03-19] MEDS: QUETIAPINE 200 MG TABLET PO SCH ×2 (09:19→21:10)
[2020-03-19 14:53] VITALS: BP 97/65
[2020-03-19] MEDS: NICOTINE 14MG/24 HR PATCH.TD24 TD SCH (17:16)
[2020-03-19 18:53] VITALS: BP 99/66
[2020-03-19] MEDS: POLYETHYLENE GLYCOL 17 GM PACKET PO PRN (21:06)
[2020-03-19] MEDS: SIMVASTATIN 20 MG TABLET PO SCH (21:08)
[2020-03-19 23:27] VITALS: BP 99/64
[2020-03-19] MEDS: ZOLPIDEM 10MG TABLET PO PRN (23:30)
[2020-03-20] MEDS: LORazepam 0.5MG TABLET PO SCH ×2 (00:10→12:59)
[2020-03-20 00:29] VITALS: BP 101/65
[2020-03-20] MEDS: morphine SULFATE 15 MG TAB.IR PO PRN ×3 (00:54→16:07)
[2020-03-20] MEDS: ACETAMINOPHEN 500 MG TABLET PO SCH ×6 (02:23→20:35)
[2020-03-20] MEDS: PANTOPRAZOLE 40MG TABLET PO SCH ×2 (05:55→15:58)
[2020-03-20 08:00] VITALS: BP 99/65
[2020-03-20] MEDS: GABAPENTIN 300 MG CAPSULE PO SCH ×3 (09:00→20:38)
[2020-03-20] MEDS: ONDANSETRON 2MG/ML, 2ML IVPush PRN (09:35)
[2020-03-20] MEDS: SENNA/DOCUSATE TABLET PO SCH (09:39)
[2020-03-20] MEDS: LACTULOSE 10 GM/15 ML UDC PO SCH ×2 (09:39→20:33)
[2020-03-20] MEDS: DULOXETINE 20 MG CAPSULE.DR PO SCH ×2 (09:39→20:36)
[2020-03-20] MEDS: BACLOFEN 10 MG TABLET PO SCH ×3 (09:39→20:35)
[2020-03-20] MEDS: QUETIAPINE 200 MG TABLET PO SCH ×2 (09:39→20:35)
[2020-03-20] MEDS: SUCRALFATE 1 GM/10 ML UDC PO SCH ×2 (09:40→20:34)
[2020-03-20] MEDS: OXYcodone IR 5MG TABLET PO PRN ×2 (11:48→18:42)
[2020-03-20 14:00] VITALS: BP 98/62
[2020-03-20] MEDS: NICOTINE 14MG/24 HR PATCH.TD24 TD SCH (15:58)
[2020-03-20 19:11] VITALS: BP 93/61
[2020-03-20] MEDS: SIMVASTATIN 20 MG TABLET PO SCH (20:38)
[2020-03-20] MEDS: ZOLPIDEM 10MG TABLET PO PRN (23:28)
[2020-03-21 00:19] VITALS: BP 98/63
[2020-03-21] MEDS: LORazepam 0.5MG TABLET PO SCH ×2 (00:21→12:49)
[2020-03-21] MEDS: ACETAMINOPHEN 500 MG TABLET PO SCH ×6 (01:29→22:08)
[2020-03-21] MEDS: morphine SULFATE 15 MG TAB.IR PO PRN ×3 (01:29→17:38)
[2020-03-21] MEDS: OXYcodone IR 5MG TABLET PO PRN ×2 (03:04→12:03)
[2020-03-21] MEDS: PANTOPRAZOLE 40MG TABLET PO SCH ×2 (05:46→17:40)
[2020-03-21 08:03] VITALS: BP 95/61
[2020-03-21] MEDS: LACTULOSE 10 GM/15 ML UDC PO SCH ×2 (08:32→22:05)
[2020-03-21] MEDS: DULOXETINE 20 MG CAPSULE.DR PO SCH ×2 (08:32→22:09)
[2020-03-21] MEDS: SUCRALFATE 1 GM/10 ML UDC PO SCH ×2 (08:32→22:06)
[2020-03-21] MEDS: QUETIAPINE 200 MG TABLET PO SCH ×2 (08:32→22:08)
[2020-03-21] MEDS: SENNA/DOCUSATE TABLET PO SCH (08:32)
[2020-03-21] MEDS: BACLOFEN 10 MG TABLET PO SCH ×3 (08:33→22:08)
[2020-03-21] MEDS: GABAPENTIN 300 MG CAPSULE PO SCH ×3 (08:36→21:00)
[2020-03-21 13:01] VITALS: BP 92/58
[2020-03-21] MEDS: MAGNESIUM CITRATE 300ML ORAL SOL PO PRN (14:59)
[2020-03-21] MEDS: NICOTINE 14MG/24 HR PATCH.TD24 TD SCH (17:38)
[2020-03-21 18:59] VITALS: BP 99/62
[2020-03-21] MEDS: SIMVASTATIN 20 MG TABLET PO SCH (21:00)
[2020-03-21] MEDS: POLYETHYLENE GLYCOL 17 GM PACKET PO PRN (22:06)
[2020-03-21] MEDS: ZOLPIDEM 10MG TABLET PO PRN (23:45)
[2020-03-22 00:25] VITALS: BP 101/60
[2020-03-22] MEDS: LORazepam 0.5MG TABLET PO SCH ×3 (00:28→22:35)
[2020-03-22] MEDS: morphine SULFATE 15 MG TAB.IR PO PRN ×3 (00:29→18:21)
[2020-03-22] MEDS: LIDODERM 5% PATCH TD PRN (00:31)
[2020-03-22] MEDS: ACETAMINOPHEN 500 MG TABLET PO SCH ×6 (01:30→22:35)
[2020-03-22] MEDS: OXYcodone IR 5MG TABLET PO PRN (03:39)
[2020-03-22] MEDS: PANTOPRAZOLE 40MG TABLET PO SCH ×2 (05:35→18:20)
[2020-03-22 08:00] VITALS: BP 98/63
[2020-03-22] MEDS: SENNA/DOCUSATE TABLET PO SCH (08:35)
[2020-03-22] MEDS: SUCRALFATE 1 GM/10 ML UDC PO SCH ×2 (08:35→22:32)
[2020-03-22] MEDS: QUETIAPINE 200 MG TABLET PO SCH ×2 (08:35→22:36)
[2020-03-22] MEDS: LACTULOSE 10 GM/15 ML UDC PO SCH ×2 (08:35→22:33)
[2020-03-22] MEDS: BACLOFEN 10 MG TABLET PO SCH ×3 (08:35→22:34)
[2020-03-22] MEDS: DULOXETINE 20 MG CAPSULE.DR PO SCH ×2 (08:35→22:35)
[2020-03-22] MEDS: GABAPENTIN 300 MG CAPSULE PO SCH ×3 (08:44→21:00)
[2020-03-22] MEDS: BISACODYL 10 MG SUPP PR PRN (13:15)
[2020-03-22 13:56] LABS: MICROSCOPIC AUTO
[2020-03-22 16:46] VITALS: BP 94/60
[2020-03-22] MEDS: NICOTINE 14MG/24 HR PATCH.TD24 TD SCH (18:20)
[2020-03-22 18:28] VITALS: BP 107/85
[2020-03-22 20:00] VITALS: BP 100/62
[2020-03-22] MEDS: SIMVASTATIN 20 MG TABLET PO SCH (22:36)
[2020-03-22] MEDS: ZOLPIDEM 10MG TABLET PO PRN (22:54)
[2020-03-23 00:36] VITALS: BP 106/68
[2020-03-23] MEDS: morphine SULFATE 15 MG TAB.IR PO PRN ×3 (00:39→16:57)
[2020-03-23] MEDS: LIDODERM 5% PATCH TD PRN (00:40)
[2020-03-23] MEDS: ACETAMINOPHEN 500 MG TABLET PO SCH ×6 (01:30→21:43)
[2020-03-23] MEDS: PANTOPRAZOLE 40MG TABLET PO SCH ×2 (06:01→16:42)
[2020-03-23 07:38] VITALS: BP 105/69
[2020-03-23] MEDS: SUCRALFATE 1 GM/10 ML UDC PO SCH ×2 (09:41→21:42)
[2020-03-23] MEDS: QUETIAPINE 200 MG TABLET PO SCH ×2 (09:41→21:43)
[2020-03-23] MEDS: DULOXETINE 20 MG CAPSULE.DR PO SCH ×2 (09:41→21:43)
[2020-03-23] MEDS: GABAPENTIN 300 MG CAPSULE PO SCH ×3 (09:41→21:43)
[2020-03-23] MEDS: SENNA/DOCUSATE TABLET PO SCH (09:42)
[2020-03-23] MEDS: LACTULOSE 10 GM/15 ML UDC PO SCH ×2 (09:42→21:42)
[2020-03-23] MEDS: BACLOFEN 10 MG TABLET PO SCH ×3 (09:42→21:43)
[2020-03-23] MEDS: ONDANSETRON 2MG/ML, 2ML IVPush PRN ×2 (09:56→16:57)
[2020-03-23] MEDS: LORazepam 0.5MG TABLET PO SCH (12:35)
[2020-03-23 13:41] VITALS: BP 93/58
[2020-03-23] MEDS: NICOTINE 14MG/24 HR PATCH.TD24 TD SCH (16:43)
[2020-03-23 21:30] VITALS: BP 109/66
[2020-03-23] MEDS: SIMVASTATIN 20 MG TABLET PO SCH (21:42)
[2020-03-23] MEDS: ZOLPIDEM 10MG TABLET PO PRN (22:58)
[2020-03-24 01:24] VITALS: BP 95/59
[2020-03-24] MEDS: ACETAMINOPHEN 500 MG TABLET PO SCH ×6 (01:42→21:14)
[2020-03-24] MEDS: PANTOPRAZOLE 40MG TABLET PO SCH ×2 (05:24→15:36)
[2020-03-24 05:57] LABS: BASOPHILS # (AUTO) 0.02 x10^3/uL (0-0.1); BASOPHILS % (AUTO) 0 % (0-1); EOSINOPHILS # (AUTO) 0.12 x10^3/uL (0-0.4); EOSINOPHILS % (AUTO) 2 % (1-7); LYMPHOCYTES % (AUTO) 41 % (22-44); MD NO; MEAN CORPUSCULAR HEMOGLOBIN 29.1 pg (27.0-34.8); MEAN CORPUSCULAR HGB CONC 31.6 g/dL (32.4-35.8); MEAN PLATELET VOLUME 7.8 fL (7.4-10.4); MONOCYTES # (AUTO) 0.34 x10^3/uL (0.2-0.8); MONOCYTES % (AUTO) 6 % (2-9); NEUTROPHILS % (AUTO) 50 % (42-75); PLATELET COUNT 195 x10^3/uL (130-400); RED BLOOD COUNT 4.42 x10^6/uL (3.82-5.3); RED CELL DISTRIBUTION WIDTH 15.8 % (9.6-15.2)
[2020-03-24 06:09] LABS: ANION GAP 5 mmol/L (5-15); CALCIUM 9.1 mg/dL (8.5-10.1); CHLORIDE 106 mmol/L (98-107)
[2020-03-24 06:10] LABS: CREATININE 0.76 mg/dL (0.55-1.02)
[2020-03-24 07:39] VITALS: BP 94/60
[2020-03-24] MEDS: ONDANSETRON 2MG/ML, 2ML IVPush PRN (09:28)
[2020-03-24] MEDS: SENNA/DOCUSATE TABLET PO SCH (09:28)
[2020-03-24] MEDS: LACTULOSE 10 GM/15 ML UDC PO SCH ×2 (09:28→21:12)
[2020-03-24] MEDS: BACLOFEN 10 MG TABLET PO SCH ×3 (09:29→21:13)
[2020-03-24] MEDS: GABAPENTIN 300 MG CAPSULE PO SCH ×3 (09:29→21:14)
[2020-03-24] MEDS: QUETIAPINE 200 MG TABLET PO SCH ×2 (09:29→21:12)
[2020-03-24] MEDS: SUCRALFATE 1 GM/10 ML UDC PO SCH ×2 (09:30→21:12)
[2020-03-24] MEDS: DULOXETINE 20 MG CAPSULE.DR PO SCH ×2 (09:30→21:12)
[2020-03-24] MEDS: morphine SULFATE 15 MG TAB.IR PO PRN ×2 (09:30→17:40)
[2020-03-24 12:55] VITALS: BP 90/57
[2020-03-24] MEDS: LORazepam 0.5MG TABLET PO SCH ×2 (13:22)
[2020-03-24] MEDS: ENOXAPARIN 40 MG/0.4 ML SQ SCH (15:38)
[2020-03-24] MEDS: NICOTINE 14MG/24 HR PATCH.TD24 TD SCH (15:38)
[2020-03-24 19:08] VITALS: BP 95/60
[2020-03-24] MEDS: SIMVASTATIN 20 MG TABLET PO SCH (21:13)
[2020-03-25] MEDS: LORazepam 0.5MG TABLET PO SCH ×2 (00:06→11:35)
[2020-03-25 00:11] VITALS: BP 108/68
[2020-03-25] MEDS: ZOLPIDEM 10MG TABLET PO PRN ×2 (01:30→22:56)
[2020-03-25] MEDS: ACETAMINOPHEN 500 MG TABLET PO SCH ×6 (01:56→21:28)
[2020-03-25] MEDS: PANTOPRAZOLE 40MG TABLET PO SCH ×2 (05:19→16:29)
[2020-03-25 05:58] LABS: BASOPHILS # (AUTO) 0.02 x10^3/uL (0-0.1); BASOPHILS % (AUTO) 0 % (0-1); EOSINOPHILS # (AUTO) 0.13 x10^3/uL (0-0.4); EOSINOPHILS % (AUTO) 3 % (1-7); LYMPHOCYTES # (AUTO) 1.75 x10^3/uL (1-3.4); LYMPHOCYTES % (AUTO) 35 % (22-44); MD NO; MEAN CORPUSCULAR VOLUME 90.8 fL (80-100); MEAN PLATELET VOLUME 7.7 fL (7.4-10.4); MONOCYTES % (AUTO) 6 % (2-9); NEUTROPHILS # (AUTO) 2.86 x10^3/uL (1.8-6.8); NEUTROPHILS % (AUTO) 57 % (42-75); PLATELET COUNT 207 x10^3/uL (130-400); RED BLOOD COUNT 4.24 x10^6/uL (3.82-5.3); RED CELL DISTRIBUTION WIDTH 15.9 % (9.6-15.2)
[2020-03-25 06:06] LABS: ANION GAP 4 mmol/L (5-15); CALCIUM 9.2 mg/dL (8.5-10.1); CHLORIDE 106 mmol/L (98-107); CREATININE 0.66 mg/dL (0.55-1.02)
[2020-03-25 07:23] VITALS: BP 105/65
[2020-03-25] MEDS: SENNA/DOCUSATE TABLET PO SCH (09:22)
[2020-03-25] MEDS: LACTULOSE 10 GM/15 ML UDC PO SCH ×2 (09:22→21:28)
[2020-03-25] MEDS: DULOXETINE 20 MG CAPSULE.DR PO SCH ×2 (09:22→21:29)
[2020-03-25] MEDS: morphine SULFATE 15 MG TAB.IR PO PRN (09:22)
[2020-03-25] MEDS: QUETIAPINE 200 MG TABLET PO SCH ×2 (09:22→21:29)
[2020-03-25] MEDS: GABAPENTIN 300 MG CAPSULE PO SCH ×5 (09:22→21:31)
[2020-03-25] MEDS: SUCRALFATE 1 GM/10 ML UDC PO SCH ×2 (09:22→21:28)
[2020-03-25] MEDS: BACLOFEN 10 MG TABLET PO SCH ×3 (09:23→21:29)
[2020-03-25] MEDS: ONDANSETRON 2MG/ML, 2ML IVPush PRN (12:46)
[2020-03-25] MEDS: BISACODYL 10 MG SUPP PR PRN (14:15)
[2020-03-25] MEDS: ENOXAPARIN 40 MG/0.4 ML SQ SCH (16:26)
[2020-03-25] MEDS: NICOTINE 14MG/24 HR PATCH.TD24 TD SCH (16:26)
[2020-03-25 19:57] VITALS: BP 107/68
[2020-03-25] MEDS: SIMVASTATIN 20 MG TABLET PO SCH (21:29)
[2020-03-26] MEDS: LORazepam 0.5MG TABLET PO SCH ×3 (00:15→23:29)
[2020-03-26 03:00] VITALS: BP 104/68
[2020-03-26] MEDS: ACETAMINOPHEN 500 MG TABLET PO SCH ×6 (03:02→23:29)
[2020-03-26] MEDS: morphine SULFATE 15 MG TAB.IR PO PRN ×3 (03:03→15:53)
[2020-03-26] MEDS: PANTOPRAZOLE 40MG TABLET PO SCH ×2 (06:26→15:59)
[2020-03-26 07:35] VITALS: BP 107/68
[2020-03-26] MEDS: GABAPENTIN 300 MG CAPSULE PO SCH ×3 (09:00→21:25)
[2020-03-26] MEDS: SUCRALFATE 1 GM/10 ML UDC PO SCH ×2 (09:31→21:24)
[2020-03-26] MEDS: QUETIAPINE 200 MG TABLET PO SCH ×2 (09:31→21:24)
[2020-03-26] MEDS: DULOXETINE 20 MG CAPSULE.DR PO SCH ×2 (09:31→21:24)
[2020-03-26] MEDS: BACLOFEN 10 MG TABLET PO SCH ×3 (09:32→21:24)
[2020-03-26] MEDS: LACTULOSE 10 GM/15 ML UDC PO SCH ×2 (09:32→21:24)
[2020-03-26] MEDS: SENNA/DOCUSATE TABLET PO SCH (09:32)
[2020-03-26 13:49] VITALS: BP 97/60
[2020-03-26] MEDS: NICOTINE 14MG/24 HR PATCH.TD24 TD SCH (15:55)
[2020-03-26] MEDS: ENOXAPARIN 40 MG/0.4 ML SQ SCH (15:56)
[2020-03-26] MEDS: LEVOFLOXACIN 500 MG TABLET PO SCH (15:57)
[2020-03-26] MEDS: OXYcodone IR 5MG TABLET PO PRN (18:24)
[2020-03-26 18:40] VITALS: BP 102/59
[2020-03-26] MEDS: SIMVASTATIN 20 MG TABLET PO SCH (21:24)
[2020-03-27 00:37] VITALS: BP 99/64
[2020-03-27] MEDS: ZOLPIDEM 10MG TABLET PO PRN ×2 (00:57→22:55)
[2020-03-27] MEDS: morphine SULFATE 15 MG TAB.IR PO PRN ×2 (02:17→15:36)
[2020-03-27] MEDS: ACETAMINOPHEN 500 MG TABLET PO SCH ×6 (02:56→22:55)
[2020-03-27 05:26] LABS: BASOPHILS # (AUTO) 0.02 x10^3/uL (0-0.1); BASOPHILS % (AUTO) 1 % (0-1); EOSINOPHILS % (AUTO) 2 % (1-7); LYMPHOCYTES # (AUTO) 1.61 x10^3/uL (1-3.4); LYMPHOCYTES % (AUTO) 36 % (22-44); MD NO; MEAN CORPUSCULAR HGB CONC 31.8 g/dL (32.4-35.8); MEAN CORPUSCULAR VOLUME 91.2 fL (80-100); MEAN PLATELET VOLUME 7.8 fL (7.4-10.4); MONOCYTES # (AUTO) 0.28 x10^3/uL (0.2-0.8); MONOCYTES % (AUTO) 6 % (2-9); NEUTROPHILS # (AUTO) 2.51 x10^3/uL (1.8-6.8); NEUTROPHILS % (AUTO) 56 % (42-75); PLATELET COUNT 185 x10^3/uL (130-400); RED BLOOD COUNT 4.06 x10^6/uL (3.82-5.3); RED CELL DISTRIBUTION WIDTH 15.8 % (9.6-15.2)
[2020-03-27] MEDS: PANTOPRAZOLE 40MG TABLET PO SCH ×2 (05:38→15:34)
[2020-03-27 05:40] LABS: ANION GAP 6 mmol/L (5-15); CALCIUM 8.8 mg/dL (8.5-10.1); CHLORIDE 107 mmol/L (98-107)
[2020-03-27 05:43] LABS: CREATININE 0.65 mg/dL (0.55-1.02)
[2020-03-27] MEDS: LACTULOSE 10 GM/15 ML UDC PO SCH ×2 (07:39→20:20)
[2020-03-27] MEDS: GABAPENTIN 300 MG CAPSULE PO SCH ×4 (07:39→20:23)
[2020-03-27] MEDS: DULOXETINE 20 MG CAPSULE.DR PO SCH ×2 (07:39→20:20)
[2020-03-27] MEDS: QUETIAPINE 200 MG TABLET PO SCH ×2 (07:39→20:19)
[2020-03-27] MEDS: SUCRALFATE 1 GM/10 ML UDC PO SCH ×2 (07:39→20:20)
[2020-03-27] MEDS: SENNA/DOCUSATE TABLET PO SCH (07:39)
[2020-03-27] MEDS: BACLOFEN 10 MG TABLET PO SCH ×3 (07:40→20:20)
[2020-03-27] MEDS: OXYcodone IR 5MG TABLET PO PRN ×2 (07:48→18:30)
[2020-03-27 10:18] VITALS: BP 100/63
[2020-03-27] MEDS: LORazepam 0.5MG TABLET PO SCH (12:05)
[2020-03-27 14:43] VITALS: BP 108/62
[2020-03-27] MEDS: LEVOFLOXACIN 500 MG TABLET PO SCH (15:33)
[2020-03-27] MEDS: ENOXAPARIN 40 MG/0.4 ML SQ SCH (15:34)
[2020-03-27] MEDS: NICOTINE 14MG/24 HR PATCH.TD24 TD SCH (15:36)
[2020-03-27] MEDS: ONDANSETRON 2MG/ML, 2ML IVPush PRN (17:06)
[2020-03-27] MEDS: POLYETHYLENE GLYCOL 17 GM PACKET PO PRN (18:29)
[2020-03-27 20:11] VITALS: BP 93/59
[2020-03-27] MEDS: SIMVASTATIN 20 MG TABLET PO SCH (20:19)
[2020-03-28] MEDS: LORazepam 0.5MG TABLET PO SCH ×2 (00:03→11:50)
[2020-03-28 00:54] VITALS: BP 124/83
[2020-03-28] MEDS: ACETAMINOPHEN 500 MG TABLET PO SCH ×5 (03:04→19:45)
[2020-03-28 05:21] LABS: BASOPHILS # (AUTO) 0.02 x10^3/uL (0-0.1); BASOPHILS % (AUTO) 0 % (0-1); EOSINOPHILS # (AUTO) 0.09 x10^3/uL (0-0.4); EOSINOPHILS % (AUTO) 2 % (1-7); LYMPHOCYTES # (AUTO) 1.67 x10^3/uL (1-3.4); LYMPHOCYTES % (AUTO) 35 % (22-44); MD NO; MEAN CORPUSCULAR HEMOGLOBIN 28.9 pg (27.0-34.8); MEAN CORPUSCULAR HGB CONC 31.6 g/dL (32.4-35.8); MEAN CORPUSCULAR VOLUME 91.5 fL (80-100); MEAN PLATELET VOLUME 7.3 fL (7.4-10.4); MONOCYTES # (AUTO) 0.32 x10^3/uL (0.2-0.8); MONOCYTES % (AUTO) 7 % (2-9); NEUTROPHILS # (AUTO) 2.64 x10^3/uL (1.8-6.8); NEUTROPHILS % (AUTO) 56 % (42-75); PLATELET COUNT 188 x10^3/uL (130-400); RED BLOOD COUNT 4.12 x10^6/uL (3.82-5.3); RED CELL DISTRIBUTION WIDTH 16.4 % (9.6-15.2)
[2020-03-28 05:30] LABS: ANION GAP 4 mmol/L (5-15); CALCIUM 8.9 mg/dL (8.5-10.1); CHLORIDE 109 mmol/L (98-107); CREATININE 0.62 mg/dL (0.55-1.02)
[2020-03-28] MEDS: PANTOPRAZOLE 40MG TABLET PO SCH ×2 (06:33→17:10)
[2020-03-28] MEDS: OXYcodone IR 5MG TABLET PO PRN (06:37)
[2020-03-28 07:11] VITALS: BP 115/76
[2020-03-28] MEDS: GABAPENTIN 300 MG CAPSULE PO SCH ×4 (08:54→19:55)
[2020-03-28] MEDS: BACLOFEN 10 MG TABLET PO SCH ×3 (08:54→20:01)
[2020-03-28] MEDS: SUCRALFATE 1 GM/10 ML UDC PO SCH ×2 (08:54→20:00)
[2020-03-28] MEDS: LACTULOSE 10 GM/15 ML UDC PO SCH ×2 (08:54→20:00)
[2020-03-28] MEDS: QUETIAPINE 200 MG TABLET PO SCH ×2 (08:54→20:01)
[2020-03-28] MEDS: DULOXETINE 20 MG CAPSULE.DR PO SCH ×2 (08:54→20:01)
[2020-03-28] MEDS: SENNA/DOCUSATE TABLET PO SCH (08:55)
[2020-03-28] MEDS: morphine SULFATE 15 MG TAB.IR PO PRN ×2 (10:19→17:06)
[2020-03-28 13:45] VITALS: BP 99/65
[2020-03-28] MEDS: LEVOFLOXACIN 500 MG TABLET PO SCH (15:30)
--- NOTE | 2020-03-28 15:35 | NUR ---
Issued green sheet Ankle pumps quad sets heel slides Addendum: 03/28/20 at 1536 by Luis Maurer PT Amended: Links added.
[2020-03-28] MEDS: ENOXAPARIN 40 MG/0.4 ML SQ SCH (17:07)
[2020-03-28] MEDS: NICOTINE 14MG/24 HR PATCH.TD24 TD SCH (17:07)
[2020-03-28] MEDS: POLYETHYLENE GLYCOL 17 GM PACKET PO PRN (17:10)
[2020-03-28 18:33] VITALS: BP 111/74
[2020-03-28] MEDS: SIMVASTATIN 20 MG TABLET PO SCH (20:01)
[2020-03-28] MEDS: ZOLPIDEM 10MG TABLET PO PRN (22:59)
[2020-03-29 03:10] VITALS: BP 114/75
[2020-03-29] MEDS: ACETAMINOPHEN 500 MG TABLET PO SCH ×6 (04:33→20:40)
[2020-03-29] MEDS: PANTOPRAZOLE 40MG TABLET PO SCH ×2 (05:25→16:24)
[2020-03-29 06:39] VITALS: BP 114/76
[2020-03-29] MEDS: GABAPENTIN 300 MG CAPSULE PO SCH ×3 (09:00→20:42)
[2020-03-29] MEDS: BACLOFEN 10 MG TABLET PO SCH ×3 (09:17→20:41)
[2020-03-29] MEDS: SENNA/DOCUSATE TABLET PO SCH (09:17)
[2020-03-29] MEDS: QUETIAPINE 200 MG TABLET PO SCH ×2 (09:18→20:41)
[2020-03-29] MEDS: LACTULOSE 10 GM/15 ML UDC PO SCH ×2 (09:18→20:40)
[2020-03-29] MEDS: DULOXETINE 20 MG CAPSULE.DR PO SCH ×2 (09:18→20:42)
[2020-03-29] MEDS: SUCRALFATE 1 GM/10 ML UDC PO SCH ×2 (09:18→20:40)
[2020-03-29] MEDS: morphine SULFATE 15 MG TAB.IR PO PRN ×2 (09:18→16:21)
[2020-03-29] MEDS: ONDANSETRON 2MG/ML, 2ML IVPush PRN (10:35)
[2020-03-29] MEDS: OXYcodone IR 5MG TABLET PO PRN (10:40)
[2020-03-29 12:33] VITALS: BP 93/60
[2020-03-29] MEDS: LORazepam 0.5MG TABLET PO SCH ×2 (12:35)
[2020-03-29] MEDS: ENOXAPARIN 40 MG/0.4 ML SQ SCH (16:22)
[2020-03-29] MEDS: NICOTINE 14MG/24 HR PATCH.TD24 TD SCH (16:22)
[2020-03-29] MEDS: LEVOFLOXACIN 500 MG TABLET PO SCH (16:22)
[2020-03-29 19:09] VITALS: BP 102/67
[2020-03-29] MEDS: SIMVASTATIN 20 MG TABLET PO SCH (20:41)
[2020-03-29] MEDS: ZOLPIDEM 10MG TABLET PO PRN (23:02)
[2020-03-30] MEDS: LORazepam 0.5MG TABLET PO SCH ×2 (00:02→13:24)
[2020-03-30] MEDS: ACETAMINOPHEN 500 MG TABLET PO SCH ×6 (00:02→21:08)
[2020-03-30 00:47] VITALS: BP 102/70
[2020-03-30 04:42] LABS: BASOPHILS # (AUTO) 0.02 x10^3/uL (0-0.1); BASOPHILS % (AUTO) 0 % (0-1); EOSINOPHILS # (AUTO) 0.13 x10^3/uL (0-0.4); EOSINOPHILS % (AUTO) 3 % (1-7); LYMPHOCYTES # (AUTO) 1.79 x10^3/uL (1-3.4); LYMPHOCYTES % (AUTO) 38 % (22-44); MD NO; MEAN CORPUSCULAR HEMOGLOBIN 28.7 pg (27.0-34.8); MEAN CORPUSCULAR HGB CONC 31.5 g/dL (32.4-35.8); MEAN CORPUSCULAR VOLUME 91.1 fL (80-100); MEAN PLATELET VOLUME 7.1 fL (7.4-10.4); MONOCYTES # (AUTO) 0.29 x10^3/uL (0.2-0.8); MONOCYTES % (AUTO) 6 % (2-9); NEUTROPHILS # (AUTO) 2.52 x10^3/uL (1.8-6.8); NEUTROPHILS % (AUTO) 53 % (42-75); PLATELET COUNT 184 x10^3/uL (130-400); RED BLOOD COUNT 4.21 x10^6/uL (3.82-5.3); RED CELL DISTRIBUTION WIDTH 16.3 % (9.6-15.2)
[2020-03-30 04:52] LABS: ANION GAP 7 mmol/L (5-15); CALCIUM 8.8 mg/dL (8.5-10.1); CHLORIDE 107 mmol/L (98-107); CREATININE 0.74 mg/dL (0.55-1.02)
[2020-03-30] MEDS: PANTOPRAZOLE 40MG TABLET PO SCH ×2 (05:18→16:35)
[2020-03-30 06:57] VITALS: BP 114/74
[2020-03-30] MEDS: ONDANSETRON 2MG/ML, 2ML IVPush PRN ×2 (08:59→22:55)
[2020-03-30] MEDS: morphine SULFATE 15 MG TAB.IR PO PRN ×2 (08:59→15:27)
[2020-03-30] MEDS: GABAPENTIN 300 MG CAPSULE PO SCH ×3 (09:00→21:07)
[2020-03-30] MEDS: SUCRALFATE 1 GM/10 ML UDC PO SCH ×2 (09:03→21:08)
[2020-03-30] MEDS: DULOXETINE 20 MG CAPSULE.DR PO SCH ×2 (09:03→21:07)
[2020-03-30] MEDS: BACLOFEN 10 MG TABLET PO SCH ×3 (09:03→21:08)
[2020-03-30] MEDS: SENNA/DOCUSATE TABLET PO SCH (09:03)
[2020-03-30] MEDS: LACTULOSE 10 GM/15 ML UDC PO SCH ×2 (09:03→21:07)
[2020-03-30] MEDS: QUETIAPINE 200 MG TABLET PO SCH ×2 (09:03→21:08)
[2020-03-30] MEDS: POLYETHYLENE GLYCOL 17 GM PACKET PO PRN (09:10)
[2020-03-30 12:14] VITALS: BP 102/61
[2020-03-30] MEDS: LEVOFLOXACIN 500 MG TABLET PO SCH (16:36)
[2020-03-30] MEDS: ENOXAPARIN 40 MG/0.4 ML SQ SCH (16:36)
[2020-03-30] MEDS: NICOTINE 14MG/24 HR PATCH.TD24 TD SCH (16:36)
[2020-03-30 19:24] VITALS: BP 95/55
[2020-03-30 21:06] VITALS: BP 110/68
[2020-03-30] MEDS: SIMVASTATIN 20 MG TABLET PO SCH (21:08)
[2020-03-30] MEDS: ZOLPIDEM 10MG TABLET PO PRN (22:52)
[2020-03-31] MEDS: ACETAMINOPHEN 500 MG TABLET PO SCH ×7 (01:55→21:23)
[2020-03-31] MEDS: LORazepam 0.5MG TABLET PO SCH ×2 (01:55→13:37)
[2020-03-31 01:59] VITALS: BP 107/72
[2020-03-31] MEDS: PANTOPRAZOLE 40MG TABLET PO SCH ×2 (05:38→16:06)
[2020-03-31] MEDS: LIDODERM 5% PATCH TD PRN (05:45)
[2020-03-31 07:35] VITALS: BP 103/64
[2020-03-31] MEDS: GABAPENTIN 300 MG CAPSULE PO SCH ×4 (09:00→21:00)
[2020-03-31] MEDS: BACLOFEN 10 MG TABLET PO SCH ×3 (09:05→21:24)
[2020-03-31] MEDS: LACTULOSE 10 GM/15 ML UDC PO SCH ×2 (09:05→21:24)
[2020-03-31] MEDS: SUCRALFATE 1 GM/10 ML UDC PO SCH ×2 (09:05→21:21)
[2020-03-31] MEDS: SENNA/DOCUSATE TABLET PO SCH (09:06)
[2020-03-31] MEDS: DULOXETINE 20 MG CAPSULE.DR PO SCH ×2 (09:07→21:23)
[2020-03-31] MEDS: QUETIAPINE 200 MG TABLET PO SCH ×2 (09:07→21:22)
[2020-03-31] MEDS: morphine SULFATE 15 MG TAB.IR PO PRN ×2 (09:56→16:05)
[2020-03-31 15:04] VITALS: BP 107/70
[2020-03-31] MEDS: ONDANSETRON 2MG/ML, 2ML IVPush PRN (15:22)
[2020-03-31] MEDS: NICOTINE 14MG/24 HR PATCH.TD24 TD SCH (16:06)
[2020-03-31] MEDS: ENOXAPARIN 40 MG/0.4 ML SQ SCH (16:06)
[2020-03-31] MEDS: OXYcodone IR 5MG TABLET PO PRN (18:20)
[2020-03-31 20:00] VITALS: BP 97/62
[2020-03-31] MEDS: SIMVASTATIN 20 MG TABLET PO SCH (21:00)
[2020-03-31] MEDS: ZOLPIDEM 10MG TABLET PO PRN (22:57)
[2020-04-01] MEDS: morphine SULFATE 15 MG TAB.IR PO PRN ×3 (00:08→22:21)
[2020-04-01 02:08] VITALS: BP 108/70
[2020-04-01] MEDS: ACETAMINOPHEN 500 MG TABLET PO SCH ×6 (02:12→22:22)
[2020-04-01] MEDS: LORazepam 0.5MG TABLET PO SCH ×2 (02:12→14:20)
[2020-04-01 07:06] VITALS: BP 106/70
[2020-04-01] MEDS: GABAPENTIN 300 MG CAPSULE PO SCH ×3 (09:21→21:15)
[2020-04-01] MEDS: PANTOPRAZOLE 40MG TABLET PO SCH ×2 (09:28→16:33)
[2020-04-01] MEDS: SUCRALFATE 1 GM/10 ML UDC PO SCH ×2 (09:28→21:17)
[2020-04-01] MEDS: DULOXETINE 20 MG CAPSULE.DR PO SCH ×2 (09:28→21:16)
[2020-04-01] MEDS: LACTULOSE 10 GM/15 ML UDC PO SCH ×2 (09:28→21:17)
[2020-04-01] MEDS: BACLOFEN 10 MG TABLET PO SCH ×3 (09:29→21:16)
[2020-04-01] MEDS: SENNA/DOCUSATE TABLET PO SCH (09:29)
[2020-04-01] MEDS: QUETIAPINE 200 MG TABLET PO SCH ×2 (09:29→21:15)
[2020-04-01 13:09] VITALS: BP 104/69
[2020-04-01] MEDS: ENOXAPARIN 40 MG/0.4 ML SQ SCH (16:32)
[2020-04-01] MEDS: NICOTINE 14MG/24 HR PATCH.TD24 TD SCH (16:34)
[2020-04-01] MEDS: OXYcodone IR 5MG TABLET PO PRN (16:34)
[2020-04-01 19:45] VITALS: BP 103/62
[2020-04-01] MEDS: SIMVASTATIN 20 MG TABLET PO SCH (21:15)
[2020-04-01] MEDS: ZOLPIDEM 10MG TABLET PO PRN (23:46)
[2020-04-02] MEDS: LORazepam 0.5MG TABLET PO SCH ×2 (01:26→15:41)
[2020-04-02] MEDS: ACETAMINOPHEN 500 MG TABLET PO SCH ×6 (03:21→23:07)
[2020-04-02 03:48] VITALS: BP 124/78
[2020-04-02 06:22] VITALS: BP 120/79
[2020-04-02] MEDS: PANTOPRAZOLE 40MG TABLET PO SCH ×2 (06:58→17:09)
[2020-04-02] MEDS: LACTULOSE 10 GM/15 ML UDC PO SCH ×2 (09:00→21:06)
[2020-04-02] MEDS: ONDANSETRON 2MG/ML, 2ML IVPush PRN (09:14)
[2020-04-02] MEDS: morphine SULFATE 15 MG TAB.IR PO PRN ×2 (09:15→17:09)
[2020-04-02] MEDS: SENNA/DOCUSATE TABLET PO SCH (09:15)
[2020-04-02] MEDS: SUCRALFATE 1 GM/10 ML UDC PO SCH ×2 (09:15→21:06)
[2020-04-02] MEDS: QUETIAPINE 200 MG TABLET PO SCH ×2 (09:15→21:06)
[2020-04-02] MEDS: DULOXETINE 20 MG CAPSULE.DR PO SCH ×2 (09:15→21:07)
[2020-04-02] MEDS: BACLOFEN 10 MG TABLET PO SCH ×3 (09:22→21:07)
[2020-04-02] MEDS: GABAPENTIN 300 MG CAPSULE PO SCH ×3 (09:23→21:07)
[2020-04-02 12:34] VITALS: BP 107/71
[2020-04-02] MEDS: NICOTINE 14MG/24 HR PATCH.TD24 TD SCH (17:10)
[2020-04-02] MEDS: ENOXAPARIN 40 MG/0.4 ML SQ SCH (17:10)
[2020-04-02 19:17] VITALS: BP 105/68
[2020-04-02] MEDS: SIMVASTATIN 20 MG TABLET PO SCH (21:09)
[2020-04-02] MEDS: ZOLPIDEM 10MG TABLET PO PRN (22:21)
[2020-04-03] MEDS: morphine SULFATE 15 MG TAB.IR PO PRN ×4 (00:13→23:04)
[2020-04-03 02:32] VITALS: BP 116/79
[2020-04-03] MEDS: ACETAMINOPHEN 500 MG TABLET PO SCH ×6 (03:30→23:01)
[2020-04-03] MEDS: LORazepam 0.5MG TABLET PO SCH ×2 (03:30→15:13)
[2020-04-03] MEDS: PANTOPRAZOLE 40MG TABLET PO SCH ×2 (06:02→16:52)
[2020-04-03 06:37] LABS: CREATININE 0.64 mg/dL (0.55-1.02)
[2020-04-03] MEDS: BACLOFEN 10 MG TABLET PO SCH ×3 (09:44→20:53)
[2020-04-03] MEDS: DULOXETINE 20 MG CAPSULE.DR PO SCH ×2 (09:44→20:53)
[2020-04-03] MEDS: GABAPENTIN 300 MG CAPSULE PO SCH ×4 (09:44→20:53)
[2020-04-03] MEDS: SUCRALFATE 1 GM/10 ML UDC PO SCH ×2 (09:44→20:51)
[2020-04-03] MEDS: LACTULOSE 10 GM/15 ML UDC PO SCH ×2 (09:44→20:51)
[2020-04-03] MEDS: OXYcodone IR 5MG TABLET PO PRN (09:46)
[2020-04-03] MEDS: QUETIAPINE 200 MG TABLET PO SCH ×2 (09:47→20:53)
[2020-04-03] MEDS: SENNA/DOCUSATE TABLET PO SCH (09:47)
[2020-04-03 10:19] VITALS: BP 118/76
[2020-04-03 14:14] VITALS: BP 98/64
[2020-04-03] MEDS: LIDODERM 5% PATCH TD PRN (15:25)
[2020-04-03] MEDS: ENOXAPARIN 40 MG/0.4 ML SQ SCH (16:52)
[2020-04-03] MEDS: NICOTINE 14MG/24 HR PATCH.TD24 TD SCH (16:52)
[2020-04-03 19:56] VITALS: BP 96/61
[2020-04-03] MEDS: SIMVASTATIN 20 MG TABLET PO SCH (20:52)
[2020-04-03] MEDS: ZOLPIDEM 10MG TABLET PO PRN (22:08)
[2020-04-04 01:15] VITALS: BP 97/62
[2020-04-04] MEDS: ACETAMINOPHEN 500 MG TABLET PO SCH ×6 (03:53→23:08)
[2020-04-04] MEDS: LORazepam 0.5MG TABLET PO SCH ×2 (03:53→15:27)
[2020-04-04] MEDS: PANTOPRAZOLE 40MG TABLET PO SCH ×2 (05:38→15:33)
[2020-04-04 06:53] VITALS: BP 103/71
[2020-04-04] MEDS: morphine SULFATE 15 MG TAB.IR PO PRN ×3 (07:51→23:07)
[2020-04-04] MEDS: DULOXETINE 20 MG CAPSULE.DR PO SCH ×2 (09:40→21:06)
[2020-04-04] MEDS: SENNA/DOCUSATE TABLET PO SCH (09:40)
[2020-04-04] MEDS: QUETIAPINE 200 MG TABLET PO SCH ×2 (09:40→21:06)
[2020-04-04] MEDS: GABAPENTIN 300 MG CAPSULE PO SCH ×3 (09:40→21:00)
[2020-04-04] MEDS: SUCRALFATE 1 GM/10 ML UDC PO SCH ×2 (09:40→21:06)
[2020-04-04] MEDS: LACTULOSE 10 GM/15 ML UDC PO SCH ×2 (09:40→21:06)
[2020-04-04] MEDS: BACLOFEN 10 MG TABLET PO SCH ×3 (09:40→21:06)
[2020-04-04] MEDS: OXYcodone IR 5MG TABLET PO PRN (09:53)
[2020-04-04 12:41] VITALS: BP 105/70
[2020-04-04] MEDS: ENOXAPARIN 40 MG/0.4 ML SQ SCH (15:33)
[2020-04-04] MEDS: NICOTINE 14MG/24 HR PATCH.TD24 TD SCH (15:39)
[2020-04-04 19:37] VITALS: BP 108/70
[2020-04-04] MEDS: SIMVASTATIN 20 MG TABLET PO SCH (21:06)
[2020-04-04] MEDS: ZOLPIDEM 10MG TABLET PO PRN (22:06)
[2020-04-05 00:14] VITALS: BP 102/67
[2020-04-05] MEDS: LORazepam 0.5MG TABLET PO SCH ×2 (03:03→15:59)
[2020-04-05] MEDS: ACETAMINOPHEN 500 MG TABLET PO SCH ×5 (05:58→22:20)
[2020-04-05] MEDS: PANTOPRAZOLE 40MG TABLET PO SCH ×2 (05:58→15:59)
[2020-04-05 08:31] VITALS: BP 112/74
[2020-04-05] MEDS: DULOXETINE 20 MG CAPSULE.DR PO SCH ×2 (09:09→20:31)
[2020-04-05] MEDS: morphine SULFATE 15 MG TAB.IR PO PRN ×2 (09:09→16:08)
[2020-04-05] MEDS: QUETIAPINE 200 MG TABLET PO SCH ×2 (09:09→20:31)
[2020-04-05] MEDS: SENNA/DOCUSATE TABLET PO SCH (09:09)
[2020-04-05] MEDS: LACTULOSE 10 GM/15 ML UDC PO SCH ×2 (09:09→20:31)
[2020-04-05] MEDS: SUCRALFATE 1 GM/10 ML UDC PO SCH ×2 (09:09→20:31)
[2020-04-05] MEDS: BACLOFEN 10 MG TABLET PO SCH ×3 (09:10→20:31)
[2020-04-05] MEDS: GABAPENTIN 300 MG CAPSULE PO SCH ×3 (09:16→20:32)
[2020-04-05] MEDS: BISACODYL 10 MG SUPP PR PRN (09:38)
[2020-04-05] MEDS: OXYcodone IR 5MG TABLET PO PRN ×2 (11:56→18:01)
[2020-04-05] MEDS: ONDANSETRON 2MG/ML, 2ML IVPush PRN (14:05)
[2020-04-05 15:59] VITALS: BP 101/68
[2020-04-05] MEDS: NICOTINE 14MG/24 HR PATCH.TD24 TD SCH (15:59)
[2020-04-05] MEDS: ENOXAPARIN 40 MG/0.4 ML SQ SCH (16:00)
[2020-04-05 19:20] VITALS: BP 102/68
[2020-04-05] MEDS: SIMVASTATIN 20 MG TABLET PO SCH (20:31)
[2020-04-05] MEDS: ZOLPIDEM 10MG TABLET PO PRN (22:20)
[2020-04-06 00:09] VITALS: BP 110/76
[2020-04-06] MEDS: ACETAMINOPHEN 500 MG TABLET PO SCH ×5 (05:11→21:29)
[2020-04-06] MEDS: PANTOPRAZOLE 40MG TABLET PO SCH ×2 (05:11→17:53)
[2020-04-06] MEDS: LORazepam 0.5MG TABLET PO SCH ×2 (05:11→17:53)
[2020-04-06 08:20] VITALS: BP 98/62
[2020-04-06] MEDS: GABAPENTIN 300 MG CAPSULE PO SCH ×3 (09:00→21:00)
[2020-04-06] MEDS: LACTULOSE 10 GM/15 ML UDC PO SCH ×2 (09:05→21:28)
[2020-04-06] MEDS: SUCRALFATE 1 GM/10 ML UDC PO SCH ×2 (09:05→21:28)
[2020-04-06] MEDS: SENNA/DOCUSATE TABLET PO SCH (09:05)
[2020-04-06] MEDS: DULOXETINE 20 MG CAPSULE.DR PO SCH ×2 (09:05→21:29)
[2020-04-06] MEDS: QUETIAPINE 200 MG TABLET PO SCH ×2 (09:05→21:29)
[2020-04-06] MEDS: BACLOFEN 10 MG TABLET PO SCH ×3 (09:06→21:28)
[2020-04-06] MEDS: morphine SULFATE 15 MG TAB.IR PO PRN ×2 (12:59→21:29)
[2020-04-06 15:24] VITALS: BP 110/68
[2020-04-06] MEDS: ENOXAPARIN 40 MG/0.4 ML SQ SCH (17:51)
[2020-04-06] MEDS: NICOTINE 14MG/24 HR PATCH.TD24 TD SCH (17:54)
[2020-04-06 20:49] VITALS: BP 105/64
[2020-04-06] MEDS: SIMVASTATIN 20 MG TABLET PO SCH (21:00)
[2020-04-06] MEDS: ZOLPIDEM 10MG TABLET PO PRN (22:56)
[2020-04-07 00:05] VITALS: BP 103/66
[2020-04-07] MEDS: ACETAMINOPHEN 500 MG TABLET PO SCH ×6 (01:08→21:36)
[2020-04-07] MEDS: OXYcodone IR 5MG TABLET PO PRN ×3 (01:10→16:47)
[2020-04-07 06:00] LABS: CREATININE 0.64 mg/dL (0.55-1.02)
[2020-04-07] MEDS: LORazepam 0.5MG TABLET PO SCH ×3 (06:10→22:18)
[2020-04-07] MEDS: PANTOPRAZOLE 40MG TABLET PO SCH ×2 (06:10→16:37)
[2020-04-07] MEDS: morphine SULFATE 15 MG TAB.IR PO PRN ×3 (06:13→21:44)
[2020-04-07 08:35] VITALS: BP 98/61
[2020-04-07] MEDS: LACTULOSE 10 GM/15 ML UDC PO SCH ×2 (08:58→21:35)
[2020-04-07] MEDS: QUETIAPINE 200 MG TABLET PO SCH ×2 (08:58→21:36)
[2020-04-07] MEDS: SUCRALFATE 1 GM/10 ML UDC PO SCH ×2 (08:58→21:35)
[2020-04-07] MEDS: DULOXETINE 20 MG CAPSULE.DR PO SCH ×2 (08:58→21:36)
[2020-04-07] MEDS: BACLOFEN 10 MG TABLET PO SCH ×3 (08:58→21:36)
[2020-04-07] MEDS: SENNA/DOCUSATE TABLET PO SCH (08:59)
[2020-04-07] MEDS: GABAPENTIN 300 MG CAPSULE PO SCH ×3 (09:00→21:00)
[2020-04-07 14:00] VITALS: BP 113/74
[2020-04-07] MEDS: ENOXAPARIN 40 MG/0.4 ML SQ SCH (16:37)
[2020-04-07] MEDS: NICOTINE 14MG/24 HR PATCH.TD24 TD SCH (16:37)
[2020-04-07 19:13] VITALS: BP 107/69
[2020-04-07] MEDS: SIMVASTATIN 20 MG TABLET PO SCH (21:00)
[2020-04-07] MEDS: ZOLPIDEM 10MG TABLET PO PRN (23:36)
[2020-04-08] MEDS: OXYcodone IR 5MG TABLET PO PRN ×3 (01:13→16:38)
[2020-04-08] MEDS: ACETAMINOPHEN 500 MG TABLET PO SCH ×6 (01:13→21:43)
[2020-04-08 01:53] VITALS: BP 104/68
[2020-04-08] MEDS: PANTOPRAZOLE 40MG TABLET PO SCH ×2 (05:06→16:37)
[2020-04-08] MEDS: morphine SULFATE 15 MG TAB.IR PO PRN ×3 (05:07→22:38)
[2020-04-08 06:23] LABS: ANION GAP 7 mmol/L (5-15); CALCIUM 8.7 mg/dL (8.5-10.1); CHLORIDE 108 mmol/L (98-107)
[2020-04-08 06:24] LABS: CREATININE 0.64 mg/dL (0.55-1.02)
[2020-04-08 06:52] VITALS: BP 107/69
[2020-04-08] MEDS: QUETIAPINE 200 MG TABLET PO SCH ×2 (08:55→21:43)
[2020-04-08] MEDS: SUCRALFATE 1 GM/10 ML UDC PO SCH ×2 (08:55→21:43)
[2020-04-08] MEDS: SENNA/DOCUSATE TABLET PO SCH (08:55)
[2020-04-08] MEDS: LACTULOSE 10 GM/15 ML UDC PO SCH ×2 (08:55→21:43)
[2020-04-08] MEDS: DULOXETINE 20 MG CAPSULE.DR PO SCH ×2 (08:55→21:43)
[2020-04-08] MEDS: BACLOFEN 10 MG TABLET PO SCH ×3 (08:56→21:42)
[2020-04-08] MEDS: GABAPENTIN 300 MG CAPSULE PO SCH ×3 (08:56→21:00)
[2020-04-08] MEDS: LORazepam 0.5MG TABLET PO SCH ×2 (10:29→21:43)
[2020-04-08 12:31] VITALS: BP 100/65
[2020-04-08] MEDS: ENOXAPARIN 40 MG/0.4 ML SQ SCH (16:34)
[2020-04-08] MEDS: NICOTINE 14MG/24 HR PATCH.TD24 TD SCH (16:34)
[2020-04-08 18:53] VITALS: BP 104/68
[2020-04-08] MEDS: SIMVASTATIN 20 MG TABLET PO SCH (21:00)
[2020-04-08] MEDS: ZOLPIDEM 10MG TABLET PO PRN (23:34)
[2020-04-09 00:37] VITALS: BP 96/61
[2020-04-09] MEDS: ACETAMINOPHEN 500 MG TABLET PO SCH ×6 (01:22→21:26)
[2020-04-09] MEDS: OXYcodone IR 5MG TABLET PO PRN ×2 (01:22→08:41)
[2020-04-09 03:26] VITALS: BP 103/66
[2020-04-09 04:41] LABS: BASOPHILS # (AUTO) 0.02 x10^3/uL (0-0.1); BASOPHILS % (AUTO) 0 % (0-1); EOSINOPHILS # (AUTO) 0.16 x10^3/uL (0-0.4); EOSINOPHILS % (AUTO) 4 % (1-7); LYMPHOCYTES # (AUTO) 2.04 x10^3/uL (1-3.4); LYMPHOCYTES % (AUTO) 45 % (22-44); MD NO; MEAN CORPUSCULAR HEMOGLOBIN 28.7 pg (27.0-34.8); MEAN CORPUSCULAR VOLUME 89.8 fL (80-100); MONOCYTES # (AUTO) 0.31 x10^3/uL (0.2-0.8); MONOCYTES % (AUTO) 7 % (2-9); NEUTROPHILS # (AUTO) 1.99 x10^3/uL (1.8-6.8); NEUTROPHILS % (AUTO) 44 % (42-75); PLATELET COUNT 182 x10^3/uL (130-400); RED BLOOD COUNT 4.06 x10^6/uL (3.82-5.3); RED CELL DISTRIBUTION WIDTH 15.7 % (9.6-15.2)
[2020-04-09 04:44] LABS: ANION GAP 6 mmol/L (5-15); CHLORIDE 108 mmol/L (98-107); CREATININE 0.66 mg/dL (0.55-1.02)
[2020-04-09] MEDS: PANTOPRAZOLE 40MG TABLET PO SCH ×2 (05:36→16:49)
[2020-04-09] MEDS: morphine SULFATE 15 MG TAB.IR PO PRN ×3 (05:36→23:44)
[2020-04-09] MEDS: BACLOFEN 10 MG TABLET PO SCH ×3 (08:32→22:43)
[2020-04-09] MEDS: QUETIAPINE 200 MG TABLET PO SCH ×2 (08:33→21:28)
[2020-04-09] MEDS: SUCRALFATE 1 GM/10 ML UDC PO SCH ×2 (08:33→21:26)
[2020-04-09] MEDS: LACTULOSE 10 GM/15 ML UDC PO SCH ×2 (08:33→21:26)
[2020-04-09] MEDS: SENNA/DOCUSATE TABLET PO SCH (08:33)
[2020-04-09] MEDS: DULOXETINE 20 MG CAPSULE.DR PO SCH ×2 (08:33→21:26)
[2020-04-09] MEDS: GABAPENTIN 300 MG CAPSULE PO SCH ×3 (08:35→21:00)
[2020-04-09] MEDS: LORazepam 0.5MG TABLET PO SCH ×2 (10:21→22:43)
[2020-04-09 11:41] VITALS: BP 100/60
[2020-04-09 12:55] VITALS: BP 99/64
[2020-04-09] MEDS: NICOTINE 14MG/24 HR PATCH.TD24 TD SCH (16:44)
[2020-04-09] MEDS: ENOXAPARIN 40 MG/0.4 ML SQ SCH (16:44)
[2020-04-09] MEDS: POLYETHYLENE GLYCOL 17 GM PACKET PO PRN (18:16)
[2020-04-09 19:52] VITALS: BP 98/66
[2020-04-09] MEDS: SIMVASTATIN 20 MG TABLET PO SCH (21:00)
[2020-04-10 00:48] VITALS: BP 100/66
[2020-04-10] MEDS: ZOLPIDEM 10MG TABLET PO PRN ×2 (00:48→21:57)
[2020-04-10] MEDS: ACETAMINOPHEN 500 MG TABLET PO SCH ×6 (01:17→20:35)
[2020-04-10 05:47] LABS: BASOPHILS # (AUTO) 0.02 x10^3/uL (0-0.1); BASOPHILS % (AUTO) 1 % (0-1); EOSINOPHILS # (AUTO) 0.13 x10^3/uL (0-0.4); EOSINOPHILS % (AUTO) 4 % (1-7); LYMPHOCYTES # (AUTO) 1.21 x10^3/uL (1-3.4); LYMPHOCYTES % (AUTO) 36 % (22-44); MD NO; MEAN CORPUSCULAR HEMOGLOBIN 28.6 pg (27.0-34.8); MEAN CORPUSCULAR HGB CONC 32.3 g/dL (32.4-35.8); MEAN CORPUSCULAR VOLUME 88.6 fL (80-100); MEAN PLATELET VOLUME 7.6 fL (7.4-10.4); MONOCYTES # (AUTO) 0.27 x10^3/uL (0.2-0.8); MONOCYTES % (AUTO) 8 % (2-9); NEUTROPHILS # (AUTO) 1.78 x10^3/uL (1.8-6.8); NEUTROPHILS % (AUTO) 52 % (42-75); PLATELET COUNT 161 x10^3/uL (130-400); RED BLOOD COUNT 4.12 x10^6/uL (3.82-5.3); RED CELL DISTRIBUTION WIDTH 16.2 % (9.6-15.2)
[2020-04-10 05:51] LABS: ANION GAP 7 mmol/L (5-15); CALCIUM 9.1 mg/dL (8.5-10.1); CHLORIDE 107 mmol/L (98-107)
[2020-04-10 05:53] LABS: CREATININE 0.63 mg/dL (0.55-1.02)
[2020-04-10] MEDS: PANTOPRAZOLE 40MG TABLET PO SCH ×2 (05:56→16:15)
[2020-04-10 07:26] VITALS: BP 116/76
[2020-04-10] MEDS: SUCRALFATE 1 GM/10 ML UDC PO SCH ×2 (08:02→20:35)
[2020-04-10] MEDS: LACTULOSE 10 GM/15 ML UDC PO SCH ×2 (08:02→20:35)
[2020-04-10] MEDS: DULOXETINE 20 MG CAPSULE.DR PO SCH ×2 (08:03→20:36)
[2020-04-10] MEDS: BACLOFEN 10 MG TABLET PO SCH ×3 (08:03→20:36)
[2020-04-10] MEDS: GABAPENTIN 300 MG CAPSULE PO SCH ×3 (08:03→20:33)
[2020-04-10] MEDS: SENNA/DOCUSATE TABLET PO SCH (08:03)
[2020-04-10] MEDS: QUETIAPINE 200 MG TABLET PO SCH ×2 (08:03→20:35)
[2020-04-10] MEDS: morphine SULFATE 15 MG TAB.IR PO PRN ×3 (08:04→20:39)
[2020-04-10] MEDS: LORazepam 0.5MG TABLET PO SCH ×2 (10:33→21:57)
[2020-04-10 13:46] VITALS: BP 111/68
[2020-04-10] MEDS: POLYETHYLENE GLYCOL 17 GM PACKET PO PRN (14:15)
[2020-04-10] MEDS: ENOXAPARIN 40 MG/0.4 ML SQ SCH (16:16)
[2020-04-10] MEDS: NICOTINE 14MG/24 HR PATCH.TD24 TD SCH (16:16)
[2020-04-10] MEDS: OXYcodone IR 5MG TABLET PO PRN (16:26)
[2020-04-10 19:35] VITALS: BP 100/66
[2020-04-10] MEDS: SIMVASTATIN 20 MG TABLET PO SCH (20:36)
[2020-04-11] MEDS: ACETAMINOPHEN 500 MG TABLET PO SCH ×6 (00:06→22:09)
[2020-04-11] MEDS: OXYcodone IR 5MG TABLET PO PRN ×3 (00:07→18:27)
[2020-04-11 00:25] VITALS: BP 99/66
[2020-04-11] MEDS: morphine SULFATE 15 MG TAB.IR PO PRN ×3 (05:30→15:30)
[2020-04-11] MEDS: PANTOPRAZOLE 40MG TABLET PO SCH ×2 (05:31→15:30)
[2020-04-11 07:06] VITALS: BP 108/73
[2020-04-11] MEDS: GABAPENTIN 300 MG CAPSULE PO SCH ×3 (09:00→21:02)
[2020-04-11] MEDS: LACTULOSE 10 GM/15 ML UDC PO SCH ×2 (09:33→20:11)
[2020-04-11] MEDS: SUCRALFATE 1 GM/10 ML UDC PO SCH ×2 (09:33→20:11)
[2020-04-11] MEDS: DULOXETINE 20 MG CAPSULE.DR PO SCH ×2 (09:34→20:11)
[2020-04-11] MEDS: BACLOFEN 10 MG TABLET PO SCH ×3 (09:34→20:11)
[2020-04-11] MEDS: LORazepam 0.5MG TABLET PO SCH ×2 (09:34→22:09)
[2020-04-11] MEDS: QUETIAPINE 200 MG TABLET PO SCH ×2 (09:34→20:10)
[2020-04-11] MEDS: SENNA/DOCUSATE TABLET PO SCH (09:34)
[2020-04-11 13:57] VITALS: BP 104/69
[2020-04-11] MEDS: NICOTINE 14MG/24 HR PATCH.TD24 TD SCH (15:30)
[2020-04-11] MEDS: ENOXAPARIN 40 MG/0.4 ML SQ SCH (15:31)
[2020-04-11 19:00] VITALS: BP 103/70
[2020-04-11] MEDS: SIMVASTATIN 20 MG TABLET PO SCH (20:10)
[2020-04-11] MEDS: ZOLPIDEM 10MG TABLET PO PRN (22:09)
[2020-04-12] MEDS: morphine SULFATE 15 MG TAB.IR PO PRN ×4 (00:02→23:18)
[2020-04-12 00:09] VITALS: BP 106/69
[2020-04-12] MEDS: ACETAMINOPHEN 500 MG TABLET PO SCH ×6 (03:27→20:41)
[2020-04-12] MEDS: OXYcodone IR 5MG TABLET PO PRN ×3 (05:50→20:42)
[2020-04-12] MEDS: PANTOPRAZOLE 40MG TABLET PO SCH ×2 (05:50→15:57)
[2020-04-12 06:51] VITALS: BP 106/71
[2020-04-12] MEDS: LACTULOSE 10 GM/15 ML UDC PO SCH ×2 (08:08→20:40)
[2020-04-12] MEDS: DULOXETINE 20 MG CAPSULE.DR PO SCH ×2 (08:09→20:41)
[2020-04-12] MEDS: SENNA/DOCUSATE TABLET PO SCH (08:09)
[2020-04-12] MEDS: GABAPENTIN 300 MG CAPSULE PO SCH ×3 (08:09→20:42)
[2020-04-12] MEDS: QUETIAPINE 200 MG TABLET PO SCH ×2 (08:09→20:41)
[2020-04-12] MEDS: BACLOFEN 10 MG TABLET PO SCH ×3 (08:09→20:41)
[2020-04-12] MEDS: SUCRALFATE 1 GM/10 ML UDC PO SCH ×2 (08:09→20:40)
[2020-04-12] MEDS: LORazepam 0.5MG TABLET PO SCH ×2 (10:42→22:04)
[2020-04-12 13:10] VITALS: BP 109/68
[2020-04-12] MEDS: ENOXAPARIN 40 MG/0.4 ML SQ SCH (15:57)
[2020-04-12] MEDS: NICOTINE 14MG/24 HR PATCH.TD24 TD SCH (15:58)
[2020-04-12] MEDS: SIMVASTATIN 20 MG TABLET PO SCH (20:41)
[2020-04-12 21:07] VITALS: BP 105/68
[2020-04-12] MEDS: ZOLPIDEM 10MG TABLET PO PRN (22:04)
[2020-04-13 01:22] VITALS: BP 101/70
[2020-04-13] MEDS: ACETAMINOPHEN 500 MG TABLET PO SCH ×6 (02:59→22:33)
[2020-04-13] MEDS: OXYcodone IR 5MG TABLET PO PRN ×3 (04:31→21:04)
[2020-04-13 05:04] LABS: MEAN CORPUSCULAR HEMOGLOBIN 28.4 pg (27.0-34.8); MEAN CORPUSCULAR HGB CONC 31.6 g/dL (32.4-35.8); MEAN CORPUSCULAR VOLUME 89.7 fL (80-100); MEAN PLATELET VOLUME 7.6 fL (7.4-10.4); PLATELET COUNT 200 x10^3/uL (130-400); RED BLOOD COUNT 4.21 x10^6/uL (3.82-5.3); RED CELL DISTRIBUTION WIDTH 16.1 % (9.6-15.2)
[2020-04-13 05:06] LABS: ANION GAP 7 mmol/L (5-15); CALCIUM 8.9 mg/dL (8.5-10.1); CHLORIDE 105 mmol/L (98-107)
[2020-04-13 05:09] LABS: CREATININE 0.73 mg/dL (0.55-1.02)
[2020-04-13 05:39] LABS: BASOPHILS # (AUTO) 0.02 x10^3/uL (0-0.1); BASOPHILS % (AUTO) 0 % (0-1); EOSINOPHILS # (AUTO) 0.19 x10^3/uL (0-0.4); EOSINOPHILS % (AUTO) 4 % (1-7); LYMPHOCYTES # (AUTO) 1.96 x10^3/uL (1-3.4); LYMPHOCYTES % (AUTO) 41 % (22-44); MD SCAN; MONOCYTES # (AUTO) 0.33 x10^3/uL (0.2-0.8); MONOCYTES % (AUTO) 7 % (2-9); NEUTROPHILS # (AUTO) 2.26 x10^3/uL (1.8-6.8); NEUTROPHILS % (AUTO) 48 % (42-75)
[2020-04-13] MEDS: PANTOPRAZOLE 40MG TABLET PO SCH ×2 (06:21→16:33)
[2020-04-13] MEDS: morphine SULFATE 15 MG TAB.IR PO PRN ×3 (06:22→18:38)
[2020-04-13 07:45] VITALS: BP 102/68
[2020-04-13] MEDS: GABAPENTIN 300 MG CAPSULE PO SCH ×5 (09:00→21:05)
[2020-04-13] MEDS: SENNA/DOCUSATE TABLET PO SCH (09:11)
[2020-04-13] MEDS: DULOXETINE 20 MG CAPSULE.DR PO SCH ×2 (09:11→21:04)
[2020-04-13] MEDS: BACLOFEN 10 MG TABLET PO SCH ×3 (09:12→21:04)
[2020-04-13] MEDS: QUETIAPINE 200 MG TABLET PO SCH ×2 (09:12→21:04)
[2020-04-13] MEDS: LACTULOSE 10 GM/15 ML UDC PO SCH (09:12)
[2020-04-13] MEDS: SUCRALFATE 1 GM/10 ML UDC PO SCH ×2 (09:14→21:05)
[2020-04-13] MEDS: LORazepam 0.5MG TABLET PO SCH ×2 (10:00→22:33)
[2020-04-13] MEDS: METHYLNALTREXONE 12 MG/0.6 ML SYR SQ SCH (12:19)
[2020-04-13 14:29] VITALS: BP 112/71
[2020-04-13] MEDS: ENOXAPARIN 40 MG/0.4 ML SQ SCH (16:29)
[2020-04-13] MEDS: NICOTINE 14MG/24 HR PATCH.TD24 TD SCH (16:30)
[2020-04-13 20:25] VITALS: BP 101/69
[2020-04-13] MEDS: SIMVASTATIN 20 MG TABLET PO SCH (21:00)
[2020-04-13] MEDS: ZOLPIDEM 10MG TABLET PO PRN (23:02)
[2020-04-14] MEDS: morphine SULFATE 15 MG TAB.IR PO PRN ×3 (00:40→16:46)
[2020-04-14 01:14] VITALS: BP 105/64
[2020-04-14] MEDS: ACETAMINOPHEN 500 MG TABLET PO SCH ×6 (02:45→22:37)
[2020-04-14] MEDS: PANTOPRAZOLE 40MG TABLET PO SCH ×2 (06:00→16:26)
[2020-04-14] MEDS: OXYcodone IR 5MG TABLET PO PRN ×3 (06:03→21:21)
[2020-04-14 06:46] VITALS: BP 101/66
[2020-04-14] MEDS: QUETIAPINE 200 MG TABLET PO SCH ×2 (08:40→19:58)
[2020-04-14] MEDS: DULOXETINE 20 MG CAPSULE.DR PO SCH ×2 (08:40→19:58)
[2020-04-14] MEDS: BACLOFEN 10 MG TABLET PO SCH ×3 (08:40→19:58)
[2020-04-14] MEDS: SUCRALFATE 1 GM/10 ML UDC PO SCH ×2 (08:40→19:56)
[2020-04-14] MEDS: GABAPENTIN 300 MG CAPSULE PO SCH ×5 (08:40→20:02)
[2020-04-14] MEDS: LORazepam 0.5MG TABLET PO SCH ×2 (10:00→22:37)
[2020-04-14 15:43] VITALS: BP 102/65
[2020-04-14] MEDS: ENOXAPARIN 40 MG/0.4 ML SQ SCH (16:26)
[2020-04-14] MEDS: NICOTINE 14MG/24 HR PATCH.TD24 TD SCH (16:27)
[2020-04-14] MEDS: SIMVASTATIN 20 MG TABLET PO SCH (19:57)
[2020-04-14 20:26] VITALS: BP 107/71
[2020-04-14] MEDS: ZOLPIDEM 10MG TABLET PO PRN (22:37)
[2020-04-15 01:51] VITALS: BP 118/80
[2020-04-15] MEDS: morphine SULFATE 15 MG TAB.IR PO PRN ×4 (02:14→22:47)
[2020-04-15] MEDS: ACETAMINOPHEN 500 MG TABLET PO SCH ×6 (02:30→22:47)
[2020-04-15] MEDS: OXYcodone IR 5MG TABLET PO PRN ×2 (04:51→14:23)
[2020-04-15 04:59] LABS: BASOPHILS # (AUTO) 0.06 x10^3/uL (0-0.1); BASOPHILS % (AUTO) 1 % (0-1); EOSINOPHILS # (AUTO) 0.18 x10^3/uL (0-0.4); EOSINOPHILS % (AUTO) 3 % (1-7); LYMPHOCYTES # (AUTO) 2.09 x10^3/uL (1-3.4); LYMPHOCYTES % (AUTO) 38 % (22-44); MD NO; MEAN CORPUSCULAR HEMOGLOBIN 28.7 pg (27.0-34.8); MEAN CORPUSCULAR HGB CONC 32.4 g/dL (32.4-35.8); MEAN CORPUSCULAR VOLUME 88.6 fL (80-100); MEAN PLATELET VOLUME 7.4 fL (7.4-10.4); MONOCYTES # (AUTO) 0.31 x10^3/uL (0.2-0.8); MONOCYTES % (AUTO) 6 % (2-9); NEUTROPHILS # (AUTO) 2.89 x10^3/uL (1.8-6.8); NEUTROPHILS % (AUTO) 52 % (42-75); PLATELET COUNT 215 x10^3/uL (130-400); RED BLOOD COUNT 4.25 x10^6/uL (3.82-5.3); RED CELL DISTRIBUTION WIDTH 16.1 % (9.6-15.2)
[2020-04-15 05:13] LABS: ANION GAP 5 mmol/L (5-15); CALCIUM 9.2 mg/dL (8.5-10.1); CHLORIDE 107 mmol/L (98-107)
[2020-04-15 05:14] LABS: CREATININE 0.67 mg/dL (0.55-1.02)
[2020-04-15] MEDS: PANTOPRAZOLE 40MG TABLET PO SCH ×2 (06:26→16:27)
[2020-04-15 07:03] VITALS: BP 91/57
[2020-04-15] MEDS: SUCRALFATE 1 GM/10 ML UDC PO SCH ×2 (08:22→19:53)
[2020-04-15] MEDS: DULOXETINE 20 MG CAPSULE.DR PO SCH ×2 (08:22→19:55)
[2020-04-15] MEDS: BACLOFEN 10 MG TABLET PO SCH ×3 (08:23→19:55)
[2020-04-15] MEDS: GABAPENTIN 300 MG CAPSULE PO SCH ×3 (08:23→20:09)
[2020-04-15] MEDS: QUETIAPINE 200 MG TABLET PO SCH ×2 (08:23→19:53)
[2020-04-15] MEDS: LORazepam 0.5MG TABLET PO SCH ×2 (10:00→22:47)
[2020-04-15] MEDS: METHYLNALTREXONE 12 MG/0.6 ML SYR SQ SCH (12:32)
[2020-04-15 13:51] VITALS: BP 99/70
[2020-04-15] MEDS: NICOTINE 14MG/24 HR PATCH.TD24 TD SCH (16:08)
[2020-04-15] MEDS: ENOXAPARIN 40 MG/0.4 ML SQ SCH (16:08)
[2020-04-15] MEDS: SIMVASTATIN 20 MG TABLET PO SCH (19:54)
[2020-04-15] MEDS: LACTULOSE 10 GM/15 ML UDC PO PRN (20:04)
[2020-04-15] MEDS: SENNA/DOCUSATE TABLET PO PRN (20:04)
[2020-04-15] MEDS: POLYETHYLENE GLYCOL 17 GM PACKET PO PRN (20:05)
[2020-04-15 20:39] VITALS: BP 106/72
[2020-04-15] MEDS: ZOLPIDEM 10MG TABLET PO PRN (22:51)
[2020-04-16 01:26] VITALS: BP 113/76
[2020-04-16] MEDS: ACETAMINOPHEN 500 MG TABLET PO SCH ×6 (02:30→23:51)
[2020-04-16] MEDS: morphine SULFATE 15 MG TAB.IR PO PRN ×3 (05:48→21:17)
[2020-04-16] MEDS: PANTOPRAZOLE 40MG TABLET PO SCH ×2 (05:48→15:03)
[2020-04-16] MEDS: DULOXETINE 20 MG CAPSULE.DR PO SCH ×2 (07:53→21:16)
[2020-04-16] MEDS: BACLOFEN 10 MG TABLET PO SCH (07:54)
[2020-04-16] MEDS: SUCRALFATE 1 GM/10 ML UDC PO SCH ×2 (07:54→21:18)
[2020-04-16] MEDS: QUETIAPINE 200 MG TABLET PO SCH ×2 (07:56→21:17)
[2020-04-16] MEDS: OXYcodone IR 5MG TABLET PO PRN ×2 (07:59→17:18)
[2020-04-16] MEDS: GABAPENTIN 300 MG CAPSULE PO SCH ×3 (08:01→19:19)
[2020-04-16] MEDS: LACTULOSE 10 GM/15 ML UDC PO PRN (08:09)
[2020-04-16] MEDS: POLYETHYLENE GLYCOL 17 GM PACKET PO PRN (08:10)
[2020-04-16] MEDS: LORazepam 0.5MG TABLET PO SCH ×2 (10:00→12:18)
[2020-04-16 10:48] VITALS: BP 120/80
[2020-04-16 12:48] VITALS: BP 104/66
[2020-04-16] MEDS: BACLOFEN 10 MG TABLET PO PRN ×2 (15:03→21:17)
[2020-04-16] MEDS: NICOTINE 14MG/24 HR PATCH.TD24 TD SCH (15:03)
[2020-04-16] MEDS: ENOXAPARIN 40 MG/0.4 ML SQ SCH (15:03)
[2020-04-16] MEDS: ONDANSETRON 2MG/ML, 2ML IVPush PRN (17:18)
[2020-04-16 18:53] VITALS: BP 103/67
[2020-04-16] MEDS: BISACODYL 10 MG SUPP PR PRN (21:16)
[2020-04-16] MEDS: SIMVASTATIN 20 MG TABLET PO SCH (21:16)
[2020-04-16] MEDS: ZOLPIDEM 10MG TABLET PO PRN (23:58)
[2020-04-16] MEDS: LORazepam 1MG TABLET PO SCH (23:58)
[2020-04-17 01:08] VITALS: BP 98/64
[2020-04-17] MEDS: ACETAMINOPHEN 500 MG TABLET PO SCH ×6 (02:30→23:01)
[2020-04-17] MEDS: PANTOPRAZOLE 40MG TABLET PO SCH ×2 (05:55→16:16)
[2020-04-17] MEDS: BACLOFEN 10 MG TABLET PO PRN ×2 (05:56→18:35)
[2020-04-17] MEDS: morphine SULFATE 15 MG TAB.IR PO PRN ×3 (05:56→18:35)
[2020-04-17] MEDS: ONDANSETRON 2MG/ML, 2ML IVPush PRN (06:06)
[2020-04-17] MEDS: QUETIAPINE 200 MG TABLET PO SCH ×2 (08:59→20:10)
[2020-04-17] MEDS: GABAPENTIN 300 MG CAPSULE PO SCH ×3 (08:59→20:49)
[2020-04-17] MEDS: SUCRALFATE 1 GM/10 ML UDC PO SCH ×2 (08:59→20:10)
[2020-04-17] MEDS: DULOXETINE 20 MG CAPSULE.DR PO SCH ×2 (08:59→20:10)
[2020-04-17] MEDS: LORazepam 1MG TABLET PO SCH (09:00)
[2020-04-17 09:05] VITALS: BP 109/69
[2020-04-17] MEDS: METHYLNALTREXONE 12 MG/0.6 ML SYR SQ SCH (09:20)
[2020-04-17] MEDS: OXYcodone IR 5MG TABLET PO PRN (10:25)
[2020-04-17] MEDS ORDERED: NICOTINE 21 MG/24 HR PATCH.TD24 TD ONE (12:30)
[2020-04-17 15:55] VITALS: BP 122/78
[2020-04-17] MEDS: ENOXAPARIN 40 MG/0.4 ML SQ SCH (16:17)
[2020-04-17 20:07] VITALS: BP 100/60
[2020-04-17] MEDS: SIMVASTATIN 20 MG TABLET PO SCH (20:11)
[2020-04-17] MEDS: POLYETHYLENE GLYCOL 17 GM PACKET PO PRN (20:18)
[2020-04-17] MEDS: LORazepam 1MG TABLET PO PRN (23:01)
[2020-04-18] MEDS: ZOLPIDEM 10MG TABLET PO PRN ×2 (00:27→22:47)
[2020-04-18] MEDS: morphine SULFATE 15 MG TAB.IR PO PRN ×4 (02:21→23:58)
[2020-04-18] MEDS: ACETAMINOPHEN 500 MG TABLET PO SCH ×5 (02:21→20:13)
[2020-04-18 02:24] VITALS: BP 116/72
[2020-04-18] MEDS: PANTOPRAZOLE 40MG TABLET PO SCH ×2 (06:10→15:20)
[2020-04-18] MEDS: OXYcodone IR 5MG TABLET PO PRN ×3 (06:10→18:17)
[2020-04-18 07:39] VITALS: BP 102/69
[2020-04-18 07:48] VITALS: BP 136/85
[2020-04-18] MEDS: GABAPENTIN 300 MG CAPSULE PO SCH ×3 (08:12→20:14)
[2020-04-18] MEDS: SUCRALFATE 1 GM/10 ML UDC PO SCH ×2 (08:20→20:14)
[2020-04-18] MEDS: QUETIAPINE 200 MG TABLET PO SCH ×2 (08:21→20:13)
[2020-04-18] MEDS: BACLOFEN 10 MG TABLET PO PRN ×3 (08:21→20:19)
[2020-04-18] MEDS: DULOXETINE 20 MG CAPSULE.DR PO SCH ×2 (08:21→20:14)
[2020-04-18] MEDS: POLYETHYLENE GLYCOL 17 GM PACKET PO PRN (08:26)
[2020-04-18] MEDS: LACTULOSE 10 GM/15 ML UDC PO PRN ×2 (08:26→15:36)
[2020-04-18] MEDS: BISACODYL 10 MG SUPP PR PRN (11:38)
[2020-04-18] MEDS: LORazepam 1MG TABLET PO PRN ×2 (11:38→23:59)
[2020-04-18 12:10] VITALS: BP 115/73
[2020-04-18] MEDS: ENOXAPARIN 40 MG/0.4 ML SQ SCH (15:21)
[2020-04-18] MEDS: SENNA/DOCUSATE TABLET PO PRN (15:36)
[2020-04-18 19:17] VITALS: BP 99/63
[2020-04-18] MEDS: SIMVASTATIN 20 MG TABLET PO SCH (20:13)
[2020-04-19 00:55] VITALS: BP 113/73
[2020-04-19] MEDS: ACETAMINOPHEN 500 MG TABLET PO SCH ×6 (01:30→22:56)
[2020-04-19] MEDS: OXYcodone IR 5MG TABLET PO PRN ×3 (02:31→18:20)
[2020-04-19] MEDS: BACLOFEN 10 MG TABLET PO PRN ×2 (04:18→21:28)
[2020-04-19] MEDS: PANTOPRAZOLE 40MG TABLET PO SCH ×2 (05:10→15:47)
[2020-04-19] MEDS: morphine SULFATE 15 MG TAB.IR PO PRN ×2 (06:21→16:43)
[2020-04-19 07:32] VITALS: BP 128/77
[2020-04-19] MEDS: DULOXETINE 20 MG CAPSULE.DR PO SCH ×2 (08:05→21:28)
[2020-04-19] MEDS: QUETIAPINE 200 MG TABLET PO SCH ×2 (08:05→21:28)
[2020-04-19] MEDS: SUCRALFATE 1 GM/10 ML UDC PO SCH ×2 (08:05→21:28)
[2020-04-19] MEDS: GABAPENTIN 300 MG CAPSULE PO SCH ×3 (08:07→21:00)
[2020-04-19] MEDS: METHYLNALTREXONE 12 MG/0.6 ML SYR SQ SCH (09:46)
[2020-04-19 14:12] VITALS: BP 110/74
[2020-04-19] MEDS: ENOXAPARIN 40 MG/0.4 ML SQ SCH (15:47)
[2020-04-19 19:42] VITALS: BP 110/69
[2020-04-19] MEDS: SIMVASTATIN 20 MG TABLET PO SCH (21:00)
[2020-04-19] MEDS: LORazepam 1MG TABLET PO PRN (22:56)
[2020-04-19] MEDS: ZOLPIDEM 10MG TABLET PO PRN (23:29)
[2020-04-20 00:30] VITALS: BP 111/71
[2020-04-20] MEDS: morphine SULFATE 15 MG TAB.IR PO PRN ×3 (00:46→16:53)
[2020-04-20] MEDS: BISACODYL 10 MG SUPP PR PRN (00:50)
[2020-04-20] MEDS: OXYcodone IR 5MG TABLET PO PRN ×2 (02:24→10:38)
[2020-04-20] MEDS: ACETAMINOPHEN 500 MG TABLET PO SCH ×5 (03:35→21:08)
[2020-04-20] MEDS: BACLOFEN 10 MG TABLET PO PRN ×4 (03:36→21:51)
[2020-04-20] MEDS: PANTOPRAZOLE 40MG TABLET PO SCH ×2 (05:35→16:54)
[2020-04-20 08:20] VITALS: BP 122/78
[2020-04-20] MEDS: LIDODERM 5% PATCH TD PRN (08:39)
[2020-04-20] MEDS: DULOXETINE 20 MG CAPSULE.DR PO SCH ×2 (08:50→21:09)
[2020-04-20] MEDS: SUCRALFATE 1 GM/10 ML UDC PO SCH ×2 (08:50→21:08)
[2020-04-20] MEDS: QUETIAPINE 200 MG TABLET PO SCH ×2 (08:50→21:09)
[2020-04-20] MEDS: GABAPENTIN 300 MG CAPSULE PO SCH ×3 (08:52→21:00)
[2020-04-20] MEDS: LACTULOSE 10 GM/15 ML UDC PO PRN (12:11)
[2020-04-20] MEDS: POLYETHYLENE GLYCOL 17 GM PACKET PO PRN (12:11)
[2020-04-20 14:30] VITALS: BP 104/66
[2020-04-20] MEDS: ENOXAPARIN 40 MG/0.4 ML SQ SCH (16:54)
[2020-04-20 19:15] VITALS: BP 120/72
[2020-04-20] MEDS: SIMVASTATIN 20 MG TABLET PO SCH (21:00)
[2020-04-21] MEDS: morphine SULFATE 15 MG TAB.IR PO PRN ×4 (00:14→20:20)
[2020-04-21] MEDS: ZOLPIDEM 10MG TABLET PO PRN ×2 (01:13→22:24)
[2020-04-21] MEDS: ACETAMINOPHEN 500 MG TABLET PO SCH ×6 (01:13→22:24)
[2020-04-21 01:40] VITALS: BP 131/83
[2020-04-21] MEDS: LORazepam 1MG TABLET PO PRN ×3 (03:17→23:33)
[2020-04-21] MEDS: BACLOFEN 10 MG TABLET PO PRN ×3 (05:30→21:21)
[2020-04-21] MEDS: ONDANSETRON 2MG/ML, 2ML IVPush PRN (05:39)
[2020-04-21] MEDS: PANTOPRAZOLE 40MG TABLET PO SCH ×2 (05:48→16:25)
[2020-04-21 08:10] VITALS: BP 102/66
[2020-04-21 08:12] VITALS: BP 102/66
[2020-04-21] MEDS: GABAPENTIN 300 MG CAPSULE PO SCH ×3 (09:00→20:58)
[2020-04-21] MEDS: DULOXETINE 20 MG CAPSULE.DR PO SCH ×2 (09:13→21:02)
[2020-04-21] MEDS: QUETIAPINE 200 MG TABLET PO SCH ×2 (09:13→21:02)
[2020-04-21] MEDS: SUCRALFATE 1 GM/10 ML UDC PO SCH ×2 (09:14→21:02)
[2020-04-21] MEDS: METHYLNALTREXONE 12 MG/0.6 ML SYR SQ SCH (10:30)
[2020-04-21] MEDS: LACTULOSE 10 GM/15 ML UDC PO PRN (13:00)
[2020-04-21 15:59] VITALS: BP 100/65
[2020-04-21] MEDS: POLYETHYLENE GLYCOL 17 GM PACKET PO PRN (16:06)
[2020-04-21] MEDS: ENOXAPARIN 40 MG/0.4 ML SQ SCH (16:25)
[2020-04-21 18:35] VITALS: BP 106/66
[2020-04-21] MEDS: SIMVASTATIN 20 MG TABLET PO SCH (21:00)
[2020-04-21] MEDS: LIDODERM 5% PATCH TD PRN (23:33)
[2020-04-22 00:22] VITALS: BP 123/71
[2020-04-22] MEDS: ACETAMINOPHEN 500 MG TABLET PO SCH ×6 (02:34→21:09)
[2020-04-22] MEDS: morphine SULFATE 15 MG TAB.IR PO PRN ×3 (05:23→20:12)
[2020-04-22] MEDS: PANTOPRAZOLE 40MG TABLET PO SCH ×2 (05:25→16:27)
[2020-04-22 06:10] LABS: CREATININE 0.66 mg/dL (0.55-1.02)
[2020-04-22] MEDS: BACLOFEN 10 MG TABLET PO PRN ×3 (06:35→21:10)
[2020-04-22] MEDS: GABAPENTIN 300 MG CAPSULE PO SCH ×3 (06:58→20:14)
[2020-04-22 07:38] VITALS: BP 112/72
[2020-04-22] MEDS: QUETIAPINE 200 MG TABLET PO SCH ×2 (09:15→20:12)
[2020-04-22] MEDS: DULOXETINE 20 MG CAPSULE.DR PO SCH ×2 (09:15→20:14)
[2020-04-22] MEDS: LORazepam 1MG TABLET PO PRN ×2 (09:35→22:30)
[2020-04-22] MEDS: SUCRALFATE 1 GM/10 ML UDC PO SCH ×2 (10:34→20:12)
[2020-04-22] MEDS: POLYETHYLENE GLYCOL 17 GM PACKET PO PRN (12:12)
[2020-04-22 14:11] VITALS: BP 104/67
[2020-04-22] MEDS: ENOXAPARIN 40 MG/0.4 ML SQ SCH (16:27)
[2020-04-22 19:57] VITALS: BP 125/85
[2020-04-22] MEDS: SIMVASTATIN 20 MG TABLET PO SCH (20:13)
[2020-04-22] MEDS: ZOLPIDEM 10MG TABLET PO PRN (22:30)
[2020-04-23 01:24] VITALS: BP 118/77
[2020-04-23] MEDS: ACETAMINOPHEN 500 MG TABLET PO SCH ×6 (01:28→20:03)
[2020-04-23] MEDS: LORazepam 1MG TABLET PO PRN ×3 (02:53→22:37)
[2020-04-23] MEDS: BACLOFEN 10 MG TABLET PO PRN ×3 (02:53→15:29)
[2020-04-23] MEDS: morphine SULFATE 15 MG TAB.IR PO PRN ×2 (05:14→11:19)
[2020-04-23] MEDS: PANTOPRAZOLE 40MG TABLET PO SCH ×2 (05:14→17:02)
[2020-04-23 07:33] VITALS: BP 119/80
[2020-04-23] MEDS: SUCRALFATE 1 GM/10 ML UDC PO SCH ×2 (08:41→20:02)
[2020-04-23] MEDS: DULOXETINE 20 MG CAPSULE.DR PO SCH ×2 (08:42→20:03)
[2020-04-23] MEDS: QUETIAPINE 200 MG TABLET PO SCH ×2 (08:42→20:02)
[2020-04-23] MEDS: GABAPENTIN 300 MG CAPSULE PO SCH ×3 (08:42→20:05)
[2020-04-23] MEDS: METHYLNALTREXONE 12 MG/0.6 ML SYR SQ SCH (10:30)
[2020-04-23] MEDS: POLYETHYLENE GLYCOL 17 GM PACKET PO PRN (12:33)
[2020-04-23] MEDS: LACTULOSE 10 GM/15 ML UDC PO PRN (12:47)
[2020-04-23 13:03] VITALS: BP 101/68
[2020-04-23] MEDS: ENOXAPARIN 40 MG/0.4 ML SQ SCH (17:03)
[2020-04-23] MEDS: NICOTINE 14MG/24 HR PATCH.TD24 TD SCH (17:31)
[2020-04-23] MEDS ORDERED: HYDROmorphone 2MG TABLET ONE (19:59)
[2020-04-23] MEDS: SIMVASTATIN 20 MG TABLET PO SCH (20:02)
[2020-04-23] MEDS: HYDROmorphone 4MG TABLET PO PRN (20:04)
[2020-04-23 20:37] VITALS: BP 119/77
[2020-04-23] MEDS: ZOLPIDEM 10MG TABLET PO PRN (22:37)
[2020-04-24] MEDS: BACLOFEN 10 MG TABLET PO PRN ×4 (01:06→22:10)
[2020-04-24] MEDS: ACETAMINOPHEN 500 MG TABLET PO SCH ×7 (01:06→22:10)
[2020-04-24 01:08] VITALS: BP 134/83
[2020-04-24] MEDS ORDERED: HYDROmorphone 2MG TABLET ONE ×4 (02:46→22:03)
[2020-04-24] MEDS: HYDROmorphone 4MG TABLET PO PRN ×3 (02:48→15:08)
[2020-04-24] MEDS: PANTOPRAZOLE 40MG TABLET PO SCH ×2 (05:52→15:07)
[2020-04-24 07:23] VITALS: BP 108/71
[2020-04-24] MEDS: QUETIAPINE 200 MG TABLET PO SCH ×2 (08:51→20:17)
[2020-04-24] MEDS: DULOXETINE 20 MG CAPSULE.DR PO SCH ×2 (08:51→20:17)
[2020-04-24] MEDS: GABAPENTIN 300 MG CAPSULE PO SCH ×4 (08:53→20:19)
[2020-04-24] MEDS: LORazepam 1MG TABLET PO PRN (08:53)
[2020-04-24] MEDS: SUCRALFATE 1 GM/10 ML UDC PO SCH ×2 (08:54→20:18)
[2020-04-24] MEDS: LACTULOSE 10 GM/15 ML UDC PO PRN (11:11)
[2020-04-24] MEDS: POLYETHYLENE GLYCOL 17 GM PACKET PO PRN (11:11)
[2020-04-24] MEDS: SENNA/DOCUSATE TABLET PO PRN (11:12)
[2020-04-24 12:29] VITALS: BP 112/73
[2020-04-24] MEDS: ENOXAPARIN 40 MG/0.4 ML SQ SCH (15:07)
[2020-04-24] MEDS: NICOTINE 14MG/24 HR PATCH.TD24 TD SCH (17:21)
[2020-04-24] MEDS: BISACODYL 10 MG SUPP PR PRN (17:21)
[2020-04-24] MEDS: LIDODERM 5% PATCH TD PRN (18:11)
[2020-04-24 19:10] VITALS: BP 116/73
[2020-04-24] MEDS: SIMVASTATIN 20 MG TABLET PO SCH (20:17)
[2020-04-25] MEDS: ACETAMINOPHEN 500 MG TABLET PO SCH ×6 (02:01→22:00)
[2020-04-25] MEDS: LORazepam 1MG TABLET PO PRN ×3 (02:01→22:47)
[2020-04-25] MEDS: BACLOFEN 10 MG TABLET PO PRN ×4 (02:03→20:54)
[2020-04-25 02:13] VITALS: BP 120/69
[2020-04-25] MEDS ORDERED: HYDROmorphone 2MG TABLET ONE (03:57)
[2020-04-25] MEDS: HYDROmorphone 4MG TABLET PO PRN (04:04)
[2020-04-25 05:47] LABS: CREATININE 0.61 mg/dL (0.55-1.02)
[2020-04-25] MEDS: PANTOPRAZOLE 40MG TABLET PO SCH ×2 (05:50→17:19)
[2020-04-25] MEDS: QUETIAPINE 200 MG TABLET PO SCH ×2 (07:28→20:54)
[2020-04-25] MEDS: SUCRALFATE 1 GM/10 ML UDC PO SCH ×2 (07:28→20:54)
[2020-04-25] MEDS: GABAPENTIN 300 MG CAPSULE PO SCH ×3 (07:28→20:48)
[2020-04-25 07:40] VITALS: BP 104/70
[2020-04-25 07:56] VITALS: BP 121/69
[2020-04-25] MEDS: METHYLNALTREXONE 12 MG/0.6 ML SYR SQ SCH (09:45)
[2020-04-25] MEDS: DULOXETINE 20 MG CAPSULE.DR PO SCH ×2 (09:52→20:54)
[2020-04-25] MEDS: HYDROmorphone 2MG TABLET PO PRN ×2 (12:25→20:53)
[2020-04-25 13:31] VITALS: BP 112/66
[2020-04-25] MEDS: LIDODERM 5% PATCH TD PRN (17:19)
[2020-04-25] MEDS: ENOXAPARIN 40 MG/0.4 ML SQ SCH (17:20)
[2020-04-25] MEDS: ONDANSETRON 2MG/ML, 2ML IVPush PRN (18:40)
[2020-04-25 20:07] VITALS: BP 111/60
[2020-04-25] MEDS: SIMVASTATIN 20 MG TABLET PO SCH (20:55)
[2020-04-25] MEDS: LACTULOSE 10 GM/15 ML UDC PO PRN (21:00)
[2020-04-25] MEDS: POLYETHYLENE GLYCOL 17 GM PACKET PO PRN (21:00)
[2020-04-25] MEDS: ZOLPIDEM 10MG TABLET PO PRN ×2 (22:46)
[2020-04-26 02:30] VITALS: BP 103/68
[2020-04-26] MEDS: ACETAMINOPHEN 500 MG TABLET PO SCH ×5 (03:26→20:21)
[2020-04-26] MEDS: HYDROmorphone 2MG TABLET PO PRN ×3 (05:46→21:56)
[2020-04-26] MEDS: BACLOFEN 10 MG TABLET PO PRN ×3 (05:47→23:36)
[2020-04-26] MEDS: PANTOPRAZOLE 40MG TABLET PO SCH ×2 (05:47→16:03)
[2020-04-26 07:33] VITALS: BP 123/77
[2020-04-26] MEDS: SUCRALFATE 1 GM/10 ML UDC PO SCH ×2 (08:11→20:19)
[2020-04-26] MEDS: NICOTINE 21 MG/24 HR PATCH.TD24 TD SCH (08:11)
[2020-04-26] MEDS: GABAPENTIN 300 MG CAPSULE PO SCH ×3 (08:11→21:00)
[2020-04-26] MEDS: DULOXETINE 20 MG CAPSULE.DR PO SCH ×2 (08:11→20:21)
[2020-04-26] MEDS: QUETIAPINE 200 MG TABLET PO SCH ×2 (08:11→20:19)
[2020-04-26] MEDS: LORazepam 1MG TABLET PO PRN (11:50)
[2020-04-26 13:49] VITALS: BP 110/70
[2020-04-26] MEDS: ENOXAPARIN 40 MG/0.4 ML SQ SCH (16:03)
[2020-04-26] MEDS: LIDODERM 5% PATCH TD PRN (18:19)
[2020-04-26] MEDS: SIMVASTATIN 20 MG TABLET PO SCH (20:20)
[2020-04-26 20:47] VITALS: BP 103/66
[2020-04-26] MEDS: ZOLPIDEM 10MG TABLET PO PRN (23:14)
[2020-04-27] MEDS: ACETAMINOPHEN 500 MG TABLET PO SCH ×6 (00:14→21:04)
[2020-04-27] MEDS: LORazepam 1MG TABLET PO PRN ×2 (00:14→12:40)
[2020-04-27 01:08] VITALS: BP 92/64
[2020-04-27] MEDS: BACLOFEN 10 MG TABLET PO PRN ×3 (05:47→21:04)
[2020-04-27] MEDS: PANTOPRAZOLE 40MG TABLET PO SCH ×2 (05:47→17:17)
[2020-04-27] MEDS: HYDROmorphone 2MG TABLET PO PRN ×3 (06:13→23:07)
[2020-04-27] MEDS: NICOTINE 21 MG/24 HR PATCH.TD24 TD SCH (08:47)
[2020-04-27] MEDS: QUETIAPINE 200 MG TABLET PO SCH ×2 (08:47→21:04)
[2020-04-27] MEDS: DULOXETINE 20 MG CAPSULE.DR PO SCH ×2 (08:47→21:04)
[2020-04-27] MEDS: GABAPENTIN 300 MG CAPSULE PO SCH ×4 (08:47→21:27)
[2020-04-27] MEDS: SUCRALFATE 1 GM/10 ML UDC PO SCH ×2 (08:47→21:04)
[2020-04-27 09:21] VITALS: BP 114/69
[2020-04-27] MEDS: METHYLNALTREXONE 12 MG/0.6 ML SYR SQ SCH (09:56)
[2020-04-27] MEDS: SENNA/DOCUSATE TABLET PO PRN (10:30)
[2020-04-27] MEDS: POLYETHYLENE GLYCOL 17 GM PACKET PO PRN (10:30)
[2020-04-27] MEDS: LACTULOSE 10 GM/15 ML UDC PO PRN (10:39)
[2020-04-27] MEDS ORDERED: morphine SULFATE ORAL.CONC 20 MG/ML PO ONE (14:00)
[2020-04-27 16:07] VITALS: BP 114/72
[2020-04-27] MEDS: ENOXAPARIN 40 MG/0.4 ML SQ SCH (17:17)
[2020-04-27] MEDS: SIMVASTATIN 20 MG TABLET PO SCH (21:04)
[2020-04-27 21:28] VITALS: BP 114/75
[2020-04-28] MEDS: LORazepam 1MG TABLET PO PRN ×3 (00:11→22:57)
[2020-04-28] MEDS: ZOLPIDEM 10MG TABLET PO PRN ×2 (00:11→22:57)
[2020-04-28 03:07] VITALS: BP 116/76
[2020-04-28] MEDS: BACLOFEN 10 MG TABLET PO PRN ×2 (03:50→12:20)
[2020-04-28] MEDS: ACETAMINOPHEN 500 MG TABLET PO SCH ×6 (04:01→20:39)
[2020-04-28] MEDS: PANTOPRAZOLE 40MG TABLET PO SCH ×2 (05:47→18:28)
[2020-04-28 07:35] VITALS: BP 113/71
[2020-04-28 07:39] LABS: CREATININE 0.67 mg/dL (0.55-1.02)
[2020-04-28] MEDS: NICOTINE 21 MG/24 HR PATCH.TD24 TD SCH (09:00)
[2020-04-28] MEDS: QUETIAPINE 200 MG TABLET PO SCH ×2 (10:21→20:36)
[2020-04-28] MEDS: SUCRALFATE 1 GM/10 ML UDC PO SCH ×2 (10:21→20:36)
[2020-04-28] MEDS: DULOXETINE 20 MG CAPSULE.DR PO SCH ×2 (10:22→20:36)
[2020-04-28] MEDS: GABAPENTIN 300 MG CAPSULE PO SCH ×3 (10:22→20:39)
[2020-04-28] MEDS: HYDROmorphone 2MG TABLET PO PRN ×2 (10:22→20:36)
[2020-04-28 12:44] VITALS: BP 109/70
[2020-04-28] MEDS: ENOXAPARIN 40 MG/0.4 ML SQ SCH (18:28)
[2020-04-28 20:13] VITALS: BP 110/71
[2020-04-28] MEDS: SIMVASTATIN 20 MG TABLET PO SCH (20:37)
[2020-04-29] MEDS: ACETAMINOPHEN 500 MG TABLET PO SCH ×6 (00:06→21:07)
[2020-04-29 00:51] VITALS: BP 115/74
[2020-04-29] MEDS: PANTOPRAZOLE 40MG TABLET PO SCH ×2 (05:32→15:40)
[2020-04-29] MEDS: BACLOFEN 10 MG TABLET PO PRN ×2 (05:32→15:40)
[2020-04-29] MEDS: HYDROmorphone 2MG TABLET PO PRN ×2 (05:33→15:40)
[2020-04-29 08:36] VITALS: BP 103/66
[2020-04-29] MEDS: NICOTINE 21 MG/24 HR PATCH.TD24 TD SCH (08:47)
[2020-04-29] MEDS: SUCRALFATE 1 GM/10 ML UDC PO SCH ×2 (08:47→21:07)
[2020-04-29] MEDS: QUETIAPINE 200 MG TABLET PO SCH ×2 (08:48→21:07)
[2020-04-29] MEDS: GABAPENTIN 300 MG CAPSULE PO SCH (08:48)
[2020-04-29] MEDS: DULOXETINE 20 MG CAPSULE.DR PO SCH ×2 (08:48→21:07)
[2020-04-29] MEDS: LORazepam 1MG TABLET PO PRN ×2 (08:48→18:38)
[2020-04-29 15:32] VITALS: BP 101/67
[2020-04-29] MEDS: METHYLNALTREXONE 12 MG/0.6 ML SYR SQ SCH (15:39)
[2020-04-29] MEDS: ENOXAPARIN 40 MG/0.4 ML SQ SCH (15:41)
[2020-04-29 19:22] VITALS: BP 116/71
[2020-04-29] MEDS: SIMVASTATIN 20 MG TABLET PO SCH (21:00)
[2020-04-30] MEDS: ACETAMINOPHEN 500 MG TABLET PO SCH ×6 (00:07→22:51)
[2020-04-30] MEDS: ZOLPIDEM 10MG TABLET PO PRN ×2 (00:07→22:51)
[2020-04-30 00:10] VITALS: BP 113/73
[2020-04-30] MEDS: HYDROmorphone 2MG TABLET PO PRN ×3 (02:16→18:03)
[2020-04-30] MEDS: LORazepam 1MG TABLET PO PRN ×3 (03:53→22:51)
[2020-04-30] MEDS: BACLOFEN 10 MG TABLET PO PRN ×2 (03:55→14:14)
[2020-04-30] MEDS: PANTOPRAZOLE 40MG TABLET PO SCH ×2 (05:50→18:03)
[2020-04-30 08:35] VITALS: BP 107/69
[2020-04-30] MEDS: SUCRALFATE 1 GM/10 ML UDC PO SCH ×2 (09:48→20:57)
[2020-04-30] MEDS: NICOTINE 21 MG/24 HR PATCH.TD24 TD SCH (09:49)
[2020-04-30] MEDS: DULOXETINE 20 MG CAPSULE.DR PO SCH ×2 (09:49→20:57)
[2020-04-30] MEDS: QUETIAPINE 200 MG TABLET PO SCH ×2 (09:49→20:57)
[2020-04-30 14:54] VITALS: BP 106/72
[2020-04-30] MEDS: ENOXAPARIN 40 MG/0.4 ML SQ SCH (16:00)
[2020-04-30 18:45] VITALS: BP 110/68
[2020-04-30] MEDS: SENNA/DOCUSATE TABLET PO PRN (20:57)
[2020-04-30] MEDS: LACTULOSE 10 GM/15 ML UDC PO PRN (20:57)
[2020-04-30] MEDS: POLYETHYLENE GLYCOL 17 GM PACKET PO PRN (20:57)
[2020-04-30] MEDS: SIMVASTATIN 20 MG TABLET PO SCH (20:58)
[2020-05-01 00:11] VITALS: BP 105/66
[2020-05-01] MEDS: HYDROmorphone 2MG TABLET PO PRN ×3 (02:55→20:16)
[2020-05-01] MEDS: ACETAMINOPHEN 500 MG TABLET PO SCH ×5 (02:57→20:15)
[2020-05-01 05:08] LABS: CREATININE 0.69 mg/dL (0.55-1.02)
[2020-05-01] MEDS: PANTOPRAZOLE 40MG TABLET PO SCH ×2 (06:34→16:47)
[2020-05-01 06:44] VITALS: BP 96/64
[2020-05-01] MEDS: NICOTINE 21 MG/24 HR PATCH.TD24 TD SCH (09:06)
[2020-05-01] MEDS: DULOXETINE 20 MG CAPSULE.DR PO SCH ×2 (09:06→20:15)
[2020-05-01] MEDS: SUCRALFATE 1 GM/10 ML UDC PO SCH ×2 (09:06→20:18)
[2020-05-01] MEDS: QUETIAPINE 200 MG TABLET PO SCH ×2 (09:06→20:15)
[2020-05-01] MEDS: BACLOFEN 10 MG TABLET PO PRN ×2 (09:12→17:39)
[2020-05-01] MEDS: LORazepam 1MG TABLET PO PRN ×2 (11:22→23:08)
[2020-05-01] MEDS: METHYLNALTREXONE 12 MG/0.6 ML SYR SQ SCH (12:00)
[2020-05-01 12:56] VITALS: BP 100/63
[2020-05-01] MEDS: ENOXAPARIN 40 MG/0.4 ML SQ SCH (16:47)
[2020-05-01] MEDS: LIDODERM 5% PATCH TD PRN (17:40)
[2020-05-01] MEDS: BISACODYL 10 MG SUPP PR PRN (17:42)
[2020-05-01] MEDS: SIMVASTATIN 20 MG TABLET PO SCH (20:14)
[2020-05-01 20:44] VITALS: BP 115/69
[2020-05-01] MEDS: ZOLPIDEM 10MG TABLET PO PRN (23:08)
[2020-05-02] MEDS: ACETAMINOPHEN 500 MG TABLET PO SCH ×6 (00:50→22:13)
[2020-05-02 02:02] VITALS: BP 117/76
[2020-05-02] MEDS: HYDROmorphone 2MG TABLET PO PRN ×3 (04:29→22:16)
[2020-05-02] MEDS: BACLOFEN 10 MG TABLET PO PRN ×3 (04:32→22:14)
[2020-05-02] MEDS: PANTOPRAZOLE 40MG TABLET PO SCH ×2 (06:03→16:36)
[2020-05-02 06:54] VITALS: BP 124/78
[2020-05-02] MEDS: SUCRALFATE 1 GM/10 ML UDC PO SCH ×2 (08:28→22:13)
[2020-05-02] MEDS: DULOXETINE 20 MG CAPSULE.DR PO SCH ×2 (08:28→22:14)
[2020-05-02] MEDS: QUETIAPINE 200 MG TABLET PO SCH ×2 (08:28→22:14)
[2020-05-02] MEDS: NICOTINE 21 MG/24 HR PATCH.TD24 TD SCH (08:34)
[2020-05-02] MEDS: LORazepam 1MG TABLET PO PRN (08:44)
[2020-05-02 12:46] VITALS: BP 101/52
[2020-05-02] MEDS: ENOXAPARIN 40 MG/0.4 ML SQ SCH (16:36)
[2020-05-02 19:21] VITALS: BP 123/77
[2020-05-02] MEDS: SIMVASTATIN 20 MG TABLET PO SCH (22:14)
[2020-05-02] MEDS: ONDANSETRON ODT 4 MG PO PRN (23:12)
[2020-05-02] MEDS: ZOLPIDEM 10MG TABLET PO PRN (23:13)
[2020-05-03 00:16] VITALS: BP 102/64
[2020-05-03] MEDS: LORazepam 1MG TABLET PO PRN ×3 (00:18→23:40)
[2020-05-03] MEDS: ACETAMINOPHEN 500 MG TABLET PO SCH ×5 (03:25→20:53)
[2020-05-03] MEDS: PANTOPRAZOLE 40MG TABLET PO SCH ×2 (06:02→16:25)
[2020-05-03] MEDS: HYDROmorphone 2MG TABLET PO PRN ×2 (06:04→16:43)
[2020-05-03] MEDS: QUETIAPINE 200 MG TABLET PO SCH ×2 (08:47→20:53)
[2020-05-03] MEDS: DULOXETINE 20 MG CAPSULE.DR PO SCH ×2 (08:47→20:53)
[2020-05-03] MEDS: SUCRALFATE 1 GM/10 ML UDC PO SCH ×2 (08:47→20:53)
[2020-05-03] MEDS: NICOTINE 21 MG/24 HR PATCH.TD24 TD SCH (08:47)
[2020-05-03 08:55] VITALS: BP 107/73
[2020-05-03] MEDS: BACLOFEN 10 MG TABLET PO PRN ×2 (08:55→17:54)
[2020-05-03] MEDS: ONDANSETRON ODT 4 MG PO PRN (11:37)
[2020-05-03] MEDS: METHYLNALTREXONE 12 MG/0.6 ML SYR SQ SCH (15:30)
[2020-05-03 15:58] VITALS: BP 105/68
[2020-05-03] MEDS: ENOXAPARIN 40 MG/0.4 ML SQ SCH (16:24)
[2020-05-03] MEDS: SENNA/DOCUSATE TABLET PO PRN (16:43)
[2020-05-03] MEDS: LACTULOSE 10 GM/15 ML UDC PO PRN (16:43)
[2020-05-03] MEDS: POLYETHYLENE GLYCOL 17 GM PACKET PO PRN (16:44)
[2020-05-03 19:17] VITALS: BP 98/58
[2020-05-03] MEDS: SIMVASTATIN 20 MG TABLET PO SCH (20:54)
[2020-05-03] MEDS: ZOLPIDEM 10MG TABLET PO PRN (23:05)
[2020-05-04] MEDS: ACETAMINOPHEN 500 MG TABLET PO SCH ×6 (00:36→20:32)
[2020-05-04 01:23] VITALS: BP 98/58
[2020-05-04] MEDS: HYDROmorphone 2MG TABLET PO PRN ×2 (03:30→11:52)
[2020-05-04 05:23] LABS: CREATININE 0.66 mg/dL (0.55-1.02)
[2020-05-04] MEDS: PANTOPRAZOLE 40MG TABLET PO SCH ×2 (06:33→16:52)
[2020-05-04 08:34] VITALS: BP 106/70
[2020-05-04] MEDS: DULOXETINE 20 MG CAPSULE.DR PO SCH ×2 (09:00→20:32)
[2020-05-04] MEDS: QUETIAPINE 200 MG TABLET PO SCH ×2 (09:01→20:32)
[2020-05-04] MEDS: SUCRALFATE 1 GM/10 ML UDC PO SCH ×2 (09:01→20:32)
[2020-05-04] MEDS: NICOTINE 21 MG/24 HR PATCH.TD24 TD SCH (09:01)
[2020-05-04] MEDS: LACTULOSE 10 GM/15 ML UDC PO PRN (09:12)
[2020-05-04] MEDS: BACLOFEN 10 MG TABLET PO PRN ×2 (09:13→19:26)
[2020-05-04] MEDS: LORazepam 1MG TABLET PO PRN ×2 (09:13→18:19)
[2020-05-04] MEDS: SENNA/DOCUSATE TABLET PO PRN (09:13)
[2020-05-04] MEDS: POLYETHYLENE GLYCOL 17 GM PACKET PO PRN (11:52)
[2020-05-04 12:28] VITALS: BP 113/73
[2020-05-04] MEDS: ENOXAPARIN 40 MG/0.4 ML SQ SCH (16:52)
[2020-05-04 19:53] VITALS: BP 103/65
[2020-05-04] MEDS: SIMVASTATIN 20 MG TABLET PO SCH (20:32)
[2020-05-04] MEDS: ZOLPIDEM 10MG TABLET PO PRN (22:34)
[2020-05-05 00:25] VITALS: BP 108/69
[2020-05-05] MEDS: ACETAMINOPHEN 500 MG TABLET PO SCH ×6 (00:29→20:28)
[2020-05-05] MEDS: HYDROmorphone 2MG TABLET PO PRN ×2 (00:30→12:01)
[2020-05-05] MEDS: PANTOPRAZOLE 40MG TABLET PO SCH ×2 (05:27→16:56)
[2020-05-05] MEDS: LORazepam 1MG TABLET PO PRN ×3 (05:27→23:44)
[2020-05-05] MEDS: LACTULOSE 10 GM/15 ML UDC PO PRN (05:27)
[2020-05-05] MEDS: BACLOFEN 10 MG TABLET PO PRN ×3 (06:42→16:59)
[2020-05-05 07:37] VITALS: BP 104/65
[2020-05-05] MEDS: QUETIAPINE 200 MG TABLET PO SCH ×2 (08:05→20:28)
[2020-05-05] MEDS: SUCRALFATE 1 GM/10 ML UDC PO SCH ×2 (08:05→20:27)
[2020-05-05] MEDS: DULOXETINE 20 MG CAPSULE.DR PO SCH ×2 (08:05→20:28)
[2020-05-05] MEDS: NICOTINE 21 MG/24 HR PATCH.TD24 TD SCH (08:06)
[2020-05-05 14:16] VITALS: BP 108/69
[2020-05-05] MEDS: METHYLNALTREXONE 12 MG/0.6 ML SYR SQ SCH (15:30)
[2020-05-05] MEDS: ONDANSETRON ODT 4 MG PO PRN (16:35)
[2020-05-05] MEDS: ENOXAPARIN 40 MG/0.4 ML SQ SCH (16:56)
[2020-05-05 19:19] VITALS: BP 104/68
[2020-05-05] MEDS: SIMVASTATIN 20 MG TABLET PO SCH (20:28)
[2020-05-05] MEDS: MAGNESIUM HYDROXIDE 8%, 30ML UDC PO PRN (20:28)
[2020-05-05] MEDS: SENNA/DOCUSATE TABLET PO PRN (20:32)
[2020-05-05] MEDS: ZOLPIDEM 10MG TABLET PO PRN (22:34)
[2020-05-06 00:26] VITALS: BP 123/81
[2020-05-06] MEDS: ACETAMINOPHEN 500 MG TABLET PO SCH ×7 (01:30→23:36)
[2020-05-06] MEDS: HYDROmorphone 2MG TABLET PO PRN ×2 (03:21→15:49)
[2020-05-06] MEDS: PANTOPRAZOLE 40MG TABLET PO SCH ×2 (05:03→17:03)
[2020-05-06] MEDS: BACLOFEN 10 MG TABLET PO PRN ×2 (05:03→23:36)
[2020-05-06 07:32] VITALS: BP 105/68
[2020-05-06] MEDS: SUCRALFATE 1 GM/10 ML UDC PO SCH ×2 (08:34→20:37)
[2020-05-06] MEDS: DULOXETINE 20 MG CAPSULE.DR PO SCH ×2 (08:34→20:36)
[2020-05-06] MEDS: QUETIAPINE 200 MG TABLET PO SCH ×2 (08:34→20:36)
[2020-05-06] MEDS: NICOTINE 21 MG/24 HR PATCH.TD24 TD SCH (08:35)
[2020-05-06] MEDS: LORazepam 1MG TABLET PO PRN ×2 (13:09→20:41)
[2020-05-06 13:21] VITALS: BP 114/75
[2020-05-06] MEDS: ENOXAPARIN 40 MG/0.4 ML SQ SCH (15:50)
[2020-05-06 20:21] VITALS: BP 102/65
[2020-05-06] MEDS: SIMVASTATIN 20 MG TABLET PO SCH (20:36)
[2020-05-06] MEDS: BISACODYL 10 MG SUPP PR PRN (20:41)
[2020-05-06] MEDS: ZOLPIDEM 10MG TABLET PO PRN (22:59)
[2020-05-07 01:15] VITALS: BP 110/72
[2020-05-07] MEDS: HYDROmorphone 2MG TABLET PO PRN ×2 (03:08→16:40)
[2020-05-07] MEDS: ACETAMINOPHEN 500 MG TABLET PO SCH ×5 (03:08→20:32)
[2020-05-07] MEDS: ONDANSETRON ODT 4 MG PO PRN (03:45)
[2020-05-07] MEDS: PANTOPRAZOLE 40MG TABLET PO SCH ×2 (05:25→16:40)
[2020-05-07] MEDS: BACLOFEN 10 MG TABLET PO PRN ×2 (05:32→20:36)
[2020-05-07] MEDS: LORazepam 1MG TABLET PO PRN ×2 (05:32→17:47)
[2020-05-07 05:59] LABS: CREATININE 0.62 mg/dL (0.55-1.02)
[2020-05-07 08:49] VITALS: BP 105/70
[2020-05-07] MEDS: SUCRALFATE 1 GM/10 ML UDC PO SCH ×2 (08:56→20:31)
[2020-05-07] MEDS: NICOTINE 21 MG/24 HR PATCH.TD24 TD SCH (08:57)
[2020-05-07] MEDS: DULOXETINE 20 MG CAPSULE.DR PO SCH ×2 (08:57→20:32)
[2020-05-07] MEDS: QUETIAPINE 200 MG TABLET PO SCH ×2 (08:57→20:31)
[2020-05-07] MEDS: METHYLNALTREXONE 12 MG/0.6 ML SYR SQ SCH (15:30)
[2020-05-07 15:53] VITALS: BP 108/67
[2020-05-07] MEDS: ENOXAPARIN 40 MG/0.4 ML SQ SCH (16:40)
[2020-05-07 18:58] VITALS: BP 122/78
[2020-05-07] MEDS: SIMVASTATIN 20 MG TABLET PO SCH (20:31)
[2020-05-07] MEDS: ZOLPIDEM 10MG TABLET PO PRN (22:51)
[2020-05-07] MEDS: LIDODERM 5% PATCH TD PRN (23:00)
[2020-05-08] MEDS: ACETAMINOPHEN 500 MG TABLET PO SCH ×6 (00:39→21:16)
[2020-05-08 01:25] VITALS: BP 105/70
[2020-05-08] MEDS: LORazepam 1MG TABLET PO PRN ×3 (02:35→19:59)
[2020-05-08] MEDS: PANTOPRAZOLE 40MG TABLET PO SCH ×2 (06:23→16:30)
[2020-05-08] MEDS: HYDROmorphone 2MG TABLET PO PRN ×2 (06:27→18:31)
[2020-05-08] MEDS: DULOXETINE 20 MG CAPSULE.DR PO SCH ×2 (09:04→21:15)
[2020-05-08] MEDS: QUETIAPINE 200 MG TABLET PO SCH ×2 (09:04→21:15)
[2020-05-08] MEDS: SUCRALFATE 1 GM/10 ML UDC PO SCH ×2 (09:04→21:17)
[2020-05-08] MEDS: NICOTINE 21 MG/24 HR PATCH.TD24 TD SCH (09:05)
[2020-05-08 09:45] VITALS: BP 112/76
[2020-05-08 15:03] VITALS: BP 111/74
[2020-05-08] MEDS: POTASSIUM CHLORIDE 20 MEQ TAB.ER.PRT PO SCH (16:27)
[2020-05-08] MEDS: ENOXAPARIN 40 MG/0.4 ML SQ SCH (16:28)
[2020-05-08] MEDS: FUROSEMIDE 20 MG TABLET PO SCH (16:28)
[2020-05-08] MEDS: BACLOFEN 10 MG TABLET PO PRN ×2 (16:30→23:09)
[2020-05-08 19:01] VITALS: BP 106/71
[2020-05-08] MEDS: SIMVASTATIN 20 MG TABLET PO SCH (21:15)
[2020-05-08] MEDS: ZOLPIDEM 10MG TABLET PO PRN (23:08)
[2020-05-09 01:52] VITALS: BP 110/73
[2020-05-09] MEDS: ACETAMINOPHEN 500 MG TABLET PO SCH ×6 (02:04→21:09)
[2020-05-09] MEDS: LORazepam 1MG TABLET PO PRN ×3 (04:49→22:23)
[2020-05-09 05:28] LABS: CHLORIDE 104 mmol/L (98-107)
[2020-05-09 05:32] LABS: ANION GAP 6 mmol/L (5-15); CREATININE 0.63 mg/dL (0.55-1.02)
[2020-05-09] MEDS: HYDROmorphone 2MG TABLET PO PRN ×2 (06:34→21:18)
[2020-05-09] MEDS: PANTOPRAZOLE 40MG TABLET PO SCH ×2 (06:34→16:34)
[2020-05-09 06:50] VITALS: BP 106/71
[2020-05-09] MEDS: POTASSIUM CHLORIDE 20 MEQ TAB.ER.PRT PO SCH ×2 (08:54→16:36)
[2020-05-09] MEDS: DULOXETINE 20 MG CAPSULE.DR PO SCH ×2 (08:54→21:09)
[2020-05-09] MEDS: FUROSEMIDE 20 MG TABLET PO SCH ×2 (08:57→16:35)
[2020-05-09] MEDS: SUCRALFATE 1 GM/10 ML UDC PO SCH ×2 (08:57→21:09)
[2020-05-09] MEDS: NICOTINE 21 MG/24 HR PATCH.TD24 TD SCH (08:58)
[2020-05-09] MEDS: QUETIAPINE 200 MG TABLET PO SCH ×2 (08:58→21:08)
[2020-05-09] MEDS: BACLOFEN 10 MG TABLET PO PRN ×2 (09:21→16:53)
[2020-05-09 12:38] VITALS: BP 97/67
[2020-05-09] MEDS: METHYLNALTREXONE 12 MG/0.6 ML SYR SQ SCH (14:19)
[2020-05-09] MEDS: LIDODERM 5% PATCH TD PRN (14:36)
[2020-05-09] MEDS: ENOXAPARIN 40 MG/0.4 ML SQ SCH (16:37)
[2020-05-09 18:33] VITALS: BP 99/63
[2020-05-09] MEDS: SIMVASTATIN 20 MG TABLET PO SCH (21:18)
[2020-05-09] MEDS: BISACODYL 10 MG SUPP PR PRN (21:18)
[2020-05-09] MEDS: ZOLPIDEM 10MG TABLET PO PRN (23:13)
[2020-05-10 00:24] VITALS: BP 112/72
[2020-05-10] MEDS: BACLOFEN 10 MG TABLET PO PRN ×4 (01:59→17:49)
[2020-05-10] MEDS: ACETAMINOPHEN 500 MG TABLET PO SCH ×6 (01:59→21:22)
[2020-05-10 06:02] LABS: CREATININE 0.79 mg/dL (0.55-1.02)
[2020-05-10] MEDS: LORazepam 1MG TABLET PO PRN ×3 (06:32→21:22)
[2020-05-10] MEDS: PANTOPRAZOLE 40MG TABLET PO SCH ×2 (06:32→16:51)
[2020-05-10] MEDS: POTASSIUM CHLORIDE 20 MEQ TAB.ER.PRT PO SCH ×2 (08:36→16:51)
[2020-05-10] MEDS: DULOXETINE 20 MG CAPSULE.DR PO SCH ×2 (08:36→21:24)
[2020-05-10] MEDS: QUETIAPINE 200 MG TABLET PO SCH ×2 (08:36→21:22)
[2020-05-10] MEDS: SUCRALFATE 1 GM/10 ML UDC PO SCH ×2 (08:36→21:22)
[2020-05-10] MEDS: FUROSEMIDE 20 MG TABLET PO SCH ×2 (08:36→16:51)
[2020-05-10] MEDS: NICOTINE 21 MG/24 HR PATCH.TD24 TD SCH (08:37)
[2020-05-10] MEDS: HYDROmorphone 2MG TABLET PO PRN ×2 (09:18→21:24)
[2020-05-10 09:55] VITALS: BP 96/62
[2020-05-10 13:31] VITALS: BP 100/65
[2020-05-10] MEDS: ENOXAPARIN 40 MG/0.4 ML SQ SCH (16:51)
[2020-05-10 19:04] VITALS: BP 116/75
[2020-05-10] MEDS: SIMVASTATIN 20 MG TABLET PO SCH (21:23)
[2020-05-10] MEDS: ZOLPIDEM 10MG TABLET PO PRN (23:00)
[2020-05-11 00:27] VITALS: BP 104/68
[2020-05-11] MEDS: ACETAMINOPHEN 500 MG TABLET PO SCH ×5 (02:46→20:54)
[2020-05-11] MEDS: BACLOFEN 10 MG TABLET PO PRN ×2 (02:50→20:55)
[2020-05-11 05:51] LABS: ANION GAP 5 mmol/L (5-15); CALCIUM 8.9 mg/dL (8.5-10.1); CHLORIDE 104 mmol/L (98-107); CREATININE 0.66 mg/dL (0.55-1.02)
[2020-05-11] MEDS: PANTOPRAZOLE 40MG TABLET PO SCH ×2 (06:25→16:23)
[2020-05-11] MEDS: LORazepam 1MG TABLET PO PRN ×3 (06:44→22:55)
[2020-05-11 07:47] VITALS: BP 113/72
[2020-05-11] MEDS: SUCRALFATE 1 GM/10 ML UDC PO SCH ×2 (09:46→20:56)
[2020-05-11] MEDS: POTASSIUM CHLORIDE 20 MEQ TAB.ER.PRT PO SCH ×2 (09:47→16:23)
[2020-05-11] MEDS: HYDROmorphone 2MG TABLET PO PRN ×2 (09:47→22:10)
[2020-05-11] MEDS: NICOTINE 21 MG/24 HR PATCH.TD24 TD SCH (09:47)
[2020-05-11] MEDS: QUETIAPINE 200 MG TABLET PO SCH ×2 (09:47→20:54)
[2020-05-11] MEDS: FUROSEMIDE 20 MG TABLET PO SCH ×2 (09:47→16:23)
[2020-05-11] MEDS: DULOXETINE 20 MG CAPSULE.DR PO SCH ×2 (09:47→20:54)
[2020-05-11] MEDS: MAGNESIUM HYDROXIDE 8%, 30ML UDC PO PRN (12:13)
[2020-05-11] MEDS: POLYETHYLENE GLYCOL 17 GM PACKET PO PRN (12:13)
[2020-05-11] MEDS: SENNA/DOCUSATE TABLET PO PRN (12:13)
[2020-05-11 14:23] VITALS: BP 114/68
[2020-05-11] MEDS: METHYLNALTREXONE 12 MG/0.6 ML SYR SQ SCH (15:30)
[2020-05-11] MEDS: ENOXAPARIN 40 MG/0.4 ML SQ SCH (16:23)
[2020-05-11 18:31] VITALS: BP 106/67
[2020-05-11] MEDS: ONDANSETRON ODT 4 MG PO PRN (20:55)
[2020-05-11] MEDS: BISACODYL 10 MG SUPP PR PRN (20:55)
[2020-05-11] MEDS: SIMVASTATIN 20 MG TABLET PO SCH (20:55)
[2020-05-11] MEDS: ZOLPIDEM 10MG TABLET PO PRN (22:55)
[2020-05-12 00:50] VITALS: BP 98/64
[2020-05-12] MEDS: ACETAMINOPHEN 500 MG TABLET PO SCH ×6 (01:23→21:54)
[2020-05-12] MEDS: PANTOPRAZOLE 40MG TABLET PO SCH ×2 (05:44→18:25)
[2020-05-12] MEDS: BACLOFEN 10 MG TABLET PO PRN (05:45)
[2020-05-12] MEDS: NICOTINE 21 MG/24 HR PATCH.TD24 TD SCH (08:45)
[2020-05-12] MEDS: QUETIAPINE 200 MG TABLET PO SCH ×2 (08:45→21:54)
[2020-05-12] MEDS: DULOXETINE 20 MG CAPSULE.DR PO SCH ×2 (08:45→21:54)
[2020-05-12] MEDS: LORazepam 1MG TABLET PO PRN ×2 (08:45→18:25)
[2020-05-12] MEDS: SUCRALFATE 1 GM/10 ML UDC PO SCH ×2 (08:45→21:54)
[2020-05-12] MEDS: FUROSEMIDE 20 MG TABLET PO SCH ×2 (08:45→18:25)
[2020-05-12] MEDS: POTASSIUM CHLORIDE 20 MEQ TAB.ER.PRT PO SCH ×2 (08:45→18:25)
[2020-05-12 08:46] VITALS: BP 107/71
[2020-05-12] MEDS: HYDROmorphone 2MG TABLET PO PRN (12:14)
[2020-05-12 12:59] VITALS: BP 101/63
[2020-05-12] MEDS: ENOXAPARIN 40 MG/0.4 ML SQ SCH (18:25)
[2020-05-12 20:13] VITALS: BP 110/69
[2020-05-12] MEDS: SIMVASTATIN 20 MG TABLET PO SCH (21:54)
[2020-05-12] MEDS: ZOLPIDEM 10MG TABLET PO PRN (23:02)
[2020-05-13 00:39] VITALS: BP 108/68
[2020-05-13] MEDS: HYDROmorphone 2MG TABLET PO PRN ×2 (00:42→13:30)
[2020-05-13] MEDS: LORazepam 1MG TABLET PO PRN ×4 (02:33→23:20)
[2020-05-13] MEDS: ACETAMINOPHEN 500 MG TABLET PO SCH ×6 (02:33→21:05)
[2020-05-13] MEDS: PANTOPRAZOLE 40MG TABLET PO SCH ×2 (06:12→16:00)
[2020-05-13] MEDS: ONDANSETRON ODT 4 MG PO PRN (06:12)
[2020-05-13] MEDS: SUCRALFATE 1 GM/10 ML UDC PO SCH ×2 (07:47→21:05)
[2020-05-13] MEDS: NICOTINE 21 MG/24 HR PATCH.TD24 TD SCH (07:47)
[2020-05-13] MEDS: POTASSIUM CHLORIDE 20 MEQ TAB.ER.PRT PO SCH ×2 (07:48→17:00)
[2020-05-13] MEDS: FUROSEMIDE 20 MG TABLET PO SCH ×2 (07:48→17:00)
[2020-05-13] MEDS: DULOXETINE 20 MG CAPSULE.DR PO SCH ×2 (07:48→21:00)
[2020-05-13] MEDS: QUETIAPINE 200 MG TABLET PO SCH ×2 (07:48→21:05)
[2020-05-13] MEDS: BACLOFEN 10 MG TABLET PO PRN ×2 (07:52→17:28)
[2020-05-13 07:56] VITALS: BP 100/67
[2020-05-13 08:28] LABS: CREATININE 0.77 mg/dL (0.55-1.02)
[2020-05-13] MEDS: LIDODERM 5% PATCH TD PRN (11:03)
[2020-05-13 13:18] VITALS: BP 101/67
[2020-05-13] MEDS: METHYLNALTREXONE 12 MG/0.6 ML SYR SQ SCH (15:30)
[2020-05-13] MEDS: ENOXAPARIN 40 MG/0.4 ML SQ SCH (16:00)
[2020-05-13] MEDS ORDERED: MORP-29 PO (16:45)
[2020-05-13 19:59] VITALS: BP 105/70
[2020-05-13] MEDS: SIMVASTATIN 20 MG TABLET PO SCH (21:05)
[2020-05-13] MEDS: ZOLPIDEM 10MG TABLET PO PRN (23:06)
[2020-05-14 01:33] VITALS: BP 125/74
[2020-05-14] MEDS: ACETAMINOPHEN 500 MG TABLET PO SCH ×6 (01:38→21:51)
[2020-05-14] MEDS: HYDROmorphone 2MG TABLET PO PRN (01:38)
[2020-05-14] MEDS: PANTOPRAZOLE 40MG TABLET PO SCH ×2 (06:10→17:05)
[2020-05-14] MEDS: BACLOFEN 10 MG TABLET PO PRN (06:11)
[2020-05-14 07:08] VITALS: BP 100/63
[2020-05-14] MEDS: FUROSEMIDE 20 MG TABLET PO SCH ×2 (08:00→17:00)
[2020-05-14] MEDS: SUCRALFATE 1 GM/10 ML UDC PO SCH ×2 (08:51→21:51)
[2020-05-14] MEDS: QUETIAPINE 200 MG TABLET PO SCH ×2 (08:51→21:50)
[2020-05-14] MEDS: DULOXETINE 20 MG CAPSULE.DR PO SCH ×2 (08:51→21:50)
[2020-05-14] MEDS: NICOTINE 21 MG/24 HR PATCH.TD24 TD SCH (08:52)
[2020-05-14] MEDS: POTASSIUM CHLORIDE 20 MEQ TAB.ER.PRT PO SCH ×2 (09:00→17:05)
[2020-05-14] MEDS: BISACODYL 10 MG SUPP PR PRN (09:21)
[2020-05-14] MEDS ORDERED: morphine SULFATE 15 MG TAB.IR PO PRN (12:00)
[2020-05-14 12:38] VITALS: BP 100/64
[2020-05-14] MEDS: morphine SULFATE 15 MG TAB.IR PO PRN ×2 (14:29→21:51)
[2020-05-14] MEDS: ENOXAPARIN 40 MG/0.4 ML SQ SCH (17:05)
[2020-05-14] MEDS: MAGNESIUM CITRATE 300ML ORAL SOL PO PRN (17:13)
[2020-05-14] MEDS: LORazepam 1MG TABLET PO PRN (17:44)
[2020-05-14 20:14] VITALS: BP 112/73
[2020-05-14] MEDS: SIMVASTATIN 20 MG TABLET PO SCH (21:51)
[2020-05-14] MEDS: ZOLPIDEM 10MG TABLET PO PRN (23:36)
[2020-05-15] MEDS: ACETAMINOPHEN 500 MG TABLET PO SCH ×6 (01:06→20:54)
[2020-05-15 01:50] VITALS: BP 105/62
[2020-05-15] MEDS: LORazepam 1MG TABLET PO PRN ×3 (01:57→18:29)
[2020-05-15] MEDS: BACLOFEN 10 MG TABLET PO PRN ×3 (01:58→18:16)
[2020-05-15] MEDS: morphine SULFATE 15 MG TAB.IR PO PRN ×4 (03:28→18:18)
[2020-05-15] MEDS: LIDODERM 5% PATCH TD PRN (03:28)
[2020-05-15] MEDS: MAGNESIUM HYDROXIDE 8%, 30ML UDC PO PRN (03:28)
[2020-05-15] MEDS: PANTOPRAZOLE 40MG TABLET PO SCH ×2 (05:51→16:57)
[2020-05-15 07:58] VITALS: BP 119/78
[2020-05-15] MEDS: POTASSIUM CHLORIDE 20 MEQ TAB.ER.PRT PO SCH ×2 (09:03→16:56)
[2020-05-15] MEDS: SUCRALFATE 1 GM/10 ML UDC PO SCH ×2 (09:04→20:49)
[2020-05-15] MEDS: FUROSEMIDE 20 MG TABLET PO SCH ×2 (09:04→16:57)
[2020-05-15] MEDS: DULOXETINE 20 MG CAPSULE.DR PO SCH ×2 (09:05→20:49)
[2020-05-15] MEDS: QUETIAPINE 200 MG TABLET PO SCH ×2 (09:07→20:49)
[2020-05-15] MEDS: NICOTINE 21 MG/24 HR PATCH.TD24 TD SCH (09:07)
[2020-05-15] MEDS: LACTULOSE 10 GM/15 ML UDC PO PRN (09:40)
[2020-05-15] MEDS: SENNA/DOCUSATE TABLET PO PRN (09:41)
[2020-05-15] MEDS: POLYETHYLENE GLYCOL 17 GM PACKET PO PRN (09:42)
[2020-05-15] MEDS ORDERED: PINK LADY ENEMA 490 ML BOTTLE PR ONE (10:30)
[2020-05-15] MEDS ORDERED: BISACODYL 10 MG SUPP PR ONE (10:30)
[2020-05-15 13:37] VITALS: BP 107/69
[2020-05-15] MEDS: ENOXAPARIN 40 MG/0.4 ML SQ SCH (16:58)
[2020-05-15 20:14] VITALS: BP 109/71
[2020-05-15] MEDS: SIMVASTATIN 20 MG TABLET PO SCH (20:49)
[2020-05-15] MEDS: ZOLPIDEM 10MG TABLET PO PRN (23:09)
[2020-05-16 00:49] VITALS: BP 101/63
[2020-05-16] MEDS: ACETAMINOPHEN 500 MG TABLET PO SCH ×6 (01:03→21:41)
[2020-05-16] MEDS: morphine SULFATE 15 MG TAB.IR PO PRN ×3 (01:08→17:05)
[2020-05-16] MEDS: BACLOFEN 10 MG TABLET PO PRN ×3 (03:58→16:33)
[2020-05-16] MEDS: LORazepam 1MG TABLET PO PRN ×2 (03:58→13:08)
[2020-05-16 05:46] LABS: CREATININE 0.76 mg/dL (0.55-1.02)
[2020-05-16] MEDS: PANTOPRAZOLE 40MG TABLET PO SCH ×2 (05:57→16:14)
[2020-05-16 08:49] VITALS: BP 119/72
[2020-05-16] MEDS: POTASSIUM CHLORIDE 20 MEQ TAB.ER.PRT PO SCH ×2 (08:58→16:15)
[2020-05-16] MEDS: FUROSEMIDE 20 MG TABLET PO SCH ×2 (08:58→16:16)
[2020-05-16] MEDS: SUCRALFATE 1 GM/10 ML UDC PO SCH ×2 (08:59→21:41)
[2020-05-16] MEDS: NICOTINE 21 MG/24 HR PATCH.TD24 TD SCH (08:59)
[2020-05-16] MEDS: QUETIAPINE 200 MG TABLET PO SCH ×2 (08:59→21:41)
[2020-05-16] MEDS: DULOXETINE 20 MG CAPSULE.DR PO SCH ×2 (09:01→21:41)
[2020-05-16] MEDS: LACTULOSE 10 GM/15 ML UDC PO PRN (09:27)
[2020-05-16] MEDS: POLYETHYLENE GLYCOL 17 GM PACKET PO PRN (09:28)
[2020-05-16] MEDS: SENNA/DOCUSATE TABLET PO PRN (09:28)
[2020-05-16] MEDS: LIDODERM 5% PATCH TD PRN (09:29)
[2020-05-16] MEDS: MAGNESIUM CITRATE 300ML ORAL SOL PO PRN (11:57)
[2020-05-16] MEDS: BISACODYL 10 MG SUPP PR PRN (11:58)
[2020-05-16 16:08] VITALS: BP 106/68
[2020-05-16] MEDS: ENOXAPARIN 40 MG/0.4 ML SQ SCH (16:15)
[2020-05-16 18:38] VITALS: BP 107/67
[2020-05-16 21:40] VITALS: BP 117/77
[2020-05-16] MEDS: SIMVASTATIN 20 MG TABLET PO SCH (21:42)
[2020-05-16] MEDS: ZOLPIDEM 10MG TABLET PO PRN (23:06)
[2020-05-17] MEDS: LORazepam 1MG TABLET PO PRN ×3 (00:04→17:57)
[2020-05-17 00:52] VITALS: BP 99/62
[2020-05-17] MEDS: ACETAMINOPHEN 500 MG TABLET PO SCH ×6 (01:09→20:22)
[2020-05-17] MEDS: morphine SULFATE 15 MG TAB.IR PO PRN ×4 (01:10→19:16)
[2020-05-17] MEDS: PANTOPRAZOLE 40MG TABLET PO SCH ×2 (05:52→16:04)
[2020-05-17 08:10] VITALS: BP 120/70
[2020-05-17] MEDS: POTASSIUM CHLORIDE 20 MEQ TAB.ER.PRT PO SCH ×2 (08:21→16:00)
[2020-05-17] MEDS: QUETIAPINE 200 MG TABLET PO SCH ×2 (08:21→20:22)
[2020-05-17] MEDS: FUROSEMIDE 20 MG TABLET PO SCH ×2 (08:21→16:00)
[2020-05-17] MEDS: DULOXETINE 20 MG CAPSULE.DR PO SCH ×2 (08:22→20:22)
[2020-05-17] MEDS: SUCRALFATE 1 GM/10 ML UDC PO SCH ×2 (08:22→20:22)
[2020-05-17] MEDS: BACLOFEN 10 MG TABLET PO PRN ×3 (08:23→17:58)
[2020-05-17] MEDS: NICOTINE 21 MG/24 HR PATCH.TD24 TD SCH (08:23)
[2020-05-17] MEDS: SENNA/DOCUSATE TABLET PO PRN (08:23)
[2020-05-17] MEDS: LACTULOSE 10 GM/15 ML UDC PO PRN (08:29)
[2020-05-17] MEDS: POLYETHYLENE GLYCOL 17 GM PACKET PO PRN (08:29)
[2020-05-17] MEDS: LIDODERM 5% PATCH TD PRN (08:29)
[2020-05-17 13:53] VITALS: BP 97/62
[2020-05-17] MEDS: ENOXAPARIN 40 MG/0.4 ML SQ SCH (16:01)
[2020-05-17 19:43] VITALS: BP 104/66
[2020-05-17] MEDS: ZOLPIDEM 10MG TABLET PO PRN (20:22)
[2020-05-17] MEDS: SIMVASTATIN 20 MG TABLET PO SCH (20:22)
[2020-05-18 00:15] VITALS: BP 119/76
[2020-05-18] MEDS: BACLOFEN 10 MG TABLET PO PRN ×6 (00:21→21:43)
[2020-05-18] MEDS: morphine SULFATE 15 MG TAB.IR PO PRN ×5 (00:27→21:46)
[2020-05-18] MEDS: ACETAMINOPHEN 500 MG TABLET PO SCH ×6 (01:20→21:46)
[2020-05-18] MEDS: LORazepam 1MG TABLET PO PRN ×3 (02:25→18:39)
[2020-05-18] MEDS: MAGNESIUM HYDROXIDE 8%, 30ML UDC PO PRN (05:41)
[2020-05-18] MEDS: PANTOPRAZOLE 40MG TABLET PO SCH ×2 (05:43→16:34)
[2020-05-18 07:22] VITALS: BP 106/65
[2020-05-18] MEDS: QUETIAPINE 200 MG TABLET PO SCH ×2 (09:09→21:44)
[2020-05-18] MEDS: SUCRALFATE 1 GM/10 ML UDC PO SCH ×2 (09:09→21:44)
[2020-05-18] MEDS: POTASSIUM CHLORIDE 20 MEQ TAB.ER.PRT PO SCH ×2 (09:09→16:32)
[2020-05-18] MEDS: DULOXETINE 20 MG CAPSULE.DR PO SCH ×2 (09:09→21:46)
[2020-05-18] MEDS: FUROSEMIDE 20 MG TABLET PO SCH ×2 (09:10→16:32)
[2020-05-18] MEDS: NICOTINE 21 MG/24 HR PATCH.TD24 TD SCH (09:11)
[2020-05-18] MEDS: SENNA/DOCUSATE TABLET PO PRN (09:19)
[2020-05-18] MEDS: POLYETHYLENE GLYCOL 17 GM PACKET PO PRN (09:19)
[2020-05-18] MEDS: LACTULOSE 10 GM/15 ML UDC PO PRN (09:20)
[2020-05-18 14:50] VITALS: BP 111/72
[2020-05-18] MEDS: BISACODYL 10 MG SUPP PR PRN (15:30)
[2020-05-18] MEDS: ENOXAPARIN 40 MG/0.4 ML SQ SCH (16:31)
[2020-05-18 19:27] VITALS: BP 100/64
[2020-05-18] MEDS: SIMVASTATIN 20 MG TABLET PO SCH (21:00)
[2020-05-18] MEDS: ZOLPIDEM 10MG TABLET PO PRN (23:19)
[2020-05-19] MEDS: ACETAMINOPHEN 500 MG TABLET PO SCH ×4 (02:09→13:45)
[2020-05-19 02:42] VITALS: BP 108/68
[2020-05-19] MEDS: LORazepam 1MG TABLET PO PRN ×2 (05:06→12:37)
[2020-05-19] MEDS: morphine SULFATE 15 MG TAB.IR PO PRN ×2 (05:06→10:46)
[2020-05-19] MEDS: PANTOPRAZOLE 40MG TABLET PO SCH (05:11)
[2020-05-19 08:45] VITALS: BP 117/70
[2020-05-19] MEDS ORDERED: PANT40TA5 PO (09:15)
[2020-05-19] MEDS ORDERED: LACT10SO24 PO (09:15)
[2020-05-19] MEDS ORDERED: SENN-193 PO (09:15)
[2020-05-19] MEDS ORDERED: BISA10SU4 PR (09:15)
[2020-05-19] MEDS ORDERED: MORP-29 PO (09:15)
[2020-05-19] MEDS ORDERED: LIDO700A20 TD (09:15)
[2020-05-19] MEDS ORDERED: ZOLP10TA PO (09:15)
[2020-05-19] MEDS ORDERED: POTA20TA6 PO (09:15)
[2020-05-19] MEDS ORDERED: MORP15TA PO (09:15)
[2020-05-19] MEDS ORDERED: MORP-30 PO (09:15)
[2020-05-19] MEDS ORDERED: DULO20CA18 PO (09:15)
[2020-05-19] MEDS ORDERED: SIMV20TA19 PO (09:15)
[2020-05-19] MEDS ORDERED: FURO-93 PO (09:15)
[2020-05-19] MEDS ORDERED: MAGN296S4 PO (09:15)
[2020-05-19] MEDS ORDERED: SUCR1ORA5 PO (09:15)
[2020-05-19] MEDS ORDERED: FAMO20TA7 PO (09:15)
[2020-05-19] MEDS ORDERED: QUET200T7 PO (09:15)
[2020-05-19] MEDS: FUROSEMIDE 20 MG TABLET PO SCH (10:07)
[2020-05-19] MEDS: QUETIAPINE 200 MG TABLET PO SCH (10:08)
[2020-05-19] MEDS: POTASSIUM CHLORIDE 20 MEQ TAB.ER.PRT PO SCH (10:08)
[2020-05-19] MEDS: SUCRALFATE 1 GM/10 ML UDC PO SCH (10:08)
[2020-05-19] MEDS: DULOXETINE 20 MG CAPSULE.DR PO SCH (10:08)
[2020-05-19] MEDS: NICOTINE 21 MG/24 HR PATCH.TD24 TD SCH (10:09)
[2020-05-19] MEDS: BACLOFEN 10 MG TABLET PO PRN (10:45)
[2020-05-19] MEDS: LIDODERM 5% PATCH TD PRN (13:01)
== END 2020-05-19 14:22 | disposition home health service (06) | DRG 341 ==
LOC: ED 08:51 → 3N 09:52
PROVIDERS: ADMIT Internal Medicine; ATTEND Family Medicine
DX: S32.512A Fracture of superior rim of left pubis, initial encounter for closed fracture (principal); F11.20 Opioid dependence, uncomplicated; E11.9 Type 2 diabetes mellitus without complications; F13.20 Sedative, hypnotic or anxiolytic dependence, uncomplicated; E78.5 Hyperlipidemia, unspecified; F31.9 Bipolar disorder, unspecified; F41.1 Generalized anxiety disorder; G89.29 Other chronic pain; I10 Essential (primary) hypertension; J44.9 Chronic obstructive pulmonary disease, unspecified; K21.9 Gastro-esophageal reflux disease without esophagitis; K59.03 Drug induced constipation; M17.12 Unilateral primary osteoarthritis, left knee; M81.0 Age-related osteoporosis without current pathological fracture; N39.0 Urinary tract infection, site not specified; T40.605A Adverse effect of unspecified narcotics, initial encounter; S50.312A Abrasion of left elbow, initial encounter; W01.0XXA Fall on same level from slipping, tripping and stumbling without subsequent striking against object, initial encounter; Y93.01 Activity, walking, marching and hiking; S32.402A Unspecified fracture of left acetabulum, initial encounter for closed fracture; S70.01XA Contusion of right hip, initial encounter; M62.50 Muscle wasting and atrophy, not elsewhere classified, unspecified site; R53.81 Other malaise; R60.0 Localized edema; Z74.01 Bed confinement status; Z68.37 Body mass index [BMI] 37.0-37.9, adult; I25.2 Old myocardial infarction; Z86.73 Personal history of transient ischemic attack (TIA), and cerebral infarction without residual deficits; Z87.442 Personal history of urinary calculi; Z91.81 History of falling; Z99.3 Dependence on wheelchair; Z79.899 Other long term (current) drug therapy; Z88.8 Allergy status to other drugs, medicaments and biological substances; Y92.098 Other place in other non-institutional residence as the place of occurrence of the external cause; Y99.8 Other external cause status; Z72.0 Tobacco use; Z87.440 Personal history of urinary (tract) infections; Z03.818 Encounter for observation for suspected exposure to other biological agents ruled out; Z88.5 Allergy status to narcotic agent
CPT/HCPCS: 36415; 72190; 72192; 80048; 80053; 81001; 81025; 82565; 83735; 85025; 86480; 87077; 87086; 87186; 87635; 96372; 99285; G0378; J1170; J1650; J1885; J2405; Q0162; J2060; J2270; J7030

== ENCOUNTER 2020-05-26 16:54 | Inpatient (IN) | payer MEDICAID ==
[~2020-05-26] VITALS: Ht 180.3 cm; Wt 120.8 kg
[~2020-05-26 16:54] MED LIST changes: +BISA10SU4 PR; -CALC-666 PO; +CALC500T14 PO; +DULO20CA18 PO; +LACT10SO24 PO; +MAGN296S4 PO; +MORP-29 PO; +OXYC20OR8 PO; -PANT40TA5 PO; +PANT40TA6 PO; +POTA20TA6 PO; +QUET200T7 PO; +SENN-193 PO
--- NOTE | 2020-05-26 17:10 | NUR ---
PT BIB [facility] AFTER A GLF AT HOME. PT HAS BRITTLE BONE DISEASE, WAS RECENTLY HERE FOR A TOTAL PELVIS AND R HIP. NOW HAVING PAIN IN L HIP, ROTATION NOTED. GIVEN 200MCG FENTANYL EN ROUTE. PT HAS PAIN MGMT.
[2020-05-26] MEDS ORDERED: ONDANSETRON 2MG/ML, 2ML IVPush ONE (17:30)
[2020-05-26] MEDS ORDERED: HYDROmorphone 1 MG/ML, 1ML INJ IVPush PRN (17:30)
[2020-05-26] MEDS ORDERED: HYDROmorphone 1 MG/ML, 1ML INJ ONE (17:53)
[2020-05-26] MEDS ORDERED: ONDANSETRON 2MG/ML, 2ML ONE (17:53)
--- NOTE | 2020-05-26 17:58 | NUR ---
PT RETURNED FROM IMAGING. MEDICATED PER NOV. PT REQUESTING FOOD FOR A SECOND TIME, REMINDED THAT SHE IS NPO AND WHY. DENIES ANY FURTHER NEEDS OR CONCERNS AT THIS TIME. CALL LIGHT IN REACH.
--- NOTE | 2020-05-26 17:59 | NUR ---
ERMELINDA JARRED: [phone] THIS NURSE CALLED SON TO UPDATE ON PT STATUS PER PT REQUEST. SON NOT AVAILABLE, VOICEMAIL LEFT.
[2020-05-26] MEDS ORDERED: LACTULOSE 10 GM/15 ML UDC PO PRN (20:00)
[2020-05-26] MEDS ORDERED: LIDODERM 5% PATCH TD PRN (20:00)
[2020-05-26] MEDS ORDERED: MAGNESIUM CITRATE 300ML ORAL SOL PO PRN (20:00)
[2020-05-26] MEDS ORDERED: GABAPENTIN 300 MG CAPSULE PO PRN (20:00)
[2020-05-26] MEDS ORDERED: SODIUM CHLORIDE FLUSH 10ML SYR IVF PRN (20:00)
[2020-05-26] MEDS ORDERED: CYCLOBENZAPRINE 10 MG TABLET PO PRN (20:00)
[2020-05-26] MEDS ORDERED: ZOLPIDEM 10MG TABLET PO PRN (20:00)
--- NOTE | 2020-05-26 20:00 | NUR ---
LAB AT BEDSIDE FOR DRAW. PT DENIES ANY NEEDS OR CONCERNS. CALL LIGHT IN REACH.
[2020-05-26 20:25] LABS: BASOPHILS % (AUTO) 0 % (0-1); EOSINOPHILS % (AUTO) 1 % (1-7); LYMPHOCYTES # (AUTO) 2.62 x10^3/uL (1-3.4); LYMPHOCYTES % (AUTO) 22 % (22-44); MEAN CORPUSCULAR HEMOGLOBIN 27.1 pg (27.0-34.8); MEAN CORPUSCULAR HGB CONC 31.4 g/dL (32.4-35.8); MEAN CORPUSCULAR VOLUME 86.4 fL (80-100); MEAN PLATELET VOLUME 7.1 fL (7.4-10.4); MONOCYTES # (AUTO) 0.44 x10^3/uL (0.2-0.8); MONOCYTES % (AUTO) 4 % (2-9); NEUTROPHILS # (AUTO) 9.04 x10^3/uL (1.8-6.8); NEUTROPHILS % (AUTO) 74 % (42-75); PLATELET COUNT 328 x10^3/uL (130-400); RED BLOOD COUNT 5.23 x10^6/uL (3.82-5.3); RED CELL DISTRIBUTION WIDTH 16.7 % (9.6-15.2)
[2020-05-26 20:26] LABS: BASOPHILS # (AUTO) 0.02 x10^3/uL (0-0.1); EOSINOPHILS # (AUTO) 0.08 x10^3/uL (0-0.4); HCT (SEDRATE) 45.7 % (34.6-47.8); MD NO
[2020-05-26] MEDS ORDERED: LIDODERM REMOVE PATCH NOTE XX PRN (20:30)
[2020-05-26] MEDS ORDERED: OXYcodone ORAL.CONC 20 MG/ML PO PRN (20:30)
[2020-05-26 20:35] LABS: ALBUMIN 3.3 g/dL (3.4-5.0); ANION GAP 4 mmol/L (5-15); CALCIUM 9.3 mg/dL (8.5-10.1); CHLORIDE 106 mmol/L (98-107); CREATININE 0.71 mg/dL (0.55-1.02)
--- NOTE | 2020-05-26 20:59 | NUR ---
REPORT TO THALIA MCGUIRE. PT AWAITING TRANSPORT AT THIS TIME. CALL LIGHT IN REACH.
[2020-05-26] MEDS: QUETIAPINE FUMARATE 200 MG HOMEMEDPO SCH (21:00)
[2020-05-26] MEDS ORDERED: SIMVASTATIN 20 MG TABLET PO SCH (21:00)
[2020-05-26] MEDS: SUCRALFATE 1 GM/10 ML UDC PO SCH (22:19)
[2020-05-26] MEDS: DULOXETINE 20 MG CAPSULE.DR PO SCH (22:21)
[2020-05-26] MEDS: HEPARIN 5,000 UNITS/ML, 1ML SQ SCH (22:21)
[2020-05-27 00:19] VITALS: BP 107/60
[2020-05-27] MEDS: SUCRALFATE 1 GM/10 ML UDC PO SCH (05:12)
[2020-05-27] MEDS: PANTOPRAZOLE 40MG TABLET PO SCH ×2 (05:13→18:11)
[2020-05-27] MEDS: HEPARIN 5,000 UNITS/ML, 1ML SQ SCH ×2 (05:13→14:13)
[2020-05-27] MEDS ORDERED: POTASSIUM CHLORIDE 20 MEQ TAB.ER.PRT PO SCH (08:00)
[2020-05-27 08:10] VITALS: BP 110/70
[2020-05-27] MEDS: QUETIAPINE FUMARATE 200 MG HOMEMEDPO SCH (09:00)
[2020-05-27] MEDS ORDERED: FAMOTIDINE 20 MG TABLET PO SCH (09:00)
[2020-05-27] MEDS ORDERED: FUROSEMIDE 20 MG TABLET PO SCH (09:00)
[2020-05-27] MEDS: DULOXETINE 20 MG CAPSULE.DR PO SCH (10:28)
[2020-05-27] MEDS: morphine SULFATE 15 MG TAB.IR PO PRN ×2 (10:28→18:23)
[2020-05-27 12:36] VITALS: BP 108/68
[2020-05-27] MEDS ORDERED: NICOTINE 14MG/24 HR PATCH.TD24 TD SCH (14:00)
[2020-05-27] MEDS ORDERED: OMNIPAQUE 350 MG/ML, 100ML BOTTLE ONE (15:58)
== END 2020-05-27 20:00 | disposition home or self-care (01) | DRG 344 ==
LOC: ED 20:19 → OBSVTOIN 20:31 → INTOOBSV 20:31 → EDIP 20:31 → 3N 21:25
PROVIDERS: ADMIT Family Medicine; ATTEND Internal Medicine
DX: E11.69 Type 2 diabetes mellitus with other specified complication (principal); E78.5 Hyperlipidemia, unspecified; F17.200 Nicotine dependence, unspecified, uncomplicated; F31.9 Bipolar disorder, unspecified; G89.29 Other chronic pain; I10 Essential (primary) hypertension; J44.9 Chronic obstructive pulmonary disease, unspecified; M81.0 Age-related osteoporosis without current pathological fracture; M86.9 Osteomyelitis, unspecified; E66.9 Obesity, unspecified; M54.9 Dorsalgia, unspecified; R26.2 Difficulty in walking, not elsewhere classified; I25.2 Old myocardial infarction; Z86.73 Personal history of transient ischemic attack (TIA), and cerebral infarction without residual deficits; Z87.442 Personal history of urinary calculi; Z90.710 Acquired absence of both cervix and uterus
CPT/HCPCS: 36415; 80048; 82040; 83605; 85025; 85651; 86140; 87040; G0378; J1170; J1644; J2405; Q9967

== ENCOUNTER 2020-06-09 22:06 | Observation (INO) | payer MEDICAID ==
[~2020-06-09] VITALS: Ht 180.3 cm; Wt 117.3 kg
--- NOTE | 2020-06-09 22:30 | NUR ---
xray at bedside
--- NOTE | 2020-06-09 22:48 | NUR ---
PT TO CT
--- NOTE | 2020-06-09 23:01 | NUR ---
PT BACK FROM CT LAB AT BEDSIDE
[2020-06-09 23:25] LABS: MEAN CORPUSCULAR HEMOGLOBIN 26.2 pg (27.0-34.8); MEAN PLATELET VOLUME 7.2 fL (7.4-10.4); PLATELET COUNT 263 x10^3/uL (130-400); RED BLOOD COUNT 5.62 x10^6/uL (3.82-5.3); RED CELL DISTRIBUTION WIDTH 16.7 % (9.6-15.2)
[2020-06-09 23:27] LABS: ANION GAP 6 mmol/L (5-15); CHLORIDE 110 mmol/L (98-107)
--- NOTE | 2020-06-09 23:38 | NUR ---
PT RESTING ON JOHN [place]
[2020-06-09 23:49] LABS: ANISOCYTOSIS 2+; BASOPHILS # (AUTO) 0.04 x10^3/uL (0-0.1); BASOPHILS % (AUTO) 0 % (0-1); EOSINOPHILS # (AUTO) 0.02 x10^3/uL (0-0.4); EOSINOPHILS % (AUTO) 0 % (1-7); LYMPHOCYTES # (AUTO) 1.51 x10^3/uL (1-3.4); LYMPHOCYTES % (AUTO) 15 % (22-44); MD MORPH REVIEW ONLY; MONOCYTES # (AUTO) 0.47 x10^3/uL (0.2-0.8); MONOCYTES % (AUTO) 5 % (2-9); NEUTROPHILS # (AUTO) 7.96 x10^3/uL (1.8-6.8); NEUTROPHILS % (AUTO) 80 % (42-75)
[2020-06-09 23:50] LABS: MICROCYTOSIS 2+; OVALOCYTES 1+; POLYCHROMASIA 1+
[2020-06-09 23:51] LABS: <PLATELET ESTIMATE> ADEQUATE; SMALL PLATELETS 1+
--- NOTE | 2020-06-10 00:23 | NUR ---
pt still resting on josefa rios no needs
--- NOTE | 2020-06-10 01:09 | NUR ---
REPORT TO IMANI ASSISTANT ASSOCIATE FULL PROFESSOR OF CARE AT THIS TIME, PT RESTING ON GURKEITH FOLLOWS COMMANDS APPROP
[2020-06-10] MEDS ORDERED: ACETAMINOPHEN 325 MG TABLET PO PRN (02:30)
[2020-06-10] MEDS ORDERED: LACTULOSE 10 GM/15 ML UDC PO PRN (02:30)
[2020-06-10] MEDS ORDERED: ENOXAPARIN 40 MG/0.4 ML SQ SCH (02:30)
[2020-06-10] MEDS ORDERED: LIDODERM 5% PATCH TD PRN (02:30)
[2020-06-10] MEDS ORDERED: LABETALOL 5MG/ML, 20ML IVPush PRN (02:30)
[2020-06-10] MEDS ORDERED: MAGNESIUM CITRATE 300ML ORAL SOL PO PRN (02:30)
[2020-06-10] MEDS ORDERED: PROMETHAZINE 25 MG/ML, 1ML IM PRN (02:30)
[2020-06-10] MEDS ORDERED: SENNA/DOCUSATE TABLET PO PRN (02:30)
[2020-06-10] MEDS ORDERED: ONDANSETRON 2MG/ML, 2ML IVPush PRN (02:30)
--- NOTE | 2020-06-10 02:44 | NUR ---
Report given to THALIA Epperson.
[2020-06-10] MEDS ORDERED: SENOKOT S MC SCH (03:00)
[2020-06-10 03:04] VITALS: BP 140/73
[2020-06-10 03:08] LABS: AMPHETAMINE SCREEN, URINE Negative (Negative); BARBITURATE SCREEN, URINE Negative (Negative); BENZODIAZEPINE SCREEN, URINE Negative (Negative); CANNABINOID SCREEN, URINE Negative (Negative); COCAINE SCREEN, URINE Negative (Negative); METHADONE SCREEN, URINE Negative (Negative); OPIATE SCREEN, URINE Positive (Negative)
[2020-06-10] MEDS ORDERED: MORP-52 PO (03:34)
[2020-06-10] MEDS: morphine SULFATE 15 MG TAB.IR PO PRN ×3 (03:58→21:48)
[2020-06-10] MEDS: PANTOPRAZOLE 40MG TABLET PO SCH ×2 (05:35→16:32)
[2020-06-10 07:20] VITALS: BP 136/84
[2020-06-10] MEDS: DULOXETINE 20 MG CAPSULE.DR PO SCH ×2 (08:20→20:06)
[2020-06-10] MEDS: QUETIAPINE 200 MG TABLET PO SCH ×2 (08:20→20:05)
[2020-06-10] MEDS: SUCRALFATE 1 GM/10 ML UDC PO SCH ×2 (08:21→20:05)
[2020-06-10] MEDS ORDERED: POTASSIUM CHLORIDE 20 MEQ TAB.ER.PRT PO SCH (09:00)
[2020-06-10] MEDS ORDERED: NICOTINE 21 MG/24 HR PATCH.TD24 TD ONE (09:00)
[2020-06-10] MEDS ORDERED: FAMOTIDINE 20 MG TABLET PO SCH (09:00)
[2020-06-10] MEDS ORDERED: FUROSEMIDE 20 MG TABLET PO SCH (09:00)
[2020-06-10] MEDS ORDERED: SENNA/DOCUSATE TABLET PO SCH (09:00)
[2020-06-10 13:47] VITALS: BP 95/61
[2020-06-10] MEDS ORDERED: NALOXONE 0.4 MG/ML, 1ML IVPush ONE (15:00)
[2020-06-10 19:43] VITALS: BP 118/66
[2020-06-10] MEDS ORDERED: SIMVASTATIN 20 MG TABLET PO SCH (21:00)
== END 2020-06-10 22:55 | disposition home or self-care (01) ==
LOC: ED 23:24 → EDIP 06-10 02:08 → INTOOBSV 06-10 02:08 → 4WST 06-10 03:00
PROVIDERS: ADMIT Family Medicine; ATTEND Family Medicine
DX: M25.552 Pain in left hip (principal); J96.01 Acute respiratory failure with hypoxia; I25.2 Old myocardial infarction; G92 Toxic encephalopathy; T40.2X1A Poisoning by other opioids, accidental (unintentional), initial encounter; G89.11 Acute pain due to trauma; I10 Essential (primary) hypertension; J44.9 Chronic obstructive pulmonary disease, unspecified; K51.90 Ulcerative colitis, unspecified, without complications; K59.03 Drug induced constipation; R53.2 Functional quadriplegia; F31.9 Bipolar disorder, unspecified; M80.00XA Age-related osteoporosis with current pathological fracture, unspecified site, initial encounter for fracture; F11.20 Opioid dependence, uncomplicated; E78.5 Hyperlipidemia, unspecified; W06.XXXA Fall from bed, initial encounter; Y92.003 Bedroom of unspecified non-institutional (private) residence as the place of occurrence of the external cause; Z66 Do not resuscitate; Z86.73 Personal history of transient ischemic attack (TIA), and cerebral infarction without residual deficits; Z87.891 Personal history of nicotine dependence; Z99.3 Dependence on wheelchair; Z91.19 Patient's noncompliance with other medical treatment and regimen; Z99.81 Dependence on supplemental oxygen
CPT/HCPCS: 36415; 70450; 71045; 73502; 73564; 80048; 80307; 85025; 96372; 96374; 97162; 99291; G0378; J1650; J2310